=== PATIENT | male | born 1975 | race Caucasian/White ===

== ENCOUNTER 2017-04-26 20:55 | Emergency (ER) | payer SELFPAY ==
[2017-04-26 21:03] VITALS: BP 113/79; PULSE 98; TEMP 97.9; O2SAT 98
--- NOTE | 2017-04-26 21:51 | C.PDOC ---
History Of Present Illness 41 year old male presents to the ED for evaluation of right hand pain which developed after he sustained a fall earlier today. Patient states he tried to break his fall with his right hand and now has pain over the right 5th MCP. Patient reports he sustained a fracture to the same area on his right hand 2 months ago, was seen in [place], "and has not followed up, still looking for a specialist. Otherwise, Patient denies weakness or sensorivascular deficits to his right hand, denies head injury, LOC, headache, denies any other active complaints. Ambulate to ED, (+) alcohol odor noted. Time Seen by Provider: 04/26/17 21:07 Chief Complaint (Nursing): Finger,Hand,&Wrist History Per: Patient History/Exam Limitations: no limitations Onset/Duration Of Symptoms: Hrs Current Symptoms Are (Timing): Still Present Quality: "Pain" Additional History Per: Patient Past Medical History Reviewed: Historical Data, Nursing Documentation, Vital Signs Vital Signs: Last Vital Signs Temp 97.9 F 04/26/17 21:01 Pulse 98 H 04/26/17 21:01 Resp 16 04/26/17 21:01 BP 113/79 04/26/17 21:01 Pulse Ox 98 04/26/17 22:02 - Medical History PMH: No Chronic Diseases Surgical History: No Surg Hx Family History: States: Unknown Family Hx - Social History Hx Alcohol Use: Yes Hx Substance Use: No - Immunization History Hx Tetanus Toxoid Vaccination: Yes Hx Influenza Vaccination: No Hx Pneumococcal Vaccination: No Review Of Systems Musculoskeletal: Positive for: Hand Pain (right) Neurological: Negative for: Weakness, Numbness Physical Exam - Physical Exam Appears: Well, Non-toxic, No Acute Distress Skin: Normal Color, Warm, Dry Head: Atraumatic, Normacephalic Oral Mucosa: Other ((+) strong alcohol odor) Neck: Trachea Midline, No Midline Cervical Tenderness, No Paracervical Tenderness, No Step Off Deformity, Supple Chest: Symmetrical, No Deformity, No Tenderness Back: No Vertebral Tenderness Extremity: Normal ROM (Right hand, no neurovascular deficits), Tenderness (over dorsal asepct Right hand over 5th MCB ), Capillary Refill (less than 2 seconds ) , Deformity (over dorsal aspect of right 5th MCP), No Swelling Neurological/Psych: Oriented x3, Normal Speech, Normal Cognition, Normal Motor, Normal Sensation, Normal Reflexes ED Course And Treatment O2 Sat by Pulse Oximetry: 98 (on RA) Pulse Ox Interpretation: Normal - Other Rad Right hand X-Ray: Interpreted by Me, Viewed By Me Interpretation: (+) 5th MCB fx Progress Note: Right hand XR ordered and reviewed. On re-eavl, pt si AAO#3, not in any apparent distress. Afebrile, hemodynamicaly stable. Ambulatory in ED with stable gait. Head: AT/NC. RUE: exam c/w 5th MCB deformity r/o fracture , no neurovascular deficits, no edema. Imaging review and c/w angulate fx of Right 5th MCB. Fiberglass splint applied, sling. Pt advised and ref. to F/u with hand specialist in 1-2 days for re-eval. return to ED if any worsneing or new changes. Orthopedic Time Performed: 21:44 Time Out: Side verified, Site verified, Patient ID confirmed Procedure: Splint Other:: ULNAR GUTTER Location: Right, Hand Consent obtained: Verbal Performed by: Mid-level Provider Diagnosis: Fracture Type: Displaced, Angulated Location: Right Bone: Metacarpal, 5th Disposition Counseled Patient/Family Regarding: Studies Performed, Diagnosis, Need For Followup, Rx Given - Disposition Referrals: Juanis Dahl MD [Staff Provider] - [facility] [Outside] Disposition: HOME/ ROUTINE Disposition Time: 21:45 Condition: STABLE Additional Instructions: SPLINT UNTIL RE-EVALUATED BY HAND SPECIALIST TAKE PAIN MEDICATION PRESCRIBED FOLLOW UP WITH HAND SPECIALIST IN 1-2 DAYS FOR RE-EVALUATION RETURN TO ED IF ANY WORSENING OR NEW CHANGES. Prescriptions: traMADol [Ultram] 50 mg PO TID #7 tab Instructions: Hand Fracture (ED) Forms: [employer] (Hungarian) - Clinical Impression Clinical Impression: Hand fracture, right - PA / HOSE HANDLER / Resident Statement MD/DO has reviewed & agrees with the documentation as recorded. - Scribe Statement The provider has reviewed the documentation as recorded by the Scribe (Chelsea Barragan) All medical record entries made by the Scribe were at my direction and personally dictated by me. I have reviewed the chart and agree that the record accurately reflects my personal performance of the history, physical exam, medical decision making, and the department course for this patient. I have also personally directed, reviewed, and agree with the discharge instructions and disposition.
[2017-04-26 22:21] VITALS: RESP 20
--- NOTE | 2017-04-27 08:59 | RAD ---
PROCEDURE: Right Hand Radiographs. HISTORY: INJURY COMPARISON: None. FINDINGS: BONES: Distal 5th metacarpal metaphyseal fracture with impaction and posterior angulation deformity. No intra-articular extension. 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 OTHER FINDINGS: None. IMPRESSION: Fifth metacarpal fracture with impaction posterior angulation deformity -acute/subacute appearing
== END 2017-04-26 22:20 | disposition home or self-care (01) ==
LOC: C.ER 20:55
DX: S62.396A Other fracture of fifth metacarpal bone, right hand, initial encounter for closed fracture (principal); W18.30XA Fall on same level, unspecified, initial encounter

== ENCOUNTER 2017-10-14 12:47 | Emergency (ER) | payer OTHER ==
[2017-10-14 13:53] LABS: BASO # 0.1 K/uL (0.0-0.2); EOS % 0.5 % (0.0-4.0); HEMOGLOBIN 15.9 g/dL (12.0-18.0); LYMPH # 2.4 K/uL (1.0-4.3); LYMPH % 44.9 % (20.0-40.0); MEAN CORPUSCULAR HEMOGLOBIN 32.7 pg (27.0-31.0); MEAN CORPUSCULAR HGB CONC 35.1 g/dL (33.0-37.0); MEAN PLATELET VOLUME 7.5 fL (7.2-11.7); MONO # 0.4 K/uL (0.0-0.8); MONO % 8.2 % (0.0-10.0); NEUT # 2.4 K/uL (1.8-7.0); NEUT % 45.4 % (50.0-75.0); NRBC % 0.1 % (0.0-2.0); RBC 4.87 Mil/uL (4.40-5.90); RED CELL DISTRIBUTION WIDTH 13.8 % (11.5-14.5); WHITE BLOOD COUNT 5.4 K/uL (4.8-10.8)
[2017-10-14 13:59] LABS: URINE BILIRUBIN NEGATIVE (NEGATIVE); URINE BLOOD 1+ (NEGATIVE); URINE CLARITY Hazy (Clear); URINE COLOR Amber (YELLOW); URINE GLUCOSE (UA) 3+ mg/dL (Normal); URINE LEUKOCYTE ESTERASE NEG Leu/uL (Negative); URINE PROTEIN 2+ mg/dL (NEGATIVE)
[2017-10-14 14:09] LABS: ALB/GLOB RATIO 1.1 (1.0-2.1); ALBUMIN 4.4 g/dL (3.5-5.0); ALT/SGPT 87 U/L (21-72); AST/SGOT 166 U/L (17-59); BLOOD UREA NITROGEN 8 mg/dL (9-20); CALCIUM 8.6 mg/dl (8.6-10.4); GFR AFRICAN-AMERICAN > 60; GFR NON-AFRICAN AMERICAN > 60
[2017-10-14 14:29] LABS: BARBITURATES, UR NEGATIVE (NEGATIVE); BENZODIAZEPINES, UR NEGATIVE (NEGATIVE); OPIATES, UR NEGATIVE (NEGATIVE); PHENCYCLIDINE, UR NEGATIVE (NEGATIVE)
--- NOTE | 2017-10-14 16:51 | C.PDOC ---
History Of Present Illness 42 y/o male brought to ER by ambulance for psychiatric evaluation after his family called the police secondary to strange behavior. Patient states that he wants to harm himself. Patient denies having homicidal ideation and active physical complaints. Time Seen by Provider: 10/14/17 13:00 Chief Complaint (Nursing): Psychiatric Evaluation History Per: Patient History/Exam Limitations: no limitations Onset/Duration Of Symptoms: Days Current Symptoms Are (Timing): Still Present Severity: Moderate Past Medical History Reviewed: Historical Data, Nursing Documentation, Vital Signs Vital Signs: Last Vital Signs Temp 97.9 F 10/14/17 13:22 Pulse 85 10/14/17 13:22 Resp 16 10/14/17 13:22 BP 119/84 10/14/17 13:22 Pulse Ox 97 10/14/17 17:02 - Medical History PMH: Anxiety, Depression Surgical History: No Surg Hx Family History: States: No Known Family Hx - Social History Hx Alcohol Use: Yes Hx Substance Use: No - Immunization History Hx Tetanus Toxoid Vaccination: Yes Hx Influenza Vaccination: No Hx Pneumococcal Vaccination: No Review Of Systems Except As Marked, All Systems Reviewed And Found Negative. Constitutional: Negative for: Fever, Chills Psych: Positive for: Suicidal ideation Physical Exam - Physical Exam Appears: Non-toxic, No Acute Distress Skin: Normal Color, Warm, Dry Head: Atraumatic, Normacephalic Eye(s): bilateral: Normal Inspection Nose: Normal Oral Mucosa: Moist Neck: Supple Chest: Symmetrical Cardiovascular: Rhythm Regular Respiratory: Normal Breath Sounds, No Rales, No Rhonchi, No Wheezing Gastrointestinal/Abdominal: Normal Exam, Soft, No Tenderness Neurological/Psych: Oriented x3, Normal Speech ED Course And Treatment - Laboratory Results Result Diagrams: 10/14/17 13:49 10/14/17 13:49 O2 Sat by Pulse Oximetry: 97 (RA) Pulse Ox Interpretation: Normal Medical Decision Making Medical Decision Making: Assessment: Suicidal Ideation, ETOH intoxication Plan: --Labs --UA --Crisis Evaluation case s/o to Dr. Hidalgo pending crisis evaluation Patient medically cleared for crisis. Disposition Counseled Patient/Family Regarding: Studies Performed, Diagnosis - Disposition Disposition Time: 18:39 Condition: STABLE Forms: [employer] (Polish) - Clinical Impression Clinical Impression: Alcohol intoxication - Scribe Statement The provider has reviewed the documentation as recorded by the Scribe Summen Vito Provider Attestation: All medical record entries made by the Branden were at my direction and personally dictated by me. I have reviewed the chart and agree that the record accurately reflects my personal performance of the history, physical exam, medical decision making, and the department course for this patient. I have also personally directed, reviewed, and agree with the discharge instructions and disposition. Physician Patient Turnover Patient Signed Over To: Basil Hidalgo Handoff Comments: pending crisis evaluation.
[2017-10-14 23:33] VITALS: BP 110/70; PULSE 87; RESP 14; TEMP 98; O2SAT 97
== END 2017-10-14 23:33 | disposition home or self-care (01) ==
LOC: C.ER 12:47
DX: F10.129 Alcohol abuse with intoxication, unspecified (principal); Y90.8 Blood alcohol level of 240 mg/100 ml or more; F41.9 Anxiety disorder, unspecified; F32.9 Major depressive disorder, single episode, unspecified

== ENCOUNTER 2017-11-07 08:09 | Emergency (ER) | payer SELFPAY ==
--- NOTE | 2017-11-07 10:15 | C.PDOC ---
History Of Present Illness 42-year-old male, presents to the emergency department with complaints of high blood sugar. Patient states his friend thought his sugar was high. States he has been non compliant with DM medication for "months" He has a Hx of EtOH abuse. Denies nausea/vomiting, fever, chills, chest pain or any other associated symptoms. No other complaints at this time. Time Seen by Provider: 11/07/17 08:23 Chief Complaint (Nursing): High Blood Sugar History Per: Patient History/Exam Limitations: no limitations Past Medical History Reviewed: Historical Data, Nursing Documentation, Vital Signs Vital Signs: Last Vital Signs Temp 98.4 F 11/07/17 10:15 Pulse 69 11/07/17 10:15 Resp 15 11/07/17 10:15 BP 101/67 11/07/17 10:15 Pulse Ox 99 11/07/17 10:15 - Medical History PMH: Anxiety, Depression Family History: States: No Known Family Hx - Social History Hx Alcohol Use: Yes Hx Substance Use: No - Immunization History Hx Tetanus Toxoid Vaccination: Yes Hx Influenza Vaccination: No Hx Pneumococcal Vaccination: No Review Of Systems Constitutional: Negative for: Fever, Chills Cardiovascular: Negative for: Chest Pain, Palpitations Respiratory: Negative for: Shortness of Breath Gastrointestinal: Negative for: Nausea, Vomiting, Abdominal Pain Musculoskeletal: Negative for: Back Pain Neurological: Negative for: Weakness, Numbness, Headache Physical Exam - Physical Exam Appears: Non-toxic, No Acute Distress, Other (No acute intoxication. Clear speech. No withdrawal symptoms.) Skin: Normal Color, Warm, Dry, No Rash Head: Atraumatic, Normacephalic Eye(s): bilateral: Normal Inspection, PERRL, EOMI Nose: Normal Oral Mucosa: Moist Lips: Normal Appearing Neck: Normal ROM Chest: Symmetrical Cardiovascular: Rhythm Regular, No Murmur Respiratory: Normal Breath Sounds, No Accessory Muscle Use Gastrointestinal/Abdominal: Soft, No Tenderness Extremity: Normal ROM, No Deformity, No Swelling Neurological/Psych: Oriented x3, Normal Speech Gait: Steady ED Course And Treatment O2 Sat by Pulse Oximetry: 96 (RA) Pulse Ox Interpretation: Normal Disposition Counseled Patient/Family Regarding: Studies Performed, Diagnosis, Need For Followup, Rx Given - Disposition Referrals: [facility] [Outside] [facility] [Outside] Disposition: HOME/ ROUTINE Disposition Time: 10:13 Condition: GOOD Prescriptions: MetFORMIN [glucOPHAGE] 1,000 mg PO BID #30 tab Instructions: Diabetes Type 2 (DC) Forms: [employer] (Romansh) - Clinical Impression Clinical Impression: Uncontrolled diabetes mellitus - Scribe Statement The provider has reviewed the documentation as recorded by the Scribe (Devyn Kramer) All medical record entries made by the Scribe were at my direction and personally dictated by me. I have reviewed the chart and agree that the record accurately reflects my personal performance of the history, physical exam, medical decision making, and the department course for this patient. I have also personally directed, reviewed, and agree with the discharge instructions and disposition.
[2017-11-07 10:16] VITALS: BP 101/67; PULSE 69; RESP 15; TEMP 98.4
[2017-11-07 10:26] VITALS: O2SAT 96
== END 2017-11-07 10:20 | disposition home or self-care (01) ==
LOC: C.ER 08:09
DX: E11.65 Type 2 diabetes mellitus with hyperglycemia (principal)

== ENCOUNTER 2017-11-20 04:46 | Emergency (ER) | payer SELFPAY ==
--- NOTE | 2017-11-20 05:47 | C.PDOC ---
History Of Present Illness 42 year old male presents to the ED c/o posterior neck pain for the past 2 weeks. Patient states his pain is now radiating towards his bilateral upper back and shoulder area. Patient reports pain worsens with heavy lifting, which is what he does during work. Patient has past h/o of chronic neck pain, but denies injury, fall, trauma, headache, dizziness, numbness, weakness. Time Seen by Provider: 11/20/17 05:15 Chief Complaint (Nursing): Back Pain History Per: Patient History/Exam Limitations: no limitations Onset/Duration Of Symptoms: Days Current Symptoms Are (Timing): Still Present Quality Of Discomfort: "Pain" Previous Symptoms: Neck Pain Exacerbating Factor(s): Other (lifting) Recent travel outside of the [place]: No Additional History Per: Patient Past Medical History Reviewed: Historical Data, Nursing Documentation, Vital Signs Vital Signs: Last Vital Signs Temp 97.8 F 11/20/17 04:54 Pulse 84 11/20/17 04:54 Resp 16 11/20/17 04:54 BP 119/79 11/20/17 04:54 Pulse Ox 97 11/20/17 05:51 - Medical History PMH: Anxiety, Depression Surgical History: No Surg Hx Family History: States: Unknown Family Hx - Social History Hx Alcohol Use: Yes Hx Substance Use: No - Immunization History Hx Tetanus Toxoid Vaccination: Yes Hx Influenza Vaccination: No Hx Pneumococcal Vaccination: No Review Of Systems Constitutional: Negative for: Fever, Chills Eyes: Negative for: Vision Change Cardiovascular: Negative for: Chest Pain Respiratory: Negative for: Shortness of Breath Gastrointestinal: Negative for: Nausea, Vomiting Musculoskeletal: Positive for: Neck Pain, Shoulder Pain, Back Pain Skin: Negative for: Rash Neurological: Negative for: Weakness, Numbness Physical Exam - Physical Exam Appears: Non-toxic, No Acute Distress Skin: Normal Color, Warm, Dry Head: Atraumatic, Normacephalic Eye(s): bilateral: Normal Inspection Oral Mucosa: Moist Neck: Normal ROM, No Midline Cervical Tenderness, Paracervical Tenderness, Supple Chest: Symmetrical Cardiovascular: Rhythm Regular Respiratory: Normal Breath Sounds, No Rales, No Rhonchi, No Wheezing Gastrointestinal/Abdominal: Soft, No Tenderness, No Guarding, No Rebound Back: No Vertebral Tenderness Extremity: Normal ROM, No Tenderness, Capillary Refill (< 2 seconds), No Swelling Neurological/Psych: Oriented x3, Normal Speech, Normal Motor, Normal Sensation Gait: Steady ED Course And Treatment O2 Sat by Pulse Oximetry: 97 (ON RA) Pulse Ox Interpretation: Normal Progress Note: Plan: - Flexeril 10 mg PO. - Motrin 600 mg PO. On reassessment , patient is resting comfortably, with improvement of back pain. Patient remains afebrile, with no bony tenderness, extremity numbness or weakness, or abdominal pain. Patient is ambulatory in the emergency department with no signs of discomfort. Patient was advised to follow up with physician/clinic in 1-2 days. Disposition - Disposition Referrals: James Bello MD [Staff Provider] - Disposition: HOME/ ROUTINE Disposition Time: 06:06 Condition: STABLE Additional Instructions: Take meds prescribed Follow up with PMD RETURN TO ER IF WORSE Prescriptions: Cyclobenzaprine [Cyclobenzaprine HCl] 10 mg PO HS #10 tab Ibuprofen [Motrin] 600 mg PO Q6H #20 tab Instructions: Cervical Muscle Strain (DC) Forms: [employer] (Mongolian) - Clinical Impression Clinical Impression: Cervical radiculitis - PA / CAMPAIGN MANAGER / Resident Statement MD/DO has reviewed & agrees with the documentation as recorded. - Scribe Statement The provider has reviewed the documentation as recorded by the Scribe Daniel Carrillo All medical record entries made by the Florecniaibchristel were at my direction and personally dictated by me. I have reviewed the chart and agree that the record accurately reflects my personal performance of the history, physical exam, medical decision making, and the department course for this patient. I have also personally directed, reviewed, and agree with the discharge instructions and disposition.
[2017-11-20 06:24] VITALS: BP 111/70; PULSE 73; RESP 19; TEMP 97.9; O2SAT 98
== END 2017-11-20 06:24 | disposition home or self-care (01) ==
LOC: C.ER 04:46
DX: M54.12 Radiculopathy, cervical region (principal)

== ENCOUNTER 2017-11-26 04:36 | Emergency (ER) | payer SELFPAY ==
[2017-11-26 04:53] VITALS: O2SAT 100
[2017-11-26 05:31] LABS: EOS # 0.2 K/uL (0.0-0.7); EOS % 3.8 % (0.0-4.0); HEMOGLOBIN 14.1 g/dL (12.0-18.0); LYMPH # 2.2 K/uL (1.0-4.3); LYMPH % 53.8 % (20.0-40.0); MEAN CELL VOLUME 97.5 fL (80.0-94.0); MEAN CORPUSCULAR HEMOGLOBIN 32.6 pg (27.0-31.0); MEAN CORPUSCULAR HGB CONC 33.4 g/dL (33.0-37.0); MEAN PLATELET VOLUME 7.8 fL (7.2-11.7); MONO # 0.4 K/uL (0.0-0.8); MONO % 8.6 % (0.0-10.0); NEUT # 1.3 K/uL (1.8-7.0); NEUT % 32.8 % (50.0-75.0); NRBC % 0.2 % (0.0-2.0); RBC 4.32 Mil/uL (4.40-5.90); RED CELL DISTRIBUTION WIDTH 17.5 % (11.5-14.5); WHITE BLOOD COUNT 4.1 K/uL (4.8-10.8)
[2017-11-26 05:47] LABS: ALB/GLOB RATIO 1.2 (1.0-2.1); ALBUMIN 4.2 g/dL (3.5-5.0); ALT/SGPT 74 U/L (21-72); AST/SGOT 137 U/L (17-59); BLOOD UREA NITROGEN 6 mg/dL (9-20); CALCIUM 8.8 mg/dl (8.6-10.4); GFR AFRICAN-AMERICAN > 60; GFR NON-AFRICAN AMERICAN > 60
[2017-11-26 05:54] LABS: URINE BILIRUBIN NEGATIVE (NEGATIVE); URINE BLOOD NEGATIVE (NEGATIVE); URINE CLARITY Clear (Clear); URINE COLOR Straw (YELLOW); URINE GLUCOSE (UA) 3+ mg/dL (Normal); URINE LEUKOCYTE ESTERASE NEG Leu/uL (Negative); URINE PROTEIN NEGATIVE (NEGATIVE); URINE UROBILINOGEN NORMAL mg/dL (0.2-1.0)
[2017-11-26 06:08] LABS: BARBITURATES, UR NEGATIVE (NEGATIVE); BENZODIAZEPINES, UR NEGATIVE (NEGATIVE); OPIATES, UR NEGATIVE (NEGATIVE); PHENCYCLIDINE, UR NEGATIVE (NEGATIVE)
--- NOTE | 2017-11-26 06:33 | C.PDOC ---
History Of Present Illness 42 year old male is brought to the ED by EMS intoxicated for evaluation of suicidal ideation. As per EMS patient called 911 stating that he wanted to harm himself. Patient admits to drinking alcohol today. Patient voices no complaints while in the ED. Patient denies HI, hallucinations. Time Seen by Provider: 11/26/17 05:18 Chief Complaint (Nursing): Psychiatric Evaluation History Per: Patient, EMS History/Exam Limitations: intoxication Onset/Duration Of Symptoms: Days Current Symptoms Are (Timing): Still Present Suicide/Self Injury Attempted (Context): None Modifying Factor(s): Alcohol Associated Symptoms: Depression, Suicidal Thoughts. denies: Suicidal Plan Recent travel outside of the [place]: No Additional History Per: Patient, EMS Past Medical History Reviewed: Historical Data, Nursing Documentation, Vital Signs Vital Signs: Last Vital Signs Temp 99.4 F 11/26/17 06:37 Pulse 65 11/26/17 06:37 Resp 18 11/26/17 06:37 BP 108/73 11/26/17 06:37 Pulse Ox 100 11/26/17 07:02 - Medical History PMH: Anxiety, Depression Surgical History: No Surg Hx Family History: States: Unknown Family Hx - Social History Hx Alcohol Use: Yes Hx Substance Use: No - Immunization History Hx Tetanus Toxoid Vaccination: Yes Hx Influenza Vaccination: No Hx Pneumococcal Vaccination: No Review Of Systems Constitutional: Negative for: Fever, Chills Cardiovascular: Negative for: Chest Pain, Palpitations Respiratory: Negative for: Cough, Shortness of Breath Gastrointestinal: Negative for: Nausea, Vomiting Psych: Positive for: Depression, Suicidal ideation Physical Exam - Physical Exam Appears: Non-toxic, No Acute Distress, Other (AOB) Skin: Normal Color, Warm, Dry Head: Atraumatic, Normacephalic Eye(s): bilateral: Normal Inspection Oral Mucosa: Moist Neck: Normal ROM, Supple Chest: Symmetrical Cardiovascular: Rhythm Regular Respiratory: Normal Breath Sounds, No Rales, No Rhonchi, No Wheezing Gastrointestinal/Abdominal: Soft, No Tenderness, No Guarding, No Rebound Extremity: Normal ROM, No Tenderness, No Swelling Neurological/Psych: Oriented x3, Normal Speech Gait: Steady ED Course And Treatment - Laboratory Results Result Diagrams: 11/26/17 05:27 11/26/17 05:27 O2 Sat by Pulse Oximetry: 100 (ON RA) Pulse Ox Interpretation: Normal Progress Note: Plan: - Labs. - UA. - 1:1 Obs. - crisis evaluation Disposition - Disposition Disposition Time: 07:10 Condition: STABLE Forms: [employer] (Syriac) - Clinical Impression Clinical Impression: Alcohol abuse, Suicidal ideation - PA / HR BUSINESS PARTNER / Resident Statement MD/DO has reviewed & agrees with the documentation as recorded. - Scribe Statement The provider has reviewed the documentation as recorded by the Scribe Daniel Carrillo All medical record entries made by the Scribe were at my direction and personally dictated by me. I have reviewed the chart and agree that the record accurately reflects my personal performance of the history, physical exam, medical decision making, and the department course for this patient. I have also personally directed, reviewed, and agree with the discharge instructions and disposition. Physician Patient Turnover Patient Signed Over To: Jane Bazzi Handoff Comments: pending psych eval
[2017-11-26] MEDS: Sodium Chloride 0.9% 1,000 ML IV STA ×2 (07:10→08:14)
[2017-11-26 13:04] VITALS: BP 136/92; PULSE 60; RESP 18; TEMP 98.1
== END 2017-11-26 14:00 | disposition home or self-care (01) ==
LOC: C.ER 04:36
DX: F10.10 Alcohol abuse, uncomplicated (principal); Y90.8 Blood alcohol level of 240 mg/100 ml or more; R45.851 Suicidal ideations
CPT/HCPCS: 80053; 81001; 82948; 85025; 96360; 99285; G0480; J7040

== ENCOUNTER 2017-12-03 17:20 | Emergency (ER) | payer OTHER ==
[2017-12-03 17:26] VITALS: BMI 29.0
[2017-12-03 17:33] VITALS: BP 115/79; PULSE 99; RESP 18; TEMP 98.5; O2SAT 98
--- NOTE | 2017-12-03 18:17 | C.PDOC ---
History Of Present Illness 42 year old male patient alcoholic presents to the ER with c/o bilateral rib pain for 2 weeks. Pt notes that two weeks ago he fell forward hitting his chin and chest. At the time he was evaluated at medical center, diagnosed with jaw fracture and negative results for his chest. Patient notes he still have pain with certain movements to his chest. Denies fever, sob, difficulty breathing, difficulty swallowing, change in appetite, or n/v. Denies any new injuries. - HPI Time Seen by Provider: 12/03/17 17:36 Chief Complaint (Nursing): Rib Injury History Per: Patient History/Exam Limitations: no limitations Onset/Duration Of Symptoms: Days Location Of Injury: Posterior: Chest (bilateral rib pain) Past Medical History Reviewed: Historical Data, Nursing Documentation, Vital Signs Vital Signs: Last Vital Signs Temp 98.5 F 12/03/17 17:27 Pulse 99 H 12/03/17 17:27 Resp 18 12/03/17 18:25 BP 115/79 12/03/17 17:27 Pulse Ox 98 12/03/17 18:58 - Medical History PMH: Anxiety, Depression, Diabetes (Patient denied) Family History: States: Unknown Family Hx - Social History Hx Alcohol Use: Yes Hx Substance Use: No - Immunization History Hx Tetanus Toxoid Vaccination: Yes Hx Influenza Vaccination: No Hx Pneumococcal Vaccination: No Review Of Systems Except As Marked, All Systems Reviewed And Found Negative. Musculoskeletal: Positive for: Other (bilateral rib pain) Physical Exam - Physical Exam Appears: Well, Non-toxic, No Acute Distress, Unkempt Skin: Normal Color, Warm, Dry Head: Atraumatic, Normacephalic Eye(s): bilateral: Normal Inspection, EOMI Nose: Normal Oral Mucosa: Moist, No Trismus, Other (Able to fully open his mouth , no evidence of pain. ) Teeth: No Tender To Palpation Throat: Normal, No Erythema, No Exudate Neck: Normal ROM, Supple Chest: Symmetrical, Tenderness ((+) digitally reproducible chest wall tenderness ) Cardiovascular: Rhythm Regular Respiratory: Normal Breath Sounds, No Decreased Breath Sounds, No Accessory Muscle Use, Other (speaking in full sentences) Gastrointestinal/Abdominal: Normal Exam, Soft, No Tenderness Extremity: Normal ROM Neurological/Psych: Oriented x3, Normal Speech, No Other (focal deficits) Gait: Steady ED Course And Treatment O2 Sat by Pulse Oximetry: 98 (RA) Pulse Ox Interpretation: Normal - Other Rad CXR X-Ray: Interpreted by Me, Viewed By Me Interpretation: no fx , no pnuemothorax Progress Note: Impression: 42 year old male patient with bilateral rib pain. Plan: -- CXR. Reassess: Patient offered pain medication, he declined. Discussed CXR results with patient. Instructed patient to f/u with PMD or to come back if condition worsen. Case discuss with Dr. Chaves, who evaluated workup and agreed upon plan and treatment. Disposition - Disposition Disposition: HOME/ ROUTINE Disposition Time: 18:16 Condition: STABLE Additional Instructions: Follow up with your doctor in 1-2 days. Return to ER if symptoms persist or worsen. Instructions: Costochondritis (DC) Forms: [employer] (Faroese) - Clinical Impression Clinical Impression: Contusion of chest wall - PA / DEPARTMENT ADMINISTRATOR / Resident Statement MD/DO has reviewed & agrees with the documentation as recorded. - Scribe Statement The provider has reviewed the documentation as recorded by the Branden Guo Do All medical record entries made by the Florenciaibchristel were at my direction and personally dictated by me. I have reviewed the chart and agree that the record accurately reflects my personal performance of the history, physical exam, medical decision making, and the department course for this patient. I have also personally directed, reviewed, and agree with the discharge instructions and disposition.
--- NOTE | 2017-12-04 12:04 | RAD ---
Date of service: 12/03/2017 PROCEDURE: Radiographs of the chest and bilateral ribs HISTORY: trauma COMPARISON: None available. TECHNIQUE: Frontal radiograph of the chest and multiple oblique radiographs of the bilateral ribs were obtained. FINDINGS: RIGHT RIBS: No fracture or focal lesion visualized. LEFT RIBS: No fracture or focal lesion visualized. LUNGS: Clear. PLEURA: No pneumothorax or pleural fluid. CARDIOVASCULAR: Normal sized heart. No pulmonary vascular congestion. OTHER FINDINGS: None. IMPRESSION: Unremarkable radiographs of the chest and bilateral ribs. No rib fracture.
== END 2017-12-03 18:25 | disposition home or self-care (01) ==
LOC: C.ER 17:20
DX: S20.219A Contusion of unspecified front wall of thorax, initial encounter (principal); W19.XXXA Unspecified fall, initial encounter

== ENCOUNTER 2017-12-05 09:09 | Inpatient (IN) | payer OTHER ==
[2017-12-05 09:09] VITALS: BMI 29.0
--- NOTE | 2017-12-05 09:35 | C.PDOC ---
History Of Present Illness 42 y/o male with history of DM and Alcoholism presents to ED requesting ETOH detox, stating "i need to quit". 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 Time Seen by Provider: 12/05/17 09:17 Chief Complaint (Nursing): Substance Abuse History Per: Patient History/Exam Limitations: no limitations Onset/Duration Of Symptoms: Days Current Symptoms Are (Timing): Still Present Suicide/Self Injury Attempted (Context): None Modifying Factor(s): Alcohol Past Medical History Reviewed: Historical Data, Nursing Documentation, Vital Signs Vital Signs: Last Vital Signs Temp 97.7 F 12/05/17 09:13 Pulse 91 H 12/05/17 12:05 Resp 20 12/05/17 12:05 BP 136/97 H 12/05/17 12:05 Pulse Ox 99 12/05/17 14:36 - Medical History PMH: Anxiety, Depression, Diabetes (Patient denied) Surgical History: No Surg Hx Family History: States: No Known Family Hx - Social History Hx Alcohol Use: Yes Hx Substance Use: No - Immunization History Hx Tetanus Toxoid Vaccination: No Hx Influenza Vaccination: No Hx Pneumococcal Vaccination: No Review Of Systems Constitutional: Negative for: Fever, Chills Cardiovascular: Negative for: Chest Pain Respiratory: Negative for: Shortness of Breath Gastrointestinal: Negative for: Nausea, Vomiting Skin: Negative for: Rash Psych: Positive for: Other (ETOH abuse). Negative for: Suicidal ideation, Withdrawal Physical Exam - Physical Exam Appears: Non-toxic, Other (tearful, cooperative, calm) Skin: Warm, Dry, No Rash Head: Atraumatic, Normacephalic Eye(s): bilateral: Normal Inspection Oral Mucosa: Moist Neck: Supple Cardiovascular: Rhythm Regular Respiratory: Normal Breath Sounds, No Rales, No Rhonchi, No Wheezing Gastrointestinal/Abdominal: Soft, No Tenderness, No Guarding, No Rebound Extremity: Normal ROM, No Pedal Edema, Capillary Refill (<2 seconds) Neurological/Psych: Oriented x3, Normal Speech ED Course And Treatment - Laboratory Results Result Diagrams: 12/05/17 09:47 12/05/17 09:47 O2 Sat by Pulse Oximetry: 99 (RA) Pulse Ox Interpretation: Normal Medical Decision Making Medical Decision Making: Patient awake, alert, no tremors, walking without difficulty. Breathelizer 295. Clinically sober, cleared for admission to detox, Breathalizer 251 Disposition Counseled Patient/Family Regarding: Studies Performed, Diagnosis - Disposition Disposition: HOSPITALIZED Disposition Time: 14:34 Condition: STABLE Forms: [facility] (Yoruba) - Clinical Impression Clinical Impression: Alcohol abuse - Scribe Statement The provider has reviewed the documentation as recorded by the Florenciaibchristel Fried All medical record entries made by the Florenciaibe were at my direction and personally dictated by me. I have reviewed the chart and agree that the record accurately reflects my personal performance of the history, physical exam, medical decision making, and the department course for this patient. I have also personally directed, reviewed, and agree with the discharge instructions and disposition. Decision To Admit - Pt Status Changed To: Hospital Disposition Of: Inpatient - Admit Certification Admit to Inpatient:: After my assessment, the patient will require hospitalization for at least two midnights. This is because of the severity of symptoms shown, intensity of services needed, and/or the medical risk in this patient being treated as an outpatient. - InPatient: Physician Admission Certification: I certify that this patient requires 2 or more midnights of care for the following reason:: needs inpatient medical detox - . Bed Request Type: Detox Patient Diagnosis: Alcohol abuse
[2017-12-05 09:51] LABS: BASO # 0.1 K/uL (0.0-0.2); BASO % 1.2 % (0.0-2.0); EOS # 0.2 K/uL (0.0-0.7); EOS % 4.1 % (0.0-4.0); HEMOGLOBIN 15.7 g/dL (12.0-18.0); LYMPH # 2.2 K/uL (1.0-4.3); LYMPH % 40.2 % (20.0-40.0); MEAN CELL VOLUME 97.6 fL (80.0-94.0); MEAN CORPUSCULAR HEMOGLOBIN 32.9 pg (27.0-31.0); MEAN CORPUSCULAR HGB CONC 33.7 g/dL (33.0-37.0); MEAN PLATELET VOLUME 6.6 fL (7.2-11.7); MONO # 0.5 K/uL (0.0-0.8); MONO % 9.8 % (0.0-10.0); NEUT # 2.4 K/uL (1.8-7.0); NEUT % 44.7 % (50.0-75.0); NRBC % 0.1 % (0.0-2.0); RBC 4.77 Mil/uL (4.40-5.90); RED CELL DISTRIBUTION WIDTH 17.1 % (11.5-14.5); WHITE BLOOD COUNT 5.4 K/uL (4.8-10.8)
[2017-12-05 10:02] LABS: URINE BILIRUBIN NEGATIVE (NEGATIVE); URINE BLOOD NEGATIVE (NEGATIVE); URINE CLARITY Clear (Clear); URINE COLOR Straw (YELLOW); URINE GLUCOSE (UA) 3+ mg/dL (Normal); URINE LEUKOCYTE ESTERASE NEG Leu/uL (Negative); URINE PROTEIN NEGATIVE (NEGATIVE); URINE UROBILINOGEN NORMAL mg/dL (0.2-1.0)
[2017-12-05 10:03] LABS: ALB/GLOB RATIO 1.2 (1.0-2.1); ALBUMIN 4.2 g/dL (3.5-5.0); ALT/SGPT 67 U/L (21-72); AST/SGOT 129 U/L (17-59); BLOOD UREA NITROGEN 7 mg/dL (9-20); CALCIUM 8.9 mg/dl (8.6-10.4); GFR AFRICAN-AMERICAN > 60; GFR NON-AFRICAN AMERICAN > 60
[2017-12-05 10:18] LABS: BARBITURATES, UR NEGATIVE (NEGATIVE); BENZODIAZEPINES, UR NEGATIVE (NEGATIVE); OPIATES, UR NEGATIVE (NEGATIVE); PHENCYCLIDINE, UR NEGATIVE (NEGATIVE)
--- NOTE | 2017-12-05 15:01 | PCM.BM ---
Treatment Plan Problems - Problems identified on initial assessmt potential for alcohol withdrawal Date Initiated: 12/05/17 Time Initiated: 15:00 Status: Active Treatment assets and liabiliti Patient Assests: adapts well, ADL independent, cognitively intact Patient Liabilities: substance abuse, medical problems - Milieu Protocol Maintain good personal hygiene: daily Encourage regular showers, daily Remind patient to perform daily oral care, daily Assist patient to perform ADL's Conduct patient checks and document Observation sheet: Q15 minutes Maintain personal safety: every shift Educate patient to report safety concerns to staff, every shift Monitor environment for contraband/sharps Medication safety: Monitor for expected outcome, potential side effects: every shift, Assess barriers to learning: every shift, Assess readiness for medication education: every shift
[2017-12-05 15:17] VITALS: RESP 18
[2017-12-06] MEDS ORDERED: Multiple Vitamins Tab PO SCH (10:00)
[2017-12-06 13:53] VITALS: BP 137/96; PULSE 65; TEMP 97.8; O2SAT 99
--- NOTE | 2017-12-06 15:14 | PCM.PSYCH ---
Initial Psychiatric Evaluation - Initial Psychiatric Evaluation Chief Complaint (in patient's own words): "I want to stop" History of Present Illness and Precipitating Events: Patient is a 42 year old Ukrainian [place] Islander male that lives in [place] with his mother. The patient brought himself to [facility] ED requesting detox from alcohol. The patient states that his drinking became a problem two years ago when he started drinking excessively. He states that he started drinking at the age of 11. The patient reports that he drinks 5 shots a day but can drink an entire liter of alcohol in one day at the most. He states that he brought himself in because he just wants to stop now. The patient has never been to any detox program in the past or rehab. He states that he wants to move to [place] to be with his and three kids after being discharged from here. 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, denies smoking, denies illicit drug use Past Psychiatric History - Past Psychiatric History Previous Treatment History: None Pertinent Medical Hx (Current Medical&Sleep Prob, Allergies): Allergies Allergy/AdvReac Type Severity Reaction Status Date / Time No Known Allergies Allergy Verified 12/05/17 09:34 MetFORMIN [glucOPHAGE] 1,000 mg PO BID #30 tab 11/07/17 Review of Systems - Gastrointestinal Gastrointestinal: UNREMARKABLE - Neurological Neurological: UNREMARKABLE - Psychiatric Psychiatric: Abnormal Sleep Pattern, Depression, Difficulty Concentrating Mental Status Examination - Affect Affect: Broad - Motor Activity Motor Activity: Calm - Reliability in Providing Information Reliability in Providing Information: Fair - Speech Speech: Organized - Mood Mood: Depressed - Formal Thought Process Formal Thought Process: No Impairment - Cognitive Functions Orientation: Person, Place, Situation, Time Sensorium: Alert Judgement: Imparied, as evidence by: Lack of insight into illness - Risk Risk: Seizure, Withdrawal, Diminished functioning DSM 5 DX - DSM 5 DSM 5 Diagnosis: Alcohol use disoder, severe - Recommended/Plan of Treatment Treatment Recommendations and Plan of Treatment: Alcohol use disorder, severe Taper with Librium Gabapentin for augmentation if needed As needed medications All risks, benefits and alternatives of the meds discussed, and the pt agreed and understood. Attend groups and activities Supportive therapy and psychoeducation [place] for abstinence CBT for relapse prevention Refer to outpatient rehab 34 min Projected ELOS: 4 days - Smoking Cessation Smoking Cessation Initiated: No
--- NOTE | 2017-12-06 20:16 | PCM.PYCHDC ---
Mental Status Examination - Mental Status Examination Orientation: Person Discharge Summary - Discharge Note Consultations:: List each consultation separately and include: 1. Reason for request. 2. Findings. 3. Follow-up Summary of Hospital Course include:: 1. Description of specific treatment plan utilized for patients during their course of treatmen. 2. Summarize the time- course for resolution of acute symptoms and/or regressed behaviors. 3. Describe issues identified and worked on during hospitalization. 4. Describe medication utilized. 5. Describe medical problems identified and treated. 6. Reassessment of suicide risk Summary of Hospital Course: Patient is a 42 year old Moroccan Mauritian male that lives in [place] with his mother. The patient brought himself to [facility] ED requesting detox from alcohol. The patient states that his drinking became a problem two years ago when he started drinking excessively. He states that he started drinking at the age of 11. The patient reports that he drinks 5 shots a day but can drink an entire liter of alcohol in one day at the most. He states that he brought himself in because he just wants to stop now. The patient has never been to any detox program in the past or rehab. He states that he wants to move to [place] to be with his and three kids after being discharged from here. 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 Attend groups and activities Supportive therapy and psychoeducation [place] for abstinence CBT for relapse prevention Refer to outpatient rehab 34 min
== END 2017-12-06 13:59 | disposition left against medical advice (07) | DRG 749 ==
LOC: C.ER 09:09 → C.7D 14:35
PROVIDERS: ADMIT Psychiatry & Neurology Psychiatry; ATTEND Psychiatry & Neurology Psychiatry
PROC: HZ2ZZZZ Detoxification Services for Substance Abuse Treatment (ICD-10-PCS; principal; 2017-12-05)
PROC: HZ59ZZZ Individual Psychotherapy for Substance Abuse Treatment, Supportive (ICD-10-PCS; 2017-12-05)
PROC: HZ46ZZZ Group Counseling for Substance Abuse Treatment, Psychoeducation (ICD-10-PCS; 2017-12-05)
DX: F10.20 Alcohol dependence, uncomplicated (principal); Y90.8 Blood alcohol level of 240 mg/100 ml or more; E11.9 Type 2 diabetes mellitus without complications

== ENCOUNTER 2017-12-06 20:30 | Emergency (ER) | payer SELFPAY ==
[2017-12-06 20:31] VITALS: BMI 29.0
[2017-12-06 21:00] VITALS: BP 113/77; PULSE 84; RESP 18; TEMP 98; O2SAT 97
== END 2017-12-06 20:55 | disposition left against medical advice (07) ==
LOC: C.ER 20:30
DX: Z02.89 Encounter for other administrative examinations (principal); F19.10 Other psychoactive substance abuse, uncomplicated

== ENCOUNTER 2017-12-09 21:00 | Emergency (ER) | payer SELFPAY ==
[2017-12-09 21:00] VITALS: BMI 29.0
[2017-12-09 21:09] VITALS: RESP 16; O2SAT 99
--- NOTE | 2017-12-09 21:12 | C.PDOC ---
History Of Present Illness The patient is brought to the ED by police for evaluation after he was found intoxicated prior to arrival. Patient denies suicidal/homicidal ideation and has no physical complaints at this time. Time Seen by Provider: 12/09/17 21:12 Chief Complaint (Nursing): Substance Abuse History Per: Patient History/Exam Limitations: intoxication Onset/Duration Of Symptoms: Hrs Current Symptoms Are (Timing): Still Present Suicide/Self Injury Attempted (Context): None Modifying Factor(s): Alcohol Severity: None Pain Scale Rating Of: 0 Associated Symptoms: denies: Suicidal Thoughts, Suicidal Plan Involuntary Hold By: None Recent travel outside of the [place]: No Additional History Per: Patient Past Medical History Reviewed: Historical Data, Nursing Documentation, Vital Signs Vital Signs: Last Vital Signs Temp 98.2 F 12/09/17 21:05 Pulse 83 12/09/17 21:05 Resp 16 12/09/17 21:05 BP 138/99 H 12/09/17 21:05 Pulse Ox 99 12/09/17 21:53 - Medical History PMH: Anxiety, Depression, Diabetes (Patient denied) Denies: Hepatitis, HIV, HTN, Chronic Kidney Disease, Seizures, Sexually Transmitted Disease Surgical History: No Surg Hx - [facility] Procedures DETOXIFICATION SERVICES FOR SUBSTANCE ABUSE TREATMENT (12/05/17) GROUP TRANSMITTER SUPERVISOR FOR SUBSTANCE ABUSE TREATMENT, PSYCHOEDUCATION (12/05/17) INDIV PSYCHOTHERAPY FOR SUBSTANCE ABUSE TREATMENT, SUPPORT (12/05/17) Family History: States: Unknown Family Hx - Social History Hx Alcohol Use: Yes ("NO LIMIT") Hx Substance Use: No - Immunization History Hx Tetanus Toxoid Vaccination: No Hx Influenza Vaccination: No Hx Pneumococcal Vaccination: No Review Of Systems Constitutional: Negative for: Fever, Chills Cardiovascular: Negative for: Chest Pain Respiratory: Negative for: Cough, Shortness of Breath Gastrointestinal: Negative for: Nausea, Vomiting, Abdominal Pain Skin: Negative for: Rash, Lesions, Jaundice, Bruising Psych: Positive for: Other (EtOH intoxication ). Negative for: Suicidal ideation Physical Exam - Physical Exam Appears: Non-toxic, No Acute Distress Skin: Warm, Dry Head: Normacephalic Eye(s): bilateral: Normal Inspection Oral Mucosa: Moist, Other (alcohol on breath ) Neck: Supple Chest: Symmetrical, No Deformity Cardiovascular: Rhythm Regular Respiratory: No Accessory Muscle Use Extremity: Normal ROM Neurological/Psych: Oriented x3, Normal Speech, Normal Cognition Gait: Steady ED Course And Treatment O2 Sat by Pulse Oximetry: 99 (on RA ) Pulse Ox Interpretation: Normal Progress Note: pt is clinically sober. Was evaluated by the chemical tank worker, and cleared for discharge Reevaluation Time: 21:54 Reassessment Condition: Improved Disposition Counseled Patient/Family Regarding: Studies Performed, Diagnosis, Need For Followup - Disposition Referrals: James Bello MD [Staff Provider] - Disposition: HOME/ ROUTINE Disposition Time: 21:12 Condition: FAIR Instructions: Alcohol Abuse and Alcoholism (DC) Forms: [employer] (Khmer) - Clinical Impression Clinical Impression: Alcohol intoxication, Alcohol abuse - Scribe Statement The provider has reviewed the documentation as recorded by the Scribe (Chelsea Barragan) Provider Attestation: All medical record entries made by the Scribe were at my direction and personally dictated by me. I have reviewed the chart and agree that the record accurately reflects my personal performance of the history, physical exam, medical decision making, and the department course for this patient. I have also personally directed, reviewed, and agree with the discharge instructions and disposition.
[2017-12-09 21:54] VITALS: BP 139/95; PULSE 76; TEMP 98.1
== END 2017-12-09 21:54 | disposition home or self-care (01) ==
LOC: C.ER 21:00
DX: F10.129 Alcohol abuse with intoxication, unspecified (principal)

== ENCOUNTER 2017-12-10 21:22 | Emergency (ER) | payer SELFPAY ==
[2017-12-10 21:23] VITALS: BMI 29.0
[2017-12-10 21:29] VITALS: TEMP 98.4; O2SAT 98
[2017-12-10] MEDS ORDERED: Sodium Chloride 0.9% 1,000 ML IV ONE (21:40)
--- NOTE | 2017-12-10 21:40 | C.PDOC ---
History Of Present Illness 42-year-old male brought to the ER by friend due to alcohol intoxication. Patient has been drinking rum all day. Reports PMHx of diabetes but states he is not on any medications. Otherwise patient denies any fever, chills, nausea, or vomiting. Time Seen by Provider: 12/10/17 21:39 Chief Complaint (Nursing): Substance Abuse History Per: Patient History/Exam Limitations: no limitations Onset/Duration Of Symptoms: Hrs Current Symptoms Are (Timing): Still Present Suicide/Self Injury Attempted (Context): None Modifying Factor(s): Alcohol Associated Symptoms: denies: Suicidal Thoughts, Suicidal Plan Involuntary Hold By: None Additional History Per: Friend Past Medical History Reviewed: Historical Data, Nursing Documentation, Vital Signs Vital Signs: Last Vital Signs Temp 98.4 F 12/10/17 21:25 Pulse 80 12/10/17 21:25 Resp 18 12/10/17 21:25 BP 128/89 12/10/17 21:25 Pulse Ox 98 12/10/17 23:06 - Medical History PMH: Anxiety, Depression, Diabetes (Patient denied) Denies: Hepatitis, HIV, HTN, Chronic Kidney Disease, Seizures, Sexually Transmitted Disease Surgical History: No Surg Hx - [facility] Procedures DETOXIFICATION SERVICES FOR SUBSTANCE ABUSE TREATMENT (12/05/17) GROUP PAPER PLATE MACHINE TENDER FOR SUBSTANCE ABUSE TREATMENT, PSYCHOEDUCATION (12/05/17) INDIV PSYCHOTHERAPY FOR SUBSTANCE ABUSE TREATMENT, SUPPORT (12/05/17) Family History: States: Unknown Family Hx - Social History Hx Alcohol Use: Yes ("NO LIMIT") Hx Substance Use: No - Immunization History Hx Tetanus Toxoid Vaccination: No Hx Influenza Vaccination: No Hx Pneumococcal Vaccination: No Review Of Systems Constitutional: Negative for: Fever, Chills Gastrointestinal: Negative for: Nausea, Vomiting Psych: Positive for: Other (Alcohol Intoxication). Negative for: Suicidal ideation Physical Exam - Physical Exam Appears: Non-toxic, No Acute Distress Skin: Warm, Dry Head: Normacephalic Eye(s): bilateral: Normal Inspection Oral Mucosa: Moist Neck: Trachea Midline, Supple Chest: Symmetrical Cardiovascular: Rhythm Regular Respiratory: No Rales, No Rhonchi, No Wheezing Gastrointestinal/Abdominal: Soft, No Tenderness, No Distention Extremity: Bilateral: Atraumatic, Normal ROM Neurological/Psych: Oriented x3 Gait: Steady ED Course And Treatment - Laboratory Results Result Diagrams: 12/10/17 22:50 12/10/17 22:50 O2 Sat by Pulse Oximetry: 98 (RA) Pulse Ox Interpretation: Normal Progress Note: Blood work and urine sent. Patient given 1 L of IV fluids. Reevaluation Time: 00:32 Reassessment Condition: Improved Disposition Counseled Patient/Family Regarding: Studies Performed, Diagnosis - Disposition Referrals: James Bello MD [Primary Care Provider] - Disposition: HOME/ ROUTINE Disposition Time: 21:40 Condition: FAIR Instructions: Alcohol Abuse and Alcoholism (DC), Hyperglycemia, Adult (DC) Forms: [employer] (Amharic) - Clinical Impression Clinical Impression: Alcohol intoxication, Hyperglycemia - Scribe Statement The provider has reviewed the documentation as recorded by the Scribe (Lizzeth Leavitt) Provider Attestation: All medical record entries made by the Scribe were at my direction and personally dictated by me. I have reviewed the chart and agree that the record accurately reflects my personal performance of the history, physical exam, medical decision making, and the department course for this patient. I have also personally directed, reviewed, and agree with the discharge instructions and disposition.
[2017-12-10 22:53] LABS: BASO % 0.8 % (0.0-2.0); EOS # 0.1 K/uL (0.0-0.7); EOS % 2.4 % (0.0-4.0); LYMPH # 2.1 K/uL (1.0-4.3); LYMPH % 40.2 % (20.0-40.0); MEAN CELL VOLUME 96.7 fL (80.0-94.0); MEAN CORPUSCULAR HEMOGLOBIN 33.4 pg (27.0-31.0); MEAN CORPUSCULAR HGB CONC 34.5 g/dL (33.0-37.0); MEAN PLATELET VOLUME 7.3 fL (7.2-11.7); MONO # 0.4 K/uL (0.0-0.8); MONO % 6.8 % (0.0-10.0); NEUT # 2.7 K/uL (1.8-7.0); NEUT % 49.8 % (50.0-75.0); NRBC % 0.2 % (0.0-2.0); RBC 4.8 Mil/uL (4.40-5.90); WHITE BLOOD COUNT 5.3 K/uL (4.8-10.8)
[2017-12-10 22:55] LABS: URINE BILIRUBIN NEGATIVE (NEGATIVE); URINE BLOOD NEGATIVE (NEGATIVE); URINE CLARITY Clear (Clear); URINE COLOR Colorless (YELLOW); URINE GLUCOSE (UA) 3+ mg/dL (Normal); URINE LEUKOCYTE ESTERASE NEG Leu/uL (Negative); URINE PROTEIN NEGATIVE (NEGATIVE); URINE UROBILINOGEN NORMAL mg/dL (0.2-1.0)
[2017-12-10 23:09] LABS: ALB/GLOB RATIO 1.2 (1.0-2.1); ALBUMIN 4.5 g/dL (3.5-5.0); ALT/SGPT 60 U/L (21-72); AST/SGOT 93 U/L (17-59); BLOOD UREA NITROGEN 9 mg/dL (9-20); CALCIUM 9.1 mg/dl (8.6-10.4); GFR AFRICAN-AMERICAN > 60; GFR NON-AFRICAN AMERICAN > 60; LIPASE 311 U/L (23-300)
[2017-12-11 00:50] VITALS: BP 130/80; PULSE 84; RESP 16
== END 2017-12-11 00:49 | disposition home or self-care (01) ==
LOC: SUPCPDRO 21:22 → C.ER 21:22
DX: F10.129 Alcohol abuse with intoxication, unspecified (principal); Y90.8 Blood alcohol level of 240 mg/100 ml or more; E11.65 Type 2 diabetes mellitus with hyperglycemia
CPT/HCPCS: 80053; 81001; 82009; 82948; 83690; 85025; 96360; 99283; G0480; J7030

== ENCOUNTER 2017-12-16 01:07 | Emergency (ER) | payer SELFPAY ==
[2017-12-16 01:07] VITALS: BMI 29.0
--- NOTE | 2017-12-16 01:17 | C.PDOC ---
History Of Present Illness Patient brought in via EMS after being found intoxicated in public. Denies physical complaints at this time. Time Seen by Provider: 12/16/17 01:16 Chief Complaint (Nursing): Substance Abuse History Per: Patient History/Exam Limitations: no limitations Onset/Duration Of Symptoms: Hrs Current Symptoms Are (Timing): Still Present Suicide/Self Injury Attempted (Context): None Modifying Factor(s): Alcohol Severity: None Pain Scale Rating Of: 0 Associated Symptoms: denies: Depression, Suicidal Thoughts Involuntary Hold By: None Recent travel outside of the [place]: No Past Medical History Reviewed: Historical Data, Nursing Documentation, Vital Signs Vital Signs: Last Vital Signs Temp 98.1 F 12/16/17 01:17 Pulse 83 12/16/17 01:17 Resp 20 12/16/17 01:17 BP 131/90 12/16/17 01:17 Pulse Ox 100 12/16/17 01:17 - Medical History PMH: Anxiety, Depression, Diabetes (Patient denied) Denies: Hepatitis, HIV, HTN, Chronic Kidney Disease, Seizures, Sexually Transmitted Disease - [facility] Procedures DETOXIFICATION SERVICES FOR SUBSTANCE ABUSE TREATMENT (12/05/17) GROUP COCONUT BOILER FOR SUBSTANCE ABUSE TREATMENT, PSYCHOEDUCATION (12/05/17) INDIV PSYCHOTHERAPY FOR SUBSTANCE ABUSE TREATMENT, SUPPORT (12/05/17) Family History: States: Unknown Family Hx - Social History Hx Alcohol Use: Yes ("NO LIMIT") Hx Substance Use: No - Immunization History Hx Tetanus Toxoid Vaccination: No Hx Influenza Vaccination: No Hx Pneumococcal Vaccination: No Review Of Systems Constitutional: Negative for: Fever, Chills Cardiovascular: Negative for: Chest Pain, Palpitations Respiratory: Negative for: Cough, Shortness of Breath Gastrointestinal: Negative for: Nausea, Vomiting Neurological: Negative for: Weakness, Numbness Physical Exam - Physical Exam Appears: Non-toxic, Other (ETOH on breath, no sign of injury) Skin: Warm, Dry Head: Normacephalic Oral Mucosa: Moist Chest: Symmetrical, No Tenderness Cardiovascular: Rhythm Regular Respiratory: No Rales, No Rhonchi, No Wheezing Gastrointestinal/Abdominal: Soft, No Tenderness Neurological/Psych: Oriented x3 ED Course And Treatment O2 Sat by Pulse Oximetry: 100 Pulse Ox Interpretation: Normal Progress Note: went to re-examine the pt , but pt had eloped Disposition Counseled Patient/Family Regarding: Studies Performed, Diagnosis, Need For Followup - Disposition Referrals: [facility] [Outside] Disposition: ELOPEMENT - ER ONLY Disposition Time: 01:17 Condition: FAIR Instructions: Alcohol Abuse and Alcoholism (DC) Forms: [facility] (Lithuanian) - Clinical Impression Clinical Impression: Alcohol abuse, Alcohol intoxication - Scribe Statement The provider has reviewed the documentation as recorded by the Scribe Satish Montoya All medical record entries made by the Scribe were at my direction and personally dictated by me. I have reviewed the chart and agree that the record accurately reflects my personal performance of the history, physical exam, medical decision making, and the department course for this patient. I have also personally directed, reviewed, and agree with the discharge instructions and disposition.
[2017-12-16 01:23] VITALS: BP 131/90; PULSE 83; RESP 20; TEMP 98.1; O2SAT 100
== END 2017-12-16 02:07 | disposition left against medical advice (07) ==
LOC: C.ER 01:07
DX: F10.129 Alcohol abuse with intoxication, unspecified (principal); Y90.9 Presence of alcohol in blood, level not specified

== ENCOUNTER 2017-12-19 01:42 | Emergency (ER) | payer SELFPAY ==
[2017-12-19 01:42] VITALS: BMI 29.0
[2017-12-19 01:59] VITALS: RESP 20; O2SAT 98
--- NOTE | 2017-12-19 02:59 | C.PDOC ---
History Of Present Illness 42 y/o male brought in by EMS after being found intoxicated in public. Denies any other medical complaints. Time Seen by Provider: 12/19/17 02:08 Chief Complaint (Nursing): Substance Abuse History Per: Patient History/Exam Limitations: no limitations Onset/Duration Of Symptoms: Hrs Current Symptoms Are (Timing): Still Present Modifying Factor(s): Alcohol Involuntary Hold By: None Recent travel outside of the [place]: No Past Medical History Reviewed: Historical Data, Nursing Documentation, Vital Signs Vital Signs: Last Vital Signs Temp 98.1 F 12/19/17 01:55 Pulse 71 12/19/17 01:55 Resp 20 12/19/17 01:55 BP 116/79 12/19/17 01:55 Pulse Ox 98 12/19/17 03:07 - Medical History PMH: Anxiety, Depression, Diabetes (Patient denied) Denies: Hepatitis, HIV, HTN, Chronic Kidney Disease, Seizures, Sexually Transmitted Disease Surgical History: No Surg Hx - [facility] Procedures DETOXIFICATION SERVICES FOR SUBSTANCE ABUSE TREATMENT (12/05/17) GROUP BURNER HAND FOR SUBSTANCE ABUSE TREATMENT, PSYCHOEDUCATION (12/05/17) INDIV PSYCHOTHERAPY FOR SUBSTANCE ABUSE TREATMENT, SUPPORT (12/05/17) Family History: States: No Known Family Hx - Social History Hx Alcohol Use: Yes ("NO LIMIT") Hx Substance Use: No - Immunization History Hx Tetanus Toxoid Vaccination: No Hx Influenza Vaccination: No Hx Pneumococcal Vaccination: No Review Of Systems Constitutional: Negative for: Fever, Chills Cardiovascular: Negative for: Chest Pain, Palpitations Respiratory: Negative for: Shortness of Breath Gastrointestinal: Negative for: Nausea, Vomiting Physical Exam - Physical Exam Appears: Non-toxic, Other (ETOH on breath, no sign of injury) Skin: Normal Color, Warm, Dry Head: Atraumatic, Normacephalic Eye(s): bilateral: Normal Inspection Neck: Supple Chest: Symmetrical Cardiovascular: Rhythm Regular Respiratory: Normal Breath Sounds, No Rales, No Rhonchi, No Wheezing Neurological/Psych: Oriented x3, Normal Speech Gait: Unable To Assess ED Course And Treatment O2 Sat by Pulse Oximetry: 98 (RA) Pulse Ox Interpretation: Normal Progress Note: Patient presents intoxicated, will discharge when sober. On reevaluation, patient is ambulatory in the ER with a steady gait, vitals are stable, will discharge home. Disposition Counseled Patient/Family Regarding: Diagnosis, Need For Followup - Disposition Disposition: HOME/ ROUTINE Disposition Time: 05:57 Condition: STABLE Instructions: Alcohol Use - When Is Drinking a Problem? Forms: [facility] (Zambian) - Clinical Impression Clinical Impression: Alcohol intoxication - PA / SHOE FITTER / Resident Statement MD/DO has reviewed & agrees with the documentation as recorded. - Scribe Statement The provider has reviewed the documentation as recorded by the Scribe Orville Ulloa All medical record entries made by the Florenciaibchristel were at my direction and personally dictated by me. I have reviewed the chart and agree that the record accurately reflects my personal performance of the history, physical exam, medical decision making, and the department course for this patient. I have also personally directed, reviewed, and agree with the discharge instructions and disposition.
[2017-12-19 06:53] VITALS: BP 140/81; PULSE 88; TEMP 98
== END 2017-12-19 05:30 | disposition home or self-care (01) ==
LOC: C.ER 01:42
DX: F10.129 Alcohol abuse with intoxication, unspecified (principal); Y90.9 Presence of alcohol in blood, level not specified

== ENCOUNTER 2017-12-29 22:39 | Emergency (ER) | payer SELFPAY ==
[2017-12-29 22:40] VITALS: BMI 29.0
[2017-12-29 22:56] VITALS: RESP 20
--- NOTE | 2017-12-30 00:03 | C.PDOC ---
History Of Present Illness 42 year old male presents to the emergency department stating that he is drunk. He denies suicidal or homicidal ideation. Time Seen by Provider: 12/30/17 00:01 Chief Complaint (Nursing): Substance Abuse History Per: Patient History/Exam Limitations: no limitations Onset/Duration Of Symptoms: Hrs Current Symptoms Are (Timing): Still Present Suicide/Self Injury Attempted (Context): None Modifying Factor(s): Alcohol Associated Symptoms: denies: Suicidal Thoughts Past Medical History Reviewed: Historical Data, Nursing Documentation, Vital Signs Vital Signs: Last Vital Signs Temp 98.7 F 12/29/17 22:54 Pulse 94 H 12/29/17 22:54 Resp 20 12/29/17 22:54 BP 121/83 12/29/17 22:54 Pulse Ox 95 12/30/17 00:11 - Medical History PMH: Anxiety, Depression, Diabetes (Patient denied) Denies: Hepatitis, HIV, HTN, Chronic Kidney Disease, Seizures, Sexually Transmitted Disease Surgical History: No Surg Hx - [facility] DETOXIFICATION SERVICES FOR SUBSTANCE ABUSE TREATMENT (12/05/17) GROUP GREENSMAN FOR SUBSTANCE ABUSE TREATMENT, PSYCHOEDUCATION (12/05/17) INDIV PSYCHOTHERAPY FOR SUBSTANCE ABUSE TREATMENT, SUPPORT (12/05/17) Family History: States: No Known Family Hx - Social History Hx Alcohol Use: Yes ("NO LIMIT") Hx Substance Use: No - Immunization History Hx Tetanus Toxoid Vaccination: No Hx Influenza Vaccination: No Hx Pneumococcal Vaccination: No Review Of Systems Review Of Systems: ROS cannot be obtained secondary to pt's inabilty to answer questions. Psych: Negative for: Suicidal ideation Physical Exam - Physical Exam Appears: Non-toxic, No Acute Distress, Other (intoxicated) Skin: Warm, Dry Head: Normacephalic Eye(s): bilateral: Normal Inspection Oral Mucosa: Moist, Other (alcohol on breath) Neck: Trachea Midline, Supple Chest: Symmetrical, No Tenderness Cardiovascular: Rhythm Regular, No Murmur Respiratory: No Rales, No Rhonchi, No Wheezing Extremity: Bilateral: Normal Color And Temperature Pulses: Left Dorsalis Pedis: Normal, Right Dorsalis Pedis: Normal ED Course And Treatment O2 Sat by Pulse Oximetry: 95 (RA) Pulse Ox Interpretation: Normal Reevaluation Time: 02:46 Reassessment Condition: Improved Disposition Counseled Patient/Family Regarding: Studies Performed, Diagnosis, Need For Followup - Disposition Referrals: [facility] [Outside] Disposition: HOME/ ROUTINE Disposition Time: 00:01 Condition: FAIR Instructions: Alcohol Abuse and Alcoholism (DC) Forms: [facility] (Korean) - Clinical Impression Clinical Impression: Alcohol intoxication, Alcohol abuse - Scribe Statement The provider has reviewed the documentation as recorded by the Scribe (Reinier Odonnell) Provider Attestation: All medical record entries made by the Scribe were at my direction and personally dictated by me. I have reviewed the chart and agree that the record accurately reflects my personal performance of the history, physical exam, medical decision making, and the department course for this patient. I have also personally directed, reviewed, and agree with the discharge instructions and disposition.
[2017-12-30 05:51] VITALS: BP 132/72; PULSE 88; TEMP 98.1; O2SAT 97
== END 2017-12-30 03:15 | disposition home or self-care (01) ==
LOC: C.ER 22:39
DX: F10.129 Alcohol abuse with intoxication, unspecified (principal)

== ENCOUNTER 2018-01-16 20:07 | Inpatient (IN) | payer MEDICAID ==
[2018-01-16 20:10] VITALS: BMI 29.0
[2018-01-16] MEDS ORDERED: Sodium Chloride 0.9% 1,000 ML IV ONE (20:29)
[2018-01-16 20:45] LABS: BASO % 0.9 % (0.0-2.0); EOS # 0.1 K/uL (0.0-0.7); EOS % 3.4 % (0.0-4.0); LYMPH # 1.9 K/uL (1.0-4.3); LYMPH % 46.3 % (20.0-40.0); MEAN CELL VOLUME 98.4 fL (80.0-94.0); MEAN CORPUSCULAR HEMOGLOBIN 32.9 pg (27.0-31.0); MEAN CORPUSCULAR HGB CONC 33.5 g/dL (33.0-37.0); MEAN PLATELET VOLUME 6.7 fL (7.2-11.7); MONO # 0.6 K/uL (0.0-0.8); MONO % 14.4 % (0.0-10.0); NEUT # 1.5 K/uL (1.8-7.0); NRBC % 0.1 % (0.0-2.0); RBC 3.85 Mil/uL (4.40-5.90); RED CELL DISTRIBUTION WIDTH 14.9 % (11.5-14.5); WHITE BLOOD COUNT 4.2 K/uL (4.8-10.8)
[2018-01-16 20:48] LABS: HEMOGLOBIN 12.7 g/dL (12.0-18.0)
[2018-01-16 20:58] LABS: BLOOD UREA NITROGEN 6 mg/dL (9-20); GFR NON-AFRICAN AMERICAN > 60
[2018-01-16 20:59] LABS: ALB/GLOB RATIO 1.3 (1.0-2.1); ALBUMIN 3.9 g/dL (3.5-5.0); ALT/SGPT 107 U/L (21-72); AST/SGOT 264 U/L (17-59); CALCIUM 8.7 mg/dl (8.6-10.4)
[2018-01-16] MEDS ORDERED: Sodium Chloride 0.9% 1,000 ML ONE (21:04)
[2018-01-16] MEDS ORDERED: Sodium Chloride 0.9% 2,000 ML IV ONE (21:05)
--- NOTE | 2018-01-16 21:08 | C.PDOC ---
History Of Present Illness 42 y/o male with PMHx of alcohol abuse, brought in by family due to intoxication. Family reports concern that patient is trying to kill himself by drinking too much. History unobtainable from patient due to intoxication. Time Seen by Provider: 01/16/18 20:15 Chief Complaint (Nursing): Substance Abuse History Per: Patient History/Exam Limitations: intoxication Onset/Duration Of Symptoms: Hrs Current Symptoms Are (Timing): Still Present Modifying Factor(s): Alcohol Involuntary Hold By: None Additional History Per: Family Past Medical History Reviewed: Historical Data, Nursing Documentation, Vital Signs Vital Signs: Last Vital Signs Temp 98.3 F 01/16/18 20:29 Pulse 87 01/17/18 00:02 Resp 20 01/17/18 00:02 BP 141/85 01/17/18 00:02 Pulse Ox 97 01/17/18 00:02 - Medical History PMH: Anxiety, Depression, Diabetes (Patient denied), Seizures Denies: Hepatitis, HIV, HTN, Chronic Kidney Disease, Sexually Transmitted Disease Other PMH: Alcohol Abuse - [facility] Procedures DETOXIFICATION SERVICES FOR SUBSTANCE ABUSE TREATMENT (12/05/17) GROUP FLY FINISHER FOR SUBSTANCE ABUSE TREATMENT, PSYCHOEDUCATION (12/05/17) INDIV PSYCHOTHERAPY FOR SUBSTANCE ABUSE TREATMENT, SUPPORT (12/05/17) Family History: States: No Known Family Hx - Social History Hx Alcohol Use: Yes ("NO LIMIT") Hx Substance Use: No - Immunization History Hx Tetanus Toxoid Vaccination: No Hx Influenza Vaccination: No Hx Pneumococcal Vaccination: No Review Of Systems Review Of Systems: ROS cannot be obtained secondary to pt's inabilty to answer questions. Physical Exam - Physical Exam Appears: Non-toxic, No Acute Distress, Other (Smells of alcohol) Skin: Normal Color, Warm, Dry Head: Atraumatic, Normacephalic Eye(s): bilateral: Normal Inspection, EOMI Neck: Normal ROM, Supple Chest: Symmetrical Cardiovascular: Rhythm Regular, No Murmur Respiratory: Normal Breath Sounds, No Rales, No Rhonchi, No Wheezing Gastrointestinal/Abdominal: Soft, No Tenderness, No Distention Extremity: Bilateral: Atraumatic, Normal Color And Temperature, Normal ROM ( Moving extremities spontaneously x4) Pulses: Left Dorsalis Pedis: Normal, Right Dorsalis Pedis: Normal Neurological/Psych: Other (Slurred speech) ED Course And Treatment - Laboratory Results Result Diagrams: 01/16/18 20:41 01/16/18 20:41 O2 Sat by Pulse Oximetry: 94 (room air) Pulse Ox Interpretation: Abnormal Medical Decision Making Medical Decision Making: Initial Plan: --EKG --CMP --Alcohol serum --Acetaminophen --Dilantin --CPK --Urine drug screen --Magnesium --Phosphorous --Salicylate --Valproic acid --CBC --Levetiracetam --Urinalysis --Chest X-Ray --IV fluids --Placed on 1:1 as per suicide precautions --Patient will be evaluated by crisis 11:22PM EKG shows NSR at 72bpm with normal intervals and no st changes. Labs show elevated lfts consistent with known alcohol abuse. Elevated glucose consistent with known diabetes. CK elevated but normal creatinine. 2L IVF given. Alcohol level evaluated. No other co-ingestions. Cxray negative. CT head negative. Pending sobriety and reevaluation by psych. On 1:1 monitoring for safety 12:35PM On reevaluation patient admits to suicidal ideation. bunk house worker aware and will reevaluate. Resting comfortably. Signed out to to reevaluate. Disposition - Disposition Disposition Time: 01:00 Condition: FAIR Forms: [facility] (Greek) - Clinical Impression Clinical Impression: Alcohol abuse, Elevated CK, Hyperglycemia - Scribe Statement The provider has reviewed the documentation as recorded by the Scribe (Lizzeth Leavitt) Provider Attestation: All medical record entries made by the Scribe were at my direction and personally dictated by me. I have reviewed the chart and agree that the record accurately reflects my personal performance of the history, physical exam, medical decision making, and the department course for this patient. I have also personally directed, reviewed, and agree with the discharge instructions and disposition.
[2018-01-16 21:09] LABS: ACETAMINOPHEN < 10.0 ug/mL (10.0-30.0); DILANTIN (PHENYTOIN) < 3.0 ug/mL (10-20); SALICYLATE < 1.0 mg/dL 1
[2018-01-16 21:11] LABS: VALPROIC ACID < 10.0 ug/mL (50.0-100.0)
[2018-01-16 22:12] LABS: URINE BILIRUBIN NEGATIVE (NEGATIVE); URINE BLOOD NEGATIVE (NEGATIVE); URINE CLARITY Clear (Clear); URINE COLOR Straw (YELLOW); URINE GLUCOSE (UA) 3+ mg/dL (Normal); URINE LEUKOCYTE ESTERASE NEG Leu/uL (Negative); URINE PROTEIN NEGATIVE (NEGATIVE); URINE UROBILINOGEN NORMAL mg/dL (0.2-1.0)
[2018-01-16 22:28] LABS: BARBITURATES, UR NEGATIVE (NEGATIVE); BENZODIAZEPINES, UR NEGATIVE (NEGATIVE); OPIATES, UR NEGATIVE (NEGATIVE); PHENCYCLIDINE, UR NEGATIVE (NEGATIVE)
[2018-01-16] MEDS ORDERED: Potassium Chloride 20 mEq ER Tab PO STA (23:08)
--- NOTE | 2018-01-17 06:31 | PCM.BM ---
<Corwin Miles - Last Filed: 01/17/18 06:28> Treatment Plan Problems - Problems identified on initial assessmt DEPRESSION Date Initiated: 01/17/18 Time Initiated: 06:25 Assessment reference: NA Status: Active ALCOHOL ABUSE Date Initiated: 01/17/18 Time Initiated: 06:25 Assessment reference: NA Status: Active Treatment assets and liabiliti Patient Assests: adapts well, cooperative, self-reliant, ADL independent, good support system, negotiates basic needs, cognitively intact Patient Liabilities: financial problems, relationship conflicts, dietary restrictions, substance abuse, medical problems - Milieu Protocol Maintain good personal hygiene: daily Encourage regular showers, daily Remind patient to perform daily oral care, daily Assist patient to perform ADL's Maintain personal safety: every shift Educate patient to report safety concerns to staff, every shift Monitor environment for contraband/sharps Medication safety: Monitor for expected outcome, potential side effects: every shift, Assess barriers to learning: every shift, Assess readiness for medication education: every shift <Angelique Colon - Last Filed: 01/17/18 12:25> Family Contact Family involvement: Patient does not wish Family/SO involvement Family contact: Patient declines to allow family contact at present - Goals for Treatment Patient goals for treatment: "I want to go home." Discharge/Continuing Care - Education Needs Education Needs: Patient Medication, Patient Diagnosis/Disease Process, Patient Coping Skills, Patient Placement options, Patient Community resources - Discharge Discharge Criteria: Normal sleep pattern, Ability to care for self, No longer exhibiting s/s of withdrawal, Reduction of target symptoms Discharge to:: Home - Treatment Team Participation Discussed with Family/SO: No Was Patient/Family/SO present at Treatment Team Meeting: Yes
--- NOTE | 2018-01-17 07:02 | CT ---
Date of service: 01/16/2018 PROCEDURE: CT HEAD WITHOUT CONTRAST. HISTORY: head injury COMPARISON: None available. TECHNIQUE: Axial computed tomography images were obtained through the head/brain without intravenous contrast. Radiation dose: Total exam DLP = 1016 mGy-cm. This CT exam was performed using one or more of the following dose reduction techniques: Automated exposure control, adjustment of the mA and/or kV according to patient size, and/or use of iterative reconstruction technique. FINDINGS: HEMORRHAGE: No intracranial hemorrhage. BRAIN: No mass effect or edema. No atrophy or chronic microvascular ischemic changes. VENTRICLES: Unremarkable. No hydrocephalus. CALVARIUM: Unremarkable. PARANASAL SINUSES: Diffuse mucoperiosteal thickening in the maxillary, ethmoid, and frontal sinuses consistent with chronic sinusitis. MASTOID AIR CELLS: Unremarkable as visualized. No inflammatory changes. OTHER FINDINGS: None. IMPRESSION: No acute intracranial abnormality. Sinus mucosal disease as above. If symptoms persists, consider correlation with MRI. These findings were preliminarily reported at 11:07 p.m. on 01/16/[address] Rebecca Grace from [facility].
--- NOTE | 2018-01-17 08:34 | RAD ---
Date of service: 01/16/2018 PROCEDURE: CHEST RADIOGRAPH, 1 VIEW HISTORY: Detox/Psy COMPARISON: None available. FINDINGS: LUNGS: The lungs are well inflated and clear. PLEURA: No pneumothorax or pleural fluid seen. CARDIOVASCULAR: Normal. OSSEOUS STRUCTURES: No significant abnormalities. VISUALIZED UPPER ABDOMEN: Normal. OTHER FINDINGS: None. IMPRESSION: No active pulmonary disease.
--- NOTE | 2018-01-17 11:07 | PCM.PSYCH ---
Initial Psychiatric Evaluation - Initial Psychiatric Evaluation Type of Admission: Voluntary Legal Status: Capacity Chief Complaint (in patient's own words): I dont remember.' History of Present Illness and Precipitating Events: Patient is a 42 year old [place]ian male who is from his with three children. Pt is currently living at home with his mom and works at a grocery store Pt was brought into the ER by his mom on 01/16/2018 due to being intoxicated and wanting to kill himself. pt does not remember being brought into the hospital. pt has been having trouble with his and kids due to drinking. As a result, pt has symptoms of depression and states "I am not enjoying anything" and feels "totally lost" for the past 4-5 months. pt drinks "up to 10 shots of Bacardi per day" and has been drinking for the past 20 years. pt has a hx of being hospitalized for alcohol abuse 2 months ago but discharged himself in 48hrs. pt has a hx of suicidal ideation, states "3-4 months ago I had thoughts of wanting to jump off a bridge " but did not follow through. pt does not have any thoughts of wanting to hurt himself or others currently. Admits to depressed mood, anhedonia, sleeping too much (10-20 hours per day), feeling worthless. denies auditory or visual hallucinations, homicidal ideation, thoughts of grandiosity, flight of ideas, palpitations or shortness of breath. pt has a hx of alcohol related seizure on and was admitted to [facility] for 3-4 days (first and only episode) PMHx: DM2, seizure disorder Family hx: Father has hx of alcohol abuse disorder and DM. at 64 from kidney damage Social: pt drinks 10-20 shots of liquor per day. denies illicit drug use. lives at home with his mom and currently employed. Legal hx - DWI 9 years ago. Past Psychiatric History - Past Psychiatric History Previous Treatment History: Inpatient Pertinent Medical Hx (Current Medical&Sleep Prob, Allergies): Allergies Allergy/AdvReac Type Severity Reaction Status Date / Time No Known Allergies Allergy Verified 01/16/18 20:18 Levetiracetam [Keppra] 250 mg PO 01/16/18 metFORMIN [glucOPHAGE] 500 mg PO 01/16/18 Review of Systems - Review of Systems All systems: reviewed and no additional remarkable complaints except - Psychiatric Psychiatric: Abnormal Sleep Pattern, Anhedonia, Anxiety, Depression, Difficulty Concentrating, Hopelessness, Suicidal Ideation. absent: Auditory Hallucinations , Change in Libido, Confusion, Hallucinations, Homicidal Ideation, Panic Attacks , Paranoia, Visual Hallucinations Mental Status Examination - Personal Presentation Personal Presentation: Looks stated age - Affect Affect: Constricted, Depressed - Motor Activity Motor Activity: Psychomotor Retardation - Reliability in Providing Information Reliability in Providing Information: Poor, due to alteration in thoughts, Poor , due to altered mood - Speech Speech: Disorganized - Mood Mood: Depressed, Anxious - Formal Thought Process Formal Thought Process: No Impairment - Obsessions/Compulsions Obsessions: No Compulsions: No - Cognitive Functions Orientation: Person, Place, Situation, Time Sensorium: Alert Attention/Concentration: Attentive Abstract Thinking: [place] Estimate of Intelligence: Below average Judgement: Imparied, as evidence by: Poor judgement, Imparied, as evidence by: Lack of insight into illness - Risk Risk: Suicidal, Withdrawal, Diminished functioning - Strength & Assets Inventory Strength & Assets Inventory: Family support DSM 5 DX - DSM 5 DSM 5 Diagnosis: Major depressive disorder recurrent severe without psychotic features Alcohol use disorder severe Alcohol withdrawal - Recommended/Plan of Treatment Treatment Recommendations and Plan of Treatment: CBT Psychoeducation Supportive therapy, group therapy Remeron 15 mg by mouth daily Trazodone 50 mg by mouth daily at bedtime Neurontin 300 mg PO TID Hydroxyzine for anxiety Ativan taper MVI/Thiamine/Folic Acid DM2 Recommend home medication for Diabetes
[2018-01-17] MEDS: Multiple Vitamins Tab PO SCH (11:53)
--- NOTE | 2018-01-17 23:56 | CARD ---
APPROVED REPORT Date of service: 01/16/2018 EKG Measurement Heart [id number] <Conclusion> Normal sinus rhythm Normal ECG
[2018-01-18] MEDS: Multiple Vitamins Tab PO SCH (09:45)
--- NOTE | 2018-01-18 15:16 | PCM.PYCHPN ---
Psychiatric Progress Note - Psychiatric Progress Note Patient seen today, length of contact: 16mins Patient Chief Complaint: "I was drinking" Problems Identified/Issues Discussed: Pt is seen, chart reviewed, case discussed with staff Pt reports depressed mood, and reports feelings of hopelessness and helplessness. He still reports irritability and agitation. He remained isolated and withdrawn, and confined to his room. Patient reports of withdrawal symptoms including anxiety, headaches and sweating. Symptoms are improving but needs more time to stabilize. pt slept well night before. denies tremors, sweating, seizures, anxiety or other withdrawal symptoms. pt attendeds groups and activities support given, psycho-education provided aftercare discussed. Medication Change: Yes Medical Record Reviewed: Yes Mental Status Examination - Cognitive Function Orientation: Person, Place, Situation, Time Memory: Impaired Attention: WNL Concentration: Poor Association: WNL Fund of Knowledge: Poor - Mood Mood: Neutral - Affect Affect: Flat - Speech Speech: Appropriate - Formal Thought Process Formal Thought Process: No Impairment - Suicidal Ideation Suicidal Ideation: No - Homicidal Ideation Homicidal Ideation: No Goal/Treatment Plan - Goal/Treatment Plan Need for Continued Stay: Discharge may exacerbated symptoms, Severe functional impairment Progress Toward Problem(s) and Goals/Treatment Plan: Major depressive disorder recurrent severe without psychotic features Alcohol use disorder severe Alcohol withdrawal CBT Psychoeducation Supportive therapy, group therapy Remeron 15 mg by mouth daily Trazodone 50 mg by mouth daily at bedtime Neurontin 300 mg PO TID Hydroxyzine for anxiety Ativan taper MVI/Thiamine/Folic Acid
[2018-01-19] MEDS: Multiple Vitamins Tab PO SCH (09:41)
--- NOTE | 2018-01-20 02:19 | PCM.PYCHPN ---
Psychiatric Progress Note - Psychiatric Progress Note Patient seen today, length of contact: 16mins Patient Chief Complaint: I dont remember.' Problems Identified/Issues Discussed: Pt is seen, chart reviewed, case discussed with staff Pt reports some improvement in his depressed mood, and reports some improvement in feelings of hopelessness and helplessness. He remained isolated and withdrawn, and confined to his room. Patient reports of withdrawal symptoms including anxiety, headaches and sweating. Symptoms are improving but needs more time to stabilize. pt attends groups and activities support given, psycho-education provided aftercare discussed. Medication Change: Yes Medical Record Reviewed: Yes Mental Status Examination - Cognitive Function Orientation: Person, Place, Situation, Time Memory: Intact Attention: WNL Concentration: Poor Association: WNL Fund of Knowledge: Poor - Mood Mood: Depressed, Anxious - Affect Affect: Constricted, Depressed - Speech Speech: Appropriate - Formal Thought Process Formal Thought Process: No Impairment - Suicidal Ideation Suicidal Ideation: No - Homicidal Ideation Homicidal Ideation: No Goal/Treatment Plan - Goal/Treatment Plan Need for Continued Stay: Discharge may exacerbated symptoms Progress Toward Problem(s) and Goals/Treatment Plan: Major depressive disorder recurrent severe without psychotic features Alcohol use disorder severe Alcohol withdrawal CBT Psychoeducation Supportive therapy, group therapy Remeron 30 mg by mouth daily Trazodone 50 mg by mouth daily at bedtime Neurontin 300 mg PO TID Hydroxyzine for anxiety Ativan taper MVI/Thiamine/Folic Acid
[2018-01-20] MEDS: Multiple Vitamins Tab PO SCH (09:48)
--- NOTE | 2018-01-20 16:24 | PCM.PYCHPN ---
Psychiatric Progress Note - Psychiatric Progress Note Patient seen today, length of contact: 15 minutes Patient Chief Complaint: I'm feeling much better. Problems Identified/Issues Discussed: Patient seen, chart reviewed, case discussed with the staff. Issues related to illness and treatment were discussed with the patient and staff. Reported compliant with treatment with no adverse affects. Tolerating treatment very well. Patient reported feeling better. Needs more time for stabilization. Patient was calm and cooperative. Patient was awake alert oriented 3 with good eye contact. Mood reported as good, affect appropriate. Aftercare discussed with the patient. At the time of evaluation, patient was awake alert oriented 3, had no delusions , no auditory or visual hallucinations. Medical Problems: Diabetes mellitus Seizure disorder Diagnostic Results: Reviewed DSM 5 Symptoms Update: Some improvement with treatment Medication Change: No Medical Record Reviewed: Yes Mental Status Examination - Cognitive Function Orientation: Person, Place, Situation, Time Memory: Intact Attention: WNL Concentration: WNL Association: WN Fund of Knowledge: [facility] Decription of patient's judgement and insights: Fair - Mood Mood: Anxious - Affect Affect: Other (Appropriate) - Speech Speech: Appropriate - Formal Thought Process Formal Thought Process: No Impairment Psychotic Thoughts and Behaviors: None - Suicidal Ideation Suicidal Ideation: No - Homicidal Ideation Homicidal Ideation: No Goal/Treatment Plan - Goal/Treatment Plan Need for Continued Stay: Remain at risks for inpatient hospitalization, Discharge may exacerbated symptoms, Severe functional impairment Progress Toward Problem(s) and Goals/Treatment Plan: Patient education. Supportive therapy. CBT for relapse prevention. GA for abstinence. Continue treatment as before. Estimated Date of D/C: 01/23/18 - Smoking Cessation Smoking Cessation Initiated: No
[2018-01-21] MEDS: Multiple Vitamins Tab PO SCH (09:16)
[2018-01-21 09:31] VITALS: O2SAT 100
--- NOTE | 2018-01-22 00:08 | PCM.PYCHPN ---
Psychiatric Progress Note - Psychiatric Progress Note Patient seen today, length of contact: 15 minutes Patient Chief Complaint: "Tired" Problems Identified/Issues Discussed: The pt is seen, chart reviewed, case discussed with staff. The pt is compliant with medications and reports no side-effects. Symptoms are improving but needs more time to stabilize. After care discussed, support and psychoeducation given. Medication Change: No Medical Record Reviewed: Yes Mental Status Examination - Cognitive Function Orientation: Person, Place, Situation, Time Memory: Intact Attention: WNL Concentration: WNL Association: WNL Fund of Knowledge: WNL - Mood Mood: Anxious - Affect Affect: Other (Appropriate) - Speech Speech: Appropriate - Formal Thought Process Formal Thought Process: No Impairment - Suicidal Ideation Suicidal Ideation: No - Homicidal Ideation Homicidal Ideation: No Goal/Treatment Plan - Goal/Treatment Plan Need for Continued Stay: Discharge may exacerbated symptoms, Severe functional impairment Progress Toward Problem(s) and Goals/Treatment Plan: Continue medications Support and psychoeducation daily Attend groups and activities daily After care planning by LUIZ Estimated Date of D/C: 01/23/18
[2018-01-22 06:36] VITALS: TEMP 97.7
[2018-01-22] MEDS: Multiple Vitamins Tab PO SCH (09:20)
[2018-01-23 06:54] VITALS: BP 104/67; PULSE 70; RESP 19
[2018-01-23] MEDS: Multiple Vitamins Tab PO SCH (09:43)
--- NOTE | 2018-01-23 10:08 | PCM.PYCHDC ---
Mental Status Examination - Mental Status Examination Orientation: Person Discharge Summary - Discharge Note Laboratory Data: Abnormal Lab Results 01/23/18 07:25 POC Glucose (mg/dL) 272 H Consultations:: List each consultation separately and include: 1. Reason for request. 2. Findings. 3. Follow-up Summary of Hospital Course include:: 1. Description of specific treatment plan utilized for patients during their course of treatmen. 2. Summarize the time- course for resolution of acute symptoms and/or regressed behaviors. 3. Describe issues identified and worked on during hospitalization. 4. Describe medication utilized. 5. Describe medical problems identified and treated. 6. Reassessment of suicide risk Summary of Hospital Course: IOP - Final Diagnosis (DSM 5) Condition upon Discharge: FAIR Disposition: HOME/ ROUTINE Follow-up Treatment Plan: Continue medications Support and psychoeducation daily Attend groups and activities daily After care planning by LUIZ Prescriptions/Medication Reconciliation: Gabapentin [Neurontin] 300 mg PO TID #90 cap Mirtazapine [Remeron] 30 mg PO HS #30 tab
== END 2018-01-23 10:30 | disposition home or self-care (01) | DRG 430 ==
LOC: C.ER 20:07 → C.5E 01-17 05:15
PROVIDERS: ADMIT Psychiatry & Neurology Psychiatry; ATTEND Psychiatry & Neurology Psychiatry
PROC: GZHZZZZ Group Psychotherapy (ICD-10-PCS; principal; 2018-01-17)
PROC: GZ56ZZZ Individual Psychotherapy, Supportive (ICD-10-PCS; 2018-01-17)
DX: F33.2 Major depressive disorder, recurrent severe without psychotic features (principal); F10.230 Alcohol dependence with withdrawal, uncomplicated; E11.65 Type 2 diabetes mellitus with hyperglycemia; F10.220 Alcohol dependence with intoxication, uncomplicated; Y90.8 Blood alcohol level of 240 mg/100 ml or more; F41.9 Anxiety disorder, unspecified; G40.909 Epilepsy, unspecified, not intractable, without status epilepticus

== ENCOUNTER 2018-01-23 14:26 | Emergency (ER) | payer MEDICAID ==
[2018-01-23 14:26] VITALS: BMI 29.0
[2018-01-23 15:01] VITALS: BP 97/66; PULSE 90; RESP 20; TEMP 98; O2SAT 99
== END 2018-01-23 15:25 | disposition left against medical advice (07) ==
LOC: C.ER 14:26
DX: Z02.89 Encounter for other administrative examinations (principal); Z00.00 Encounter for general adult medical examination without abnormal findings

== ENCOUNTER 2018-01-24 00:26 | Emergency (ER) | payer MEDICAID ==
[2018-01-24 00:26] VITALS: BMI 29.0
[2018-01-24 00:37] VITALS: TEMP 98
--- NOTE | 2018-01-24 00:44 | C.PDOC ---
History Of Present Illness 42 y/o male brought to the ED via EMS for alcohol intoxication. Patient was discharged from detox yesterday. States he resumed drinking alcohol today. Denies any suicidal or homicidal ideation. Patient reports his only physical complaint is mild mid epigastric pain. Time Seen by Provider: 01/24/18 00:44 Chief Complaint (Nursing): Substance Abuse History Per: Patient History/Exam Limitations: no limitations Onset/Duration Of Symptoms: Hrs Current Symptoms Are (Timing): Still Present Suicide/Self Injury Attempted (Context): None Modifying Factor(s): Alcohol Severity: Mild Pain Scale Rating Of: 4 Associated Symptoms: denies: Suicidal Thoughts, Suicidal Plan Involuntary Hold By: None Additional History Per: EMS, Prior Records Past Medical History Reviewed: Historical Data, Nursing Documentation, Vital Signs Vital Signs: Last Vital Signs Temp 98 F 01/24/18 00:32 Pulse 77 01/24/18 03:38 Resp 12 01/24/18 03:38 BP 132/70 01/24/18 03:38 Pulse Ox 98 01/24/18 03:38 - Medical History PMH: Anxiety, Depression, Diabetes (Patient denied), Seizures (ETOH related) Denies: Hepatitis, HIV, HTN, Chronic Kidney Disease, Sexually Transmitted Disease - [facility] Procedures DETOXIFICATION SERVICES FOR SUBSTANCE ABUSE TREATMENT (12/05/17) GROUP TITLE INSURANCE SALES REPRESENTATIVE FOR SUBSTANCE ABUSE TREATMENT, PSYCHOEDUCATION (12/05/17) INDIV PSYCHOTHERAPY FOR SUBSTANCE ABUSE TREATMENT, SUPPORT (12/05/17) Family History: States: No Known Family Hx - Social History Hx Alcohol Use: Yes (6 SHOTS/DAY) Hx Substance Use: Yes - Immunization History Hx Tetanus Toxoid Vaccination: Yes Hx Influenza Vaccination: Yes Hx Pneumococcal Vaccination: Yes Review Of Systems Constitutional: Negative for: Fever, Chills Gastrointestinal: Positive for: Abdominal Pain. Negative for: Nausea, Vomiting Psych: Positive for: Other (alcohol intoxication). Negative for: Suicidal ideation, Withdrawal Physical Exam - Physical Exam Appears: Non-toxic, No Acute Distress Skin: Warm, Dry Head: Normacephalic Eye(s): bilateral: Normal Inspection Oral Mucosa: Moist Neck: Normal ROM Chest: Symmetrical Cardiovascular: Rhythm Regular Respiratory: No Rales, No Rhonchi, No Wheezing Gastrointestinal/Abdominal: Bowel Sounds (normal), Soft, No Tenderness, No Distention, No Guarding Extremity: Bilateral: Atraumatic, Normal Color And Temperature Pulses: Left Dorsalis Pedis: Normal, Right Dorsalis Pedis: Normal Neurological/Psych: Other (Slurred speech) Gait: Unable To Assess ED Course And Treatment O2 Sat by Pulse Oximetry: 100 (RA) Pulse Ox Interpretation: Normal Progress Note: Patient resting comfortably in stretcher. Will discharge home pending clinical sobriety. Reevaluation Time: 04:41 Reassessment Condition: Improved Disposition Counseled Patient/Family Regarding: Studies Performed, Diagnosis, Need For Followup - Disposition Disposition: HOME/ ROUTINE Disposition Time: 00:44 Condition: FAIR Instructions: Alcohol Abuse and Alcoholism (DC) Forms: [employer] (Mauritian) - Clinical Impression Clinical Impression: Alcohol intoxication, Alcohol abuse - Scribe Statement The provider has reviewed the documentation as recorded by the Scribe (Lizzeth Leavitt) Provider Attestation: All medical record entries made by the Scribe were at my direction and personally dictated by me. I have reviewed the chart and agree that the record accurately reflects my personal performance of the history, physical exam, medical decision making, and the department course for this patient. I have also personally directed, reviewed, and agree with the discharge instructions and disposition.
[2018-01-24 03:38] VITALS: BP 132/70; PULSE 77; RESP 12
[2018-01-24 04:44] VITALS: O2SAT 100
== END 2018-01-24 05:05 | disposition home or self-care (01) ==
LOC: C.ER 00:26
DX: F10.129 Alcohol abuse with intoxication, unspecified (principal); Y90.9 Presence of alcohol in blood, level not specified

== ENCOUNTER 2018-01-29 15:09 | Emergency (ER) | payer MEDICAID ==
[2018-01-29 15:10] VITALS: BMI 29.0
[2018-01-29 15:24] VITALS: RESP 18; O2SAT 100
[2018-01-29] MEDS ORDERED: Naproxen 550 mg Tab PO STA (15:30)
--- NOTE | 2018-01-29 15:32 | C.PDOC ---
History Of Present Illness 42 year old male presents to the ER with a complaint of left hand pain after he fell yesterday. Patient was seen in the ER yesterday and had x-rays done which were negative. Denies new trauma. Time Seen by Provider: 01/29/18 15:20 Chief Complaint (Nursing): Substance Abuse History Per: Patient History/Exam Limitations: no limitations Onset/Duration Of Symptoms: Days Current Symptoms Are (Timing): Still Present Recent travel outside of the [place]: No Past Medical History Reviewed: Historical Data, Nursing Documentation, Vital Signs Vital Signs: Last Vital Signs Temp 98.5 F 01/29/18 17:08 Pulse 62 01/29/18 17:08 Resp 18 01/29/18 17:08 BP 127/73 01/29/18 17:08 Pulse Ox 100 01/29/18 17:08 - Medical History PMH: Anxiety, Depression, Diabetes (Patient denied), Seizures (ETOH related) Denies: Hepatitis, HIV, HTN, Chronic Kidney Disease, Sexually Transmitted Disease - [facility] Procedures DETOXIFICATION SERVICES FOR SUBSTANCE ABUSE TREATMENT (12/05/17) GROUP INSERTER FOR SUBSTANCE ABUSE TREATMENT, PSYCHOEDUCATION (12/05/17) GROUP PSYCHOTHERAPY (01/17/18) INDIV PSYCHOTHERAPY FOR SUBSTANCE ABUSE TREATMENT, SUPPORT (12/05/17) INDIVIDUAL PSYCHOTHERAPY, SUPPORTIVE (01/17/18) Family History: States: Unknown Family Hx - Social History Hx Alcohol Use: Yes (6 SHOTS/DAY) Hx Substance Use: Yes (DENIES) - Immunization History Hx Tetanus Toxoid Vaccination: Yes Hx Influenza Vaccination: Yes Hx Pneumococcal Vaccination: Yes Review Of Systems Musculoskeletal: Positive for: Hand Pain Neurological: Negative for: Weakness, Numbness Physical Exam - Physical Exam Appears: Non-toxic Skin: Normal Color, Warm, Dry Head: Atraumatic, Normacephalic Eye(s): bilateral: Normal Inspection Extremity: Normal ROM (x4), Capillary Refill (<2 seconds), Other (Swelling and tenderness to proximal left hand) Pulses: Left Radial: Normal, Right Radial: Normal Neurological/Psych: Oriented x3, Normal Speech, Normal Motor, Normal Sensation ED Course And Treatment O2 Sat by Pulse Oximetry: 100 (Room air) Pulse Ox Interpretation: Normal Medical Decision Making Medical Decision Making: Left hand x-ray ordered. Naproxen administered. xr neg. hand splinted w/ thumb spica for concern of occult scaphoidfx. pt instructed importance to f/u with hand and return precauitons advised. pt verbalzies understanding. advised of risk of avascular necrosis if occult fx exists. pt understands. Disposition - Disposition Referrals: [facility] [Outside] [facility] [Outside] Moshe Kern MD [Medical Doctor] - Disposition: HOME/ ROUTINE Disposition Time: 05:00 Condition: STABLE Additional Instructions: follow up with specialist. return to er with worsening symptoms orconcerns. Instructions: Sprain (DC), Finger Sprain (DC) Forms: [employer] (Malay) - Clinical Impression Clinical Impression: Hand injury - Scribe Statement The provider has reviewed the documentation as recorded by the Scribe Satish Montoya All medical record entries made by the Scribe were at my direction and personally dictated by me. I have reviewed the chart and agree that the record accurately reflects my personal performance of the history, physical exam, medical decision making, and the department course for this patient. I have also personally directed, reviewed, and agree with the discharge instructions and disposition.
[2018-01-29] MEDS ORDERED: Naproxen 550 mg Tab PO ONE (15:38)
--- NOTE | 2018-01-29 16:06 | RAD ---
PROCEDURE: Left Hand Radiographs. HISTORY: trauma COMPARISON: None. FINDINGS: BONES: Bone alignment and mineralization are normal. There is no acute displaced fracture or bone destruction. JOINTS: Normal. No osteoarthritic changes. SOFT TISSUES: Normal. OTHER FINDINGS: None. IMPRESSION: No acute fracture or dislocation.
[2018-01-29 17:09] VITALS: BP 127/73; PULSE 62; TEMP 98.5
== END 2018-01-29 17:20 | disposition home or self-care (01) ==
LOC: C.ER 15:09
DX: S69.92XA Unspecified injury of left wrist, hand and finger(s), initial encounter (principal); W19.XXXA Unspecified fall, initial encounter

== ENCOUNTER 2018-02-03 00:25 | Emergency (ER) | payer MEDICAID ==
[2018-02-03 00:26] VITALS: BMI 28.1
[2018-02-03 00:34] VITALS: BP 122/85; PULSE 87; RESP 16; TEMP 98; O2SAT 99
--- NOTE | 2018-02-03 00:59 | C.PDOC ---
History Of Present Illness 42 year old male with a Hx of chronic ETOH abuse presents to the ER via EMS for left hand pain after patient fell last week. Patient was seen in the ER last week for the same complaint, he anglin an x-ray done that was negative for fractures or dislocations. Denies weakness, numbness, or new injury. Time Seen by Provider: 02/03/18 00:46 Chief Complaint (Nursing): Upper Extremity Problem/Injury History Per: Patient History/Exam Limitations: no limitations Onset/Duration Of Symptoms: Days Current Symptoms Are (Timing): Still Present Recent travel outside of the [place]: No Past Medical History Reviewed: Historical Data, Nursing Documentation, Vital Signs Vital Signs: Last Vital Signs Temp 98 F 02/03/18 00:30 Pulse 87 02/03/18 00:30 Resp 16 02/03/18 00:30 BP 122/85 02/03/18 00:30 Pulse Ox 99 02/03/18 00:59 - Medical History PMH: Anxiety, Depression, Diabetes (Patient denied), Seizures (ETOH related) Denies: Hepatitis, HIV, HTN, Chronic Kidney Disease, Sexually Transmitted Disease - [facility] Procedures DETOXIFICATION SERVICES FOR SUBSTANCE ABUSE TREATMENT (12/05/17) GROUP WICKER WORKER FOR SUBSTANCE ABUSE TREATMENT, PSYCHOEDUCATION (12/05/17) GROUP PSYCHOTHERAPY (01/17/18) INDIV PSYCHOTHERAPY FOR SUBSTANCE ABUSE TREATMENT, SUPPORT (12/05/17) INDIVIDUAL PSYCHOTHERAPY, SUPPORTIVE (01/17/18) Family History: States: Unknown Family Hx - Social History Hx Alcohol Use: Yes (6 SHOTS/DAY) Hx Substance Use: Yes (DENIES) - Immunization History Hx Tetanus Toxoid Vaccination: Yes Hx Influenza Vaccination: Yes Hx Pneumococcal Vaccination: Yes Review Of Systems Musculoskeletal: Positive for: Hand Pain Neurological: Negative for: Weakness, Numbness Physical Exam - Physical Exam Appears: Non-toxic Skin: Warm, Dry Head: Atraumatic, Normacephalic Eye(s): bilateral: Normal Inspection Extremity: Normal ROM (x4), Capillary Refill (<2 seconds), Other (Minimal swelling an ecchymosis to thenar aspect of left hand) Pulses: Left Radial: Normal, Right Radial: Normal Neurological/Psych: Oriented x3, Normal Speech, Normal Motor, Normal Sensation ED Course And Treatment O2 Sat by Pulse Oximetry: 99 (Room air) Pulse Ox Interpretation: Normal Progress Note: Patient is resting comfortably in the ER in no acute distress, vitals are stable, will discharge home with instructions to follow up with PMD for further evaluation. Disposition Counseled Patient/Family Regarding: Diagnosis, Need For Followup - Disposition Referrals: [facility] [Outside] Disposition: HOME/ ROUTINE Disposition Time: 00:57 Condition: STABLE Additional Instructions: Please follow up in clinic tylenol or advil for pain Return to ER if worse Instructions: Hand Pain (DC) Forms: [employer] (Latvian) - Clinical Impression Clinical Impression: Hand pain, left - PA / IDENTIFICATION CLERK / Resident Statement MD/DO has reviewed & agrees with the documentation as recorded. - Scribe Statement The provider has reviewed the documentation as recorded by the Scribchristel Montoya All medical record entries made by the Florenciaibchristel were at my direction and personally dictated by me. I have reviewed the chart and agree that the record accurately reflects my personal performance of the history, physical exam, medical decision making, and the department course for this patient. I have also personally directed, reviewed, and agree with the discharge instructions and disposition.
== END 2018-02-03 01:37 | disposition home or self-care (01) ==
LOC: C.ER 00:25
DX: M79.642 Pain in left hand (principal)

== ENCOUNTER → 2018-02-05 22:10 | Emergency (ER) | payer MEDICAID ==
[2018-02-05 22:10] VITALS: BMI 28.1
== END | disposition left against medical advice (07) ==
LOC: C.ER 22:10
DX: Z02.89 Encounter for other administrative examinations (principal); F19.10 Other psychoactive substance abuse, uncomplicated

== ENCOUNTER 2018-02-11 14:28 | Emergency (ER) | payer MEDICAID ==
[2018-02-11 14:29] VITALS: BMI 28.1
[2018-02-11 14:35] VITALS: BP 112/77; PULSE 103; RESP 18; TEMP 98.6; O2SAT 97
--- NOTE | 2018-02-11 14:54 | C.PDOC ---
History Of Present Illness 42 yr old male p/w charted complaint of substance abuse. Orders were placed pending detox. Pt was informed by [facility] that there were no beds available, at which point per detox and RNs pt eloped. Pt did not wait to see provider given no detox beds. Time Seen by Provider: 02/11/18 14:35 Chief Complaint (Nursing): Substance Abuse Past Medical History Vital Signs: Last Vital Signs Temp 98.6 F 02/11/18 14:32 Pulse 103 H 02/11/18 14:32 Resp 18 02/11/18 14:32 BP 112/77 02/11/18 14:32 Pulse Ox 97 02/11/18 14:32 - Medical History PMH: Anxiety, Depression, Diabetes (Patient denied), HTN, Seizures (ETOH related ) Denies: Hepatitis, HIV, Chronic Kidney Disease, Sexually Transmitted Disease - [facility] Procedures DETOXIFICATION SERVICES FOR SUBSTANCE ABUSE TREATMENT (12/05/17) GROUP SALVAGE DIVER FOR SUBSTANCE ABUSE TREATMENT, PSYCHOEDUCATION (12/05/17) GROUP PSYCHOTHERAPY (01/17/18) INDIV PSYCHOTHERAPY FOR SUBSTANCE ABUSE TREATMENT, SUPPORT (12/05/17) INDIVIDUAL PSYCHOTHERAPY, SUPPORTIVE (01/17/18) Family History: States: Unknown Family Hx - Social History Hx Alcohol Use: Yes Hx Substance Use: No (DENIES) - Immunization History Hx Tetanus Toxoid Vaccination: Yes Hx Influenza Vaccination: Yes Hx Pneumococcal Vaccination: Yes ED Course And Treatment O2 Sat by Pulse Oximetry: 97 Disposition - Disposition Disposition: ELOPEMENT - ER ONLY Disposition Time: 14:56 Condition: UNKNOWN Forms: [facility] (Turkmen) - Clinical Impression Clinical Impression: Desire for detoxification
== END 2018-02-11 15:06 | disposition left against medical advice (07) ==
LOC: C.ER 14:28
DX: F19.10 Other psychoactive substance abuse, uncomplicated (principal)

== ENCOUNTER 2018-03-20 22:54 | Emergency (ER) | payer SELFPAY ==
[2018-03-20 22:54] VITALS: BMI 28.1
--- NOTE | 2018-03-21 01:30 | C.PDOC ---
History Of Present Illness 42 y/o male presents to the ED for evaluation s/p trauma. Patient admits he was drinking tonight and fell, but is unsure of how. States he did hit his head, but is unsure of LOC. Patient also reports he hurt his left thumb. Now mainly complaining of left thumb pain. Patient is a poor historian secondary to alcohol intoxication. Denies any chest pain, SOB, or other injuries. Time Seen by Provider: 03/21/18 00:05 Chief Complaint (Nursing): Substance Abuse History Per: Patient History/Exam Limitations: intoxication Onset/Duration Of Symptoms: Mins Current Symptoms Are (Timing): Still Present Modifying Factor(s): Alcohol Past Medical History Reviewed: Historical Data, Nursing Documentation, Vital Signs Vital Signs: Last Vital Signs Temp 97.4 F L 03/20/18 23:03 Pulse 92 H 03/20/18 23:03 Resp 20 03/20/18 23:03 BP 118/82 03/20/18 23:03 Pulse Ox 99 03/20/18 23:03 - Medical History PMH: Anxiety, Depression, Diabetes (Patient denied), HTN, Seizures (ETOH related) Denies: Hepatitis, HIV, Chronic Kidney Disease, Sexually Transmitted Disease - [facility] Procedures DETOXIFICATION SERVICES FOR SUBSTANCE ABUSE TREATMENT (12/05/17) GROUP TSO FOR SUBSTANCE ABUSE TREATMENT, PSYCHOEDUCATION (12/05/17) GROUP PSYCHOTHERAPY (01/17/18) INDIV PSYCHOTHERAPY FOR SUBSTANCE ABUSE TREATMENT, SUPPORT (12/05/17) INDIVIDUAL PSYCHOTHERAPY, SUPPORTIVE (01/17/18) Family History: States: Unknown Family Hx - Social History Hx Alcohol Use: Yes Hx Substance Use: No (DENIES) - Immunization History Hx Tetanus Toxoid Vaccination: Yes Hx Influenza Vaccination: Yes Hx Pneumococcal Vaccination: Yes Review Of Systems Cardiovascular: Negative for: Chest Pain Respiratory: Negative for: Shortness of Breath Gastrointestinal: Negative for: Nausea, Vomiting Musculoskeletal: Positive for: Hand Pain (left thumb pain) Neurological: Negative for: Weakness, Numbness Physical Exam - Physical Exam Appears: Non-toxic, No Acute Distress, Other (Appears intoxicated) Skin: Normal Color, Warm, Dry Head: Atraumatic, Normacephalic, No Swelling, No Laceration Eye(s): bilateral: Normal Inspection Oral Mucosa: Moist Neck: No Midline Cervical Tenderness, Paracervical Tenderness (Right-sided), Supple Chest: Symmetrical Cardiovascular: Rhythm Regular, No Murmur Respiratory: Normal Breath Sounds, No Accessory Muscle Use Gastrointestinal/Abdominal: Soft, No Tenderness, No Distention Extremity: Normal ROM (of other digits and wrist), Tenderness (to the MCP joint of left thumb), Capillary Refill (less than 2 sec), No Deformity, No Swelling, Other (decreased ROM secondary to pain) Pulses: Left Radial: Normal, Right Radial: Normal Neurological/Psych: Oriented x3, Other (Slurred speech) ED Course And Treatment O2 Sat by Pulse Oximetry: 99 (RA) Pulse Ox Interpretation: Normal - Other Rad X-ray left thumb X-Ray: Interpreted by Me, Viewed By Me Interpretation: No acute fracture, no dislocation - CT Scan/US CT C-spine Other Rad Studies (CT/US): Read By Radiologist, Radiology Report Reviewed CT/US Interpretation: Name:GABY MCKENZIE Exam Date:Mar 21, 2018 1:15:44 AM EDT. Modality Type:CT\SR. Description:CT - CERVICAL SPINE. Gender:M Laterality:Not applicable. :76 Referring Physician:Sagrario Hoang. CT scan of the cervical spine without contrast. Indication: Trauma. Pain. Technique: Axial CT scan images without contrast. Reformatted coronal and sagittal images. Findings: There are diffuse spondylotic changes. Findings are demonstrated by disc space narrowing, osteophyte formation and degenerative endplate changes. Facet joint arthropathy is noted. No fracture or dislocation is seen. No aggressive bone lesion is noted. Impression: Spondylosis. Multilevel facet joint arthropathy. No acute bone pathology. CT Head Other Rad Studies (CT/US): Read By Radiologist, Radiology Report Reviewed CT/US Interpretation: Name:GABY MCKENZIE Exam Date:Mar 21, 2018 1:12:59 AM EDT. Modality Type:CT\SR. Description:CT - BRAIN. Gender:M Laterality:Not applicable. :76 Referring Physician:Sagrario Hoang. CT SCAN OF THE BRAIN WITHOUT IV CONTRAST. CLINICAL INDICATION: Pain and injury. TECHNIQUE: Axial and reformatted sagittal and coronal images of the brain obtained without IV contrast administration. Normal size of the ventricles and extra-axial spaces for the patient's age. Normal white matter tracts of the supratentorial brain. Normal basal ganglia and thalami. Normal brainstem. Normal cerebellum. There is no demonstrated extra-axial, intraparenchymal, or intraventricular hemorrhage. There are no findings of an acute ischemic infarction. Normal calvarium. There is no demonstrated fracture. Normal soft tissue structures. Moderate mucosal inflammatory disease of the visualized paranasal sinuses. IMPRESSION: Normal unenhanced CT scan of the brain. Moderate mucosal inflammatory disease of the visualized paranasal sinuses. Medical Decision Making Medical Decision Making: Impression: Fall, ETOH intoxication Plan: --Left thumb x-ray --CT Head --CT C-spine --Reassess and dispo CT scans negative. X-ray negative for fracture. Patient pending clinical sobriety. 5:35am As per RN, patient got up and is ambulatory with steady gait. On re-evaluation patient is not found at bed. Patient eloped prior to receiving discharge paperwork. Disposition - Disposition Disposition: ELOPEMENT - ER ONLY Disposition Time: 05:36 Condition: IMPROVED Forms: [facility] (Swedish) - Clinical Impression Clinical Impression: Alcohol intoxication, Left thumb sprain, Closed head injury - Scribe Statement The provider has reviewed the documentation as recorded by the Branden Leavitt Provider Attestation: All medical record entries made by the Florenciaibchristel were at my direction and personally dictated by me. I have reviewed the chart and agree that the record accurately reflects my personal performance of the history, physical exam, medical decision making, and the department course for this patient. I have also personally directed, reviewed, and agree with the discharge instructions and disposition.
[2018-03-21 05:26] VITALS: BP 112/75; PULSE 75; RESP 18; TEMP 97.5
[2018-03-21 05:36] VITALS: O2SAT 99
--- NOTE | 2018-03-21 08:06 | CT ---
Date of service: 03/21/2018 PROCEDURE: CT HEAD WITHOUT CONTRAST. HISTORY: pain w injury COMPARISON: 01/16/2018 TECHNIQUE: Axial computed tomography images were obtained through the head/brain without intravenous contrast. Radiation dose: Total exam DLP = 858.21 mGy-cm. This CT exam was performed using one or more of the following dose reduction techniques: Automated exposure control, adjustment of the mA and/or kV according to patient size, and/or use of iterative reconstruction technique. FINDINGS: HEMORRHAGE: No intracranial hemorrhage. BRAIN: No mass effect or edema. No atrophy or chronic microvascular ischemic changes. Relative low attenuation seen within the posterior limb of the right internal capsule is nonspecific. Correlation with MRI may helpful if clinically indicated. VENTRICLES: Unremarkable. No hydrocephalus. CALVARIUM: Unremarkable. PARANASAL SINUSES: Mucosal thickening and opacification of the bilateral maxillary sinuses, ethmoid air cells, and frontal sinus. MASTOID AIR CELLS: Unremarkable as visualized. No inflammatory changes. OTHER FINDINGS: Soft tissue swelling overlying the right frontal cranium. IMPRESSION: 1. No acute intracranial abnormality. 2. Sinus mucosal disease. 3. Relative low attenuation seen within the posterior limb of the right internal capsule is nonspecific. Correlation with MRI may be helpful if clinically indicated. 4. If symptoms persists, consider correlation with MRI. A preliminary report was generated at 1:35 a.m. on 03/21/[address] Albert Philip from [facility].
--- NOTE | 2018-03-21 08:57 | RAD ---
Date of service: 03/21/2018 PROCEDURE: Left Thumb radiographs. HISTORY: Pain w injury COMPARISON: Comparison made with prior radiographs left hand 01/29/2018.. TECHNIQUE: AP radiograph of the left hand, as well as spot oblique and lateral images of thumb were obtained. FINDINGS: LEFT THUMB: No definitive radiographic evidence of acute displaced fracture nor dislocation. The osseous structures appear intact. There may be injury to the nail of the left left thumb which appears elevated along its distal and mid margin. Clinical correlation with physical exam and history. JOINTS: Spaces preserved.. SOFT TISSUES: As above.. OTHER FINDINGS: None. IMPRESSION: Suspect nailbed injury left thumb as described. No evidence displaced fracture nor dislocation.
--- NOTE | 2018-03-21 09:34 | CT ---
CT cervical spine HISTORY: Pain. Injury. COMPARISON: None. TECHNIQUE: Multiple contiguous axial images were performed through the cervical spine without the use of intravenous contrast. Subsequently, sagittal and coronal reformatted images were obtained. This CT exam was performed using one or more of the following dose reduction techniques: Automated exposure control, adjustment of the mA and/or kV according to patient size, and/or use of iterative reconstruction technique. Findings: Straightening of the normal cervical lordosis. Multilevel posterior disc osteophyte complexes most prominent at the C2-3, C4-5, and C7-T1 levels. Multilevel anterior osteophytosis at the C5-6, C6-7, and C7-T1 levels. Prominent paravertebral osteophyte formation at the T2-3 level. Multilevel uncovertebral joint and facet hypertrophy. No evidence of acute displaced fracture. Degenerative changes with bony hypertrophy at the atlantodental interval. Rounded ossific density posterior to the posterior spinous process of the C6 vertebral body. No gross prevertebral soft tissue swelling. Incidentally noted is a 3 millimeter pulmonary nodule at the right lung apex posteriorly on series 2, image 75. Heterogeneity of the thyroid. Correlation with thyroid ultrasound may be helpful if clinically indicated. Mild mucosal thickening of the sphenoid sinus. Impression: 1. Degenerative changes as described above. If pain persists, consider correlation with MRI. 2. Incidentally noted is a 3 millimeter pulmonary nodule at the right lung apex posteriorly on series 2, image 75. 6-12 month interval follow-up may be helpful if indicated. 3. Additional findings as above. A preliminary report was generated at 1:36 a.m. on 03/21/[address] Albert Philip from [facility].
== END 2018-03-21 05:37 | disposition left against medical advice (07) ==
LOC: C.ER 22:54
DX: F10.129 Alcohol abuse with intoxication, unspecified (principal); S09.90XA Unspecified injury of head, initial encounter; S63.602A Unspecified sprain of left thumb, initial encounter; W19.XXXA Unspecified fall, initial encounter

== ENCOUNTER 2018-03-30 01:32 | Emergency (ER) | payer MEDICAID ==
[2018-03-30 01:32] VITALS: BMI 28.1
[2018-03-30 01:39] VITALS: O2SAT 97
--- NOTE | 2018-03-30 01:46 | C.PDOC ---
History Of Present Illness 42 year old male brought in by police for ETOH intoxication. Patient lives alone and called police three times for intoxication for unclear reasons. In the ER patient is argumentative and noncompliant. Denies any injury. Time Seen by Provider: 03/30/18 01:45 Chief Complaint (Nursing): Substance Abuse History Per: Patient, Other (Police) History/Exam Limitations: no limitations Onset/Duration Of Symptoms: Hrs Current Symptoms Are (Timing): Still Present Suicide/Self Injury Attempted (Context): None Modifying Factor(s): Alcohol Associated Symptoms: denies: Depression, Suicidal Thoughts Involuntary Hold By: None Recent travel outside of the [place]: No Past Medical History Reviewed: Historical Data, Nursing Documentation, Vital Signs Vital Signs: Last Vital Signs Temp 97.6 F 03/30/18 01:36 Pulse 93 H 03/30/18 01:36 Resp 20 03/30/18 01:36 BP 105/71 03/30/18 01:36 Pulse Ox 97 03/30/18 01:36 - Medical History PMH: Anxiety, Depression, Diabetes (Patient denied), HTN, Seizures (ETOH related) Denies: Hepatitis, HIV, Chronic Kidney Disease, Sexually Transmitted Disease - [facility] Procedures DETOXIFICATION SERVICES FOR SUBSTANCE ABUSE TREATMENT (12/05/17) GROUP RECORDER HELPER SEISMOGRAPH FOR SUBSTANCE ABUSE TREATMENT, PSYCHOEDUCATION (12/05/17) GROUP PSYCHOTHERAPY (01/17/18) INDIV PSYCHOTHERAPY FOR SUBSTANCE ABUSE TREATMENT, SUPPORT (12/05/17) INDIVIDUAL PSYCHOTHERAPY, SUPPORTIVE (01/17/18) Family History: States: Unknown Family Hx - Social History Hx Alcohol Use: Yes Hx Substance Use: No (DENIES) - Immunization History Hx Tetanus Toxoid Vaccination: Yes Hx Influenza Vaccination: No Hx Pneumococcal Vaccination: Yes Review Of Systems Constitutional: Negative for: Fever, Chills Cardiovascular: Negative for: Chest Pain, Palpitations Respiratory: Negative for: Cough, Shortness of Breath Gastrointestinal: Negative for: Nausea, Vomiting Physical Exam - Physical Exam Appears: Non-toxic, Other (No sign of injury, ETOH on breath) Skin: Normal Color, Warm, Dry Head: Atraumatic, Normacephalic Eye(s): bilateral: Normal Inspection Oral Mucosa: Moist Neck: Normal, No Midline Cervical Tenderness, No Paracervical Tenderness, Supple Chest: Symmetrical, No Tenderness Cardiovascular: Rhythm Regular Respiratory: Normal Breath Sounds, No Rales, No Rhonchi, No Wheezing Gastrointestinal/Abdominal: Soft, No Tenderness Back: No CVA Tenderness Extremity: Normal ROM (x4) Neurological/Psych: Oriented x3, Normal Speech Gait: Steady ED Course And Treatment O2 Sat by Pulse Oximetry: 97 (Room air) Pulse Ox Interpretation: Normal Medical Decision Making Medical Decision Making: alcohol abuse no injuries. stable gait wants d/c to street Disposition Doctor Will See Patient In The: Office Counseled Patient/Family Regarding: Studies Performed, Diagnosis - Disposition Referrals: [facility] [Outside] [facility] [Outside] [facility] [Outside] [facility] [Outside] [facility] [Outside] Disposition: HOME/ ROUTINE Disposition Time: 01:46 Condition: GOOD Additional Instructions: seek AA avoid alcohol abuse Instructions: Alcohol Abuse and Alcoholism (DC) Forms: [facility] (Setswana) - Clinical Impression Clinical Impression: Alcohol abuse - Scribe Statement The provider has reviewed the documentation as recorded by the Scribe Satish Montoya All medical record entries made by the Scribe were at my direction and personally dictated by me. I have reviewed the chart and agree that the record accurately reflects my personal performance of the history, physical exam, medical decision making, and the department course for this patient. I have also personally directed, reviewed, and agree with the discharge instructions and disposition.
[2018-03-30 02:03] VITALS: BP 138/63; PULSE 82; RESP 16; TEMP 98.3
== END 2018-03-30 02:02 | disposition home or self-care (01) ==
LOC: C.ER 01:32
DX: F10.10 Alcohol abuse, uncomplicated (principal); Y90.9 Presence of alcohol in blood, level not specified

== ENCOUNTER 2018-03-30 03:11 | Emergency (ER) | payer MEDICAID ==
[2018-03-30 03:11] VITALS: BMI 28.1
[2018-03-30 03:21] VITALS: O2SAT 100
--- NOTE | 2018-03-30 05:45 | C.PDOC ---
History Of Present Illness 42 year old male presents to the ER via EMS for the second time today at 0400. Patient was initially discharged at 0145, however, he went back home and texted the police that he was in distress for the fourth time tonight. Denies any complaints at this time. Time Seen by Provider: 03/30/18 04:04 Chief Complaint (Nursing): Substance Abuse History Per: Patient, EMS History/Exam Limitations: no limitations Onset/Duration Of Symptoms: Hrs Current Symptoms Are (Timing): Still Present Modifying Factor(s): Alcohol Associated Symptoms: denies: Depression, Suicidal Thoughts Recent travel outside of the [place]: No Past Medical History Reviewed: Historical Data, Nursing Documentation, Vital Signs Vital Signs: Last Vital Signs Temp 97.4 F L 03/30/18 03:16 Pulse 85 03/30/18 03:16 Resp 14 03/30/18 03:16 BP 125/84 03/30/18 03:16 Pulse Ox 100 03/30/18 03:16 - Medical History PMH: Anxiety, Depression, Diabetes (Patient denied), HTN, Seizures (ETOH related) Denies: Hepatitis, HIV, Chronic Kidney Disease, Sexually Transmitted Disease - [facility] Procedures DETOXIFICATION SERVICES FOR SUBSTANCE ABUSE TREATMENT (12/05/17) GROUP SENIOR CARE ASSISTANT FOR SUBSTANCE ABUSE TREATMENT, PSYCHOEDUCATION (12/05/17) GROUP PSYCHOTHERAPY (01/17/18) INDIV PSYCHOTHERAPY FOR SUBSTANCE ABUSE TREATMENT, SUPPORT (12/05/17) INDIVIDUAL PSYCHOTHERAPY, SUPPORTIVE (01/17/18) Family History: States: Unknown Family Hx - Social History Hx Alcohol Use: Yes Hx Substance Use: No (DENIES) - Immunization History Hx Tetanus Toxoid Vaccination: Yes Hx Influenza Vaccination: No Hx Pneumococcal Vaccination: Yes Review Of Systems Constitutional: Negative for: Fever, Chills Cardiovascular: Negative for: Chest Pain, Palpitations Respiratory: Negative for: Cough, Shortness of Breath Gastrointestinal: Negative for: Nausea, Vomiting Neurological: Negative for: Weakness, Numbness Physical Exam - Physical Exam Appears: Non-toxic, Other (ETOH on breath) Skin: Normal Color, Warm, Dry Head: Atraumatic, Normacephalic Eye(s): bilateral: Normal Inspection Oral Mucosa: Moist Neck: Normal, Supple Chest: Symmetrical, No Tenderness Cardiovascular: Rhythm Regular Respiratory: Normal Breath Sounds, No Rales, No Rhonchi, No Wheezing Gastrointestinal/Abdominal: Soft, No Tenderness Neurological/Psych: Oriented x3, Normal Speech Gait: Steady ED Course And Treatment O2 Sat by Pulse Oximetry: 100 Disposition Doctor Will See Patient In The: Office Counseled Patient/Family Regarding: Studies Performed, Diagnosis - Disposition Disposition: HOME/ ROUTINE Disposition Time: 05:00 Condition: GOOD Forms: [facility] (Georgian) - Clinical Impression Clinical Impression: Alcohol abuse - Scribe Statement The provider has reviewed the documentation as recorded by the Scribchristel Montoya All medical record entries made by the Florenciaibchristel were at my direction and personally dictated by me. I have reviewed the chart and agree that the record accurately reflects my personal performance of the history, physical exam, medical decision making, and the department course for this patient. I have also personally directed, reviewed, and agree with the discharge instructions and disposition.
[2018-03-30 05:46] VITALS: BP 121/70; PULSE 81; RESP 20; TEMP 98
== END 2018-03-30 05:46 | disposition home or self-care (01) ==
LOC: C.ER 03:11
DX: F10.10 Alcohol abuse, uncomplicated (principal); Y90.9 Presence of alcohol in blood, level not specified

== ENCOUNTER 2018-04-23 01:30 | Emergency (ER) | payer MEDICAID ==
[2018-04-23 01:30] VITALS: BMI 28.1
[2018-04-23 02:05] VITALS: BP 119/78; PULSE 73; RESP 22; TEMP 97.8; O2SAT 99
--- NOTE | 2018-04-23 04:08 | C.PDOC ---
History Of Present Illness 42 year old is brought to the ED by EMS for alcohol intoxication. Patient reports he fell injuring his right knee and left thumb. Upon questioning patient only c/o right knee pain, does not mention left thumb. Patient admits to drinking alcohol today. Patient denies SI/HI, hallucinations, CP, SOB, LOC, headache, other injury, fall, trauma. Time Seen by Provider: 04/23/18 02:04 Chief Complaint (Nursing): Lower Extremity Problem/Injury History Per: Patient, EMS History/Exam Limitations: intoxication Onset/Duration Of Symptoms: Hrs Current Symptoms Are (Timing): Still Present Recent travel outside of the [place]: No Additional History Per: Patient - Knee Description Of Injury: Fell Past Medical History Reviewed: Historical Data, Nursing Documentation, Vital Signs Vital Signs: Last Vital Signs Temp 97.8 F 04/23/18 02:03 Pulse 73 04/23/18 02:03 Resp 22 04/23/18 02:03 BP 119/78 04/23/18 02:03 Pulse Ox 99 04/23/18 02:03 - Medical History PMH: Anxiety, Depression, Diabetes (Patient denied), HTN, Seizures (ETOH related) Denies: Hepatitis, HIV, Chronic Kidney Disease, Sexually Transmitted Disease Surgical History: No Surg Hx - [facility] Procedures DETOXIFICATION SERVICES FOR SUBSTANCE ABUSE TREATMENT (12/05/17) GROUP HAIR SPRING CUTTER FOR SUBSTANCE ABUSE TREATMENT, PSYCHOEDUCATION (12/05/17) GROUP PSYCHOTHERAPY (01/17/18) INDIV PSYCHOTHERAPY FOR SUBSTANCE ABUSE TREATMENT, SUPPORT (12/05/17) INDIVIDUAL PSYCHOTHERAPY, SUPPORTIVE (01/17/18) Family History: States: Unknown Family Hx - Social History Hx Alcohol Use: Yes Hx Substance Use: No (DENIES) - Immunization History Hx Tetanus Toxoid Vaccination: Yes Hx Influenza Vaccination: No Hx Pneumococcal Vaccination: Yes Review Of Systems Constitutional: Negative for: Fever, Chills Eyes: Negative for: Vision Change Cardiovascular: Negative for: Chest Pain Respiratory: Negative for: Shortness of Breath Gastrointestinal: Negative for: Nausea, Vomiting, Abdominal Pain Musculoskeletal: Positive for: Hand Pain, Leg Pain Skin: Negative for: Rash Neurological: Negative for: Weakness, Numbness, Headache, Dizziness Physical Exam - Physical Exam Appears: Non-toxic, No Acute Distress, Other (sleeping, arousable, intoxicated) Skin: Normal Color, Warm, Dry Head: Atraumatic, Normacephalic, No Laceration Eye(s): bilateral: Normal Inspection Neck: Normal ROM, Supple Chest: Symmetrical Cardiovascular: Rhythm Regular Respiratory: Normal Breath Sounds, No Rales, No Rhonchi, No Wheezing Gastrointestinal/Abdominal: Soft, No Tenderness Extremity: Normal ROM, Tenderness (right knee and left thumb), Capillary Refill (< 2 seconds), No Swelling, No Other (ecchymosis) Neurological/Psych: Oriented x3, Normal Speech, Normal Cognition Gait: Steady ED Course And Treatment O2 Sat by Pulse Oximetry: 99 (ON RA) Pulse Ox Interpretation: Normal Progress Note: Plan: - Right knee X-Ray. 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 - Scribe Statement The provider has reviewed the documentation as recorded by the Scribe Daniel Carrillo All medical record entries made by the Scribchristel were at my direction and personally dictated by me. I have reviewed the chart and agree that the record accurately reflects my personal performance of the history, physical exam, medical decision making, and the department course for this patient. I have also personally directed, reviewed, and agree with the discharge instructions and disposition.
== END 2018-04-23 02:55 | disposition left against medical advice (07) ==
LOC: C.ER 01:30
DX: F10.129 Alcohol abuse with intoxication, unspecified (principal); Y90.9 Presence of alcohol in blood, level not specified; M25.561 Pain in right knee

== ENCOUNTER 2018-05-09 21:40 | Emergency (ER) | payer MEDICAID ==
[2018-05-09 21:40] VITALS: BMI 28.1
[2018-05-09 21:47] VITALS: BP 113/80; PULSE 85; RESP 16; TEMP 97.7; O2SAT 98
--- NOTE | 2018-05-09 22:08 | C.PDOC ---
History Of Present Illness 42 year old male presents to the ER with ETOH intoxication. Patient is complaining about the hair on the floor and cursing while complaining about the hair on the floor. Has no physical complaints at this time. Time Seen by Provider: 05/09/18 21:48 Chief Complaint (Nursing): Substance Abuse History Per: Patient History/Exam Limitations: no limitations Onset/Duration Of Symptoms: Hrs Suicide/Self Injury Attempted (Context): None Modifying Factor(s): Alcohol Involuntary Hold By: None Recent travel outside of the [place]: No Past Medical History Reviewed: Historical Data, Nursing Documentation, Vital Signs Vital Signs: Last Vital Signs Temp 97.7 F 05/09/18 21:44 Pulse 85 05/09/18 21:44 Resp 16 05/09/18 21:44 BP 113/80 05/09/18 21:44 Pulse Ox 98 05/09/18 21:44 - Medical History PMH: Anxiety, Depression, Diabetes (Patient denied), HTN, Seizures (ETOH related) Denies: Hepatitis, HIV, Chronic Kidney Disease, Sexually Transmitted Disease - [facility] Procedures DETOXIFICATION SERVICES FOR SUBSTANCE ABUSE TREATMENT (12/05/17) GROUP SANITATION MANAGER FOR SUBSTANCE ABUSE TREATMENT, PSYCHOEDUCATION (12/05/17) GROUP PSYCHOTHERAPY (01/17/18) INDIV PSYCHOTHERAPY FOR SUBSTANCE ABUSE TREATMENT, SUPPORT (12/05/17) INDIVIDUAL PSYCHOTHERAPY, SUPPORTIVE (01/17/18) Family History: States: Unknown Family Hx - Social History Hx Alcohol Use: Yes Hx Substance Use: No (DENIES) - Immunization History Hx Tetanus Toxoid Vaccination: Yes Hx Influenza Vaccination: No Hx Pneumococcal Vaccination: Yes Review Of Systems Except As Marked, All Systems Reviewed And Found Negative. Constitutional: Positive for: Other (ETOH intoxication) Physical Exam - Physical Exam Additional Physical Exam Comments: Gen: VS reviewed, alert, well developed, well nourished, nontoxic, mild distress Eye: EOMI, PERRL Neck: no JVD, supple, no adenopathy CV: regular rate, regular rhythm, no rubs,no murmur, S1, S2 Pulm: no distress, clear to auscultation, no wheeze, no rhonchi, breath sounds equal, no rales Abd: soft, nontender, no guarding, no rebound, no rigidity Ext: no edema Skin: good color, no rash, no cyanosis Psych: responds appropriately to questions, normal affect Neuro: oriented x3, CN2-12 intact grossly, motor intact, sensation intact, slurred speech, steady gait ED Course And Treatment O2 Sat by Pulse Oximetry: 98 Medical Decision Making Medical Decision Making: Patient eloped prior to discharge, he was witnessed ambulating out of the ER with a steady gait. Disposition - Disposition Disposition: HOME/ ROUTINE Disposition Time: 22:07 Condition: STABLE Instructions: Alcohol Abuse and Alcoholism (DC) Forms: [employer] (Egyptian) - Clinical Impression Clinical Impression: Alcohol intoxication - Scribe Statement The provider has reviewed the documentation as recorded by the Scribe Satish Montoya All medical record entries made by the Scribe were at my direction and personally dictated by me. I have reviewed the chart and agree that the record accurately reflects my personal performance of the history, physical exam, medical decision making, and the department course for this patient. I have also personally directed, reviewed, and agree with the discharge instructions and disposition.
== END 2018-05-09 22:30 | disposition home or self-care (01) ==
LOC: C.ER 21:40
DX: F10.129 Alcohol abuse with intoxication, unspecified (principal)

== ENCOUNTER 2018-05-12 23:52 | Emergency (ER) | payer MEDICAID ==
[2018-05-12 23:52] VITALS: BMI 28.1
[2018-05-13 00:26] VITALS: BP 124/82; PULSE 84; RESP 20; TEMP 98.2; O2SAT 98
--- NOTE | 2018-05-13 01:00 | C.PDOC ---
History Of Present Illness 42 year old male brought in by EMS after being found intoxicated in public. He admits to drinking alcohol today, and denies any physical complaints. Time Seen by Provider: 05/13/18 00:00 Chief Complaint (Nursing): Substance Abuse History Per: Patient History/Exam Limitations: intoxication Current Symptoms Are (Timing): Still Present Suicide/Self Injury Attempted (Context): None Modifying Factor(s): Alcohol Severity: Mild Associated Symptoms: denies: Depression, Suicidal Thoughts Involuntary Hold By: Emergency Physician Past Medical History Reviewed: Historical Data, Nursing Documentation, Vital Signs Vital Signs: Last Vital Signs Temp 98.2 F 05/13/18 00:00 Pulse 84 05/13/18 00:00 Resp 20 05/13/18 00:00 BP 124/82 05/13/18 00:00 Pulse Ox 98 05/13/18 00:00 - Medical History PMH: Anxiety, Depression, Diabetes (Patient denied), HTN, Seizures (ETOH related) - [facility] Procedures DETOXIFICATION SERVICES FOR SUBSTANCE ABUSE TREATMENT (12/05/17) GROUP BURNER HAND FOR SUBSTANCE ABUSE TREATMENT, PSYCHOEDUCATION (12/05/17) GROUP PSYCHOTHERAPY (01/17/18) INDIV PSYCHOTHERAPY FOR SUBSTANCE ABUSE TREATMENT, SUPPORT (12/05/17) INDIVIDUAL PSYCHOTHERAPY, SUPPORTIVE (01/17/18) Family History: States: No Known Family Hx - Social History Hx Alcohol Use: Yes Hx Substance Use: No (DENIES) - Immunization History Hx Tetanus Toxoid Vaccination: Yes Hx Influenza Vaccination: No Hx Pneumococcal Vaccination: Yes Review Of Systems Constitutional: Positive for: Other (ETOH intoxication) Cardiovascular: Negative for: Chest Pain Respiratory: Negative for: Shortness of Breath Gastrointestinal: Negative for: Nausea, Vomiting, Abdominal Pain Neurological: Negative for: Headache, Dizziness Psych: Positive for: Other (alcohol intoxication) Physical Exam - Physical Exam Appears: Well, Non-toxic, Other (ETOH on breath) Skin: Normal Color, Warm, Dry Head: Atraumatic, Normacephalic Eye(s): bilateral: Normal Inspection Oral Mucosa: Moist Neck: Normal, No Midline Cervical Tenderness, No Paracervical Tenderness, No Step Off Deformity, Supple Cardiovascular: Rhythm Regular Respiratory: Normal Breath Sounds, No Rales, No Rhonchi, No Wheezing Gastrointestinal/Abdominal: Normal Exam, Bowel Sounds, Soft, No Tenderness Extremity: Normal ROM, No Deformity Extremity: Bilateral: Atraumatic Neurological/Psych: Other (mildly intoxicated, moving all 4 extremities spontaneously, awake & alert) ED Course And Treatment O2 Sat by Pulse Oximetry: 98 (RA) Pulse Ox Interpretation: Normal Progress Note: Accucheck 135 - WNL. Reevaluation Time: 01:30 Reassessment Condition: Improved (Patient apparently eloped from ED.) Disposition - Disposition Disposition: ELOPEMENT - ER ONLY Disposition Time: 01:30 Condition: STABLE Forms: [facility] (Libyan) - Clinical Impression Clinical Impression: Alcohol intoxication - Scribe Statement The provider has reviewed the documentation as recorded by the Scribe Satish Montoya All medical record entries made by the Scribe were at my direction and personally dictated by me. I have reviewed the chart and agree that the record accurately reflects my personal performance of the history, physical exam, medical decision making, and the department course for this patient. I have also personally directed, reviewed, and agree with the discharge instructions and disposition.
== END 2018-05-13 01:31 | disposition left against medical advice (07) ==
LOC: C.ER 23:52
DX: F10.129 Alcohol abuse with intoxication, unspecified (principal); I10 Essential (primary) hypertension

== ENCOUNTER 2018-05-13 20:16 | Emergency (ER) | payer MEDICAID ==
[2018-05-13 20:17] VITALS: BMI 28.1
--- NOTE | 2018-05-13 20:52 | C.PDOC ---
History Of Present Illness 42 year old male brought in by EMS for public intoxication, has had many prior visits for the same. Patient is awake, alert, argumentative, and confrontational with staff. Offers no complaints at this time. Time Seen by Provider: 05/13/18 20:51 Chief Complaint (Nursing): Substance Abuse History Per: Patient, EMS History/Exam Limitations: no limitations Onset/Duration Of Symptoms: Hrs Current Symptoms Are (Timing): Still Present Suicide/Self Injury Attempted (Context): None Modifying Factor(s): Alcohol Involuntary Hold By: None Recent travel outside of the [place]: No Past Medical History Reviewed: Historical Data, Nursing Documentation, Vital Signs - Medical History PMH: Anxiety, Depression, Diabetes (Patient denied), HTN, Seizures (ETOH related) Denies: Hepatitis, HIV, Chronic Kidney Disease, Sexually Transmitted Disease - [facility] Procedures DETOXIFICATION SERVICES FOR SUBSTANCE ABUSE TREATMENT (12/05/17) GROUP SENIOR PRODUCTION PLANNER FOR SUBSTANCE ABUSE TREATMENT, PSYCHOEDUCATION (12/05/17) GROUP PSYCHOTHERAPY (01/17/18) INDIV PSYCHOTHERAPY FOR SUBSTANCE ABUSE TREATMENT, SUPPORT (12/05/17) INDIVIDUAL PSYCHOTHERAPY, SUPPORTIVE (01/17/18) Family History: States: Unknown Family Hx - Social History Hx Alcohol Use: Yes Hx Substance Use: No (DENIES) - Immunization History Hx Tetanus Toxoid Vaccination: Yes Hx Influenza Vaccination: No Hx Pneumococcal Vaccination: Yes Review Of Systems Constitutional: Positive for: Other (ETOH intoxication). Negative for: Fever, Chills Cardiovascular: Negative for: Chest Pain, Palpitations Respiratory: Negative for: Cough, Shortness of Breath Gastrointestinal: Negative for: Nausea, Vomiting Physical Exam - Physical Exam Appears: Non-toxic, Other (Awake, alert, argumentative, confrontational with staff, walking and talking on cell phone, ETOH on breath, no sign of injury) Skin: Normal Color, Warm, Dry Head: Atraumatic, Normacephalic Eye(s): bilateral: Normal Inspection Oral Mucosa: Moist Chest: Symmetrical, No Tenderness Cardiovascular: Rhythm Regular Respiratory: Normal Breath Sounds, No Rales, No Rhonchi, No Wheezing Gastrointestinal/Abdominal: Soft, No Tenderness Extremity: Normal ROM (x4) Neurological/Psych: Oriented x3, Normal Speech Gait: Steady Medical Decision Making Medical Decision Making: biba public intox stable gait in ED using cell phone argumentative with staff many prior evals for same clinically stable for d/c. Disposition Doctor Will See Patient In The: Office Counseled Patient/Family Regarding: Studies Performed, Diagnosis - Disposition Referrals: [facility]ics Anonymous [Outside] [facility] [Outside] [facility] [Outside] [facility] [Outside] [facility] [employer] [Outside] Disposition: HOME/ ROUTINE Disposition Time: 20:52 Condition: GOOD Additional Instructions: seek outpatient counseling for alcohol abuse issues Instructions: Alcohol Use - When Is Drinking a Problem?, Alcohol Abuse and Alcoholism (DC) Forms: [facility] (Persian) - Clinical Impression Clinical Impression: Alcohol abuse - Scribe Statement The provider has reviewed the documentation as recorded by the Scribe Satish Montoya All medical record entries made by the Scribe were at my direction and personally dictated by me. I have reviewed the chart and agree that the record accurately reflects my personal performance of the history, physical exam, medical decision making, and the department course for this patient. I have also personally directed, reviewed, and agree with the discharge instructions and disposition.
[2018-05-13 20:55] VITALS: BP 134/92; PULSE 87; RESP 17; TEMP 98.3; O2SAT 98
== END 2018-05-13 22:18 | disposition home or self-care (01) ==
LOC: C.ER 20:16
DX: F10.10 Alcohol abuse, uncomplicated (principal); I10 Essential (primary) hypertension

== ENCOUNTER 2018-05-18 22:14 | Inpatient (IN) | payer MEDICAID ==
[2018-05-18 22:14] VITALS: BMI 28.1
[2018-05-18] MEDS ORDERED: Tdap Vaccine 0.5 ml Vial (10-64 yrs) IM ONE ×2 (22:33→22:40)
[2018-05-18] MEDS ORDERED: Thiamine 100 mg/ml Inj IV ONE (23:00)
[2018-05-18 23:09] LABS: HEMOGLOBIN 14.4 g/dL (12.0-18.0); MEAN CELL VOLUME 95.4 fL (80.0-94.0); MEAN CORPUSCULAR HEMOGLOBIN 31.9 pg (27.0-31.0); MEAN CORPUSCULAR HGB CONC 33.4 g/dL (33.0-37.0); MEAN PLATELET VOLUME 8.2 fL (7.2-11.7); RBC 4.51 Mil/uL (4.40-5.90); RED CELL DISTRIBUTION WIDTH 13.8 % (11.5-14.5); WHITE BLOOD COUNT 6.9 K/uL (4.8-10.8)
[2018-05-18] MEDS ORDERED: Thiamine 100 mg/ml Inj ONE (23:09)
--- NOTE | 2018-05-18 23:09 | C.PDOC ---
History Of Present Illness 42 year old male known to ER with chronic ETOH use presents today for suspected fall with abrasions, facial injury, and obvious shoulder injury. Patient does not recall the injury but is awake and alert now. Patient has no other comp laints. Time Seen by Provider: 05/18/18 22:29 Chief Complaint (Nursing): Upper Extremity Problem/Injury History Per: Patient, EMS History/Exam Limitations: no limitations Onset/Duration Of Symptoms: Hrs Current Symptoms Are (Timing): Still Present Recent travel outside of the [place]: No Past Medical History Reviewed: Historical Data, Nursing Documentation, Vital Signs Vital Signs: Last Vital Signs Temp 98.6 F 05/18/18 22:19 Pulse 106 H 05/18/18 22:19 Resp 22 05/18/18 22:19 BP 143/99 H 05/18/18 22:19 Pulse Ox 100 05/18/18 22:19 - Medical History PMH: Anxiety, Depression, Diabetes (Patient denied), HTN, Seizures (ETOH related) Denies: Hepatitis, HIV, Chronic Kidney Disease, Sexually Transmitted Disease - [facility] Procedures DETOXIFICATION SERVICES FOR SUBSTANCE ABUSE TREATMENT (12/05/17) GROUP FEED HANDLER FOR SUBSTANCE ABUSE TREATMENT, PSYCHOEDUCATION (12/05/17) GROUP PSYCHOTHERAPY (01/17/18) INDIV PSYCHOTHERAPY FOR SUBSTANCE ABUSE TREATMENT, SUPPORT (12/05/17) INDIVIDUAL PSYCHOTHERAPY, SUPPORTIVE (01/17/18) Family History: States: Unknown Family Hx - Social History Hx Alcohol Use: Yes Hx Substance Use: No (DENIES) - Immunization History Hx Tetanus Toxoid Vaccination: Yes Hx Influenza Vaccination: No Hx Pneumococcal Vaccination: Yes Review Of Systems Except As Marked, All Systems Reviewed And Found Negative. Musculoskeletal: Positive for: Shoulder Pain (Right) Skin: Positive for: Other (Facial abrasions) Physical Exam - Physical Exam Appears: Non-toxic Skin: Warm, Dry Head: Normacephalic, Abrasion (Right facial area) Eye(s): bilateral: Normal Inspection, PERRL, EOMI Oral Mucosa: Moist Neck: Normal, No Midline Cervical Tenderness, No Paracervical Tenderness, Supple Chest: Symmetrical, No Tenderness Cardiovascular: Rhythm Regular Respiratory: Normal Breath Sounds, No Rales, No Rhonchi, No Wheezing Gastrointestinal/Abdominal: Soft, No Tenderness Back: No Vertebral Tenderness, No Paraspinal Tenderness Extremity: Tenderness (Right shoulder), Capillary Refill (<2 seconds), Deformity (Right shoulder anterior dislocation), Other (Neurovascularly intact x4) Extremity: Bilateral: Normal Color And Temperature Pulses: Left Radial: Normal, Right Radial: Normal Neurological/Psych: Oriented x3, Normal Speech, Normal Motor, Normal Sensation ED Course And Treatment - Laboratory Results Result Diagrams: 05/18/18 23:03 05/18/18 23:03 O2 Sat by Pulse Oximetry: 100 (Room air) Pulse Ox Interpretation: Normal - Other Rad Right Shoulder x-ray X-Ray: Interpreted by Me, Viewed By Me Interpretation: Right shoulder fracture with anterior dislocation - CT Scan/US CT Head Other Rad Studies (CT/US): Read By Radiologist, Radiology Report Reviewed CT/US Interpretation: EXAM: CT Head without Intravenous Contrast. CLINICAL HISTORY: Head injury. TECHNIQUE: Axial computed tomography images of the head/brain without intravenous contrast. 922 mGy-cm. COMPARISON: None provided. FINDINGS: BRAIN. No acute intraparenchymal hemorrhage. No mass lesion. No CT evidence for acute territorial infarct. No midline shift or extra- axial collections. VENTRICLES: No hydrocephalus. ORBITS: The orbits are unremarkable. SINUSES AND MASTOIDS: Diffuse right periorbital/facial swelling. Bilateral ethmoid and maxillary sinusitis. The mastoid air cells are clear. BONES: No skull fracture. Comminuted mildly displaced fractures involving anterior and lateral martin of right maxillary sinus. SOFT TISSUES: Unremarkable. IMPRESSION: No acute intracranial abnormality. Comminuted mildly displaced fractures involving anterior and lateral martin of right maxil amrit sinus. Diffuse right periorbital/facial swelling. Bilateral ethmoid and maxillary sinusitis. CT Orbits/Facials Other Rad Studies (CT/US): Read By Radiologist, Radiology Report Reviewed CT/US Interpretation: EXAM: CT Maxillofacial without Intravenous Contrast. CLINICAL HISTORY: Rt facial and orbit injury. s/p dfall. TECHNIQUE: Axial computed tomography images of the face without intravenous contrast. Sagittal and coronal reformatted images were generated. 712 mGy-cm. CONTRAST: Without. COMPARISON: None provided. FINDINGS: BONES: Comminuted mildly displaced fractures involving anterior and lateral martin of right maxillary sinus. SOFT TISSUES: Diffuse right periorbital/facial swelling. SINUSES: Bilateral ethmoid and maxillary sinusitis. ORBITS: The orbits are normal. No retrobulbar hematoma or mass. IMPRESSION: 1. Comminuted mildly displaced fractures involving anterior and lateral martin of right maxillary sinus. 2. Diffuse right periorbital/facial swelling. 3. Bilateral ethmoid and maxillary sinusitis. Medical Decision Making Medical Decision Making: X-ray results showed fracture with anterior dislocation. Patient is intoxicated, cannot consciously sedate, attempted to reduce with no success Will admit to med/surg under Dr. Duane Barragan's service with Dr Kern for ortho consult. Facial CT was positive for maxillary sinus fracture, Dr. Michaels for ENT consult. Assessment: Head injury, Maxillary sinus fracture, Right shoulder fracture and dislocation, ETOH abuse. Disposition Discussed With DrCristi: Marko Barragan Counseled Patient/Family Regarding: Studies Performed, Diagnosis - Disposition Disposition: HOSPITALIZED Disposition Time: 23:09 Condition: FAIR - Clinical Impression Clinical Impression: Alcohol abuse, Fracture dislocation of shoulder joint, Maxillary sinus fracture, Head injury - Scribe Statement The provider has reviewed the documentation as recorded by the Scribchristel Montoya All medical record entries made by the Florenciaibchristel were at my direction and personally dictated by me. I have reviewed the chart and agree that the record accurately reflects my personal performance of the history, physical exam, medical decision making, and the department course for this patient. I have also personally directed, reviewed, and agree with the discharge instructions and disposition.
[2018-05-18 23:20] LABS: ALB/GLOB RATIO 1.7 (1.0-2.1); ALBUMIN 4.9 g/dL (3.5-5.0); ALT/SGPT 47 U/L (21-72); AST/SGOT 106 U/L (17-59); BLOOD UREA NITROGEN 9 mg/dL (9-20); CALCIUM 8.9 mg/dl (8.6-10.4); GFR NON-AFRICAN AMERICAN > 60
[2018-05-18] MEDS ORDERED: Morphine 4 MG/ML VIAL IV STA (23:20)
[2018-05-18 23:27] LABS: INR 1.1; PROTHROMBIN TIME 11.7 SECONDS (9.7-12.2)
--- NOTE | 2018-05-19 08:23 | CT ---
Date of service: 05/18/2018 PROCEDURE: CT HEAD WITHOUT CONTRAST. HISTORY: Fall COMPARISON: 03/21/2018. TECHNIQUE: Axial computed tomography images were obtained through the head/brain without intravenous contrast. Radiation dose: Total exam DLP = 922.41 mGy-cm. This CT exam was performed using one or more of the following dose reduction techniques: Automated exposure control, adjustment of the mA and/or kV according to patient size, and/or use of iterative reconstruction technique. FINDINGS: HEMORRHAGE: No intracranial hemorrhage. BRAIN: Mir-white matter differentiation is preserved. There is no mass, mass effect or abnormal extra-axial fluid collection. There is no territorial infarction. The midline sagittal structures are normal. VENTRICLES: The ventricles are normal in size, shape and configuration. CALVARIUM: There is no calvarial fracture or extracranial soft tissue swelling. PARANASAL SINUSES: There is severe polypoid mucosal thickening in the right frontal sinus, moderate mucosal thickening in the ethmoid air cells and maxillary sinuses and mild mucosal thickening in the sphenoid sinus. MASTOID AIR CELLS: Predominantly clear. OTHER FINDINGS: There is a comminuted mildly displaced fractures in the right anterior and lateral maxillary martin. Moderate right periorbital soft tissue swelling. There is high attenuation fluid in the right maxillary sinus. IMPRESSION: No acute intracranial abnormality. Acute comminuted mildly displaced fractures involving the anterior and lateral martin of the right maxillary sinus and hemorrhagic fluid in the right maxillary sinus. Moderate right periorbital soft tissue swelling. A preliminary report was provided by [email or web address].
--- NOTE | 2018-05-19 10:29 | RAD ---
Date of service: 05/18/2018 HISTORY: fall COMPARISON: 01/16/2018. FINDINGS: LUNGS: There are low lung volumes. The lungs are clear. PLEURA: No pleural effusions or pneumothorax. CARDIOVASCULAR: The heart is normal in size. No aortic atherosclerotic calcification present. OSSEOUS STRUCTURES: Within normal limits for the patient's age. VISUALIZED UPPER ABDOMEN: Normal. OTHER FINDINGS: None. IMPRESSION: No acute findings. Low lung volumes may be related to poor inspiratory effort.
--- NOTE | 2018-05-19 11:31 | RAD ---
Date of service: 05/18/2018 PROCEDURE: Radiographs of the Right Shoulder HISTORY: FALL + DISLOCATION COMPARISON: No prior. FINDINGS: BONES: There is a comminuted fracture in the greater tuberosity of the humerus. Bone mineralization is normal. JOINTS: There is anterior inferior glenohumeral dislocation. The acromioclavicular joint is normal. SOFT TISSUES: Normal. OTHER FINDINGS: None. IMPRESSION: Acute comminuted fracture in the greater tuberosity of the humerus and anterior inferior glenohumeral dislocation.
[2018-05-19] MEDS ORDERED: Midazolam 2 MG/2 ML VIAL ONE (11:48)
[2018-05-19] MEDS ORDERED: Propofol 10 mg/ml Inj (20 ML) ONE (11:51)
[2018-05-19] MEDS ORDERED: Neostigmine Methylsulfate 3mg/3ml Syringe IV ONE (12:17)
--- NOTE | 2018-05-19 12:24 | PCM.SURG1 ---
Surgeon's Initial Post Op Note - Surgeon's Notes Surgeon: milton Heel Burnisher: none Type of Anesthesia: General Endo Pre-Operative Diagnosis: R shoulder anterior dislocation and greater tuberosity fx Operative Findings: see dictation Post-Operative Diagnosis: same Operation Performed: shoulder closed reduction Specimen/Specimens Removed: none Estimated Blood Loss: EBL {In ML}: 0 Date of Surgery/Procedure: 05/19/18 Time of Surgery/Procedure: 12:00
[2018-05-19] MEDS ORDERED: HYDROmorphone 0.5 mg/0.5 ml ISec IVP PRN (12:35)
--- NOTE | 2018-05-19 12:54 | RAD ---
Date of service: 05/19/2018 PROCEDURE: Radiographs of the Right Shoulder HISTORY: post op COMPARISON: Plain radiographs performed earlier the same day. FINDINGS: BONES: Redemonstration of acute comminuted nondisplaced fracture in the greater tuberosity of the humerus. JOINTS: Status post reduction, near normal bone alignment. Glenohumeral and acromioclavicular joints preserved. No osteoarthritis. SOFT TISSUES: Normal. OTHER FINDINGS: None. IMPRESSION: Status post reduction, near normal bone alignment at the glenohumeral joint. Acute comminuted nondisplaced fracture in the greater tuberosity of the humerus.
--- NOTE | 2018-05-19 13:18 | CT ---
Date of service: 05/18/2018 PROCEDURE: CT MAXILLOFACIAL BONES WITHOUT CONTRAST HISTORY: fall COMPARISON: None available. TECHNIQUE: Contiguous axial CT images of the maxillofacial bones were obtained. Coronal and sagittal reformats were generated. Radiation dose: Total exam DLP = 711.91 mGy-cm. This CT exam was performed using one or more of the following dose reduction techniques: Automated exposure control, adjustment of the mA and/or kV according to patient size, and/or use of iterative reconstruction technique. FINDINGS: NASAL BONES: No acute fracture. ORBITS: There is an acute mildly displaced fracture in the inferior aspect of the lateral wall of the orbit. There is also an acute nondisplaced fracture in the medial orbital floor.. PARANASAL SINUSES/ MASTOIDS: There is high attenuation fluid in the right maxillary sinus. There is chronic right frontal, ethmoid, left maxillary and sphenoid sinusitis with retention cysts/polyps. MAXILLA: There are acute comminuted mildly displaced fractures in the anterior and lateral wall of the right maxilla. There is an acute nondisplaced fracture in the right zygomatic arch. There is an acute comminuted nondisplaced fracture in the superior zygoma. MANDIBLE/ TEMPOROMANDIBULAR JOINTS: No acute fracture or dislocation. SKULL BASE: Unremarkable. TEMPORAL BONES: Middle ears and mastoid grossly unremarkable. OTHER FINDINGS: There is moderate right facial and periorbital soft tissue swelling. IMPRESSION: 1. Acute mildly displaced fractures in the anterior and lateral wall of the right maxilla and hemorrhagic fluid in the maxillary sinus. 2. Acute nondisplaced fracture in the medial aspect of the right orbital floor, acute nondisplaced fracture in the inferior aspect of the lateral wall of the right orbit, acute nondisplaced fracture in the zygomatic arch and acute comminuted nondisplaced fractures in the superior zygoma. 3. Moderate right facial and periorbital soft tissue swelling. A preliminary report was provided by [employer]. There are additional fractures as described above. The final report is tagged to the PA review folder.
--- NOTE | 2018-05-19 13:23 | CP.PCM.CON ---
History of Present Illness - History of Present Illness History of Present Illness: Consultation for preop evaluation HPI: Review of Systems - Review of Systems Systems not reviewed;Unavailable: Acuity of Condition - Constitutional Constitutional: As Per HPI - EENT Eyes: As Per HPI Ears: As Per HPI Nose/Mouth/Throat: As Per HPI - Cardiovascular Cardiovascular: As Per HPI - Respiratory Respiratory: As Per HPI - Gastrointestinal Gastrointestinal: As Per HPI - Genitourinary Genitourinary: As Per HPI - Reproductive: Male Reproductive:Male: As Per HPI - Musculoskeletal Musculoskeletal: As Per HPI - Integumentary Integumentary: As Per HPI - Neurological Neurological: As Per HPI - Psychiatric Psychiatric: As Per HPI - Endocrine Endocrine: As Per HPI - Hematologic/Lymphatic Hematologic: As Per HPI Past Patient History - Infectious Disease Hx of Infectious Diseases: None - Past Medical History & Family History Past Medical History?: Yes - Past Social History Smoking Status: Never Smoked - CARDIAC Hx Hypertension: Yes - PULMONARY Hx Tuberculosis: No - NEUROLOGICAL Hx Seizures: Yes (ETOH related) - HEENT Hx HEENT Problems: No - RENAL Hx Chronic Kidney Disease: No - ENDOCRINE/METABOLIC Hx Endocrine Disorders: Yes Hx Diabetes Mellitus Type 2: Yes Other/Comment: non compliant with meds - HEMATOLOGICAL/ONCOLOGICAL Hx Human Immunodeficiency Virus (HIV): No - INTEGUMENTARY Hx Dermatological Problems: No - MUSCULOSKELETAL/RHEUMATOLOGICAL Hx Falls: Yes - GASTROINTESTINAL Hx Gastrointestinal Disorders: No - GENITOURINARY/GYNECOLOGICAL Hx Sexually Transmitted Disorders: No - PSYCHIATRIC Hx Substance Use: No - SURGICAL HISTORY Hx Surgeries: No - ANESTHESIA Hx Anesthesia: Yes Hx Anesthesia Reactions: No Hx Malignant Hyperthermia: No Has any member of the family had a problem w/ anesthesia?: No Meds Allergies/Adverse Reactions: Allergies Allergy/AdvReac Type Severity Reaction Status Date / Time No Known Allergies Allergy Verified 05/18/18 22:25 - Medications Medications: Current Medications Hydromorphone HCl (Dilaudid) 0.5 mg IVP Q15M PRN PRN Reason: Pain, severe (8-10) Stop: 05/19/18 14:36 Last Admin: 05/19/18 12:41 Dose: 0.5 mg Folic Acid 1 mg/ Thiamine HCl 100 mg/ Multivitamins/Vitamin C 10 ml/ Dextrose 1,011.2 mls @ 75 mls/hr IV .[id number] [facility] Potassium Chloride (Potassium Chloride 20 Meq/100 Ml) 20 meq in 100 mls @ 50 mls/hr IVPB ONCE ONE Stop: 05/19/18 15:29 Influenza Virus Vaccine (Fluzone Quad [id number]) 60 mcg IM .ONCE ONE Stop: 05/21/18 10:01 Levetiracetam (Keppra) 500 mg PO BID [facility] Lorazepam (Ativan) 0.5 mg IVP Q6H PRN PRN Reason: Anxiety Metformin HCl (Glucophage) 1,000 mg PO BIDCC [facility] Pantoprazole Sodium (Protonix Ec Tab) 40 mg PO DAILY [facility] Pneumococcal Polyvalent Vaccine (Pneumovax 23 Vaccine) 0.5 ml IM .ONCE ONE Stop: 05/21/18 10:01 Physical Exam - Constitutional Appears: Well - Head Exam Head Exam: ATRAUMATIC, NORMAL INSPECTION, NORMOCEPHALIC - Eye Exam Eye Exam: EOMI, Normal appearance, PERRL Pupil Exam: NORMAL ACCOMODATION, PERRL - ENT Exam ENT Exam: Mucous Membranes Moist, Normal Exam - Neck Exam Neck exam: Positive for: Normal Inspection - Respiratory Exam Respiratory Exam: Clear to Auscultation Bilateral, NORMAL BREATHING PATTERN - Cardiovascular Exam Cardiovascular Exam: REGULAR RHYTHM - GI/Abdominal Exam GI & Abdominal Exam: Normal Bowel Sounds, Soft. absent: Tenderness - Extremities Exam Extremities exam: Positive for: normal inspection - Back Exam Back exam: NORMAL INSPECTION - Neurological Exam Neurological exam: Alert, CN II-XII Intact, Normal Gait, Oriented x3, Reflexes Normal - Psychiatric Exam Psychiatric exam: Normal Affect, Normal Mood - Skin Skin Exam: Dry, Intact, Normal Color, Warm Results - Vital Signs Recent Vital Signs: Last Vital Signs Temp 97.2 F L 05/19/18 12:27 Pulse 99 H 05/19/18 12:57 Resp 18 05/19/18 12:57 BP 143/101 H 05/19/18 12:57 Pulse Ox 100 05/19/18 12:57 - Labs Result Diagrams: 05/18/18 23:03 05/18/18 23:03 Labs: Laboratory Results - last 24 hr 05/18/18 05/18/18 05/18/18 22:32 23:03 23:03 WBC 6.9 D RBC 4.51 Hgb 14.4 Hct 43.0 MCV 95.4 H MCH 31.9 H MCHC 33.4 RDW 13.8 Plt Count 135 MPV 8.2 PT INR APTT Sodium 140 Potassium 3.4 L Chloride 101 Carbon Dioxide 20 L Anion Gap 22 H BUN 9 Creatinine 0.6 L Est GFR ( Amer) > 60 Est GFR (Non-Af Amer) > 60 POC Glucose (mg/dL) 265 H Random Glucose 295 H D Calcium 8.9 Phosphorus 4.2 Magnesium 1.7 Total Bilirubin 0.9 AST 106 H D ALT 47 Alkaline Phosphatase 173 H D Total Protein 7.8 Albumin 4.9 Globulin 2.9 Albumin/Globulin Ratio 1.7 Alcohol, Quantitative 318 H 05/18/18 23:16 WBC RBC Hgb Hct MCV MCH MCHC RDW Plt Count MPV PT 11.7 INR 1.1 APTT 45 H Sodium Potassium Chloride Carbon Dioxide Anion Gap BUN Creatinine Est GFR ( Amer) Est GFR (Non-Af Amer) POC Glucose (mg/dL) Random Glucose Calcium Phosphorus Magnesium Total Bilirubin AST ALT Alkaline Phosphatase Total Protein Albumin Globulin Albumin/Globulin Ratio Alcohol, Quantitative Assessment & Plan (1) Preop cardiovascular exam Assessment and Plan: ok to proceed with surgery with low risk for perioperative cardiac event Status: Acute (2) Alcohol dependence Status: Acute (3) Uncontrolled diabetes mellitus Status: Acute
[2018-05-19] MEDS: Folic Acid 1 MG, Thiamine 100 MG, Multivitamin (MVI) 10 ML in Dextrose 5% In Water 1,00... IV SCH (14:02)
--- NOTE | 2018-05-19 22:23 | CP.PCM.HP ---
Past Patient History - Infectious Disease Hx of Infectious Diseases: None - Past Medical History & Family History Past Medical History?: Yes - Past Social History Smoking Status: Never Smoked - CARDIAC Hx Hypertension: Yes - PULMONARY Hx Tuberculosis: No - NEUROLOGICAL Hx Seizures: Yes (ETOH related) - HEENT Hx HEENT Problems: No - RENAL Hx Chronic Kidney Disease: No - ENDOCRINE/METABOLIC Hx Endocrine Disorders: Yes Hx Diabetes Mellitus Type 2: Yes Other/Comment: non compliant with meds - HEMATOLOGICAL/ONCOLOGICAL Hx Human Immunodeficiency Virus (HIV): No - INTEGUMENTARY Hx Dermatological Problems: No - MUSCULOSKELETAL/RHEUMATOLOGICAL Hx Falls: Yes - GASTROINTESTINAL Hx Gastrointestinal Disorders: No - GENITOURINARY/GYNECOLOGICAL Hx Sexually Transmitted Disorders: No - PSYCHIATRIC Hx Anxiety: Yes Hx Depression: Yes Hx Substance Use: No (DENIES) - SURGICAL HISTORY Hx Surgeries: No - ANESTHESIA Hx Anesthesia: Yes Hx Anesthesia Reactions: No Hx Malignant Hyperthermia: No Has any member of the family had a problem w/ anesthesia?: No Meds Allergies/Adverse Reactions: Allergies Allergy/AdvReac Type Severity Reaction Status Date / Time No Known Allergies Allergy Verified 05/18/18 22:25 Physical Exam - Constitutional Appears: Well - Head Exam Head Exam: ATRAUMATIC, NORMAL INSPECTION, NORMOCEPHALIC - Eye Exam Eye Exam: EOMI, Normal appearance, PERRL Pupil Exam: NORMAL ACCOMODATION, PERRL - ENT Exam ENT Exam: Mucous Membranes Moist, Normal Exam - Neck Exam Neck exam: Positive for: Normal Inspection - Respiratory Exam Respiratory Exam: Decreased Breath Sounds - Cardiovascular Exam Cardiovascular Exam: REGULAR RHYTHM, +S1, +S2 - GI/Abdominal Exam GI & Abdominal Exam: Diminished Bowel Sounds, Soft - Rectal Exam Rectal Exam: Deferred Results - Vital Signs Recent Vital Signs: Last Vital Signs Temp 97.9 F 05/19/18 15:45 Pulse 99 H 05/19/18 15:45 Resp 20 05/19/18 15:45 BP 118/72 05/19/18 15:45 Pulse Ox 100 05/19/18 21:02 - Labs Result Diagrams: 05/18/18 23:03 05/18/18 23:03 Labs: Laboratory Results - last 24 hr 05/18/18 05/18/18 05/18/18 22:32 23:03 23:03 WBC 6.9 D RBC 4.51 Hgb 14.4 Hct 43.0 MCV 95.4 H MCH 31.9 H MCHC 33.4 RDW 13.8 Plt Count 135 MPV 8.2 PT INR APTT Sodium 140 Potassium 3.4 L Chloride 101 Carbon Dioxide 20 L Anion Gap 22 H BUN 9 Creatinine 0.6 L Est GFR ( Amer) > 60 Est GFR (Non-Af Amer) > 60 POC Glucose (mg/dL) 265 H Random Glucose 295 H D Calcium 8.9 Phosphorus 4.2 Magnesium 1.7 Total Bilirubin 0.9 AST 106 H D ALT 47 Alkaline Phosphatase 173 H D Total Protein 7.8 Albumin 4.9 Globulin 2.9 Albumin/Globulin Ratio 1.7 Alcohol, Quantitative 318 H 05/18/18 05/19/18 05/19/18 23:16 16:13 21:19 WBC RBC Hgb Hct MCV MCH MCHC RDW Plt Count MPV PT 11.7 INR 1.1 APTT 45 H Sodium Potassium Chloride Carbon Dioxide Anion Gap BUN Creatinine Est GFR ( Amer) Est GFR (Non-Af Amer) POC Glucose (mg/dL) 261 H 246 H Random Glucose Calcium Phosphorus Magnesium Total Bilirubin AST ALT Alkaline Phosphatase Total Protein Albumin Globulin Albumin/Globulin Ratio Alcohol, Quantitative Assessment & Plan - Assessment and Plan (Free Text) Plan: Status post ORIF by surgeons To be seen by ENT for maxillary fracture Continue banana bag Metformin Morphine for pain Pantoprazole We will hold the Lovenox as patient is just underwent surgery As ordered
[2018-05-20] MEDS: Pantoprazole 40 mg EC Tab PO SCH (09:49)
[2018-05-20] MEDS: Folic Acid 1 MG, Thiamine 100 MG, Multivitamin (MVI) 10 ML in Dextrose 5% In Water 1,00... IV SCH (09:49)
--- NOTE | 2018-05-20 19:34 | CP.PCM.PN ---
Subjective - Date & Time of Evaluation Date of Evaluation: 05/20/18 Time of Evaluation: 11:00 - Subjective Subjective: clinically same Objective - Vital Signs/Intake and Output Vital Signs (last 24 hours): Temp Pulse Resp BP Pulse Ox 97.9 F 96 H 20 127/83 98 05/20/18 15:25 05/20/18 15:25 05/20/18 15:25 05/20/18 15:25 05/20/18 15:25 - Medications Medications: Current Medications Folic Acid 1 mg/ Thiamine HCl 100 mg/ Multivitamins/Vitamin C 10 ml/ Dextrose 1,011.2 mls @ 75 mls/hr IV DAILY [facility] Last Admin: 05/20/18 09:49 Dose: 75 mls/hr Influenza Virus Vaccine (Fluzone Quad [id number]) 60 mcg IM .ONCE ONE Stop: 05/21/18 10:01 Levetiracetam (Keppra) 500 mg PO BID [facility] Last Admin: 05/20/18 17:51 Dose: 500 mg Lorazepam (Ativan) 0.5 mg IVP Q6H PRN PRN Reason: Anxiety [facility] Last Admin: 05/20/18 17:51 Dose: 1,000 mg Morphine Sulfate (Morphine) 2 mg IVP Q6 PRN PRN Reason: Pain, moderate (4-7) Last Admin: 05/19/18 23:27 Dose: 2 mg Pantoprazole Sodium (Protonix Ec Tab) 40 mg PO DAILY [facility] Last Admin: 05/20/18 09:49 Dose: 40 mg Pneumococcal Polyvalent Vaccine (Pneumovax 23 Vaccine) 0.5 ml IM .ONCE ONE Stop: 05/21/18 10:01 - Labs Labs: 05/18/18 23:03 05/18/18 23:03 PT 11.7 SECONDS (9.7-12.2) 05/18/18 23:16 INR 1.1 05/18/18 23:16 APTT 45 SECONDS (21-34) H 05/18/18 23:16
[2018-05-21] MEDS: Pantoprazole 40 mg EC Tab PO SCH (09:47)
[2018-05-21] MEDS ORDERED: Pneumococcal 23-Valent Vaccine IM ONE (10:00)
[2018-05-21] MEDS ORDERED: Influenza Vaccine 60 MCG/0.5 ML SYR (3 yr & up) IM ONE (10:00)
[2018-05-21] MEDS: Folic Acid 1 MG, Thiamine 100 MG, Multivitamin (MVI) 10 ML in Dextrose 5% In Water 1,00... IV SCH (10:09)
--- NOTE | 2018-05-21 10:53 | CP.PCM.PN ---
Subjective - Date & Time of Evaluation Date of Evaluation: 05/21/18 Time of Evaluation: 10:00 - Subjective Subjective: Patient seen and examined at bedside comfortable. Pain well controlled. No acute events overnight. No other complaints. Denies CP/SOB/fever/CHAO. Objective - Vital Signs/Intake and Output Vital Signs (last 24 hours): Temp Pulse Resp BP Pulse Ox 99.1 F 80 20 114/80 99 05/21/18 07:00 05/21/18 07:00 05/21/18 07:00 05/21/18 07:00 05/21/18 07:00 Intake and Output: 05/21/18 05/21/18 06:59 18:59 Output Total 1300 Balance -1300 - Medications Medications: Current Medications Folic Acid 1 mg/ Thiamine HCl 100 mg/ Multivitamins/Vitamin C 10 ml/ Dextrose 1,011.2 mls @ 75 mls/hr IV DAILY [facility] Last Admin: 05/21/18 10:09 Dose: 75 mls/hr Levetiracetam (Keppra) 500 mg PO BID [facility] Last Admin: 05/21/18 09:47 Dose: 500 mg Lorazepam (Ativan) 0.5 mg IVP Q6H PRN PRN Reason: Anxiety [facility] Admin: 05/21/18 07:46 Dose: 1,000 mg Morphine Sulfate (Morphine) 2 mg IVP Q6 PRN PRN Reason: Pain, moderate (4-7) Last Admin: 05/21/18 10:09 Dose: 2 mg Pantoprazole Sodium (Protonix Ec Tab) 40 mg PO DAILY [facility] Last Admin: 05/21/18 09:47 Dose: 40 mg - Labs Labs: 05/18/18 23:03 05/18/18 23:03 PT 11.7 SECONDS (9.7-12.2) 05/18/18 23:16 INR 1.1 05/18/18 23:16 APTT 45 SECONDS (21-34) H 05/18/18 23:16 - Extremities Exam Additional comments: R shoulder: Shoulder immobilizer intact no swelling, no tenderness sensation and motor intact AXN/MN/UN/RN radial pulse intact Assessment and Plan (1) Dislocation of right shoulder joint Assessment & Plan: POD# 2 s/p R shoulder dislocation closed reduction in OR -maintain shoulder immobilizer x 2-4 weeks, strict immobilization of RUE -NWB RUE -pain control -orthopedically stable for discharge home -f/u in office within 7-10 days -Above d/w Dr. Kern in agreement Status: Acute
--- NOTE | 2018-05-21 12:26 | CP.PCM.PN ---
Subjective - Date & Time of Evaluation Date of Evaluation: 05/21/18 Time of Evaluation: 11:30 - Subjective Subjective: clinically same Objective - Vital Signs/Intake and Output Vital Signs (last 24 hours): Temp Pulse Resp BP Pulse Ox 99.1 F 80 20 114/80 99 05/21/18 07:00 05/21/18 07:00 05/21/18 07:00 05/21/18 07:00 05/21/18 07:00 Intake and Output: 05/21/18 05/21/18 06:59 18:59 Output Total 1300 Balance -1300 - Medications Medications: Current Medications Folic Acid 1 mg/ Thiamine HCl 100 mg/ Multivitamins/Vitamin C 10 ml/ Dextrose 1,011.2 mls @ 75 mls/hr IV DAILY [facility] Last Admin: 05/21/18 10:09 Dose: 75 mls/hr Levetiracetam (Keppra) 500 mg PO BID [facility] Last Admin: 05/21/18 09:47 Dose: 500 mg Lorazepam (Ativan) 0.5 mg IVP Q6H PRN PRN Reason: Anxiety [facility] Last Admin: 05/21/18 07:46 Dose: 1,000 mg Morphine Sulfate (Morphine) 2 mg IVP Q6 PRN PRN Reason: Pain, moderate (4-7) Last Admin: 05/21/18 10:09 Dose: 2 mg Pantoprazole Sodium (Protonix Ec Tab) 40 mg PO DAILY [facility] Last Admin: 05/21/18 09:47 Dose: 40 mg - Labs Labs: 05/18/18 23:03 05/18/18 23:03 PT 11.7 SECONDS (9.7-12.2) 05/18/18 23:16 INR 1.1 05/18/18 23:16 APTT 45 SECONDS (21-34) H 05/18/18 23:16
--- NOTE | 2018-05-21 16:00 | RAD ---
Date of service: 05/19/2018 PROCEDURE: Intraoperative Fluoroscopy. HISTORY: DISLOCATED RT SHOULDER FINDINGS: Fluoroscopic assistance was provided for close reduction right shoulder. Please refer to the operative report from BETINA Castellon. Total fluoroscopic time (continuous mode) utilized during the procedure 15.5 seconds. Total exam DLP: 1.35 (mGy).
[2018-05-21 18:57] VITALS: BP 125/82; PULSE 90; RESP 18; TEMP 98.5; O2SAT 98
--- NOTE | 2018-05-22 04:02 | OP ---
PROCEDURE DATE: 05/19/2018 PREOPERATIVE DIAGNOSIS: Right shoulder anterior dislocation, greater tuberosity fracture. POSTOPERATIVE DIAGNOSIS: Right shoulder anterior dislocation, greater tuberosity fracture. PROCEDURE: Right shoulder closed reduction. BLOOD LOSS: None. ANESTHESIA: General. COMPLICATIONS: None. INDICATIONS: A 42-year-old male who presents to the emergency room at [facility], who is status post fall and intoxication. The patient presents with anterior shoulder dislocation. Closed reduction was attempted in the emergency room and failed. The patient was admitted and taken to the operating room for the above procedure. Informed consent was obtained. DESCRIPTION OF PROCEDURE: The patient was brought to the operating room and placed on the operating room table after general anesthesia was given. A fluoroscopic image was taken to confirm right anterior shoulder dislocation. Closed reduction was then performed with traction and countertraction of the shoulder and on the humeral head. A palpable click was felt. The patient's range of motion was 170 degrees forward flexion, external rotation 75 degrees, internal rotation 75 degrees with no instability. Fluoroscopic images again confirmed anatomic reduction of the glenohumeral joint on both AP, lateral, Y and axillary views. Shoulder sling and immobilizer was then placed on the right upper extremity. The patient tolerated the procedure well and was returned to the recovery room in extubated and in excellent condition. He will continue on immobilization and follow up with me in my office in 2 weeks for reevaluation. Moshe Kern MD
== END 2018-05-21 20:25 | disposition home or self-care (01) | DRG 253 ==
LOC: C.ER 22:14 → C.3T 23:08 → C.9E 05-19 00:30 → C.6T 05-19 00:35
PROVIDERS: ADMIT Internal Medicine Nephrology; ATTEND Internal Medicine Nephrology
PROC: 0PSCXZZ Reposition Right Humeral Head, External Approach (ICD-10-PCS; principal; 2018-05-19 12:00)
DX: S42.251A Displaced fracture of greater tuberosity of right humerus, initial encounter for closed fracture (principal); E11.65 Type 2 diabetes mellitus with hyperglycemia; S02.401A Maxillary fracture, unspecified side, initial encounter for closed fracture; W01.0XXA Fall on same level from slipping, tripping and stumbling without subsequent striking against object, initial encounter; S43.014A Anterior dislocation of right humerus, initial encounter; Z91.14 Patient's other noncompliance with medication regimen; F32.9 Major depressive disorder, single episode, unspecified; F41.9 Anxiety disorder, unspecified; F10.20 Alcohol dependence, uncomplicated; I10 Essential (primary) hypertension

== ENCOUNTER 2018-06-03 22:37 | Emergency (ER) | payer MEDICAID ==
[2018-06-03 22:39] VITALS: BMI 28.1
[2018-06-03 22:54] VITALS: BP 132/81; PULSE 99; RESP 18; TEMP 98.5; O2SAT 96
--- NOTE | 2018-06-03 23:11 | C.PDOC ---
History Of Present Illness 42 year old male presents to the ED c/o right shoulder pain. Patient is s/p shoulder dislocation and reduction 3 weeks [address] Kern. Patient states he has not followed up since. Patient denies fever, chills, nausea, vomit, weakness, numbness, new injury, fall, trauma. Time Seen by Provider: 06/03/18 23:05 Chief Complaint (Nursing): Upper Extremity Problem/Injury History Per: Patient History/Exam Limitations: no limitations Onset/Duration Of Symptoms: Days Current Symptoms Are (Timing): Still Present Quality: "Pain" Exacerbating Factor(s): Movement Recent travel outside of the [place]: No Additional History Per: Patient Past Medical History Reviewed: Historical Data, Nursing Documentation, Vital Signs Vital Signs: Last Vital Signs Temp 98.5 F 06/03/18 22:44 Pulse 99 H 06/03/18 22:44 Resp 18 06/03/18 22:44 BP 132/81 06/03/18 22:44 Pulse Ox 96 06/03/18 22:44 - Medical History PMH: Anxiety, Depression, Diabetes (Patient denied), HTN, Seizures (ETOH related) Denies: Hepatitis, HIV, Chronic Kidney Disease, Sexually Transmitted Disease Surgical History: No Surg Hx - [facility] Procedures DETOXIFICATION SERVICES FOR SUBSTANCE ABUSE TREATMENT (12/05/17) GROUP PROOF PLATE MAKER FOR SUBSTANCE ABUSE TREATMENT, PSYCHOEDUCATION (12/05/17) GROUP PSYCHOTHERAPY (01/17/18) INDIV PSYCHOTHERAPY FOR SUBSTANCE ABUSE TREATMENT, SUPPORT (12/05/17) INDIVIDUAL PSYCHOTHERAPY, SUPPORTIVE (01/17/18) REPOSITION RIGHT HUMERAL HEAD, EXTERNAL APPROACH (05/18/18) Family History: States: Unknown Family Hx - Social History Hx Alcohol Use: Yes Hx Substance Use: No (DENIES) - Immunization History Hx Tetanus Toxoid Vaccination: Yes Hx Influenza Vaccination: No Hx Pneumococcal Vaccination: Yes Review Of Systems Constitutional: Negative for: Fever, Chills Eyes: Negative for: Vision Change Cardiovascular: Negative for: Chest Pain Respiratory: Negative for: Shortness of Breath Gastrointestinal: Negative for: Nausea, Vomiting, Abdominal Pain Musculoskeletal: Positive for: Shoulder Pain Skin: Negative for: Rash Neurological: Negative for: Weakness, Numbness, Headache, Dizziness Physical Exam - Physical Exam Appears: Non-toxic, No Acute Distress Skin: Normal Color, Warm, Dry Head: Atraumatic, Normacephalic Eye(s): bilateral: Normal Inspection Neck: Normal ROM, Supple Extremity: No Normal ROM (right shoulder limited due to pain, but remainder of RUE with normal ROM), Tenderness (on palpation and motion of right shoulder), Capillary Refill (< 2 seconds), No Deformity, No Swelling, Other (Right shoulder immobilized. ) Extremity: Bilateral: Normal Color And Temperature Pulses: Left Radial: Normal, Right Radial: Normal Neurological/Psych: Oriented x3, Normal Speech, Normal Cognition, Normal Motor, Normal Sensation Gait: Steady ED Course And Treatment O2 Sat by Pulse Oximetry: 96 (ON RA) Pulse Ox Interpretation: Normal - Other Rad Right shoulder X-Ray X-Ray: Interpreted by Me, Viewed By Me Interpretation: No dislocation, healing fracture of right greater tuberosity Progress Note: Plan: - Right shoulder X-Ray. Patient refused pain meds while in the ED, advised to remain in shoulder immobilizer and strongly advised to follow up with Dr. Kern- orthopedist and to continue motrin PO Disposition Counseled Patient/Family Regarding: Diagnosis, Need For Followup, Rx Given - Disposition Referrals: Moshe Kern MD [Staff Provider] - [facility] [Outside] Disposition: HOME/ ROUTINE Disposition Time: 23:50 Condition: STABLE Additional Instructions: Take motrin for pain Keep immobilzer on And follow up with Dr Kern or orthopedist Return to ER if worse Instructions: Shoulder Pain (DC) Forms: [facility] [employer] [facility] (Lao) - Clinical Impression Clinical Impression: Shoulder pain - PA / [employer] / Resident Statement MD/DO has reviewed & agrees with the documentation as recorded. - Scribe Statement The provider has reviewed the documentation as recorded by the Scribe Daniel Carrillo All medical record entries made by the Scribchristel were at my direction and personally dictated by me. I have reviewed the chart and agree that the record accurately reflects my personal performance of the history, physical exam, medical decision making, and the department course for this patient. I have also personally directed, reviewed, and agree with the discharge instructions and disposition.
--- NOTE | 2018-06-04 08:41 | RAD ---
Date of service: 06/03/2018 PROCEDURE: Radiographs of the Right Shoulder HISTORY: pain, s/p dislocation 3 weeks ago COMPARISON: No prior. FINDINGS: BONES: No fracture. Several small ossific densities adjacent to the greater tuberosity consistent with calcific tendinitis. JOINTS: Normal. Glenohumeral and acromioclavicular joints preserved. No osteoarthritis. SOFT TISSUES: Normal. OTHER FINDINGS: None. IMPRESSION: Calcific tendinitis. No fracture/arthritis.
== END 2018-06-04 00:06 | disposition home or self-care (01) ==
LOC: C.ER 22:37
DX: M25.511 Pain in right shoulder (principal); I10 Essential (primary) hypertension

== ENCOUNTER 2018-06-06 23:55 | Emergency (ER) | payer MEDICAID | END 2018-06-07 03:32 | disposition home or self-care (01) | LOC: C.ER 23:55 ==

== ENCOUNTER 2018-06-24 16:40 | Emergency (ER) | payer MEDICAID ==
[2018-06-24 17:03] VITALS: O2SAT 100; BMI 25.8
[2018-06-24] MEDS ORDERED: Lidocaine 5% Patch TD STA (17:45)
[2018-06-24] MEDS ORDERED: Lidocaine 5% Patch TD ONE (17:51)
--- NOTE | 2018-06-24 18:10 | C.PDOC ---
History Of Present Illness 42 y/o male was seen here on 06/07/18 after a fall and complained of right shoulder pain, chest pain, and back pain. Patient had CT scan that was negative and had an x-ray done that showed convoluted fracture of humeral head but it wasnt picked up and patient was discharged home. We made multiple attempts to call him back but failed to answer. Reached out to patient today and was able to come back to ER. Patient had repeat x-ray that showed the fracture and is being referred to orthopedics. Time Seen by Provider: 06/24/18 17:21 Chief Complaint (Nursing): Upper Extremity Problem/Injury History Per: Patient History/Exam Limitations: no limitations Onset/Duration Of Symptoms: Days Current Symptoms Are (Timing): Still Present Past Medical History Reviewed: Historical Data, Nursing Documentation, Vital Signs Vital Signs: Last Vital Signs Temp 97 F L 06/24/18 16:56 Pulse 71 06/24/18 16:56 Resp 18 06/24/18 16:56 BP 126/82 06/24/18 16:56 Pulse Ox 100 06/24/18 16:56 - Medical History PMH: Anxiety, Depression, Diabetes (Patient denied), HTN, Seizures (ETOH related) Denies: Hepatitis, HIV, Chronic Kidney Disease, Sexually Transmitted Disease - [facility] Procedures DETOXIFICATION SERVICES FOR SUBSTANCE ABUSE TREATMENT (12/05/17) GROUP CUTTING AND BONING SUPERVISOR FOR SUBSTANCE ABUSE TREATMENT, PSYCHOEDUCATION (12/05/17) GROUP PSYCHOTHERAPY (01/17/18) INDIV PSYCHOTHERAPY FOR SUBSTANCE ABUSE TREATMENT, SUPPORT (12/05/17) INDIVIDUAL PSYCHOTHERAPY, SUPPORTIVE (01/17/18) REPOSITION RIGHT HUMERAL HEAD, EXTERNAL APPROACH (05/18/18) Family History: States: No Known Family Hx - Social History Hx Alcohol Use: Yes Hx Substance Use: No (DENIES) - Immunization History Hx Tetanus Toxoid Vaccination: Yes Hx Influenza Vaccination: No Hx Pneumococcal Vaccination: Yes Review Of Systems Except As Marked, All Systems Reviewed And Found Negative. Constitutional: Negative for: Fever, Chills Cardiovascular: Negative for: Chest Pain Respiratory: Negative for: Shortness of Breath Gastrointestinal: Negative for: Nausea, Vomiting, Abdominal Pain Musculoskeletal: Positive for: Shoulder Pain (Right). Negative for: Neck Pain Skin: Negative for: Rash Physical Exam - Physical Exam Appears: Non-toxic, No Acute Distress Skin: Warm, Dry Head: Atraumatic, Normacephalic Eye(s): bilateral: Normal Inspection Oral Mucosa: Moist Neck: Supple Cardiovascular: Rhythm Regular, No Murmur Respiratory: Normal Breath Sounds, No Rales, No Rhonchi, No Wheezing Gastrointestinal/Abdominal: Soft, No Tenderness Extremity: Tenderness (to the superior humeral portion), Other (Decreased mobility of right shoulder due to pain) Extremity: Bilateral: Normal Color And Temperature Neurological/Psych: Oriented x3, Normal Speech ED Course And Treatment O2 Sat by Pulse Oximetry: 100 (RA) Pulse Ox Interpretation: Normal - Other Rad Shoulder XR X-Ray: Read By Radiologist Interpretation: FINDINGS: BONES: Comminuted fracture of the right humeral head is reiterated at the greater tuberosity region. These fractures appear nondisplaced. JOINTS: No dislocation identified. However, increased subacromial space may indicate developing hemarthrosis or other joint effusion causing mild inferior subluxation of the humeral head at the glenohumeral joint. Acromioclavicular joint is unchanged. SOFT TISSUES: Normal. OTHER FINDINGS: None. IMPRESSION: Comminuted nondisplaced rib fracture greater tuberosity right humeral head, comminuted without significant interval change. Developing joint effusion not excluded the subacromial subdeltoid bursa. CT or MRI can be utilized for added characterization as clinically warranted. Medical Decision Making Medical Decision Making: Plan: --Shoulder XR --Ibuprofen PO --Tylenol PO Patient put into a shoulder immobilizer. Instructed patient to follow up with orthopedics degreasing solution reclaimer. Patient will be discharged home. Disposition Counseled Patient/Family Regarding: Studies Performed, Diagnosis, Need For Followup - Disposition Referrals: Rakan Fuentes III, MD [Staff Provider] - [facility] [Outside] Disposition: HOME/ ROUTINE Disposition Time: 18:07 Additional Instructions: Use the shoulder immobilize. Follow up with Orthopedics. Call the [facility] if you need help with an Orthopedic appointment. Instructions: Shoulder Fracture (DC) Forms: General Discharge Instructions, [facility] (Cymro), Work Excuse - POA Present On Arrival: None - Clinical Impression Clinical Impression: Right humeral fracture - Scribe Statement The provider has reviewed the documentation as recorded by the Florenciaibchristel Hansen Provider Attestation: All medical record entries made by the Florenciaibchristel were at my direction and personally dictated by me. I have reviewed the chart and agree that the record accurately reflects my personal performance of the history, physical exam, medical decision making, and the department course for this patient. I have also personally directed, reviewed, and agree with the discharge instructions and disposition.
--- NOTE | 2018-06-24 18:18 | RAD ---
Date of service: 06/24/2018 PROCEDURE: Radiographs of the Right Shoulder HISTORY: fracture COMPARISON: Right shoulder radiographs 06/07/2018. FINDINGS: BONES: Comminuted fracture of the right humeral head is reiterated at the greater tuberosity region. These fractures appear nondisplaced. JOINTS: No dislocation identified. However, increased subacromial space may indicate developing hemarthrosis or other joint effusion causing mild inferior subluxation of the humeral head at the glenohumeral joint. Acromioclavicular joint is unchanged. SOFT TISSUES: Normal. OTHER FINDINGS: None. IMPRESSION: Comminuted nondisplaced rib fracture greater tuberosity right humeral head, comminuted without significant interval change. Developing joint effusion not excluded the subacromial subdeltoid bursa. CT or MRI can be utilized for added characterization as clinically warranted.
[2018-06-24 18:29] VITALS: BP 117/80; PULSE 68; RESP 20; TEMP 98
== END 2018-06-24 18:35 | disposition home or self-care (01) ==
LOC: C.ER 16:40
DX: S42.254A Nondisplaced fracture of greater tuberosity of right humerus, initial encounter for closed fracture (principal); W19.XXXA Unspecified fall, initial encounter

== ENCOUNTER 2018-07-02 22:07 | Emergency (ER) | payer MEDICAID ==
[2018-07-02 22:07] VITALS: BMI 28.1
[2018-07-02 22:16] VITALS: BP 145/97; PULSE 95; RESP 16; TEMP 97.9; O2SAT 100
--- NOTE | 2018-07-02 22:44 | C.PDOC ---
History Of Present Illness 42 year old male presents to the ED c/o right shoulder pain and alcohol intoxication. Patient with right shoulder discomfort s/p fall and fracture on 05/18/18. Patient since then with multiple evaluations for alcohol abuse, right shoulder pain. Patient refuses to wear a sling, or ortho follow up. Patient is argumentative, fouls mouth and aggressive. Time Seen by Provider: 07/02/18 22:33 Chief Complaint (Nursing): Upper Extremity Problem/Injury History Per: Patient History/Exam Limitations: intoxication Onset/Duration Of Symptoms: Days Current Symptoms Are (Timing): Still Present Suicide/Self Injury Attempted (Context): None Modifying Factor(s): Alcohol Associated Symptoms: denies: Depression, Suicidal Thoughts, Suicidal Plan Recent travel outside of the [place]: No Additional History Per: Patient Past Medical History Reviewed: Historical Data, Nursing Documentation, Vital Signs Vital Signs: Last Vital Signs Temp 97.9 F 07/02/18 22:10 Pulse 95 H 07/02/18 22:10 Resp 16 07/02/18 22:10 BP 145/97 H 07/02/18 22:10 Pulse Ox 100 07/02/18 22:10 - Medical History PMH: Anxiety, Depression, Diabetes (Patient denied), HTN, Seizures (ETOH related) Denies: Hepatitis, HIV, Chronic Kidney Disease, Sexually Transmitted Disease Surgical History: No Surg Hx - [facility] Procedures DETOXIFICATION SERVICES FOR SUBSTANCE ABUSE TREATMENT (12/05/17) GROUP TURN LASTER FOR SUBSTANCE ABUSE TREATMENT, PSYCHOEDUCATION (12/05/17) GROUP PSYCHOTHERAPY (01/17/18) INDIV PSYCHOTHERAPY FOR SUBSTANCE ABUSE TREATMENT, SUPPORT (12/05/17) INDIVIDUAL PSYCHOTHERAPY, SUPPORTIVE (01/17/18) REPOSITION RIGHT HUMERAL HEAD, EXTERNAL APPROACH (05/18/18) Family History: States: Unknown Family Hx - Social History Hx Alcohol Use: Yes Hx Substance Use: No (DENIES) - Immunization History Hx Tetanus Toxoid Vaccination: Yes Hx Influenza Vaccination: No Hx Pneumococcal Vaccination: Yes Review Of Systems Constitutional: Negative for: Fever, Chills Eyes: Negative for: Vision Change Cardiovascular: Negative for: Chest Pain Respiratory: Negative for: Shortness of Breath Gastrointestinal: Negative for: Nausea, Vomiting, Abdominal Pain Musculoskeletal: Positive for: Shoulder Pain Skin: Negative for: Rash Psych: Negative for: Depression, Suicidal ideation Physical Exam - Physical Exam Appears: Non-toxic, No Acute Distress Skin: Normal Color, Warm, Dry Head: Atraumatic, Normacephalic Eye(s): bilateral: Normal Inspection, PERRL, EOMI Neck: Normal ROM, No Midline Cervical Tenderness, Supple Chest: Symmetrical Cardiovascular: Rhythm Regular Respiratory: Normal Breath Sounds, No Rales, No Rhonchi, No Wheezing Gastrointestinal/Abdominal: Soft, No Tenderness Extremity: Normal ROM, Tenderness (right shoulder), Capillary Refill (< 2 seconds), No Swelling, Other (ecchymosis right elbow with no tenderness) Pulses: Left Radial: Normal, Right Radial: Normal Neurological/Psych: Oriented x3, Normal Speech, Normal Cognition Gait: Steady ED Course And Treatment O2 Sat by Pulse Oximetry: 100 (ON RA) Pulse Ox Interpretation: Normal Medical Decision Making Medical Decision Making: typical alcohol abuse painful R shoulder due to fall/disloc/humoral head fx 05/18/18 pt has not followed up w Dr. Fuentes- Ortho declines shoulder sling Stable for d/c. Disposition Doctor Will See Patient In The: Office Counseled Patient/Family Regarding: Studies Performed, Diagnosis - Disposition Referrals: [facility]ics Anonymous [Outside] [facility] [Outside] [employer] [address] [Outside] [facility] [Outside] [employer] [Outside] Rakan Fuentes III, MD [Staff Provider] - Disposition: HOME/ ROUTINE Disposition Time: 22:43 Condition: GOOD Additional Instructions: follow-up with Dr. Fuentes-Orthopedics- as previously directed Motrin/Advil/Tylenol as needed for R shoulder pain ice packs 1/2 hour per hour, nothing hot Shoulder sling as tolerated. Seek AA Instructions: Alcohol Use - When Is Drinking a Problem?, Shoulder Pain (DC) Forms: [employer] (Tristanian) - Clinical Impression Clinical Impression: Alcohol abuse, Chronic pain in right shoulder - Scribe Statement The provider has reviewed the documentation as recorded by the Scribe Daniel Carrillo All medical record entries made by the Scribe were at my direction and personally dictated by me. I have reviewed the chart and agree that the record accurately reflects my personal performance of the history, physical exam, medical decision making, and the department course for this patient. I have also personally directed, reviewed, and agree with the discharge instructions and disposition.
== END 2018-07-02 23:20 | disposition home or self-care (01) ==
LOC: C.ER 22:07
DX: G89.29 Other chronic pain (principal); M25.511 Pain in right shoulder; F10.129 Alcohol abuse with intoxication, unspecified; Y90.9 Presence of alcohol in blood, level not specified

== ENCOUNTER 2018-07-09 01:01 | Inpatient (IN) | payer MEDICAID ==
[2018-07-09 01:01] VITALS: BMI 28.1
[~2018-07-09 01:01] MED LIST: Etomidate 20 mg/10ml Inj IV STA; Sodium Chloride 0.9% 1,000 ML IV ONE
[2018-07-09] MEDS ORDERED: Succinylcholine Chloride 20 mg/ml Syr (5 ml) IV STA (01:15)
--- NOTE | 2018-07-09 01:24 | C.PDOC ---
History Of Present Illness Hx limited due to clinical condition. Patient brought in by EMS for vomiting, onset unknown. Patient well known to ER staff, multiple recent ER visits for ETOH intoxication/abuse. As per EMS, patient AO4 and stable enroute, became un responsive upon ER arrival. LIMITED DUE TO CLIN COND BIBA FOR VOMITING UNK ONSET. PT WELL KNOWN TO ER STAFF, MULT RECENT ER VISITS FOR ETOH INTOX/ABUSE. PER EMS, PT AO4 AND STABLE EN ROUTE. BECAME UNRESPONSIVE UPON ER ARRIVAL. ROS UTO EXAM SEVERE DIST HEENT PUPILS EQUAL, SLUGGISH; ANICTERIC; NO GAG REFLEX; +PROFUSE BLACK EMESIS IN MOUTH LUNGS APNEIC BREATHING CV RRR ABD SOFT NONDISTENDED NEURO NO RESPONSE TO FOCAL PAIN STIM PSYCH NONVERBAL SKIN COOL, DRY REMAINDER NEG Time Seen by Provider: 07/09/18 01:22 Chief Complaint (Nursing): Substance Abuse History Per: EMS History/Exam Limitations: clinical condition Onset/Duration Of Symptoms: Hrs, Unknown Current Symptoms Are (Timing): Worse Past Medical History Reviewed: Historical Data, Nursing Documentation, Vital Signs - Medical History PMH: Anxiety, Depression, Diabetes (Patient denied), HTN, Seizures (ETOH related) Denies: Hepatitis, HIV, Chronic Kidney Disease, Sexually Transmitted Disease - [facility] Procedures DETOXIFICATION SERVICES FOR SUBSTANCE ABUSE TREATMENT (12/05/17) GROUP SEMICOND[employer]CTOR PACKAGES TESTER FOR SUBSTANCE ABUSE TREATMENT, PSYCHOEDUCATION (12/05/17) GROUP PSYCHOTHERAPY (01/17/18) INDIV PSYCHOTHERAPY FOR SUBSTANCE ABUSE TREATMENT, SUPPORT (12/05/17) INDIVIDUAL PSYCHOTHERAPY, SUPPORTIVE (01/17/18) REPOSITION RIGHT HUMERAL HEAD, EXTERNAL APPROACH (05/18/18) Family History: States: Unknown Family Hx - Social History Hx Alcohol Use: Yes Hx Substance Use: No (DENIES) - Immunization History Hx Tetanus Toxoid Vaccination: Yes Hx Influenza Vaccination: No Hx Pneumococcal Vaccination: Yes Review Of Systems Review Of Systems: ROS cannot be obtained secondary to pt's inabilty to answer questions. Physical Exam - Physical Exam Appears: Other (Severe distress) Skin: Normal Color, Dry, Other (Cool) Head: Atraumatic, Normacephalic Eye(s): bilateral: Other (Pupils equal, sluggish, anicteric) Ear(s): Bilateral: Normal Nose: Normal Oral Mucosa: Other (+profuse black emesis in mouth) Throat: Other (No gag reflex) Neck: Normal, Supple Chest: Symmetrical, No Tenderness Cardiovascular: Rhythm Regular Respiratory: Other (Apneic breathing) Gastrointestinal/Abdominal: Soft, No Distention Neurological/Psych: Other (No response to focal painful stimuli, nonverbal) ED Course And Treatment - Laboratory Results Result Diagrams: 07/09/18 01:48 07/09/18 01:48 ECG: Interpreted By Me, Viewed By Me ECG Rhythm: Sinus Rhythm ECG Interpretation: Normal Rate From EC - Radiology CXR: Interpreted by Me CXR Interpretation: Yes: Other (ETT ABOVE GAUTAM; +NGT). No: Infiltrates, Pnemothorax Endotracheal Intubation - Endotracheal Intubation Intubated With ETT Size: 8 Blade Type Used: Curved Indication: Respiratory Failure, Airway Protection Intubated: Orally Pre-Intubation Airway Assessment: Ventilated And Oxygenated, Need For Airway management Did Not Allow Time, Does Not Appear To Have A Difficult Airway Medications Used During Pre-Intubation: Etomidate Paralyzed With: Succinylcholine Post-Intubation Assessment: ETT Secured AT (cm): (24), Placement Confirmed Via CXR, Color Change W/End Tidal CO2 Detector, Oxygen Saturation: (99) Progress - Re-Evaluation Re-evaluation Note: 07/09/18 01:24 DR MONTANO ICU @ BEDSIDE. IMMEDIATE TRANSFUSION DUE TO GI BLEED, HYPOTENSION SP NGT PLACE, >1L BLACK COFFEE GROUND GASTRIC CONTENT OUTPUT. NO BRB 07/09/18 01:48 D/W DR VILLAGOMEZ [employer]CH[employer]ER WILL ADMITT 07/09/18 02:50 REPEAT CXR SHOW ET TUBE IMPROVED POSITION ABOVE GAUTAM - Data Reviewed Data Reviewed: Lab, Diagnostic imaging, EKG, Old records - Critical Care Citical Care: Excluding Proc Time Critical Care Time: 120 minutes Disposition - Disposition Disposition: HOSPITALIZED Disposition Time: 01:50 Condition: CRITICAL - POA Present On Arrival: None - Clinical Impression Clinical Impression: GI bleed, Respiratory failure, Hypotension, Alcohol abuse - Scribe Statement The provider has reviewed the documentation as recorded by the Scribchristel Montoya All medical record entries made by the Scribe were at my direction and personally dictated by me. I have reviewed the chart and agree that the record accurately reflects my personal performance of the history, physical exam, me dical decision making, and the department course for this patient. I have also personally directed, reviewed, and agree with the discharge instructions and disposition. PROCEDURES - IO Right Time Out Performed: Yes Anesthetic Used: none IO Instrument Used to Penetrate the Cortex: battery powered IO drill Patient Tolerated Procedure: well Complications: none
[2018-07-09] MEDS ORDERED: Pantoprazole 80 MG in Sodium Chloride 0.9% 100 ML IV STA (01:25)
[2018-07-09] MEDS ORDERED: Sodium Chloride 0.9% 1,000 ML IV ONE ×3 (01:26→10:00)
[2018-07-09] MEDS ORDERED: Pantoprazole 80 MG in Sodium Chloride 0.9% 100 ML IVP SCH (01:30)
[2018-07-09] MEDS ORDERED: Midazolam 2 MG/2 ML VIAL ONE ×3 (01:34→02:23)
[2018-07-09] MEDS: Dexmedetomidine Hydrochloride 200 MCG in Sodium Chloride 0.9% 48 ML IV PRN ×6 (01:35→21:54)
[2018-07-09] MEDS ORDERED: Midazolam 2 MG/2 ML VIAL IV STA ×3 (01:35→02:22)
[2018-07-09] MEDS ORDERED: Thiamine 100 mg/ml Inj IV ONE (01:37)
[2018-07-09 01:57] LABS: BASO % 0.2 % (0.0-2.0); EOS # 0.1 K/uL (0.0-0.7); EOS % 0.8 % (0.0-4.0); HEMOGLOBIN 13.6 g/dL (12.0-18.0); LYMPH # 1.9 K/uL (1.0-4.3); LYMPH % 25.9 % (20.0-40.0); MEAN CELL VOLUME 83.7 fL (80.0-94.0); MEAN CORPUSCULAR HEMOGLOBIN 27.5 pg (27.0-31.0); MEAN CORPUSCULAR HGB CONC 32.8 g/dL (33.0-37.0); MEAN PLATELET VOLUME 8.6 fL (7.2-11.7); MONO # 0.5 K/uL (0.0-0.8); NEUT # 4.9 K/uL (1.8-7.0); NEUT % 66.1 % (50.0-75.0); RBC 4.93 Mil/uL (4.40-5.90); RED CELL DISTRIBUTION WIDTH 13.2 % (11.5-14.5); WHITE BLOOD COUNT 7.4 K/uL (4.8-10.8)
[2018-07-09 02:10] LABS: INR 1.3; PROTHROMBIN TIME 14.4 SECONDS (9.7-12.2)
[2018-07-09 02:22] LABS: ALB/GLOB RATIO 1.5 (1.0-2.1); ALBUMIN 4.6 g/dL (3.5-5.0); ALT/SGPT 18 U/L (21-72); AST/SGOT 24 U/L (17-59); BLOOD UREA NITROGEN 18 mg/dL (9-20); CALCIUM 9.3 mg/dl (8.6-10.4); GFR NON-AFRICAN AMERICAN > 60; LIPASE 73 U/L (23-300)
[2018-07-09] MEDS ORDERED: Midazolam 50 mg/10 ml 100 MG in Dextrose 5% In Water 80 ML IV ONE (02:22)
[2018-07-09 03:13] LABS: ABG ALLEN TEST POS; ARTERIAL BLOOD GAS HCO3 5.3 mmol/L (21-28); ARTERIAL BLOOD GAS O2 SAT 100.5 % (95-98); ARTERIAL BLOOD GAS PCO2 20 mm/Hg (35-45); ARTERIAL BLOOD GAS PH 6.99 (7.35-7.45); ARTERIAL BLOOD GAS PO2 534 mm/Hg (80-100); ARTERIAL BLOOD GAS TCO2 5.4 mmol/L (22-28)
[2018-07-09 03:23] LABS: SQUAMOUS EPITHIAL < 1 /hpf (0-5); URINE AMORPHOUS SEDIMENT MODERATE /ul (<OCC); URINE BILIRUBIN NEGATIVE (NEGATIVE); URINE BLOOD 2+ (NEGATIVE); URINE CLARITY Hazy (Clear); URINE COLOR Yellow (YELLOW); URINE GLUCOSE (UA) NORMAL (Normal); URINE LEUKOCYTE ESTERASE NEG Leu/uL (Negative); URINE PROTEIN 2+ mg/dL (NEGATIVE); URINE UROBILINOGEN NORMAL mg/dL (0.2-1.0)
[2018-07-09] MEDS: Propofol 10 mg/ml 1,000 MG/100 ML VIAL IV PRN ×2 (05:24→18:01)
[2018-07-09 05:40] LABS: ARTERIAL BLOOD GAS HCO3 10.3 mmol/L (21-28); ARTERIAL BLOOD GAS O2 SAT 100.4 % (95-98); ARTERIAL BLOOD GAS PCO2 24 mm/Hg (35-45); ARTERIAL BLOOD GAS PH 7.15 (7.35-7.45); ARTERIAL BLOOD GAS PO2 625 mm/Hg (80-100); ARTERIAL BLOOD GAS TCO2 9.1 mmol/L (22-28)
[2018-07-09 06:39] LABS: BASO % 0.4 % (0.0-2.0); EOS % 0.1 % (0.0-4.0); LYMPH % 27.9 % (20.0-40.0); MEAN CELL VOLUME 94.1 fL (80.0-94.0); MEAN CORPUSCULAR HEMOGLOBIN 30.4 pg (27.0-31.0); MEAN CORPUSCULAR HGB CONC 32.3 g/dL (33.0-37.0); MEAN PLATELET VOLUME 8.1 fL (7.2-11.7); MONO # 0.2 K/uL (0.0-0.8); MONO % 1.5 % (0.0-10.0); NEUT # 7.6 K/uL (1.8-7.0); NEUT % 70.1 % (50.0-75.0); NRBC % 0.1 % (0.0-2.0); RBC 4.92 Mil/uL (4.40-5.90); RED CELL DISTRIBUTION WIDTH 15.1 % (11.5-14.5); WHITE BLOOD COUNT 10.8 K/uL (4.8-10.8)
[2018-07-09 06:46] LABS: INR 1.5; PROTHROMBIN TIME 16.1 SECONDS (9.7-12.2)
[2018-07-09 07:15] LABS: ALB/GLOB RATIO 1.7 (1.0-2.1); ALBUMIN 3.9 g/dL (3.5-5.0); CALCIUM 6.6 mg/dl (8.6-10.4)
--- NOTE | 2018-07-09 07:27 | CP.PCM.CON ---
History of Present Illness - History of Present Illness History of Present Illness: 42 M with H/o chronic alcoholism, h/o seizure, ? dm, htn, visits to detox and leaving AMA, called EMS as was going through acute withdrawal, as soon as ems arrieved, he passed out also had black vomiting, he was still breathing, as soon as he arrived ER he went in to resp distress and needed to be intubated. NG tube passed showed > 1000ml of black liquid, no fresh blood. He was given IVF, 2 units prbc in ER, IO line inserted in ER in right shoulder. Initial ABG showed severe lactic acidosis of 19 ph of 6.9, hypothermic. PMH as above PSH not available Allergies NKDA Meds from old record, keppra, metformin Family history not available Social history not available Review of Systems - Review of Systems All systems: reviewed and no additional remarkable complaints except (HPI) Past Patient History - Infectious Disease Hx of Infectious Diseases: None - Past Medical History & Family History Past Medical History?: Yes - Past Social History Smoking Status: Never Smoked Alcohol: > 2 Drinks/Day Home Situation {Lives}: With Family - CARDIAC Hx Cardiac Disorders: Yes Hx Hypertension: Yes - PULMONARY Hx Respiratory Disorders: No Hx Tuberculosis: No - NEUROLOGICAL Hx Neurological Disorder: Yes Hx Seizures: Yes (ETOH related) - HEENT Hx HEENT Problems: No - RENAL Hx Chronic Kidney Disease: No - ENDOCRINE/METABOLIC Hx Endocrine Disorders: Yes Hx Diabetes Mellitus Type 2: Yes - HEMATOLOGICAL/ONCOLOGICAL Hx Blood Disorders: Yes Hx Anemia: Yes Hx Blood Transfusions: Yes Hx Human Immunodeficiency Virus (HIV): No - INTEGUMENTARY Hx Dermatological Problems: No - MUSCULOSKELETAL/RHEUMATOLOGICAL Hx Musculoskeletal Disorders: Yes Hx Falls: Yes - GASTROINTESTINAL Hx Gastrointestinal Disorders: Yes Hx Vomiting: Yes - GENITOURINARY/GYNECOLOGICAL Hx Genitourinary Disorders: No Hx Sexually Transmitted Disorders: No - PSYCHIATRIC Hx Psychophysiologic Disorder: Yes Hx Anxiety: Yes Hx Depression: Yes Hx Substance Use: No (DENIES) - SURGICAL HISTORY Hx Surgeries: No - ANESTHESIA Hx Anesthesia: No Meds Allergies/Adverse Reactions: Allergies Allergy/AdvReac Type Severity Reaction Status Date / Time No Known Allergies Allergy Verified 07/09/18 01:34 - Medications Medications: Current Medications Octreotide Acetate 1,250 mcg/ (Sodium Chloride) 252.5 mls @ 5.05 mls/hr SC .Q24H [facility] Last Admin: 02/18/19 01:30 Dose: 5.05 mls/hr Pantoprazole Sodium 80 mg/ (Sodium Chloride) 100 mls @ 10 mls/hr IVP .Q10H [facility] Last Admin: 07/09/18 02:00 Dose: 10 mls/hr Ceftriaxone Sodium 1 gm/ (Sodium Chloride) 100 mls @ 100 mls/hr IVPB DAILY [facility]; Protocol Levetiracetam 500 mg/ Dextrose 105 mls @ 420 mls/hr IVPB Q12H [facility] Last Admin: 07/09/18 05:21 Dose: 420 mls/hr Dexmedetomidine HCl 200 mcg/ (Sodium Chloride) 50 mls @ 2.83 mls/hr IV TITR PRN; Protocol PRN Reason: sedation Last Admin: 07/09/18 05:16 Dose: 1.5 mcg/kg/hr, 21.26 mls/hr Midazolam HCl 100 mg/ Dextrose 100 mls @ 1.13 mls/hr IV .Q24H [facility]; Protocol Stop: 07/10/18 02:21 Last Titration: 07/09/18 05:30 Dose: 0.12 mg/kg/hr, 6.8 mls/hr Propofol (Diprivan) 1,000 mg in 100 mls @ 1.701 mls/hr IV .Q24H PRN; Protocol PRN Reason: TITRATE PER MD ORDER Last Titration: 07/09/18 07:03 Dose: 10 mcg/kg/min, 3.402 mls/hr Sodium Bicarbonate 75 meq/ (Sodium Chloride) 1,075 mls @ 150 mls/hr IV .Q7H10M [facility] Thiamine HCl (Vitamin B1 Inj) 100 mg IV DAILY [facility] Physical Exam - Additional Findings Additional findings: * At time of eval was paralyzed, hypothermic * HEENT emma * Neck supple * Chest A/E Bl clear * CVS regular, no tachycardia * PA soft, nt, bs slightly increased * Ext no edema * CROCHETER HAND paralyzed * Skin turgor lower side Results - Vital Signs Recent Vital Signs: Last Vital Signs Temp 94.1 F L 07/09/18 04:29 Pulse 100 H 07/09/18 03:45 Resp 14 07/09/18 03:45 BP 108/64 07/09/18 03:45 Pulse Ox 100 07/09/18 03:45 - Labs Result Diagrams: 07/09/18 06:28 07/09/18 01:48 Labs: Laboratory Results - last 24 hr 07/09/18 07/09/18 07/09/18 01:25 01:48 01:48 WBC 7.4 D RBC 4.93 Hgb 13.6 Hct 41.3 MCV 83.7 D MCH 27.5 MCHC 32.8 L RDW 13.2 Plt Count 243 MPV 8.6 Neut % (Auto) 66.1 Lymph % (Auto) 25.9 Alexander % (Auto) 7.0 Eos % (Auto) 0.8 Baso % (Auto) 0.2 Neut # (Auto) 4.9 Lymph # (Auto) 1.9 Alexander # (Auto) 0.5 Eos # (Auto) 0.1 Baso # (Auto) 0.0 PT 14.4 H INR 1.3 APTT 36 H Puncture Site pCO2 pO2 HCO3 ABG pH ABG Total CO2 ABG O2 Saturation ABG Base Excess Constantine Test ABG Potassium A-a O2 Difference Respiratory Index Glucose Lactate Vent Mode Mechanical Rate FiO2 Tidal Volume PEEP Crit Value Called To Crit Value Called By Crit Value Read Back Blood Gas Notified Time Sodium Potassium Chloride Carbon Dioxide Anion Gap BUN Creatinine Est GFR ( Amer) Est GFR (Non-Af Amer) Random Glucose Calcium Total Bilirubin AST ALT Alkaline Phosphatase Ammonia Total Protein Albumin Globulin Albumin/Globulin Ratio Lipase Arterial Blood Potassium Urine Color Yellow Urine Clarity Hazy Urine pH 5.0 Ur Specific Pelsor 1.013 Urine Protein 2+ H Urine Glucose (UA) Normal Urine Ketones 1+ H Urine Blood 2+ H Urine Nitrate Negative Urine Bilirubin Negative Urine Urobilinogen Normal Ur Leukocyte Esterase Neg Urine RBC (Auto) 2 Ur Squamous Epith Cells < 1 Amorphous Sediment Moderate H Alcohol, Quantitative Blood Type Antibody Screen 07/09/18 07/09/18 07/09/18 01:48 01:48 03:05 WBC RBC Hgb Hct MCV MCH MCHC RDW Plt Count MPV Neut % (Auto) Lymph % (Auto) Alexander % (Auto) Eos % (Auto) Baso % (Auto) Neut # (Auto) Lymph # (Auto) Alexander # (Auto) Eos # (Auto) Baso # (Auto) PT INR APTT Puncture Site Rr pCO2 20 L pO2 534 H HCO3 5.3 L* ABG pH 6.99 L* ABG Total CO2 5.4 L ABG O2 Saturation 100.5 H ABG Base Excess -25.2 L Constantine Test Pos ABG Potassium 4.7 A-a O2 Difference 154.0 Respiratory Index 0.3 Glucose 82 Lactate 17.9 H* Vent Mode Prvc Mechanical Rate 14 FiO2 100.0 Tidal Volume 500 PEEP 5 Crit Value Called To Dr edmond Crit Value Called By Sagrario fournier rt Crit Value Read Back Y Blood Gas Notified Time 310 Sodium 138 126.0 L Potassium 3.6 Chloride 101 90.0 L Carbon Dioxide 27 Anion Gap 14 BUN 18 Creatinine 0.7 L Est GFR ( Amer) > 60 Est GFR (Non-Af Amer) > 60 Random Glucose 158 H D Calcium 9.3 Total Bilirubin 0.4 AST 24 ALT 18 L D Alkaline Phosphatase 104 Ammonia 98 H Total Protein 7.6 Albumin 4.6 Globulin 3.1 Albumin/Globulin Ratio 1.5 Lipase 73 Arterial Blood Potassium 4.7 Urine Color Urine Clarity Urine pH Ur Specific Pelsor Urine Protein Urine Glucose (UA) Urine Ketones Urine Blood Urine Nitrate Urine Bilirubin Urine Urobilinogen Ur Leukocyte Esterase Urine RBC (Auto) Ur Squamous Epith Cells Amorphous Sediment Alcohol, Quantitative < 10 Blood Type Antibody Screen 07/09/18 07/09/18 07/09/18 03:55 05:37 06:28 WBC 10.8 RBC 4.92 Hgb 15.0 Hct 46.3 MCV 94.1 H D MCH 30.4 MCHC 32.3 L RDW 15.1 H Plt Count 100 L D MPV 8.1 Neut % (Auto) 70.1 Lymph % (Auto) 27.9 Alexander % (Auto) 1.5 Eos % (Auto) 0.1 Baso % (Auto) 0.4 Neut # (Auto) 7.6 H Lymph # (Auto) 3.0 Alexander # (Auto) 0.2 Eos # (Auto) 0.0 Baso # (Auto) 0.0 PT INR APTT Puncture Site Rb pCO2 24 L pO2 625 H HCO3 10.3 L ABG pH 7.15 L* ABG Total CO2 9.1 L ABG O2 Saturation 100.4 H ABG Base Excess -18.8 L Constantine Test Na ABG Potassium 4.6 A-a O2 Difference 58.0 Respiratory Index 0.1 Glucose 171 H Lactate 9.1 H* Vent Mode Prvc Mechanical Rate 14 FiO2 100.0 Tidal Volume 500 PEEP 5 Crit Value Called To Samson rn Crit Value Called By Lili mold carpenter Crit Value Read Back Y Blood Gas Notified Time 540 Sodium 124.0 L Potassium Chloride 92.0 L Carbon Dioxide Anion Gap BUN Creatinine Est GFR ( Amer) Est GFR (Non-Af Amer) Random Glucose Calcium Total Bilirubin AST ALT Alkaline Phosphatase Ammonia Total Protein Albumin Globulin Albumin/Globulin Ratio Lipase Arterial Blood Potassium 4.6 Urine Color Urine Clarity Urine pH Ur Specific Pelsor Urine Protein Urine Glucose (UA) Urine Ketones Urine Blood Urine Nitrate Urine Bilirubin Urine Urobilinogen Ur Leukocyte Esterase Urine RBC (Auto) Ur Squamous Epith Cells Amorphous Sediment Alcohol, Quantitative Blood Type O POSITIVE Antibody Screen Negative 07/09/18 06:28 WBC RBC Hgb Hct MCV MCH MCHC RDW Plt Count MPV Neut % (Auto) Lymph % (Auto) Alexander % (Auto) Eos % (Auto) Baso % (Auto) Neut # (Auto) Lymph # (Auto) Alexander # (Auto) Eos # (Auto) Baso # (Auto) PT 16.1 H INR 1.5 APTT 32 Puncture Site pCO2 pO2 HCO3 ABG pH ABG Total CO2 ABG O2 Saturation ABG Base Excess Constantine Test ABG Potassium A-a O2 Difference Respiratory Index Glucose Lactate Vent Mode Mechanical Rate FiO2 Tidal Volume PEEP Crit Value Called To Crit Value Called By Crit Value Read Back Blood Gas Notified Time Sodium Potassium Chloride Carbon Dioxide Anion Gap BUN Creatinine Est GFR ( Amer) Est GFR (Non-Af Amer) Random Glucose Calcium Total Bilirubin AST ALT Alkaline Phosphatase Ammonia Total Protein Albumin Globulin Albumin/Globulin Ratio Lipase Arterial Blood Potassium Urine Color Urine Clarity Urine pH Ur Specific Pelsor Urine Protein Urine Glucose (UA) Urine Ketones Urine Blood Urine Nitrate Urine Bilirubin Urine Urobilinogen Ur Leukocyte Esterase Urine RBC (Auto) Ur Squamous Epith Cells Amorphous Sediment Alcohol, Quantitative Blood Type Antibody Screen Assessment & Plan - Assessment and Plan (Free Text) Assessment: * Hemoptysis * Syncope * Metabolic acidosis DD of hypotension, blood loss, alcholic hepatitis, being on metformin, succinyl choline, tremors * Hypothermia * hyperammonia due to 1 * Alcohol withdrawal * Now intubated sedated with propofol, precedex, versed * H/o seizure * H/o htn/dm Plan: * Supportive care * Vent * PPI drip, octretide drip * Empiric rocephin considering varices * IVF with temp add bicarb * GI consult * Thiamine iv * Monitor lactate and ph * SCDs for dvt prophylaixs * Warm blanket * see orders for detail.
[2018-07-09] MEDS: Magnesium Sulfate 1 gm in D5W 1 GM/100 ML BAG IVPB SCH ×2 (08:37→09:00)
[2018-07-09] MEDS: DOPamine 400mg/250ml D5W 400 MG/250 ML BAG IV PRN ×2 (10:00→19:02)
[2018-07-09] MEDS: Pantoprazole 80 MG in Sodium Chloride 0.9% 100 ML IVPB SCH ×2 (10:39→21:11)
[2018-07-09] MEDS: Sodium Bicarbonate 8.4% 150 MEQ in Dextrose 5% In Water 1,000 ML IV SCH ×2 (10:40→18:06)
[2018-07-09] MEDS: Thiamine 100 mg/ml Inj IV SCH (10:41)
[2018-07-09] MEDS: Sodium Chloride 0.9% 1,000 ML IV SCH ×3 (10:43→23:33)
--- NOTE | 2018-07-09 11:14 | RAD ---
HISTORY: intubated COMPARISON: Chest x-ray performed 06/07/18 TECHNIQUE: Chest, one view. FINDINGS: Endotracheal tube terminates approximately 4.7 cm above the sadie. Nasogastric tube extends expected location of the stomach. LUNGS: No focal consolidation. Please note that chest x-ray has limited sensitivity for the detection of pulmonary masses. PLEURA: No significant pleural effusion identified. No definite pneumothorax . CARDIOVASCULAR: Heart size appears within normal limits. No significant atherosclerotic calcification present. OSSEOUS STRUCTURES: No acute osseous abnormality identified. VISUALIZED UPPER ABDOMEN: Unremarkable. OTHER FINDINGS: None. IMPRESSION: Endotracheal tube terminates approximately 4.7 cm above the sadie. Nasogastric tube extends expected location of the stomach.
--- NOTE | 2018-07-09 11:46 | RAD ---
Chest x-ray single frontal view HISTORY: Endotracheal tube adjustment. Comparison: 07/09/2018 Findings: Endotracheal tube approximately 2 centimeters above the sadie. Multiple external densities project over the left lung apex, limiting evaluation at that level. NG tube coiled in the stomach. Mild venous congestion. Right hilar prominence. Heart size within normal limits. Radiopaque density projects over the right proximal humerus. Impression: Endotracheal tube approximately 2 centimeters above the sadie. Multiple external densities project over the left lung apex, limiting evaluation at that level. NG tube coiled in the stomach. Mild venous congestion. Right hilar prominence. Heart size within normal limits. Radiopaque density projects over the right proximal humerus.
[2018-07-09 12:00] LABS: ARTERIAL BLOOD GAS HCO3 14.6 mmol/L (21-28); ARTERIAL BLOOD GAS O2 SAT 85.9 % (95-98); ARTERIAL BLOOD GAS PCO2 24 mm/Hg (35-45); ARTERIAL BLOOD GAS PO2 50 mm/Hg (80-100); ARTERIAL BLOOD GAS TCO2 12.5 mmol/L (22-28)
--- NOTE | 2018-07-09 12:18 | CP.PCM.HP ---
Past Patient History - Infectious Disease Hx of Infectious Diseases: None - Past Medical History & Family History Past Medical History?: Yes - Past Social History Smoking Status: Never Smoked Alcohol: > 2 Drinks/Day Home Situation {Lives}: With Family - CARDIAC Hx Cardiac Disorders: Yes Hx Hypertension: Yes - PULMONARY Hx Respiratory Disorders: No Hx Tuberculosis: No - NEUROLOGICAL Hx Neurological Disorder: Yes Hx Seizures: Yes (ETOH related) - HEENT Hx HEENT Problems: No - RENAL Hx Chronic Kidney Disease: No - ENDOCRINE/METABOLIC Hx Endocrine Disorders: Yes Hx Diabetes Mellitus Type 2: Yes - HEMATOLOGICAL/ONCOLOGICAL Hx Blood Disorders: Yes Hx Anemia: Yes Hx Blood Transfusions: Yes Hx Human Immunodeficiency Virus (HIV): No - INTEGUMENTARY Hx Dermatological Problems: No - MUSCULOSKELETAL/RHEUMATOLOGICAL Hx Musculoskeletal Disorders: Yes Hx Falls: Yes - GASTROINTESTINAL Hx Gastrointestinal Disorders: Yes Hx Vomiting: Yes - GENITOURINARY/GYNECOLOGICAL Hx Genitourinary Disorders: No Hx Sexually Transmitted Disorders: No - PSYCHIATRIC Hx Psychophysiologic Disorder: Yes Hx Anxiety: Yes Hx Depression: Yes Hx Substance Use: No (DENIES) - SURGICAL HISTORY Hx Surgeries: No - ANESTHESIA Hx Anesthesia: No Meds Allergies/Adverse Reactions: Allergies Allergy/AdvReac Type Severity Reaction Status Date / Time No Known Allergies Allergy Verified 07/09/18 01:34 Physical Exam - Constitutional Appears: Well - Head Exam Head Exam: ATRAUMATIC, NORMAL INSPECTION, NORMOCEPHALIC - Eye Exam Eye Exam: EOMI, Normal appearance, PERRL Pupil Exam: NORMAL ACCOMODATION, PERRL - ENT Exam ENT Exam: Mucous Membranes Moist, Normal Exam - Neck Exam Neck exam: Positive for: Normal Inspection - Respiratory Exam Respiratory Exam: Decreased Breath Sounds - Cardiovascular Exam Cardiovascular Exam: REGULAR RHYTHM, +S1, +S2 - GI/Abdominal Exam GI & Abdominal Exam: Diminished Bowel Sounds, Soft - Rectal Exam Rectal Exam: Deferred Results - Vital Signs Recent Vital Signs: Last Vital Signs Temp 94.1 F L 07/09/18 04:29 Pulse 73 07/09/18 07:39 Resp 26 H 07/09/18 07:39 BP 76/34 L 07/09/18 10:00 Pulse Ox 100 07/09/18 07:39 - Labs Result Diagrams: 07/09/18 06:28 07/09/18 12:34 Labs: Laboratory Results - last 24 hr 07/09/18 07/09/18 07/09/18 01:03 01:25 01:48 WBC 7.4 D RBC 4.93 Hgb 13.6 Hct 41.3 MCV 83.7 D MCH 27.5 MCHC 32.8 L RDW 13.2 Plt Count 243 MPV 8.6 Neut % (Auto) 66.1 Lymph % (Auto) 25.9 [place] % (Auto) 7.0 Eos % (Auto) 0.8 Baso % (Auto) 0.2 Neut # (Auto) 4.9 Lymph # (Auto) 1.9 [place] # (Auto) 0.5 Eos # (Auto) 0.1 Baso # (Auto) 0.0 Differential Comment PT INR APTT Puncture Site pCO2 pO2 HCO3 ABG pH ABG Total CO2 ABG O2 Saturation ABG Base Excess Constant[place] Test ABG Potassium A-a O2 Difference Respiratory Index Glucose Lactate Vent Mode Mechanical Rate FiO2 Tidal Volume PEEP Crit Value Called To Crit Value Called By Crit Value Read Back Blood Gas Notified Time Sodium Potassium Chloride Carbon Dioxide Anion Gap BUN Creatinine Est GFR ( Amer) Est GFR (Non-Af Amer) POC Glucose (mg/dL) 99 Random Glucose Calcium Phosphorus Magnesium Total Bilirubin AST ALT Alkaline Phosphatase Ammonia Total Protein Albumin Globulin Albumin/Globulin Ratio Lipase Arterial Blood Potassium Urine Color Yellow Urine Clarity Hazy Urine pH 5.0 Ur Specific [place] 1.013 Urine Protein 2+ H Urine Glucose (UA) Normal Urine Ketones 1+ H Urine Blood 2+ H Urine Nitrate Negative Urine Bilirubin Negative Urine Urobilinogen Normal Ur Leukocyte Esterase Neg Urine RBC (Auto) 2 Ur Squamous Epith Cells < 1 Amorphous Sediment Moderate H Alcohol, Quantitative Blood Type Antibody Screen 07/09/18 07/09/18 07/09/18 01:48 01:48 01:48 WBC RBC Hgb Hct MCV MCH MCHC RDW Plt Count MPV Neut % (Auto) Lymph % (Auto) [place] % (Auto) Eos % (Auto) Baso % (Auto) Neut # (Auto) Lymph # (Auto) [place] # (Auto) Eos # (Auto) Baso # (Auto) Differential Comment PT 14.4 H INR 1.3 APTT 36 H Puncture Site pCO2 pO2 HCO3 ABG pH ABG Total CO2 ABG O2 Saturation ABG Base Excess [place] Test ABG Potassium A-a O2 Difference Respiratory Index Glucose Lactate Vent Mode Mechanical Rate FiO2 Tidal Volume PEEP Crit Value Called To Crit Value Called By Crit Value Read Back Blood Gas Notified Time Sodium 138 Potassium 3.6 Chloride 101 Carbon Dioxide 27 Anion Gap 14 BUN 18 Creatinine 0.7 L Est GFR ( Amer) > 60 Est GFR (Non-Af Amer) > 60 POC Glucose (mg/dL) Random Glucose 158 H D Calcium 9.3 Phosphorus Magnesium Total Bilirubin 0.4 AST 24 ALT 18 L D Alkaline Phosphatase 104 Ammonia 98 H Total Protein 7.6 Albumin 4.6 Globulin 3.1 Albumin/Globulin Ratio 1.5 Lipase 73 Arterial Blood Potassium Urine Color Urine Clarity Urine pH Ur Specific [place] Urine Protein Urine Glucose (UA) Urine Ketones Urine Blood Urine Nitrate Urine Bilirubin Urine Urobilinogen Ur Leukocyte Esterase Urine RBC (Auto) Ur Squamous Epith Cells Amorphous Sediment Alcohol, Quantitative < 10 Blood Type Antibody Screen 07/09/18 07/09/18 07/09/18 03:05 03:55 05:37 WBC RBC Hgb Hct MCV MCH MCHC RDW Plt Count MPV Neut % (Auto) Lymph % (Auto) [place] % (Auto) Eos % (Auto) Baso % (Auto) Neut # (Auto) Lymph # (Auto) [place] # (Auto) Eos # (Auto) Baso # (Auto) Differential Comment PT INR APTT Puncture Site Rr Rb pCO2 20 L 24 L pO2 534 H 625 H HCO3 5.3 L* 10.3 L ABG pH 6.99 L* 7.15 L* ABG Total CO2 5.4 L 9.1 L ABG O2 Saturation 100.5 H 100.4 H ABG Base Excess -25.2 L -18.8 L [place] Test Pos Na ABG Potassium 4.7 4.6 A-a O2 Difference 154.0 58.0 Respiratory Index 0.3 0.1 Glucose 82 171 H Lactate 17.9 H* 9.1 H* Vent Mode Prvc Prvc Mechanical Rate 14 14 FiO2 100.0 100.0 Tidal Volume 500 500 PEEP 5 5 Crit Value Called To Dr mayito Davies rn Crit Value Called By Sagrario fournier rt Lili net mvc developer Crit Value Read Back Y Y Blood Gas Notified Time 310 540 Sodium 126.0 L 124.0 L Potassium Chloride 90.0 L 92.0 L Carbon Dioxide Anion Gap BUN Creatinine Est GFR ( Amer) Est GFR (Non-Af Amer) POC Glucose (mg/dL) Random Glucose Calcium Phosphorus Magnesium Total Bilirubin AST ALT Alkaline Phosphatase Ammonia Total Protein Albumin Globulin Albumin/Globulin Ratio Lipase Arterial Blood Potassium 4.7 4.6 Urine Color Urine Clarity Urine pH Ur Specific [place] Urine Protein Urine Glucose (UA) Urine Ketones Urine Blood Urine Nitrate Urine Bilirubin Urine Urobilinogen Ur Leukocyte Esterase Urine RBC (Auto) Ur Squamous Epith Cells Amorphous Sediment Alcohol, Quantitative Blood Type O POSITIVE Antibody Screen Negative 07/09/18 07/09/18 07/09/18 06:28 06:28 06:28 WBC 10.8 RBC 4.92 Hgb 15.0 Hct 46.3 MCV 94.1 H D MCH 30.4 MCHC 32.3 L RDW 15.1 H Plt Count 100 L D MPV 8.1 Neut % (Auto) 70.1 Lymph % (Auto) 27.9 [place] % (Auto) 1.5 Eos % (Auto) 0.1 Baso % (Auto) 0.4 Neut # (Auto) 7.6 H Lymph # (Auto) 3.0 [place] # (Auto) 0.2 Eos # (Auto) 0.0 Baso # (Auto) 0.0 Differential Comment PT 16.1 H INR 1.5 APTT 32 Puncture Site pCO2 pO2 HCO3 ABG pH ABG Total CO2 ABG O2 Saturation ABG Base Excess [place] Test ABG Potassium A-a O2 Difference Respiratory Index Glucose Lactate Vent Mode Mechanical Rate FiO2 Tidal Volume PEEP Crit Value Called To Crit Value Called By Crit Value Read Back Blood Gas Notified Time Sodium 127 L Potassium 4.8 Chloride 89 L Carbon Dioxide 6 L* D Anion Gap 37 H BUN 30 H Creatinine 2.3 H Est GFR ( Amer) 38 Est GFR (Non-Af Amer) 31 POC Glucose (mg/dL) Random Glucose 166 H Calcium 6.6 L Phosphorus 11.2 H Magnesium 1.3 L Total Bilirubin 2.8 H AST 174 H D ALT 56 Alkaline Phosphatase 83 Ammonia Total Protein 6.1 L Albumin 3.9 Globulin 2.3 Albumin/Globulin Ratio 1.7 Lipase Arterial Blood Potassium Urine Color Urine Clarity Urine pH Ur Specific [place] Urine Protein Urine Glucose (UA) Urine Ketones Urine Blood Urine Nitrate Urine Bilirubin Urine Urobilinogen Ur Leukocyte Esterase Urine RBC (Auto) Ur Squamous Epith Cells Amorphous Sediment Alcohol, Quantitative Blood Type Antibody Screen 07/09/18 11:52 WBC RBC Hgb Hct MCV MCH MCHC RDW Plt Count MPV Neut % (Auto) Lymph % (Auto) [place] % (Auto) Eos % (Auto) Baso % (Auto) Neut # (Auto) Lymph # (Auto) [place] # (Auto) Eos # (Auto) Baso # (Auto) Differential Comment PT INR APTT Puncture Site Lf pCO2 24 L pO2 50 L HCO3 14.6 L ABG pH 7.30 L ABG Total CO2 12.5 L ABG O2 Saturation 85.9 L ABG Base Excess -12.7 L [place] Test Na ABG Potassium 5.1 A-a O2 Difference 205.0 Respiratory Index 4.1 Glucose 234 H Lactate 3.8 H Vent Mode Mechanical Rate 14 FiO2 40.0 Tidal Volume 70 PEEP 5 Crit Value Called To Crit Value Called By Crit Value Read Back Blood Gas Notified Time Sodium 126.0 L Potassium Chloride 93.0 L Carbon Dioxide Anion Gap BUN Creatinine Est GFR ( Amer) Est GFR (Non-Af Amer) POC Glucose (mg/dL) Random Glucose Calcium Phosphorus Magnesium Total Bilirubin AST ALT Alkaline Phosphatase Ammonia Total Protein Albumin Globulin Albumin/Globulin Ratio Lipase Arterial Blood Potassium 5.1 Urine Color Urine Clarity Urine pH Ur Specific [place] Urine Protein Urine Glucose (UA) Urine Ketones Urine Blood Urine Nitrate Urine Bilirubin Urine Urobilinogen Ur Leukocyte Esterase Urine RBC (Auto) Ur Squamous Epith Cells Amorphous Sediment Alcohol, Quantitative Blood Type Antibody Screen
--- NOTE | 2018-07-09 12:41 | PCM.PROC ---
Procedures Attestation:: I certify that I have explained the specified Operation(s) or Procedure(s), risks, benefits and reasonable alternatives to the Patient and/or other person responsible. The opportunity was given to ask questions and all questions answered - Central Line Placement Right Femoral Triple Lumen Catheter Aseptic technique was employed throughout the procedure: Hand Hygiene done prior to procedure, Full sterile barriers (mask, hair cover, sterile gown, sterile gloves), Chloraprep Antiseptic: 2 minute prep for Femoral Pt. Placed on Pulse Ox Monitor: Yes Central Line Prep: Chlorhexidine-Alcohol Combination Local Anesthesia Used: Lidocaine 1% Amount of Anesthesia Used (mls): 3 Ultrasound Used for Placement: Yes Central Line Lumen Inserted: single Central Line Length: 20 cm Post Procedure: Sutured in Place, Good Blood Return, All Ports Aspirated, Flushed, Capped, Sterile Dressing Applied Secured by: Suture Post procedure dressing: Gauze, Clear vapor permeable Post Procedure X-Ray: Yes Patient Tolerated Procedure: Well Immediate Complications: None
[2018-07-09 12:52] LABS: INR 1.7; PROTHROMBIN TIME 18.7 SECONDS (9.7-12.2)
[2018-07-09 12:55] LABS: ARTERIAL BLOOD GAS HCO3 11.9 mmol/L (21-28); ARTERIAL BLOOD GAS HEMOGLOBIN 8.3 g/dL (11.7-17.4); ARTERIAL BLOOD GAS O2 SAT 99.2 % (95-98); ARTERIAL BLOOD GAS PCO2 13 mm/Hg (35-45); ARTERIAL BLOOD GAS PH 7.34 (7.35-7.45); ARTERIAL BLOOD GAS PO2 144 mm/Hg (80-100); ARTERIAL BLOOD GAS TCO2 7.4 mmol/L (22-28)
[2018-07-09 13:00] LABS: ALB/GLOB RATIO 1.4 (1.0-2.1); ALBUMIN 2.9 g/dL (3.5-5.0); CALCIUM 6.1 mg/dl (8.6-10.4)
--- NOTE | 2018-07-09 13:44 | CP.PCM.CON ---
History of Present Illness - History of Present Illness History of Present Illness: GI Service Consult 42 yo male with long history of substance and alcohol abuse admitted with alcohol intoxication, became hypotensive and required mecahnical ventilation, then found to have vomited large amount of dark coffee colored liquid. History unobtainable on ventilator. Pt on pressors and ventilator. PPI begun. Hgb 15. Review of Systems - Review of Systems Systems not reviewed;Unavailable: Altered Mental Status, Intubated Past Patient History - Infectious Disease Hx of Infectious Diseases: None - Past Medical History & Family History Past Medical History?: Yes - Past Social History Smoking Status: Never Smoked Alcohol: > 2 Drinks/Day Home Situation {Lives}: With Family - CARDIAC Hx Cardiac Disorders: Yes Hx Hypertension: Yes - PULMONARY Hx Respiratory Disorders: No Hx Tuberculosis: No - NEUROLOGICAL Hx Neurological Disorder: Yes Hx Seizures: Yes (ETOH related) - HEENT Hx HEENT Problems: No - RENAL Hx Chronic Kidney Disease: No - ENDOCRINE/METABOLIC Hx Endocrine Disorders: Yes Hx Diabetes Mellitus Type 2: Yes - HEMATOLOGICAL/ONCOLOGICAL Hx Blood Disorders: Yes Hx Anemia: Yes Hx Blood Transfusions: Yes Hx Human Immunodeficiency Virus (HIV): No - INTEGUMENTARY Hx Dermatological Problems: No - MUSCULOSKELETAL/RHEUMATOLOGICAL Hx Musculoskeletal Disorders: Yes Hx Falls: Yes - GASTROINTESTINAL Hx Gastrointestinal Disorders: Yes Hx Vomiting: Yes - GENITOURINARY/GYNECOLOGICAL Hx Genitourinary Disorders: No Hx Sexually Transmitted Disorders: No - PSYCHIATRIC Hx Psychophysiologic Disorder: Yes Hx Anxiety: Yes Hx Depression: Yes Hx Substance Use: No (DENIES) - SURGICAL HISTORY Hx Surgeries: No - ANESTHESIA Hx Anesthesia: No Meds Allergies/Adverse Reactions: Allergies Allergy/AdvReac Type Severity Reaction Status Date / Time No Known Allergies Allergy Verified 07/09/18 01:34 - Medications Medications: Current Medications Octreotide Acetate 1,250 mcg/ (Sodium Chloride) 252.5 mls @ 5.05 mls/hr SC .Q24H [facility] Last Admin: 07/09/18 01:30 Dose: 5.05 mls/hr Ceftriaxone Sodium 1 gm/ (Sodium Chloride) 100 mls @ 100 mls/hr IVPB DAILY [facility]; Protocol Last Admin: 07/09/18 10:40 Dose: 100 mls/hr Levetiracetam 500 mg/ Dextrose 105 mls @ 420 mls/hr IVPB Q12H [facility] Last Admin: 07/09/18 05:21 Dose: 420 mls/hr Dexmedetomidine HCl 200 mcg/ (Sodium Chloride) 50 mls @ 2.83 mls/hr IV TITR PRN ; Protocol PRN Reason: sedation Last Admin: 07/09/18 10:35 Dose: 1.5 mcg/kg/hr, 21.26 mls/hr Midazolam HCl 100 mg/ Dextrose 100 mls @ 1.13 mls/hr IV .Q24H ONE; Protocol Stop: 07/10/18 02:21 Last Titration: 07/09/18 05:30 Dose: 0.12 mg/kg/hr, 6.8 mls/hr Propofol (Diprivan) 1,000 mg in 100 mls @ 1.701 mls/hr IV .Q24H PRN; Protocol PRN Reason: TITRATE PER MD ORDER Last Titration: 07/09/18 07:03 Dose: 10 mcg/kg/min, 3.402 mls/hr Sodium Bicarbonate 150 meq/ (Dextrose) 1,150 mls @ 150 mls/hr IV .Q7H40M [facility] Last Admin: 07/09/18 10:40 Dose: 150 mls/hr Sodium Chloride (Sodium Chloride 0.9%) 1,000 mls @ 150 mls/hr IV .Q6H40M [facility] Last Admin: 07/09/18 10:43 Dose: 150 mls/hr Dopamine HCl/Dextrose (Dopamine 400mg/250ml D5w) 400 mg in 250 mls @ 5.406 mls/hr IV .Q24H PRN; Protocol PRN Reason: TITRATE PER MD ORDER Last Admin: 07/09/18 10:00 Dose: 2 mcg/kg/min, 5.406 mls/hr Pantoprazole Sodium 80 mg/ (Sodium Chloride) 100 mls @ 10 mls/hr IVPB Q10H [facility] Last Admin: 07/09/18 10:39 Dose: 10 mls/hr Vasopressin 40 units/ Dextrose 40 mls @ 0.6 mls/hr IV .Q24H [facility]; Protocol Lactulose (Enulose) 20 gm PO BID [facility] Last Admin: 07/09/18 10:42 Dose: 20 gm Thiamine HCl (Vitamin B1 Inj) 100 mg IV DAILY [facility] Last Admin: 07/09/18 10:41 Dose: 100 mg Physical Exam - Constitutional Appears: In Acute Distress - Eye Exam Eye Exam: absent: Scleral icterus - ENT Exam Additional comments: ETT - Neck Exam Neck exam: Positive for: Normal Inspection - Respiratory Exam Respiratory Exam: Clear to Auscultation Bilateral - Cardiovascular Exam Cardiovascular Exam: REGULAR RHYTHM - GI/Abdominal Exam GI & Abdominal Exam: Soft. absent: Mass, Organomegaly, Tenderness Results - Vital Signs Recent Vital Signs: Last Vital Signs Temp 94.1 F L 07/09/18 04:29 Pulse 73 07/09/18 07:39 Resp 26 H 07/09/18 07:39 BP 76/34 L 07/09/18 10:00 Pulse Ox 100 07/09/18 07:39 - Labs Result Diagrams: 07/09/18 06:28 07/09/18 12:34 Labs: Laboratory Results - last 24 hr 07/09/18 07/09/18 07/09/18 01:03 01:25 01:48 WBC 7.4 D RBC 4.93 Hgb 13.6 Hct 41.3 MCV 83.7 D MCH 27.5 MCHC 32.8 L RDW 13.2 Plt Count 243 MPV 8.6 Neut % (Auto) 66.1 Lymph % (Auto) 25.9 [place] % (Auto) 7.0 Eos % (Auto) 0.8 Baso % (Auto) 0.2 Neut # (Auto) 4.9 Lymph # (Auto) 1.9 [place] # (Auto) 0.5 Eos # (Auto) 0.1 Baso # (Auto) 0.0 Differential Comment PT INR APTT Puncture Site pCO2 pO2 HCO3 ABG pH ABG Total CO2 ABG O2 Saturation ABG Base Excess ABG Hemoglobin ABG Carboxyhemoglobin POC ABG HHb (Measured) ABG Methemoglobin Constantine Test ABG Potassium A-a O2 Difference Respiratory Index Hgb O2 Saturation Glucose Lactate Vent Mode Mechanical Rate FiO2 Tidal Volume PEEP Crit Value Called To Crit Value Called By Crit Value Read Back Blood Gas Notified Time Sodium Potassium Chloride Carbon Dioxide Anion Gap BUN Creatinine Est GFR ( Amer) Est GFR (Non-Af Amer) POC Glucose (mg/dL) 99 Random Glucose Calcium Phosphorus Magnesium Total Bilirubin AST ALT Alkaline Phosphatase Ammonia Total Protein Albumin Globulin Albumin/Globulin Ratio Lipase Arterial Blood Potassium Urine Color Yellow Urine Clarity Hazy Urine pH 5.0 Ur Specific [place] 1.013 Urine Protein 2+ H Urine Glucose (UA) Normal Urine Ketones 1+ H Urine Blood 2+ H Urine Nitrate Negative Urine Bilirubin Negative Urine Urobilinogen Normal Ur Leukocyte Esterase Neg Urine RBC (Auto) 2 Ur Squamous Epith Cells < 1 Amorphous Sediment Moderate H Alcohol, Quantitative Blood Type Antibody Screen 07/09/18 07/09/18 07/09/18 01:48 01:48 01:48 WBC RBC Hgb Hct MCV MCH MCHC RDW Plt Count MPV Neut % (Auto) Lymph % (Auto) [place] % (Auto) Eos % (Auto) Baso % (Auto) Neut # (Auto) Lymph # (Auto) [place] # (Auto) Eos # (Auto) Baso # (Auto) Differential Comment PT 14.4 H INR 1.3 APTT 36 H Puncture Site pCO2 pO2 HCO3 ABG pH ABG Total CO2 ABG O2 Saturation ABG Base Excess ABG Hemoglobin ABG Carboxyhemoglobin POC ABG HHb (Measured) ABG Methemoglobin Constantine Test ABG Potassium A-a O2 Difference Respiratory Index Hgb O2 Saturation Glucose Lactate Vent Mode Mechanical Rate FiO2 Tidal Volume PEEP Crit Value Called To Crit Value Called By Crit Value Read Back Blood Gas Notified Time Sodium 138 Potassium 3.6 Chloride 101 Carbon Dioxide 27 Anion Gap 14 BUN 18 Creatinine 0.7 L Est GFR ( Amer) > 60 Est GFR (Non-Af Amer) > 60 POC Glucose (mg/dL) Random Glucose 158 H D Calcium 9.3 Phosphorus Magnesium Total Bilirubin 0.4 AST 24 ALT 18 L D Alkaline Phosphatase 104 Ammonia 98 H Total Protein 7.6 Albumin 4.6 Globulin 3.1 Albumin/Globulin Ratio 1.5 Lipase 73 Arterial Blood Potassium Urine Color Urine Clarity Urine pH Ur Specific [place] Urine Protein Urine Glucose (UA) Urine Ketones Urine Blood Urine Nitrate Urine Bilirubin Urine Urobilinogen Ur Leukocyte Esterase Urine RBC (Auto) Ur Squamous Epith Cells Amorphous Sediment Alcohol, Quantitative < 10 Blood Type Antibody Screen 07/09/18 07/09/18 07/09/18 03:05 03:55 05:37 WBC RBC Hgb Hct MCV MCH MCHC RDW Plt Count MPV Neut % (Auto) Lymph % (Auto) [place] % (Auto) Eos % (Auto) Baso % (Auto) Neut # (Auto) Lymph # (Auto) [place] # (Auto) Eos # (Auto) Baso # (Auto) Differential Comment PT INR APTT Puncture Site Rr Rb pCO2 20 L 24 L pO2 534 H 625 H HCO3 5.3 L* 10.3 L ABG pH 6.99 L* 7.15 L* ABG Total CO2 5.4 L 9.1 L ABG O2 Saturation 100.5 H 100.4 H ABG Base Excess -25.2 L -18.8 L ABG Hemoglobin ABG Carboxyhemoglobin POC ABG HHb (Measured) ABG Methemoglobin Constantine Test Pos Na ABG Potassium 4.7 4.6 A-a O2 Difference 154.0 58.0 Respiratory Index 0.3 0.1 Hgb O2 Saturation Glucose 82 171 H Lactate 17.9 H* 9.1 H* Vent Mode Prvc Prvc Mechanical Rate 14 14 FiO2 100.0 100.0 Tidal Volume 500 500 PEEP 5 5 Crit Value Called To Dr mayito Davies rn Crit Value Called By Sagrario fournier rt Lili tour bus driver Crit Value Read Back Y Y Blood Gas Notified Time 310 540 Sodium 126.0 L 124.0 L Potassium Chloride 90.0 L 92.0 L Carbon Dioxide Anion Gap BUN Creatinine Est GFR ( Amer) Est GFR (Non-Af Amer) POC Glucose (mg/dL) Random Glucose Calcium Phosphorus Magnesium Total Bilirubin AST ALT Alkaline Phosphatase Ammonia Total Protein Albumin Globulin Albumin/Globulin Ratio Lipase Arterial Blood Potassium 4.7 4.6 Urine Color Urine Clarity Urine pH Ur Specific [place] Urine Protein Urine Glucose (UA) Urine Ketones Urine Blood Urine Nitrate Urine Bilirubin Urine Urobilinogen Ur Leukocyte Esterase Urine RBC (Auto) Ur Squamous Epith Cells Amorphous Sediment Alcohol, Quantitative Blood Type O POSITIVE Antibody Screen Negative 07/09/18 07/09/18 07/09/18 06:28 06:28 06:28 WBC 10.8 RBC 4.92 Hgb 15.0 Hct 46.3 MCV 94.1 H D MCH 30.4 MCHC 32.3 L RDW 15.1 H Plt Count 100 L D MPV 8.1 Neut % (Auto) 70.1 Lymph % (Auto) 27.9 [place] % (Auto) 1.5 Eos % (Auto) 0.1 Baso % (Auto) 0.4 Neut # (Auto) 7.6 H Lymph # (Auto) 3.0 [place] # (Auto) 0.2 Eos # (Auto) 0.0 Baso # (Auto) 0.0 Differential Comment PT 16.1 H INR 1.5 APTT 32 Puncture Site pCO2 pO2 HCO3 ABG pH ABG Total CO2 ABG O2 Saturation ABG Base Excess ABG Hemoglobin ABG Carboxyhemoglobin POC ABG HHb (Measured) ABG Methemoglobin Constantine Test ABG Potassium A-a O2 Difference Respiratory Index Hgb O2 Saturation Glucose Lactate Vent Mode Mechanical Rate FiO2 Tidal Volume PEEP Crit Value Called To Crit Value Called By Crit Value Read Back Blood Gas Notified Time Sodium 127 L Potassium 4.8 Chloride 89 L Carbon Dioxide 6 L* D Anion Gap 37 H BUN 30 H Creatinine 2.3 H Est GFR ( Amer) 38 Est GFR (Non-Af Amer) 31 POC Glucose (mg/dL) Random Glucose 166 H Calcium 6.6 L Phosphorus 11.2 H Magnesium 1.3 L Total Bilirubin 2.8 H AST 174 H D ALT 56 Alkaline Phosphatase 83 Ammonia Total Protein 6.1 L Albumin 3.9 Globulin 2.3 Albumin/Globulin Ratio 1.7 Lipase Arterial Blood Potassium Urine Color Urine Clarity Urine pH Ur Specific [place] Urine Protein Urine Glucose (UA) Urine Ketones Urine Blood Urine Nitrate Urine Bilirubin Urine Urobilinogen Ur Leukocyte Esterase Urine RBC (Auto) Ur Squamous Epith Cells Amorphous Sediment Alcohol, Quantitative Blood Type Antibody Screen 07/09/18 07/09/18 07/09/18 11:52 12:34 12:34 WBC RBC Hgb Hct MCV MCH MCHC RDW Plt Count MPV Neut % (Auto) Lymph % (Auto) [place] % (Auto) Eos % (Auto) Baso % (Auto) Neut # (Auto) Lymph # (Auto) [place] # (Auto) Eos # (Auto) Baso # (Auto) Differential Comment PT 18.7 H INR 1.7 APTT Puncture Site Lf pCO2 24 L pO2 50 L HCO3 14.6 L ABG pH 7.30 L ABG Total CO2 12.5 L ABG O2 Saturation 85.9 L ABG Base Excess -12.7 L ABG Hemoglobin ABG Carboxyhemoglobin POC ABG HHb (Measured) ABG Methemoglobin Constantine Test Na ABG Potassium 5.1 A-a O2 Difference 205.0 Respiratory Index 4.1 Hgb O2 Saturation Glucose 234 H Lactate 3.8 H Vent Mode Mechanical Rate 14 FiO2 40.0 Tidal Volume 70 PEEP 5 Crit Value Called To Crit Value Called By Crit Value Read Back Blood Gas Notified Time Sodium 126.0 L Potassium Chloride 93.0 L Carbon Dioxide Anion Gap BUN Creatinine Est GFR ( Amer) Est GFR (Non-Af Amer) POC Glucose (mg/dL) Random Glucose Calcium Phosphorus 5.5 H Magnesium 1.8 Total Bilirubin AST ALT Alkaline Phosphatase Ammonia Total Protein Albumin Globulin Albumin/Globulin Ratio Lipase Arterial Blood Potassium 5.1 Urine Color Urine Clarity Urine pH Ur Specific [place] Urine Protein Urine Glucose (UA) Urine Ketones Urine Blood Urine Nitrate Urine Bilirubin Urine Urobilinogen Ur Leukocyte Esterase Urine RBC (Auto) Ur Squamous Epith Cells Amorphous Sediment Alcohol, Quantitative Blood Type Antibody Screen 07/09/18 07/09/18 12:34 12:51 WBC RBC Hgb Hct MCV MCH MCHC RDW Plt Count MPV Neut % (Auto) Lymph % (Auto) [place] % (Auto) Eos % (Auto) Baso % (Auto) Neut # (Auto) Lymph # (Auto) [place] # (Auto) Eos # (Auto) Baso # (Auto) Differential Comment PT INR APTT Puncture Site Lf pCO2 13 L* pO2 144 H HCO3 11.9 L ABG pH 7.34 L ABG Total CO2 7.4 L ABG O2 Saturation 99.2 H ABG Base Excess -16.8 L ABG Hemoglobin 8.3 L ABG Carboxyhemoglobin 0.9 POC ABG HHb (Measured) 0.8 ABG Methemoglobin 0.8 Constantine Test Na ABG Potassium A-a O2 Difference 125.0 Respiratory Index 0.9 Hgb O2 Saturation 97.5 Glucose Lactate Vent Mode Mechanical Rate 14 FiO2 40.0 Tidal Volume 470 PEEP 5 Crit Value Called To Dr galindo Crit Value Called By Flo moscoso swing manager Crit Value Read Back Y Blood Gas Notified Time 1255 Sodium 125 L Potassium 4.4 Chloride 89 L Carbon Dioxide 14 L Anion Gap 26 H BUN 40 H Creatinine 2.3 H Est GFR ( Amer) 38 Est GFR (Non-Af Amer) 31 POC Glucose (mg/dL) Random Glucose 243 H D Calcium 6.1 L Phosphorus Magnesium Total Bilirubin 3.5 H AST 202 H ALT 75 H D Alkaline Phosphatase 87 Ammonia Total Protein 5.0 L Albumin 2.9 L D Globulin 2.1 L Albumin/Globulin Ratio 1.4 Lipase Arterial Blood Potassium Urine Color Urine Clarity Urine pH Ur Specific [place] Urine Protein Urine Glucose (UA) Urine Ketones Urine Blood Urine Nitrate Urine Bilirubin Urine Urobilinogen Ur Leukocyte Esterase Urine RBC (Auto) Ur Squamous Epith Cells Amorphous Sediment Alcohol, Quantitative Blood Type Antibody Screen Assessment & Plan (1) GI bleed Assessment and Plan: Hematemesis in setting of alcoholism, possible cirrhosis. hemodynamically unstable at present rec: PPI/Octreotide. Monitor Hgb. Defer EGD until medically stable Status: Acute (2) Alcohol abuse with intoxication Status: Acute
[2018-07-09] MEDS ORDERED: Calcium Gluconate 4.65 mEq/10 ml Inj IVP ONE (15:39)
--- NOTE | 2018-07-09 16:14 | CARD ---
APPROVED REPORT Date of service: 07/09/2018 EKG Measurement Heart [id number] <Conclusion> Normal sinus rhythm Nonspecific intraventricular conduction delay Borderline ECG
[2018-07-09] MEDS ORDERED: CALCIUM GLUCONATE IVPB ONE (18:00)
[2018-07-09] MEDS: Albumin Human 25% (12.5 gm/50 ml) IV SCH (18:00)
[2018-07-09] MEDS ORDERED: SODIUM CHLORIDE 0.9% IVPB ONE (18:00)
[2018-07-09] MEDS: Vasopressin 40 UNITS in Dextrose 5% In Water 38 ML IV SCH (18:02)
--- NOTE | 2018-07-09 19:38 | CP.PCM.CON ---
<DerrekKris - Last Filed: 07/09/18 19:31> History of Present Illness - History of Present Illness History of Present Illness: Nephrology consult note: Derrek PGY 2 Reason for consult: SEBASTIÁN 42 M with H/o chronic alcoholism presented to ED for EtOH withdrawal. Hx obtained per chart review, as patient is intubated and sedated. Patient apparently realized he was in alcohol withdrawal at home and called EMS; once in the ED, patient was found to be in respiratory distress and subsequently intubated with NGT. NG tube removed black fluid but no obvious blood. Nephrology was consulted for SEBASTIÁN, but patient also found to have Mild AGMA. Information below from past chart review: Review of Systems: Unobtainable 2/2 Sedation PMH Chronic alcoholism, h/o seizure, ? dm, htn, visits to detox and leaving AMA PSH Unobtainable 2/2 Sedation Allergies NKDA Meds Per chart review, keppra, metformin Family history Unobtainable 2/2 Sedation Social history Unobtainable 2/2 Sedation Past Patient History - Infectious Disease Hx of Infectious Diseases: None - Past Medical History & Family History Past Medical History?: Yes - Past Social History Smoking Status: Never Smoked Alcohol: > 2 Drinks/Day Home Situation {Lives}: With Family - CARDIAC Hx Cardiac Disorders: Yes Hx Hypertension: Yes - PULMONARY Hx Respiratory Disorders: No Hx Tuberculosis: No - NEUROLOGICAL Hx Neurological Disorder: Yes Hx Seizures: Yes (ETOH related) - HEENT Hx HEENT Problems: No - RENAL Hx Chronic Kidney Disease: No - ENDOCRINE/METABOLIC Hx Endocrine Disorders: Yes Hx Diabetes Mellitus Type 2: Yes - HEMATOLOGICAL/ONCOLOGICAL Hx Blood Disorders: Yes Hx Anemia: Yes Hx Blood Transfusions: Yes Hx Human Immunodeficiency Virus (HIV): No - INTEGUMENTARY Hx Dermatological Problems: No - MUSCULOSKELETAL/RHEUMATOLOGICAL Hx Musculoskeletal Disorders: Yes Hx Falls: Yes - GASTROINTESTINAL Hx Gastrointestinal Disorders: Yes Hx Vomiting: Yes - GENITOURINARY/GYNECOLOGICAL Hx Genitourinary Disorders: No Hx Sexually Transmitted Disorders: No - PSYCHIATRIC Hx Psychophysiologic Disorder: Yes Hx Anxiety: Yes Hx Depression: Yes Hx Substance Use: No (DENIES) - SURGICAL HISTORY Hx Surgeries: No - ANESTHESIA Hx Anesthesia: No Meds Allergies/Adverse Reactions: Allergies Allergy/AdvReac Type Severity Reaction Status Date / Time No Known Allergies Allergy Verified 07/09/18 01:34 - Medications Medications: Current Medications Albumin Human (Albumin Human 25% (12.5 Gm/50 Ml)) 12.5 gm IV TID [facility] Stop: 07/11/18 14:01 Last Admin: 07/09/18 18:00 Dose: 12.5 gm Levetiracetam 500 mg/ Dextrose 105 mls @ 420 mls/hr IVPB Q12H [facility] Last Admin: 07/09/18 14:04 Dose: 420 mls/hr Dexmedetomidine HCl 200 mcg/ (Sodium Chloride) 50 mls @ 2.83 mls/hr IV TITR PRN; Protocol PRN Reason: sedation Last Admin: 07/09/18 19:03 Dose: 1 mcg/kg/hr, 14.17 mls/hr Midazolam HCl 100 mg/ Dextrose 100 mls @ 1.13 mls/hr IV .Q24H ONE; Protocol Stop: 07/10/18 02:21 Last Titration: 07/09/18 05:30 Dose: 0.12 mg/kg/hr, 6.8 mls/hr Propofol (Diprivan) 1,000 mg in 100 mls @ 1.701 mls/hr IV .Q24H PRN; Protocol PRN Reason: TITRATE PER MD ORDER Last Admin: 07/09/18 18:01 Dose: 15 mcg/kg/min, 5.103 mls/hr Sodium Bicarbonate 150 meq/ (Dextrose) 1,150 mls @ 150 mls/hr IV .Q7H40M [facility] Last Admin: 07/09/18 18:06 Dose: 150 mls/hr Sodium Chloride (Sodium Chloride 0.9%) 1,000 mls @ 150 mls/hr IV .Q6H40M [facility] Last Admin: 07/09/18 16:00 Dose: 150 mls/hr Dopamine HCl/Dextrose (Dopamine 400mg/250ml D5w) 400 mg in 250 mls @ 5.406 mls/hr IV .Q24H PRN; Protocol PRN Reason: TITRATE PER MD ORDER Last Admin: 07/09/18 19:02 Dose: 7 mcg/kg/min, 18.92 mls/hr Pantoprazole Sodium 80 mg/ (Sodium Chloride) 100 mls @ 10 mls/hr IVPB Q10H [facility] Last Admin: 07/09/18 10:39 Dose: 10 mls/hr Vasopressin 40 units/ Dextrose 40 mls @ 0.6 mls/hr IV .Q24H [facility]; Protocol Last Admin: 07/09/18 18:02 Dose: 0.01 units/min, 0.6 mls/hr Octreotide Acetate 1,250 mcg/ (Sodium Chloride) 252.5 mls @ 5.05 mls/hr IV .Q24H [facility] Last Admin: 07/09/18 18:05 Dose: Not Given Calcium Gluconate 1,000 mg/ (Sodium Chloride) 260 mls @ 65 mls/hr IVPB ONCE ONE Stop: 07/09/18 22:59 Last Admin: 07/09/18 19:02 Dose: 65 mls/hr Lactulose (Enulose) 20 gm PO BID [facility] Last Admin: 07/09/18 18:00 Dose: 20 gm Thiamine HCl (Vitamin B1 Inj) 100 mg IV DAILY [facility] Last Admin: 07/09/18 10:41 Dose: 100 mg Physical Exam - Constitutional Appears: Non-toxic Additional comments: Sedated and intubated - Head Exam Head Exam: ATRAUMATIC, NORMAL INSPECTION, NORMOCEPHALIC - Eye Exam Eye Exam: EOMI, Normal appearance, PERRL Pupil Exam: NORMAL ACCOMODATION, PERRL - ENT Exam ENT Exam: Mucous Membranes Moist, Normal Exam - Neck Exam Neck exam: Positive for: Normal Inspection - Respiratory Exam Respiratory Exam: Clear to Auscultation Bilateral, NORMAL BREATHING PATTERN - Cardiovascular Exam Cardiovascular Exam: REGULAR RHYTHM - GI/Abdominal Exam GI & Abdominal Exam: Normal Bowel Sounds, Soft. absent: Tenderness - Extremities Exam Extremities exam: Positive for: normal inspection - Back Exam Back exam: NORMAL INSPECTION - Neurological Exam Neurological exam: Alert, CN II-XII Intact, Normal Gait, Oriented x3, Reflexes Normal - Psychiatric Exam Psychiatric exam: Normal Affect, Normal Mood - Skin Skin Exam: Dry, Intact, Normal Color, Warm Results - Vital Signs Recent Vital Signs: Last Vital Signs Temp 100.2 F H 07/09/18 17:13 Pulse 90 07/09/18 18:39 Resp 32 H 07/09/18 10:18 BP 107/53 L 07/09/18 19:02 Pulse Ox 99 07/09/18 18:39 - Labs Result Diagrams: 07/09/18 06:28 07/09/18 12:34 Labs: Laboratory Results - last 24 hr 07/09/18 07/09/18 07/09/18 01:03 01:25 01:48 WBC 7.4 D RBC 4.93 Hgb 13.6 Hct 41.3 MCV 83.7 D MCH 27.5 MCHC 32.8 L RDW 13.2 Plt Count 243 MPV 8.6 Neut % (Auto) 66.1 Lymph % (Auto) 25.9 [place] % (Auto) 7.0 Eos % (Auto) 0.8 Baso % (Auto) 0.2 Neut # (Auto) 4.9 Lymph # (Auto) 1.9 [place] # (Auto) 0.5 Eos # (Auto) 0.1 Baso # (Auto) 0.0 Differential Comment PT INR APTT Puncture Site pCO2 pO2 HCO3 ABG pH ABG Total CO2 ABG O2 Saturation ABG Base Excess ABG Hemoglobin ABG Carboxyhemoglobin POC ABG HHb (Measured) ABG Methemoglobin Constantine Test ABG Potassium A-a O2 Difference Respiratory Index Hgb O2 Saturation Glucose Lactate Vent Mode Mechanical Rate FiO2 Tidal Volume PEEP Crit Value Called To Crit Value Called By Crit Value Read Back Blood Gas Notified Time Sodium Potassium Chloride Carbon Dioxide Anion Gap BUN Creatinine Est GFR ( Amer) Est GFR (Non-Af Amer) POC Glucose (mg/dL) 99 Random Glucose Calcium Phosphorus Magnesium Total Bilirubin AST ALT Alkaline Phosphatase Ammonia Total Protein Albumin Globulin Albumin/Globulin Ratio Lipase Arterial Blood Potassium Urine Color Yellow Urine Clarity Hazy Urine pH 5.0 Ur Specific [place] 1.013 Urine Protein 2+ H Urine Glucose (UA) Normal Urine Ketones 1+ H Urine Blood 2+ H Urine Nitrate Negative Urine Bilirubin Negative Urine Urobilinogen Normal Ur Leukocyte Esterase Neg Urine RBC (Auto) 2 Ur Squamous Epith Cells < 1 Amorphous Sediment Moderate H Alcohol, Quantitative Blood Type Antibody Screen 07/09/18 07/09/18 07/09/18 01:48 01:48 01:48 WBC RBC Hgb Hct MCV MCH MCHC RDW Plt Count MPV Neut % (Auto) Lymph % (Auto) [place] % (Auto) Eos % (Auto) Baso % (Auto) Neut # (Auto) Lymph # (Auto) [place] # (Auto) Eos # (Auto) Baso # (Auto) Differential Comment PT 14.4 H INR 1.3 APTT 36 H Puncture Site pCO2 pO2 HCO3 ABG pH ABG Total CO2 ABG O2 Saturation ABG Base Excess ABG Hemoglobin ABG Carboxyhemoglobin POC ABG HHb (Measured) ABG Methemoglobin Constantine Test ABG Potassium A-a O2 Difference Respiratory Index Hgb O2 Saturation Glucose Lactate Vent Mode Mechanical Rate FiO2 Tidal Volume PEEP Crit Value Called To Crit Value Called By Crit Value Read Back Blood Gas Notified Time Sodium 138 Potassium 3.6 Chloride 101 Carbon Dioxide 27 Anion Gap 14 BUN 18 Creatinine 0.7 L Est GFR ( Amer) > 60 Est GFR (Non-Af Amer) > 60 POC Glucose (mg/dL) Random Glucose 158 H D Calcium 9.3 Phosphorus Magnesium Total Bilirubin 0.4 AST 24 ALT 18 L D Alkaline Phosphatase 104 Ammonia 98 H Total Protein 7.6 Albumin 4.6 Globulin 3.1 Albumin/Globulin Ratio 1.5 Lipase 73 Arterial Blood Potassium Urine Color Urine Clarity Urine pH Ur Specific [place] Urine Protein Urine Glucose (UA) Urine Ketones Urine Blood Urine Nitrate Urine Bilirubin Urine Urobilinogen Ur Leukocyte Esterase Urine RBC (Auto) Ur Squamous Epith Cells Amorphous Sediment Alcohol, Quantitative < 10 Blood Type Antibody Screen 07/09/18 07/09/18 07/09/18 03:05 03:55 05:37 WBC RBC Hgb Hct MCV MCH MCHC RDW Plt Count MPV Neut % (Auto) Lymph % (Auto) [place] % (Auto) Eos % (Auto) Baso % (Auto) Neut # (Auto) Lymph # (Auto) [place] # (Auto) Eos # (Auto) Baso # (Auto) Differential Comment PT INR APTT Puncture Site Rr Rb pCO2 20 L 24 L pO2 534 H 625 H HCO3 5.3 L* 10.3 L ABG pH 6.99 L* 7.15 L* ABG Total CO2 5.4 L 9.1 L ABG O2 Saturation 100.5 H 100.4 H ABG Base Excess -25.2 L -18.8 L ABG Hemoglobin ABG Carboxyhemoglobin POC ABG HHb (Measured) ABG Methemoglobin Constantine Test Pos Na ABG Potassium 4.7 4.6 A-a O2 Difference 154.0 58.0 Respiratory Index 0.3 0.1 Hgb O2 Saturation Glucose 82 171 H Lactate 17.9 H* 9.1 H* Vent Mode Prvc Prvc Mechanical Rate 14 14 FiO2 100.0 100.0 Tidal Volume 500 500 PEEP 5 5 Crit Value Called To Dr mayito Davies rn Crit Value Called By Sagrario fournier rt Lili scallop dredger Crit Value Read Back Y Y Blood Gas Notified Time 310 540 Sodium 126.0 L 124.0 L Potassium Chloride 90.0 L 92.0 L Carbon Dioxide Anion Gap BUN Creatinine Est GFR ( Amer) Est GFR (Non-Af Amer) POC Glucose (mg/dL) Random Glucose Calcium Phosphorus Magnesium Total Bilirubin AST ALT Alkaline Phosphatase Ammonia Total Protein Albumin Globulin Albumin/Globulin Ratio Lipase Arterial Blood Potassium 4.7 4.6 Urine Color Urine Clarity Urine pH Ur Specific [place] Urine Protein Urine Glucose (UA) Urine Ketones Urine Blood Urine Nitrate Urine Bilirubin Urine Urobilinogen Ur Leukocyte Esterase Urine RBC (Auto) Ur Squamous Epith Cells Amorphous Sediment Alcohol, Quantitative Blood Type O POSITIVE Antibody Screen Negative 07/09/18 07/09/18 07/09/18 06:28 06:28 06:28 WBC 10.8 RBC 4.92 Hgb 15.0 Hct 46.3 MCV 94.1 H D MCH 30.4 MCHC 32.3 L RDW 15.1 H Plt Count 100 L D MPV 8.1 Neut % (Auto) 70.1 Lymph % (Auto) 27.9 [place] % (Auto) 1.5 Eos % (Auto) 0.1 Baso % (Auto) 0.4 Neut # (Auto) 7.6 H Lymph # (Auto) 3.0 [place] # (Auto) 0.2 Eos # (Auto) 0.0 Baso # (Auto) 0.0 Differential Comment PT 16.1 H INR 1.5 APTT 32 Puncture Site pCO2 pO2 HCO3 ABG pH ABG Total CO2 ABG O2 Saturation ABG Base Excess ABG Hemoglobin ABG Carboxyhemoglobin POC ABG HHb (Measured) ABG Methemoglobin Constantine Test ABG Potassium A-a O2 Difference Respiratory Index Hgb O2 Saturation Glucose Lactate Vent Mode Mechanical Rate FiO2 Tidal Volume PEEP Crit Value Called To Crit Value Called By Crit Value Read Back Blood Gas Notified Time Sodium 127 L Potassium 4.8 Chloride 89 L Carbon Dioxide 6 L* D Anion Gap 37 H BUN 30 H Creatinine 2.3 H Est GFR ( Amer) 38 Est GFR (Non-Af Amer) 31 POC Glucose (mg/dL) Random Glucose 166 H Calcium 6.6 L Phosphorus 11.2 H Magnesium 1.3 L Total Bilirubin 2.8 H AST 174 H D ALT 56 Alkaline Phosphatase 83 Ammonia Total Protein 6.1 L Albumin 3.9 Globulin 2.3 Albumin/Globulin Ratio 1.7 Lipase Arterial Blood Potassium Urine Color Urine Clarity Urine pH Ur Specific [place] Urine Protein Urine Glucose (UA) Urine Ketones Urine Blood Urine Nitrate Urine Bilirubin Urine Urobilinogen Ur Leukocyte Esterase Urine RBC (Auto) Ur Squamous Epith Cells Amorphous Sediment Alcohol, Quantitative Blood Type Antibody Screen 07/09/18 07/09/18 07/09/18 11:52 12:34 12:34 WBC RBC Hgb Hct MCV MCH MCHC RDW Plt Count MPV Neut % (Auto) Lymph % (Auto) [place] % (Auto) Eos % (Auto) Baso % (Auto) Neut # (Auto) Lymph # (Auto) [place] # (Auto) Eos # (Auto) Baso # (Auto) Differential Comment PT 18.7 H INR 1.7 APTT Puncture Site Lf pCO2 24 L pO2 50 L HCO3 14.6 L ABG pH 7.30 L ABG Total CO2 12.5 L ABG O2 Saturation 85.9 L ABG Base Excess -12.7 L ABG Hemoglobin ABG Carboxyhemoglobin POC ABG HHb (Measured) ABG Methemoglobin Constantine Test Na ABG Potassium 5.1 A-a O2 Difference 205.0 Respiratory Index 4.1 Hgb O2 Saturation Glucose 234 H Lactate 3.8 H Vent Mode Mechanical Rate 14 FiO2 40.0 Tidal Volume 70 PEEP 5 Crit Value Called To Crit Value Called By Crit Value Read Back Blood Gas Notified Time Sodium 126.0 L Potassium Chloride 93.0 L Carbon Dioxide Anion Gap BUN Creatinine Est GFR ( Amer) Est GFR (Non-Af Amer) POC Glucose (mg/dL) Random Glucose Calcium Phosphorus 5.5 H Magnesium 1.8 Total Bilirubin AST ALT Alkaline Phosphatase Ammonia Total Protein Albumin Globulin Albumin/Globulin Ratio Lipase Arterial Blood Potassium 5.1 Urine Color Urine Clarity Urine pH Ur Specific [place] Urine Protein Urine Glucose (UA) Urine Ketones Urine Blood Urine Nitrate Urine Bilirubin Urine Urobilinogen Ur Leukocyte Esterase Urine RBC (Auto) Ur Squamous Epith Cells Amorphous Sediment Alcohol, Quantitative Blood Type Antibody Screen 07/09/18 07/09/18 12:34 12:51 WBC RBC Hgb Hct MCV MCH MCHC RDW Plt Count MPV Neut % (Auto) Lymph % (Auto) [place] % (Auto) Eos % (Auto) Baso % (Auto) Neut # (Auto) Lymph # (Auto) [place] # (Auto) Eos # (Auto) Baso # (Auto) Differential Comment PT INR APTT Puncture Site Lf pCO2 13 L* pO2 144 H HCO3 11.9 L ABG pH 7.34 L ABG Total CO2 7.4 L ABG O2 Saturation 99.2 H ABG Base Excess -16.8 L ABG Hemoglobin 8.3 L ABG Carboxyhemoglobin 0.9 POC ABG HHb (Measured) 0.8 ABG Methemoglobin 0.8 [place] Test Na ABG Potassium A-a O2 Difference 125.0 Respiratory Index 0.9 Hgb O2 Saturation 97.5 Glucose Lactate Vent Mode Mechanical Rate 14 FiO2 40.0 Tidal Volume 470 PEEP 5 Crit Value Called To Dr galindo Crit Value Called By Flo moscoso corn cooker Crit Value Read Back Y Blood Gas Notified Time 1255 Sodium 125 L Potassium 4.4 Chloride 89 L Carbon Dioxide 14 L Anion Gap 26 H BUN 40 H Creatinine 2.3 H Est GFR ( Amer) 38 Est GFR (Non-Af Amer) 31 POC Glucose (mg/dL) Random Glucose 243 H D Calcium 6.1 L Phosphorus Magnesium Total Bilirubin 3.5 H AST 202 H ALT 75 H D Alkaline Phosphatase 87 Ammonia Total Protein 5.0 L Albumin 2.9 L D Globulin 2.1 L Albumin/Globulin Ratio 1.4 Lipase Arterial Blood Potassium Urine Color Urine Clarity Urine pH Ur Specific [place] Urine Protein Urine Glucose (UA) Urine Ketones Urine Blood Urine Nitrate Urine Bilirubin Urine Urobilinogen Ur Leukocyte Esterase Urine RBC (Auto) Ur Squamous Epith Cells Amorphous Sediment Alcohol, Quantitative Blood Type Antibody Screen Assessment & Plan (1) SEBASTIÁN (acute kidney injury) Assessment and Plan: Likely 2/2 Acute GIB vs Dehydration/Pre-renal - Aggressive fluid hydration with NS @ 150 mls/hr - Avoid nephrotoxic agents Status: Acute Priority: Medium (2) High anion gap metabolic acidosis Assessment and Plan: Likely 2/2 lactic acidosis - Hydrate as above Status: Acute Priority: High (3) Uncontrolled diabetes mellitus Status: Acute <Reinier Friedman - Last Filed: 07/10/18 07:55> Meds - Medications Medications: Current Medications Albumin Human (Albumin Human 25% (12.5 Gm/50 Ml)) 12.5 gm IV TID [facility] Stop: 07/11/18 14:01 Last Admin: 07/09/18 18:00 Dose: 12.5 gm Levetiracetam 500 mg/ Dextrose 105 mls @ 420 mls/hr IVPB Q12H [facility] Last Admin: 07/10/18 01:39 Dose: 420 mls/hr Dexmedetomidine HCl 200 mcg/ (Sodium Chloride) 50 mls @ 2.83 mls/hr IV TITR PRN; Protocol PRN Reason: sedation Last Admin: 07/10/18 06:49 Dose: 1.2 mcg/kg/hr, 17.01 mls/hr Propofol (Diprivan) 1,000 mg in 100 mls @ 1.701 mls/hr IV .Q24H PRN; Protocol PRN Reason: TITRATE PER MD ORDER Last Admin: 07/09/18 18:01 Dose: 15 mcg/kg/min, 5.103 mls/hr Sodium Chloride (Sodium Chloride 0.9%) 1,000 mls @ 150 mls/hr IV .Q6H40M [facility] Last Admin: 07/10/18 05:14 Dose: Not Given Dopamine HCl/Dextrose (Dopamine 400mg/250ml D5w) 400 mg in 250 mls @ 5.406 mls/hr IV .Q24H PRN; Protocol PRN Reason: TITRATE PER MD ORDER Last Titration: 07/10/18 05:00 Dose: 6 mcg/kg/min, 16.217 mls/hr Pantoprazole Sodium 80 mg/ (Sodium Chloride) 100 mls @ 10 mls/hr IVPB Q10H [facility] Last Admin: 07/10/18 06:52 Dose: 10 mls/hr Vasopressin 40 units/ Dextrose 40 mls @ 0.6 mls/hr IV .Q24H [facility]; Protocol Last Titration: 07/10/18 06:00 Dose: 0.02 units/min, 1.2 mls/hr Octreotide Acetate 1,250 mcg/ (Sodium Chloride) 252.5 mls @ 5.05 mls/hr IV .Q24H [facility] Last Admin: 07/09/18 18:05 Dose: Not Given Sodium Chloride (Sodium Chloride 0.9%) 1,000 mls @ 150 mls/hr IV .Q6H40M [facility] Lactulose (Enulose) 20 gm PO BID [facility] Last Admin: 07/09/18 18:00 Dose: 20 gm Thiamine HCl (Vitamin B1 Inj) 100 mg IV DAILY [facility] Last Admin: 07/09/18 10:41 Dose: 100 mg Results - Vital Signs Recent Vital Signs: Last Vital Signs Temp 99.2 F 07/10/18 05:00 Pulse 86 07/10/18 07:12 Resp 32 H 07/09/18 10:18 BP 108/62 07/10/18 07:12 Pulse Ox 100 07/10/18 07:12 - Labs Result Diagrams: 07/10/18 06:42 07/09/18 12:34 Labs: Laboratory Results - last 24 hr 07/09/18 07/09/18 07/09/18 01:03 06:28 11:52 WBC 10.8 RBC 4.92 Hgb 15.0 Hct 46.3 MCV 94.1 H D MCH 30.4 MCHC 32.3 L RDW 15.1 H Plt Count 100 L D MPV 8.1 Neut % (Auto) 70.1 Lymph % (Auto) 27.9 [place] % (Auto) 1.5 Eos % (Auto) 0.1 Baso % (Auto) 0.4 Neut # (Auto) 7.6 H Lymph # (Auto) 3.0 [place] # (Auto) 0.2 Eos # (Auto) 0.0 Baso # (Auto) 0.0 Differential Comment PT INR Puncture Site Lf pCO2 24 L pO2 50 L HCO3 14.6 L ABG pH 7.30 L ABG Total CO2 12.5 L ABG O2 Saturation 85.9 L ABG Base Excess -12.7 L ABG Hemoglobin ABG Carboxyhemoglobin POC ABG HHb (Measured) ABG Methemoglobin Constantine Test Na ABG Potassium 5.1 A-a O2 Difference 205.0 Respiratory Index 4.1 Hgb O2 Saturation Sodium 126.0 L Chloride 93.0 L Glucose 234 H Lactate 3.8 H Vent Mode Mechanical Rate 14 FiO2 40.0 Tidal Volume 70 PEEP 5 Crit Value Called To Crit Value Called By Crit Value Read Back Blood Gas Notified Time Potassium Carbon Dioxide Anion Gap BUN Creatinine Est GFR ( Amer) Est GFR (Non-Af Amer) POC Glucose (mg/dL) 99 Random Glucose Calcium Phosphorus Magnesium Total Bilirubin AST ALT Alkaline Phosphatase Total Protein Albumin Globulin Albumin/Globulin Ratio Arterial Blood Potassium 5.1 Urine Osmolality Ur Random Creatinine Ur Random Sodium 07/09/18 07/09/18 07/09/18 12:34 12:34 12:34 WBC RBC Hgb Hct MCV MCH MCHC RDW Plt Count MPV Neut % (Auto) Lymph % (Auto) [place] % (Auto) Eos % (Auto) Baso % (Auto) Neut # (Auto) Lymph # (Auto) [place] # (Auto) Eos # (Auto) Baso # (Auto) Differential Comment PT 18.7 H INR 1.7 Puncture Site pCO2 pO2 HCO3 ABG pH ABG Total CO2 ABG O2 Saturation ABG Base Excess ABG Hemoglobin ABG Carboxyhemoglobin POC ABG HHb (Measured) ABG Methemoglobin Constantine Test ABG Potassium A-a O2 Difference Respiratory Index Hgb O2 Saturation Sodium 125 L Chloride 89 L Glucose Lactate Vent Mode Mechanical Rate FiO2 Tidal Volume PEEP Crit Value Called To Crit Value Called By Crit Value Read Back Blood Gas Notified Time Potassium 4.4 Carbon Dioxide 14 L Anion Gap 26 H BUN 40 H Creatinine 2.3 H Est GFR ( Amer) 38 Est GFR (Non-Af Amer) 31 POC Glucose (mg/dL) Random Glucose 243 H D Calcium 6.1 L Phosphorus 5.5 H Magnesium 1.8 Total Bilirubin 3.5 H AST 202 H ALT 75 H D Alkaline Phosphatase 87 Total Protein 5.0 L Albumin 2.9 L D Globulin 2.1 L Albumin/Globulin Ratio 1.4 Arterial Blood Potassium Urine Osmolality Ur Random Creatinine Ur Random Sodium 07/09/18 07/09/18 07/09/18 12:51 23:47 23:50 WBC RBC Hgb Hct MCV MCH MCHC RDW Plt Count MPV Neut % (Auto) Lymph % (Auto) [place] % (Auto) Eos % (Auto) Baso % (Auto) Neut # (Auto) Lymph # (Auto) [place] # (Auto) Eos # (Auto) Baso # (Auto) Differential Comment PT INR Puncture Site Lf pCO2 13 L* pO2 144 H HCO3 11.9 L ABG pH 7.34 L ABG Total CO2 7.4 L ABG O2 Saturation 99.2 H ABG Base Excess -16.8 L ABG Hemoglobin 8.3 L ABG Carboxyhemoglobin 0.9 POC ABG HHb (Measured) 0.8 ABG Methemoglobin 0.8 [place] Test Na ABG Potassium A-a O2 Difference 125.0 Respiratory Index 0.9 Hgb O2 Saturation 97.5 Sodium Chloride Glucose Lactate Vent Mode Mechanical Rate 14 FiO2 40.0 Tidal Volume 470 PEEP 5 Crit Value Called To Dr galindo Crit Value Called By Flo moscoso corn cooker Crit Value Read Back Y Blood Gas Notified Time 1255 Potassium Carbon Dioxide Anion Gap BUN Creatinine Est GFR ( Amer) Est GFR (Non-Af Amer) POC Glucose (mg/dL) 444 H* 407 H* Random Glucose Calcium Phosphorus Magnesium Total Bilirubin AST ALT Alkaline Phosphatase Total Protein Albumin Globulin Albumin/Globulin Ratio Arterial Blood Potassium Urine Osmolality Ur Random Creatinine Ur Random Sodium 07/09/18 07/10/18 07/10/18 23:52 05:05 06:42 WBC 4.8 D RBC 4.09 L Hgb 12.5 D Hct 37.0 MCV 90.7 D MCH 30.7 MCHC 33.8 RDW 15.5 H Plt Count 41 L D MPV 8.5 Neut % (Auto) 88.2 H Lymph % (Auto) 10.0 L [place] % (Auto) 1.6 Eos % (Auto) 0.1 Baso % (Auto) 0.1 Neut # (Auto) 4.2 Lymph # (Auto) 0.5 L [place] # (Auto) 0.1 Eos # (Auto) 0.0 Baso # (Auto) 0.0 Differential Comment PT INR Puncture Site Lbrahial pCO2 19 L* pO2 195 H HCO3 27.8 ABG pH 7.67 H* ABG Total CO2 22.5 ABG O2 Saturation 99.5 H ABG Base Excess 3.6 H ABG Hemoglobin ABG Carboxyhemoglobin POC ABG HHb (Measured) ABG Methemoglobin Constantine Test Ne ABG Potassium 4.8 A-a O2 Difference 66.0 Respiratory Index 0.3 Hgb O2 Saturation Sodium 121.0 L Chloride 90.0 L Glucose 395 H Lactate 4.9 H* Vent Mode Prvc Mechanical Rate 14 FiO2 40.0 Tidal Volume 470 PEEP 5 Crit Value Called To Dr. mann Crit Value Called By Julieta herrera rcp Crit Value Read Back Y Blood Gas Notified Time 556 Potassium Carbon Dioxide Anion Gap BUN Creatinine Est GFR ( Amer) Est GFR (Non-Af Amer) POC Glucose (mg/dL) Random Glucose Calcium Phosphorus Magnesium Total Bilirubin AST ALT Alkaline Phosphatase Total Protein Albumin Globulin Albumin/Globulin Ratio Arterial Blood Potassium 4.8 Urine Osmolality 391 Ur Random Creatinine 68.6 Ur Random Sodium 24 07/10/18 06:42 WBC RBC Hgb Hct MCV MCH MCHC RDW Plt Count MPV Neut % (Auto) Lymph % (Auto) [place] % (Auto) Eos % (Auto) Baso % (Auto) Neut # (Auto) Lymph # (Auto) [place] # (Auto) Eos # (Auto) Baso # (Auto) Differential Comment PT 34.2 H D INR 3.1 H* D Puncture Site pCO2 pO2 HCO3 ABG pH ABG Total CO2 ABG O2 Saturation ABG Base Excess ABG Hemoglobin ABG Carboxyhemoglobin POC ABG HHb (Measured) ABG Methemoglobin Constantine Test ABG Potassium A-a O2 Difference Respiratory Index Hgb O2 Saturation Sodium Chloride Glucose Lactate Vent Mode Mechanical Rate FiO2 Tidal Volume PEEP Crit Value Called To Crit Value Called By Crit Value Read Back Blood Gas Notified Time Potassium Carbon Dioxide Anion Gap BUN Creatinine Est GFR ( Amer) Est GFR (Non-Af Amer) POC Glucose (mg/dL) Random Glucose Calcium Phosphorus Magnesium Total Bilirubin AST ALT Alkaline Phosphatase Total Protein Albumin Globulin Albumin/Globulin Ratio Arterial Blood Potassium Urine Osmolality Ur Random Creatinine Ur Random Sodium Attending/Attestation - Attestation I have personally seen and examined this patient.: Yes I have fully participated in the care of the patient.: Yes I have reviewed all pertinent clinical information: Yes Notes (Text): Patient seen and examined; I agree with the resident's note as above with the james lord additions/edits: 42 yo M w/ pmh of ETOH abuse, h/o seizure, ? dm, htn, admitted with hemorrhagic shock, nephrology being consulted for acute renal failure; Patient with coffee ground emesis on presentation; found to be hypotensive with severe lactic acidosis accounting for high anion gap metabolic acidosis; treated with aggressive intravascular volume repletion and 2u prbc transfusion; Currently with non-oliguric renal failure, making about 40 cc/hr UO; lactic acidosis has improved signficantly but still present; some degree of ATN likely at this point; Mild hyponatremia noted but in the setting of severe hyperglycemia and volume depletion; should improve with volume repletion and glycemic control; On ceftriaxone prophylactically in the setting of upper GI bleed and possible esophageal varices, no renal dose adjustment needed; -Agree with continuing aggressive volume repletion (NS at 150 cc/hr); -Agree with continuing bicarb drip to maintain pH > 7.20 (d5W w/ 150 meq sodium bicarb at 150 cc/hr); -Continue vasopressor support to maintain MAP > 65; -Avoid nephrotoxic agents; Thank you for this referral, we will continue to follow closely.
--- NOTE | 2018-07-09 21:22 | CP.PCM.CON ---
Past Patient History - Infectious Disease Hx of Infectious Diseases: None - Past Medical History & Family History Past Medical History?: Yes - Past Social History Smoking Status: Never Smoked Alcohol: > 2 Drinks/Day Home Situation {Lives}: With Family - CARDIAC Hx Cardiac Disorders: Yes Hx Hypertension: Yes - PULMONARY Hx Respiratory Disorders: No Hx Tuberculosis: No - NEUROLOGICAL Hx Neurological Disorder: Yes Hx Seizures: Yes (ETOH related) - HEENT Hx HEENT Problems: No - RENAL Hx Chronic Kidney Disease: No - ENDOCRINE/METABOLIC Hx Endocrine Disorders: Yes Hx Diabetes Mellitus Type 2: Yes - HEMATOLOGICAL/ONCOLOGICAL Hx Blood Disorders: Yes Hx Anemia: Yes Hx Blood Transfusions: Yes Hx Human Immunodeficiency Virus (HIV): No - INTEGUMENTARY Hx Dermatological Problems: No - MUSCULOSKELETAL/RHEUMATOLOGICAL Hx Musculoskeletal Disorders: Yes Hx Falls: Yes - GASTROINTESTINAL Hx Gastrointestinal Disorders: Yes Hx Vomiting: Yes - GENITOURINARY/GYNECOLOGICAL Hx Genitourinary Disorders: No Hx Sexually Transmitted Disorders: No - PSYCHIATRIC Hx Psychophysiologic Disorder: Yes Hx Anxiety: Yes Hx Depression: Yes Hx Substance Use: No (DENIES) - SURGICAL HISTORY Hx Surgeries: No - ANESTHESIA Hx Anesthesia: No Meds Allergies/Adverse Reactions: Allergies Allergy/AdvReac Type Severity Reaction Status Date / Time No Known Allergies Allergy Verified 07/09/18 01:34 - Medications Medications: Current Medications Albumin Human (Albumin Human 25% (12.5 Gm/50 Ml)) 12.5 gm IV TID [facility] Stop: 07/11/18 14:01 Last Admin: 07/09/18 18:00 Dose: 12.5 gm Levetiracetam 500 mg/ Dextrose 105 mls @ 420 mls/hr IVPB Q12H [facility] Last Admin: 07/09/18 14:04 Dose: 420 mls/hr Dexmedetomidine HCl 200 mcg/ (Sodium Chloride) 50 mls @ 2.83 mls/hr IV TITR PRN; Protocol PRN Reason: sedation Last Admin: 07/09/18 19:03 Dose: 1 mcg/kg/hr, 14.17 mls/hr Midazolam HCl 100 mg/ Dextrose 100 mls @ 1.13 mls/hr IV .Q24H ONE; Protocol Stop: 07/10/18 02:21 Last Titration: 07/09/18 19:40 Dose: 0 mg/kg/hr, 0 mls/hr Propofol (Diprivan) 1,000 mg in 100 mls @ 1.701 mls/hr IV .Q24H PRN; Protocol PRN Reason: TITRATE PER MD ORDER Last Admin: 07/09/18 18:01 Dose: 15 mcg/kg/min, 5.103 mls/hr Sodium Bicarbonate 150 meq/ (Dextrose) 1,150 mls @ 150 mls/hr IV .Q7H40M [facility] Last Admin: 07/09/18 18:06 Dose: 150 mls/hr Sodium Chloride (Sodium Chloride 0.9%) 1,000 mls @ 150 mls/hr IV .Q6H40M [facility] Last Admin: 07/09/18 16:00 Dose: 150 mls/hr Dopamine HCl/Dextrose (Dopamine 400mg/250ml D5w) 400 mg in 250 mls @ 5.406 mls/hr IV .Q24H PRN; Protocol PRN Reason: TITRATE PER MD ORDER Last Titration: 07/09/18 21:01 Dose: 8 mcg/kg/min, 21.623 mls/hr Pantoprazole Sodium 80 mg/ (Sodium Chloride) 100 mls @ 10 mls/hr IVPB Q10H [facility] Last Admin: 07/09/18 21:11 Dose: 10 mls/hr Vasopressin 40 units/ Dextrose 40 mls @ 0.6 mls/hr IV .Q24H [facility]; Protocol Last Titration: 07/09/18 21:07 Dose: 0.04 units/min, 2.4 mls/hr Octreotide Acetate 1,250 mcg/ (Sodium Chloride) 252.5 mls @ 5.05 mls/hr IV .Q24H [facility] Last Admin: 07/09/18 18:05 Dose: Not Given Calcium Gluconate 1,000 mg/ (Sodium Chloride) 260 mls @ 65 mls/hr IVPB ONCE ONE Stop: 07/09/18 22:59 Last Admin: 07/09/18 19:02 Dose: 65 mls/hr Lactulose (Enulose) 20 gm PO BID [facility] Last Admin: 07/09/18 18:00 Dose: 20 gm Thiamine HCl (Vitamin B1 Inj) 100 mg IV DAILY [facility] Last Admin: 07/09/18 10:41 Dose: 100 mg Results - Vital Signs Recent Vital Signs: Last Vital Signs Temp 100.2 F H 07/09/18 17:13 Pulse 83 07/09/18 21:00 Resp 32 H 07/09/18 10:18 BP 106/57 L 07/09/18 20:55 Pulse Ox 100 07/09/18 21:00 - Labs Result Diagrams: 07/09/18 06:28 07/09/18 12:34 Labs: Laboratory Results - last 24 hr 07/09/18 07/09/18 07/09/18 01:03 01:25 01:48 WBC 7.4 D RBC 4.93 Hgb 13.6 Hct 41.3 MCV 83.7 D MCH 27.5 MCHC 32.8 L RDW 13.2 Plt Count 243 MPV 8.6 Neut % (Auto) 66.1 Lymph % (Auto) 25.9 [place] % (Auto) 7.0 Eos % (Auto) 0.8 Baso % (Auto) 0.2 Neut # (Auto) 4.9 Lymph # (Auto) 1.9 [place] # (Auto) 0.5 Eos # (Auto) 0.1 Baso # (Auto) 0.0 Differential Comment PT INR APTT Puncture Site pCO2 pO2 HCO3 ABG pH ABG Total CO2 ABG O2 Saturation ABG Base Excess ABG Hemoglobin ABG Carboxyhemoglobin POC ABG HHb (Measured) ABG Methemoglobin Constantine Test ABG Potassium A-a O2 Difference Respiratory Index Hgb O2 Saturation Glucose Lactate Vent Mode Mechanical Rate FiO2 Tidal Volume PEEP Crit Value Called To Crit Value Called By Crit Value Read Back Blood Gas Notified Time Sodium Potassium Chloride Carbon Dioxide Anion Gap BUN Creatinine Est GFR ( Amer) Est GFR (Non-Af Amer) POC Glucose (mg/dL) 99 Random Glucose Calcium Phosphorus Magnesium Total Bilirubin AST ALT Alkaline Phosphatase Ammonia Total Protein Albumin Globulin Albumin/Globulin Ratio Lipase Arterial Blood Potassium Urine Color Yellow Urine Clarity Hazy Urine pH 5.0 Ur Specific [place] 1.013 Urine Protein 2+ H Urine Glucose (UA) Normal Urine Ketones 1+ H Urine Blood 2+ H Urine Nitrate Negative Urine Bilirubin Negative Urine Urobilinogen Normal Ur Leukocyte Esterase Neg Urine RBC (Auto) 2 Ur Squamous Epith Cells < 1 Amorphous Sediment Moderate H Alcohol, Quantitative Blood Type Antibody Screen 07/09/18 07/09/18 07/09/18 01:48 01:48 01:48 WBC RBC Hgb Hct MCV MCH MCHC RDW Plt Count MPV Neut % (Auto) Lymph % (Auto) [place] % (Auto) Eos % (Auto) Baso % (Auto) Neut # (Auto) Lymph # (Auto) [place] # (Auto) Eos # (Auto) Baso # (Auto) Differential Comment PT 14.4 H INR 1.3 APTT 36 H Puncture Site pCO2 pO2 HCO3 ABG pH ABG Total CO2 ABG O2 Saturation ABG Base Excess ABG Hemoglobin ABG Carboxyhemoglobin POC ABG HHb (Measured) ABG Methemoglobin Constantine Test ABG Potassium A-a O2 Difference Respiratory Index Hgb O2 Saturation Glucose Lactate Vent Mode Mechanical Rate FiO2 Tidal Volume PEEP Crit Value Called To Crit Value Called By Crit Value Read Back Blood Gas Notified Time Sodium 138 Potassium 3.6 Chloride 101 Carbon Dioxide 27 Anion Gap 14 BUN 18 Creatinine 0.7 L Est GFR ( Amer) > 60 Est GFR (Non-Af Amer) > 60 POC Glucose (mg/dL) Random Glucose 158 H D Calcium 9.3 Phosphorus Magnesium Total Bilirubin 0.4 AST 24 ALT 18 L D Alkaline Phosphatase 104 Ammonia 98 H Total Protein 7.6 Albumin 4.6 Globulin 3.1 Albumin/Globulin Ratio 1.5 Lipase 73 Arterial Blood Potassium Urine Color Urine Clarity Urine pH Ur Specific [place] Urine Protein Urine Glucose (UA) Urine Ketones Urine Blood Urine Nitrate Urine Bilirubin Urine Urobilinogen Ur Leukocyte Esterase Urine RBC (Auto) Ur Squamous Epith Cells Amorphous Sediment Alcohol, Quantitative < 10 Blood Type Antibody Screen 07/09/18 07/09/18 07/09/18 03:05 03:55 05:37 WBC RBC Hgb Hct MCV MCH MCHC RDW Plt Count MPV Neut % (Auto) Lymph % (Auto) [place] % (Auto) Eos % (Auto) Baso % (Auto) Neut # (Auto) Lymph # (Auto) [place] # (Auto) Eos # (Auto) Baso # (Auto) Differential Comment PT INR APTT Puncture Site Rr Rb pCO2 20 L 24 L pO2 534 H 625 H HCO3 5.3 L* 10.3 L ABG pH 6.99 L* 7.15 L* ABG Total CO2 5.4 L 9.1 L ABG O2 Saturation 100.5 H 100.4 H ABG Base Excess -25.2 L -18.8 L ABG Hemoglobin ABG Carboxyhemoglobin POC ABG HHb (Measured) ABG Methemoglobin Constantine Test Pos Na ABG Potassium 4.7 4.6 A-a O2 Difference 154.0 58.0 Respiratory Index 0.3 0.1 Hgb O2 Saturation Glucose 82 171 H Lactate 17.9 H* 9.1 H* Vent Mode Prvc Prvc Mechanical Rate 14 14 FiO2 100.0 100.0 Tidal Volume 500 500 PEEP 5 5 Crit Value Called To Dr mayito Davies rn Crit Value Called By Sagrario fournier rt Lili endoscopy specialty technician Crit Value Read Back Y Y Blood Gas Notified Time 310 540 Sodium 126.0 L 124.0 L Potassium Chloride 90.0 L 92.0 L Carbon Dioxide Anion Gap BUN Creatinine Est GFR ( Amer) Est GFR (Non-Af Amer) POC Glucose (mg/dL) Random Glucose Calcium Phosphorus Magnesium Total Bilirubin AST ALT Alkaline Phosphatase Ammonia Total Protein Albumin Globulin Albumin/Globulin Ratio Lipase Arterial Blood Potassium 4.7 4.6 Urine Color Urine Clarity Urine pH Ur Specific [place] Urine Protein Urine Glucose (UA) Urine Ketones Urine Blood Urine Nitrate Urine Bilirubin Urine Urobilinogen Ur Leukocyte Esterase Urine RBC (Auto) Ur Squamous Epith Cells Amorphous Sediment Alcohol, Quantitative Blood Type O POSITIVE Antibody Screen Negative 07/09/18 07/09/18 07/09/18 06:28 06:28 06:28 WBC 10.8 RBC 4.92 Hgb 15.0 Hct 46.3 MCV 94.1 H D MCH 30.4 MCHC 32.3 L RDW 15.1 H Plt Count 100 L D MPV 8.1 Neut % (Auto) 70.1 Lymph % (Auto) 27.9 [place] % (Auto) 1.5 Eos % (Auto) 0.1 Baso % (Auto) 0.4 Neut # (Auto) 7.6 H Lymph # (Auto) 3.0 [place] # (Auto) 0.2 Eos # (Auto) 0.0 Baso # (Auto) 0.0 Differential Comment PT 16.1 H INR 1.5 APTT 32 Puncture Site pCO2 pO2 HCO3 ABG pH ABG Total CO2 ABG O2 Saturation ABG Base Excess ABG Hemoglobin ABG Carboxyhemoglobin POC ABG HHb (Measured) ABG Methemoglobin Constantine Test ABG Potassium A-a O2 Difference Respiratory Index Hgb O2 Saturation Glucose Lactate Vent Mode Mechanical Rate FiO2 Tidal Volume PEEP Crit Value Called To Crit Value Called By Crit Value Read Back Blood Gas Notified Time Sodium 127 L Potassium 4.8 Chloride 89 L Carbon Dioxide 6 L* D Anion Gap 37 H BUN 30 H Creatinine 2.3 H Est GFR ( Amer) 38 Est GFR (Non-Af Amer) 31 POC Glucose (mg/dL) Random Glucose 166 H Calcium 6.6 L Phosphorus 11.2 H Magnesium 1.3 L Total Bilirubin 2.8 H AST 174 H D ALT 56 Alkaline Phosphatase 83 Ammonia Total Protein 6.1 L Albumin 3.9 Globulin 2.3 Albumin/Globulin Ratio 1.7 Lipase Arterial Blood Potassium Urine Color Urine Clarity Urine pH Ur Specific [place] Urine Protein Urine Glucose (UA) Urine Ketones Urine Blood Urine Nitrate Urine Bilirubin Urine Urobilinogen Ur Leukocyte Esterase Urine RBC (Auto) Ur Squamous Epith Cells Amorphous Sediment Alcohol, Quantitative Blood Type Antibody Screen 07/09/18 07/09/18 07/09/18 11:52 12:34 12:34 WBC RBC Hgb Hct MCV MCH MCHC RDW Plt Count MPV Neut % (Auto) Lymph % (Auto) [place] % (Auto) Eos % (Auto) Baso % (Auto) Neut # (Auto) Lymph # (Auto) [place] # (Auto) Eos # (Auto) Baso # (Auto) Differential Comment PT 18.7 H INR 1.7 APTT Puncture Site Lf pCO2 24 L pO2 50 L HCO3 14.6 L ABG pH 7.30 L ABG Total CO2 12.5 L ABG O2 Saturation 85.9 L ABG Base Excess -12.7 L ABG Hemoglobin ABG Carboxyhemoglobin POC ABG HHb (Measured) ABG Methemoglobin Constantine Test Na ABG Potassium 5.1 A-a O2 Difference 205.0 Respiratory Index 4.1 Hgb O2 Saturation Glucose 234 H Lactate 3.8 H Vent Mode Mechanical Rate 14 FiO2 40.0 Tidal Volume 70 PEEP 5 Crit Value Called To Crit Value Called By Crit Value Read Back Blood Gas Notified Time Sodium 126.0 L Potassium Chloride 93.0 L Carbon Dioxide Anion Gap BUN Creatinine Est GFR ( Amer) Est GFR (Non-Af Amer) POC Glucose (mg/dL) Random Glucose Calcium Phosphorus 5.5 H Magnesium 1.8 Total Bilirubin AST ALT Alkaline Phosphatase Ammonia Total Protein Albumin Globulin Albumin/Globulin Ratio Lipase Arterial Blood Potassium 5.1 Urine Color Urine Clarity Urine pH Ur Specific [place] Urine Protein Urine Glucose (UA) Urine Ketones Urine Blood Urine Nitrate Urine Bilirubin Urine Urobilinogen Ur Leukocyte Esterase Urine RBC (Auto) Ur Squamous Epith Cells Amorphous Sediment Alcohol, Quantitative Blood Type Antibody Screen 07/09/18 07/09/18 12:34 12:51 WBC RBC Hgb Hct MCV MCH MCHC RDW Plt Count MPV Neut % (Auto) Lymph % (Auto) [place] % (Auto) Eos % (Auto) Baso % (Auto) Neut # (Auto) Lymph # (Auto) [place] # (Auto) Eos # (Auto) Baso # (Auto) Differential Comment PT INR APTT Puncture Site Lf pCO2 13 L* pO2 144 H HCO3 11.9 L ABG pH 7.34 L ABG Total CO2 7.4 L ABG O2 Saturation 99.2 H ABG Base Excess -16.8 L ABG Hemoglobin 8.3 L ABG Carboxyhemoglobin 0.9 POC ABG HHb (Measured) 0.8 ABG Methemoglobin 0.8 Constantine Test Na ABG Potassium A-a O2 Difference 125.0 Respiratory Index 0.9 Hgb O2 Saturation 97.5 Glucose Lactate Vent Mode Mechanical Rate 14 FiO2 40.0 Tidal Volume 470 PEEP 5 Crit Value Called To Dr galindo Crit Value Called By Flo moscoso wanigan clerk Crit Value Read Back Y Blood Gas Notified Time 1255 Sodium 125 L Potassium 4.4 Chloride 89 L Carbon Dioxide 14 L Anion Gap 26 H BUN 40 H Creatinine 2.3 H Est GFR ( Amer) 38 Est GFR (Non-Af Amer) 31 POC Glucose (mg/dL) Random Glucose 243 H D Calcium 6.1 L Phosphorus Magnesium Total Bilirubin 3.5 H AST 202 H ALT 75 H D Alkaline Phosphatase 87 Ammonia Total Protein 5.0 L Albumin 2.9 L D Globulin 2.1 L Albumin/Globulin Ratio 1.4 Lipase Arterial Blood Potassium Urine Color Urine Clarity Urine pH Ur Specific [place] Urine Protein Urine Glucose (UA) Urine Ketones Urine Blood Urine Nitrate Urine Bilirubin Urine Urobilinogen Ur Leukocyte Esterase Urine RBC (Auto) Ur Squamous Epith Cells Amorphous Sediment Alcohol, Quantitative Blood Type Antibody Screen
[2018-07-10] MEDS: Dexmedetomidine Hydrochloride 200 MCG in Sodium Chloride 0.9% 48 ML IV PRN ×4 (00:40→10:18)
[2018-07-10 00:43] LABS: CREATININE, RANDOM URINE 68.6 mg/dL
[2018-07-10] MEDS: Vasopressin 40 UNITS in Dextrose 5% In Water 38 ML IV SCH ×3 (01:43→21:05)
[2018-07-10] MEDS: Sodium Bicarbonate 8.4% 150 MEQ in Dextrose 5% In Water 1,000 ML IV SCH (01:45)
[2018-07-10] MEDS: Sodium Chloride 0.9% 1,000 ML IV SCH (05:14)
[2018-07-10 05:56] LABS: ABG ALLEN TEST NE; ARTERIAL BLOOD GAS HCO3 27.8 mmol/L (21-28); ARTERIAL BLOOD GAS O2 SAT 99.5 % (95-98); ARTERIAL BLOOD GAS PCO2 19 mm/Hg (35-45); ARTERIAL BLOOD GAS PH 7.67 (7.35-7.45); ARTERIAL BLOOD GAS PO2 195 mm/Hg (80-100); ARTERIAL BLOOD GAS TCO2 22.5 mmol/L (22-28)
--- NOTE | 2018-07-10 06:10 | CP.PCM.PCO ---
Physician Communication Note - Physician Communication Note Physician Communication Note: D/c Sodium Bicarbonate Drip
[2018-07-10] MEDS ORDERED: Sodium Chloride 0.9% 1,000 ML IV SCH ×2 (06:15→17:45)
[2018-07-10 06:48] LABS: BASO % 0.1 % (0.0-2.0); EOS % 0.1 % (0.0-4.0); LYMPH # 0.5 K/uL (1.0-4.3); MEAN CELL VOLUME 90.7 fL (80.0-94.0); MEAN CORPUSCULAR HEMOGLOBIN 30.7 pg (27.0-31.0); MEAN CORPUSCULAR HGB CONC 33.8 g/dL (33.0-37.0); MEAN PLATELET VOLUME 8.5 fL (7.2-11.7); MONO # 0.1 K/uL (0.0-0.8); MONO % 1.6 % (0.0-10.0); NEUT # 4.2 K/uL (1.8-7.0); NEUT % 88.2 % (50.0-75.0); NRBC % 0.3 % (0.0-2.0); RBC 4.09 Mil/uL (4.40-5.90); RED CELL DISTRIBUTION WIDTH 15.5 % (11.5-14.5); WHITE BLOOD COUNT 4.8 K/uL (4.8-10.8)
[2018-07-10] MEDS: Pantoprazole 80 MG in Sodium Chloride 0.9% 100 ML IVPB SCH ×2 (06:52→18:22)
[2018-07-10 07:30] LABS: INR 3.1; PROTHROMBIN TIME 34.2 SECONDS (9.7-12.2)
[2018-07-10 07:46] LABS: HEMOGLOBIN 12.5 g/dL (12.0-18.0)
--- NOTE | 2018-07-10 07:58 | CP.PCM.PN ---
Subjective - Date & Time of Evaluation Date of Evaluation: 07/10/18 Time of Evaluation: 07:30 - Subjective Subjective: f/u GI bleed. NG tube- coffee grounds- less- according to RN. No melena, hematuria, hemoptysis, RB, cough, dysphagia Objective - Vital Signs/Intake and Output Vital Signs (last 24 hours): Temp Pulse Resp BP Pulse Ox 99.2 F 86 32 H 108/62 100 07/10/18 05:00 07/10/18 07:12 07/09/18 10:18 07/10/18 07:12 07/10/18 07:12 Intake and Output: 07/10/18 07/10/18 06:59 18:59 Intake Total 5163.7 363.6 Output Total 1815 500 Balance 3348.7 -136.4 - Medications Medications: Current Medications Albumin Human (Albumin Human 25% (12.5 Gm/50 Ml)) 12.5 gm IV TID [facility] Stop: 07/11/18 14:01 Last Admin: 07/09/18 18:00 Dose: 12.5 gm Levetiracetam 500 mg/ Dextrose 105 mls @ 420 mls/hr IVPB Q12H [facility] Last Admin: 07/10/18 01:39 Dose: 420 mls/hr Dexmedetomidine HCl 200 mcg/ (Sodium Chloride) 50 mls @ 2.83 mls/hr IV TITR PRN; Protocol PRN Reason: sedation Last Admin: 07/10/18 06:49 Dose: 1.2 mcg/kg/hr, 17.01 mls/hr Propofol (Diprivan) 1,000 mg in 100 mls @ 1.701 mls/hr IV .Q24H PRN; Protocol PRN Reason: TITRATE PER MD ORDER Last Admin: 07/09/18 18:01 Dose: 15 mcg/kg/min, 5.103 mls/hr Sodium Chloride (Sodium Chloride 0.9%) 1,000 mls @ 150 mls/hr IV .Q6H40M [facility] Last Admin: 07/10/18 05:14 Dose: Not Given Dopamine HCl/Dextrose (Dopamine 400mg/250ml D5w) 400 mg in 250 mls @ 5.406 mls/hr IV .Q24H PRN; Protocol PRN Reason: TITRATE PER MD ORDER Last Titration: 07/10/18 05:00 Dose: 6 mcg/kg/min, 16.217 mls/hr Pantoprazole Sodium 80 mg/ (Sodium Chloride) 100 mls @ 10 mls/hr IVPB Q10H [facility] Last Admin: 07/10/18 06:52 Dose: 10 mls/hr Vasopressin 40 units/ Dextrose 40 mls @ 0.6 mls/hr IV .Q24H [facility]; Protocol Last Titration: 07/10/18 06:00 Dose: 0.02 units/min, 1.2 mls/hr Octreotide Acetate 1,250 mcg/ (Sodium Chloride) 252.5 mls @ 5.05 mls/hr IV .Q2 4H [facility] Last Admin: 07/09/18 18:05 Dose: Not Given Sodium Chloride (Sodium Chloride 0.9%) 1,000 mls @ 150 mls/hr IV .Q6H40M [facility] Lactulose (Enulose) 20 gm PO BID [facility] Last Admin: 07/09/18 18:00 Dose: 20 gm Thiamine HCl (Vitamin B1 Inj) 100 mg IV DAILY [facility] Last Admin: 07/09/18 10:41 Dose: 100 mg - Labs Labs: 07/10/18 06:42 07/09/18 12:34 PT 34.2 SECONDS (9.7-12.2) H D 07/10/18 06:42 INR 3.1 H* D 07/10/18 06:42 APTT 32 SECONDS (21-34) 07/09/18 06:28 - Constitutional Appears: Confused - Respiratory Exam Respiratory Exam: Rhonchi - Cardiovascular Exam Cardiovascular Exam: Tachycardia - GI/Abdominal Exam GI & Abdominal Exam: Soft, Normal Bowel Sounds. absent: Tenderness, Mass, Rebound - Neurological Exam Neurological Exam: absent: Oriented x3 Assessment and Plan - Assessment and Plan (Free Text) Assessment: 1) ETOH Intox 2) Intubated- resp failure 3) UGI bleed- coffee grounds. Likely gastritis, esophagitis. Not acting like variceal bleed. 4) Drop PLTs- etoh. COnsider sepsis. Doubt from protonix 5) Elev NH3- lactulose 6) Rising INR- consider liver failure, sepsis. Rec: Cont lactulose. Continue PPI drip, check CBC, labs, LFTs, NH3. hOld EGD at this time. VITAMIN K for elev INR
--- NOTE | 2018-07-10 08:11 | HP ---
CHIEF COMPLAINT: Syncope. HISTORY OF PRESENT ILLNESS: This is a 42-year-old [place] male with history of chronic heavy alcoholism, history of seizure disorder, type 2 diabetes, hypertension, and he has history of visits to detox program at [facility], and EMS was called in for acute withdrawal, and when the EMS arrived, the patient passed out, and he had black vomiting. At that time, he was still breathing. When he came to the ER, he developed respiratory distress and he was intubated. The patient after that did not have any fresh blood, however, more than 1000 mL of black liquid was from the aspirate. The patient in the ICU has been on mechanical ventilator, started on IV fluids, massive blood transfusion, and he was maintained on mechanical ventilator. The patient's NG tube has been passing coffee ground emesis, and the patient is right now on mechanical ventilator, and he is not responsive. No further details obtainable. PAST MEDICAL HISTORY: Alcoholism with multiple hospitalizations. No further details obtainable. SURGICAL HISTORY: Not available. CURRENT MEDICATIONS: At home are Keppra 500 mg b.i.d., metformin 1000 mg b.i.d., and ibuprofen. PHYSICAL EXAMINATION: GENERAL: A middle-age male, he was on mechanical ventilator, in distress. He has no involuntary movements. VITAL SIGNS: Blood pressure 106/57, pulse 95, respiratory rate 20, temperature 97. SKIN: No bruises. No purpura. HEENT: Orally intubated with some bleeding from the mouth. NECK: Supple. No JVD. No lymph nodes. CHEST: Chest wall, bilateral symmetrical expansion. No deformity. No masses. LUNGS: Clear. No rales. No rhonchi. CARDIOVASCULAR SYSTEM: PMI in fifth intercostal space. S1 and S2 regular. No heave. No thrill. ABDOMEN: Soft, nontender. Bowel sounds are positive. RECTAL: Positive for CENTRAL NERVOUS SYSTEM: He is on ventilator and obtunded. ASSESSMENT: 1. Upper gastrointestinal bleed, most likely it is from alcoholic gastritis versus peptic ulcer disease. There has been evidence of people witnessed him having coffee ground vomiting. 2. Rule out aspiration pneumonitis, it could be that patient aspirated some of his vomitus. 3. Alcoholism. PLAN: Admit. Detailed orders are written. Seen and examined. James Bello MD
--- NOTE | 2018-07-10 08:48 | CP.PCM.PN ---
Subjective - Date & Time of Evaluation Date of Evaluation: 07/10/18 Time of Evaluation: 08:47 - Subjective Subjective: Nephrology progress note - Derrek PGY - 2 Patient seen and examined at bedside. Patient blood pressures have normalized Objective - Vital Signs/Intake and Output Vital Signs (last 24 hours): Temp Pulse Resp BP Pulse Ox 99.2 F 86 32 H 108/62 100 07/10/18 05:00 07/10/18 07:12 07/09/18 10:18 07/10/18 07:12 07/10/18 07:12 Intake and Output: 07/10/18 07/10/18 06:59 18:59 Intake Total 5163.7 363.6 Output Total 1815 500 Balance 3348.7 -136.4 - Medications Medications: Current Medications Albumin Human (Albumin Human 25% (12.5 Gm/50 Ml)) 12.5 gm IV TID [facility] Stop: 07/11/18 14:01 Last Admin: 07/09/18 18:00 Dose: 12.5 gm Levetiracetam 500 mg/ Dextrose 105 mls @ 420 mls/hr IVPB Q12H [facility] Last Admin: 07/10/18 01:39 Dose: 420 mls/hr Dexmedetomidine HCl 200 mcg/ (Sodium Chloride) 50 mls @ 2.83 mls/hr IV TITR PRN; Protocol PRN Reason: sedation Last Admin: 07/10/18 06:49 Dose: 1.2 mcg/kg/hr, 17.01 mls/hr Propofol (Diprivan) 1,000 mg in 100 mls @ 1.701 mls/hr IV .Q24H PRN; Protocol PRN Reason: TITRATE PER MD ORDER Last Admin: 07/09/18 18:01 Dose: 15 mcg/kg/min, 5.103 mls/hr Sodium Chloride (Sodium Chloride 0.9%) 1,000 mls @ 150 mls/hr IV .Q6H40M [facility] Last Admin: 07/10/18 05:14 Dose: Not Given Dopamine HCl/Dextrose (Dopamine 400mg/250ml D5w) 400 mg in 250 mls @ 5.406 mls/hr IV .Q24H PRN; Protocol PRN Reason: TITRATE PER MD ORDER Last Titration: 07/10/18 05:00 Dose: 6 mcg/kg/min, 16.217 mls/hr Pantoprazole Sodium 80 mg/ (Sodium Chloride) 100 mls @ 10 mls/hr IVPB Q10H [facility] Last Admin: 07/10/18 06:52 Dose: 10 mls/hr Vasopressin 40 units/ Dextrose 40 mls @ 0.6 mls/hr IV .Q24H [facility]; Protocol Last Titration: 07/10/18 06:00 Dose: 0.02 units/min, 1.2 mls/hr Octreotide Acetate 1,250 mcg/ (Sodium Chloride) 252.5 mls @ 5.05 mls/hr IV .Q24H [facility] Last Admin: 07/09/18 18:05 Dose: Not Given Sodium Chloride (Sodium Chloride 0.9%) 1,000 mls @ 150 mls/hr IV .Q6H40M [facility] Insulin Human Regular (Novolin R) 0 unit SC ACHS [facility]; Protocol Lactulose (Enulose) 20 gm PO BID [facility] Last Admin: 07/09/18 18:00 Dose: 20 gm Thiamine HCl (Vitamin B1 Inj) 100 mg IV DAILY [facility] Last Admin: 07/09/18 10:41 Dose: 100 mg - Labs Labs: 07/10/18 06:42 07/09/18 12:34 PT 34.2 SECONDS (9.7-12.2) H D 07/10/18 06:42 INR 3.1 H* D 07/10/18 06:42 APTT 32 SECONDS (21-34) 07/09/18 06:28 Assessment and Plan (1) SEBASITÁN (acute kidney injury) Status: Acute (2) High anion gap metabolic acidosis Status: Acute (3) Uncontrolled diabetes mellitus Status: Acute
[2018-07-10 08:59] LABS: BASO % 0.3 % (0.0-2.0); EOS % 0.1 % (0.0-4.0); HEMOGLOBIN 14.4 g/dL (12.0-18.0); LYMPH # 0.6 K/uL (1.0-4.3); LYMPH % 10.2 % (20.0-40.0); MEAN CELL VOLUME 90.3 fL (80.0-94.0); MEAN CORPUSCULAR HEMOGLOBIN 31.5 pg (27.0-31.0); MEAN CORPUSCULAR HGB CONC 34.9 g/dL (33.0-37.0); MONO # 0.1 K/uL (0.0-0.8); MONO % 1.6 % (0.0-10.0); NEUT # 5.3 K/uL (1.8-7.0); NEUT % 87.8 % (50.0-75.0); NRBC % 0.2 % (0.0-2.0); RBC 4.57 Mil/uL (4.40-5.90); RED CELL DISTRIBUTION WIDTH 15.4 % (11.5-14.5)
[2018-07-10 09:21] LABS: ALB/GLOB RATIO 1.3 (1.0-2.1); ALBUMIN 2.6 g/dL (3.5-5.0); CALCIUM 5.9 mg/dl (8.6-10.4)
[2018-07-10] MEDS ORDERED: Phytonadione 10 mg/ml Inj (Adult) IV ONE (09:28)
[2018-07-10] MEDS ORDERED: Potassium Chloride 20 mEq/15 ml LIQ UD PO ONE (10:15)
[2018-07-10] MEDS: DOPamine 400mg/250ml D5W 400 MG/250 ML BAG IV PRN (10:17)
[2018-07-10] MEDS: Folic Acid 1 MG, Thiamine 100 MG, Multivitamin (MVI) 10 ML in Dextrose 5% In Water 1,00... IV SCH (10:20)
[2018-07-10] MEDS: Thiamine 100 mg/ml Inj IV SCH (10:21)
[2018-07-10] MEDS: Magnesium Sulfate 1 gm in D5W 1 GM/100 ML BAG IVPB SCH ×2 (10:21→12:56)
[2018-07-10] MEDS: Albumin Human 25% (12.5 gm/50 ml) IV SCH ×4 (10:24→21:08)
[2018-07-10] MEDS ORDERED: Calcium Gluconate 4.65 mEq/10 ml Inj IVP ONE (10:30)
[2018-07-10 10:46] LABS: ARTERIAL BLOOD GAS HCO3 23.1 mmol/L (21-28); ARTERIAL BLOOD GAS HEMOGLOBIN 12.1 g/dL (11.7-17.4); ARTERIAL BLOOD GAS O2 SAT 99.1 % (95-98); ARTERIAL BLOOD GAS PCO2 25 mm/Hg (35-45); ARTERIAL BLOOD GAS PO2 141 mm/Hg (80-100); ARTERIAL BLOOD GAS TCO2 20.3 mmol/L (22-28)
[2018-07-10] MEDS: Piperacillin/Tazobact 2.25 GM in Sodium Chloride 100 ML IVPB SCH ×2 (10:54→18:23)
[2018-07-10 11:12] LABS: BILIRUBIN,DIRECT 3.7 mg/dL (0.0-0.4)
[2018-07-10] MEDS ORDERED: (Novolin R) Insulin Human Regular 100 units/ml vial SC SCH ×2 (11:30→15:30)
--- NOTE | 2018-07-10 11:39 | RAD ---
Date of service: 07/10/2018 HISTORY: intubated, giving large volume fluids, no urine COMPARISON: 07/09/2018. FINDINGS: Endotracheal tube terminates in the mid trachea. The nasogastric tube is coiled in the stomach. LUNGS: The lungs are well inflated and clear. PLEURA: No pleural effusions or pneumothorax. CARDIOVASCULAR: The heart is normal in size. No aortic atherosclerotic calcifications present. OSSEOUS STRUCTURES: Within normal limits for the patient's age. VISUALIZED UPPER ABDOMEN: Normal. OTHER FINDINGS: None. IMPRESSION: No active pulmonary disease. Satisfactory position of endotracheal tube. Nasogastric tube is coiled in the stomach.
--- NOTE | 2018-07-10 13:48 | CT ---
Date of service: 07/10/2018 PROCEDURE: CT HEAD WITHOUT CONTRAST. HISTORY: AMs COMPARISON: Unenhanced head CT 05/10/2018. TECHNIQUE: Axial computed tomography images were obtained through the head/brain without intravenous contrast. Radiation dose: Total exam DLP = 1318.01 mGy-cm. This CT exam was performed using one or more of the following dose reduction techniques: Automated exposure control, adjustment of the mA and/or kV according to patient size, and/or use of iterative reconstruction technique. FINDINGS: HEMORRHAGE: No intracranial hemorrhage. BRAIN: Normal martinez-white matter differentiation and density are appreciated throughout the cerebrum and cerebellum with the brainstem appearing unremarkable as well. There is no mass effect. There is no suspicious extra-axial fluid collection and the midline brain anatomy appears diffusely unremarkable. VENTRICLES: Unremarkable. No hydrocephalus. CALVARIUM: Unremarkable. PARANASAL SINUSES: Improve maxillary sinus disease, nearly completely resolved. Slight increase in left-sided maxillary sinus disease with limited residual bilateral ethmoid sinus disease remaining. MASTOID AIR CELLS: Unremarkable as visualized. No inflammatory changes. OTHER FINDINGS: None. IMPRESSION: Unremarkable unenhanced head CT with no significant interval change greater prior CT dated 05/18/2018. Variable sinus disease again evident as discussed above.
[2018-07-10] MEDS: Propofol 10 mg/ml 1,000 MG/100 ML VIAL IV PRN ×2 (13:56→18:23)
--- NOTE | 2018-07-10 13:59 | CP.CCUPN ---
<Nicko Fleming - Last Filed: 07/10/18 14:33> CCU Subjective - Physician Review Subjective (Free Text): Nicko Fleming DO, PGY-2: ICU Progress Note for Dr. Stewart Patient seen and examined at bedside. Patient is intubated and sedated. He made 1.6 L of urine overnight. Nurse also reports OG suction revealed 400 mL of coffee ground substance. 07/10/18 13:56 CCU Objective - Vital Signs / Intake & Output Vital Signs (Last 4 hours): Vital Signs Pulse Resp BP Pulse Ox 07/10/18 12:32 84 17 145/78 97 07/10/18 12:14 100 H 25 H 158/73 H 97 07/10/18 12:00 121 H 22 96 07/10/18 11:11 81 19 94/60 L 100 07/10/18 11:00 82 19 100 07/10/18 10:41 83 19 96/63 L 100 07/10/18 10:17 88/41 L 07/10/18 10:12 83 17 138/77 100 07/10/18 10:00 82 17 100 Intake and Output (Last 8hrs): Intake & Output 07/09/18 07/10/18 07/10/18 22:59 06:59 14:59 Intake Total 3520.3 3268.2 1890.0 Output Total 430 1445 1660 Balance 3090.3 1823.2 230.0 Weight 148 lb 14.4 oz 148 lb Intake: IV 505 357 50 Intake, IV Amount 3015.3 2911.2 1790.0 Add YLine to Medial 134.4 Femoral Port LEFT FA 1ST PORT 15 40 310 LEFT FA 2ND PORT 60.3 160.8 120.6 Right Antecubital 30 80 60 Right Distal Port Femoral 19.2 12.0 13.2 Right Forearm 1200 1200 600 Right Hand 25 Right Medial Port Femoral 196.2 163.2 122.4 Right Proximal Port 1200 1200 550 Femoral Right Wrist 50 Y Line to Medial Femoral 30 Port Y Line to Proximal 55.2 55.2 13.8 Femoral Port Oral 0 50 Output: Drainage 400 560 OGT 400 560 Urine 430 1045 1100 Urethral (Paulson) 430 1045 1100 - Physical Exam Head: Positive for: Atraumatic, Normocephalic Conjunctiva: Positive for: Normal Mouth: Positive for: Moist Mucous Membranes Respiratory/Chest: Positive for: Clear to Auscultation Cardiovascular: Positive for: Regular Rate and Rhythm, Normal S1, S2 Abdomen: Positive for: Normal Bowel Sounds. Negative for: Tenderness Upper Extremity: Positive for: Normal Inspection. Negative for: Edema Lower Extremity: Positive for: Normal Inspection. Negative for: Edema Neurological: Positive for: Other (patient is sedated) Skin: Positive for: Warm, Dry, Normal Color - Medications Active Medications: Active Medications Generic Name Dose Route Start Last Admin Trade Name Freq PRN Reason Stop Dose Admin Albumin Human 12.5 gm 07/10/18 13:00 Albumin Human 25% (12.5 Gm/50 Ml) IV 07/11/18 09:01 Q4H ALVARADO Levetiracetam 500 mg/ Dextrose 105 mls @ 420 mls/hr 07/09/18 01:45 07/10/18 01:39 IVPB 420 mls/hr Q12H ALVARADO Administration Dexmedetomidine HCl 200 mcg/ 50 mls @ 2.83 mls/hr 07/09/18 01:34 07/10/18 10:18 Sodium Chloride IV 1.2 mcg/kg/hr TITR PRN 17.01 mls/hr sedation Administration Protocol 0.2 MCG/KG/HR Propofol 1,000 mg in 100 mls @ 1.701 mls/hr 07/09/18 05:07 07/09/18 18:01 Diprivan IV 15 mcg/kg/min .Q24H PRN 5.103 mls/hr TITRATE PER MD ORDER Administration Protocol 5 MCG/KG/MIN Dopamine HCl/Dextrose 400 mg in 250 mls @ 5.406 mls/hr 07/09/18 10:00 07/10/18 10:17 Dopamine 400mg/250ml D5w IV 6 mcg/kg/min .Q24H PRN 16.217 mls/hr TITRATE PER MD ORDER Administration Protocol 2 MCG/KG/MIN Pantoprazole Sodium 80 mg/ 100 mls @ 10 mls/hr 07/09/18 10:00 07/10/18 06:52 Sodium Chloride IVPB 10 mls/hr Q10H ALVARADO Administration Vasopressin 40 units/ Dextrose 40 mls @ 0.6 mls/hr 07/09/18 11:00 07/10/18 06:00 IV 0.02 units/min .Q24H ALVARADO 1.2 mls/hr Titration Protocol 0.01 UNITS/MIN Folic Acid 1 mg/ Thiamine HCl 1,011.2 mls @ 100 mls/hr 07/10/18 11:00 07/10/18 10:20 100 mg/ Multivitamins/Vitamin IV 07/12/18 21:07 100 mls/hr C 10 ml/ Dextrose Q24H ALVARADO Administration Potassium Chloride 20 meq in 100 mls @ 50 mls/hr 07/10/18 10:00 07/10/18 10:23 Potassium Chloride 20 Meq/100 Ml IVPB 07/10/18 13:59 50 mls/hr Q2 ALVARADO Administration Piperacillin Sod/Tazobactam 100 mls @ 200 mls/hr 07/10/18 10:30 Sod 2.25 gm/ Sodium Chloride IVPB Q8H ALVARADO Protocol Vancomycin HCl 1 gm/ Sodium 250 mls @ 166.7 mls/hr 07/10/18 11:00 07/10/18 10:19 Chloride IVPB 166.7 mls/hr Q24H ALVARADO Administration Protocol Insulin Human Regular 0 unit 07/10/18 11:30 Novolin R SC ACHS ALVARADO Protocol Lactulose 20 gm 07/09/18 10:00 07/10/18 10:21 Enulose PO 20 gm BID ALVARADO Administration Thiamine HCl 100 mg 07/09/18 10:00 07/10/18 10:21 Vitamin B1 Inj IV 100 mg DAILY ALVARADO Administration - Patient Studies Lab Studies: Microbiology Studies 07/09/18 08:09 MRSA Culture (Admit) - Final Nose MRSA NOT DETECTED 07/09/18 09:04 S.aureus & Coag-Neg Staph PNA FISH - Preliminary Blood Blood Culture - Preliminary Gram Positive Cocci Gram Stain - Final 07/09/18 09:04 Blood Culture - Preliminary Blood NO GROWTH AFTER 24 HOURS 07/08/18 08:09 Urine Culture - Final Urine,Catheterized No Growth (<1,000 CFU/ML) Lab Studies 07/10/18 07/10/18 07/10/18 Range/Units 11:33 10:41 08:50 WBC (4.8-10.8) K/uL RBC (4.40-5.90) Mil/uL Hgb (12.0-18.0) g/dL Hct (35.0-51.0) % MCV (80.0-94.0) fL MCH (27.0-31.0) pg MCHC (33.0-37.0) g/dL RDW (11.5-14.5) % Plt Count (130-400) K/uL Manual Plt Count (130-400) K/uL MPV (7.2-11.7) fL Neut % (Auto) (50.0-75.0) % Lymph % (Auto) (20.0-40.0) % [place] % (Auto) (0.0-10.0) % Eos % (Auto) (0.0-4.0) % Baso % (Auto) (0.0-2.0) % Neut # (Auto) (1.8-7.0) K/uL Lymph # (Auto) (1.0-4.3) K/uL [place] # (Auto) (0.0-0.8) K/uL Eos # (Auto) (0.0-0.7) K/uL Baso # (Auto) (0.0-0.2) K/uL Differential Comment PT (9.7-12.2) SECONDS INR Puncture Site Lf pCO2 25 L (35-45) mm/Hg pO2 141 H (80-100) mm/Hg HCO3 23.1 (21-28) mmol/L ABG pH 7.50 H (7.35-7.45) ABG Total CO2 20.3 L (22-28) mmol/L ABG O2 Saturation 99.1 H (95-98) % ABG Base Excess -2.3 L (-2.0-3.0) mmol/L ABG Hemoglobin 12.1 (11.7-17.4) g/dL ABG Carboxyhemoglobin 1.2 (0.5-1.5) % POC ABG HHb (Measured) 0.9 (0.0-5.0) % ABG Methemoglobin 0.9 (0.0-3.0) % Constantine Test Na ABG Potassium (3.6-5.2) mmol/L A-a O2 Difference 113.0 mm/Hg Respiratory Index 0.8 Hgb O2 Saturation 97.0 (95.0-98.0) % Sodium 124 L (132-148) mmol/l Chloride 86 L (98-107) mmol/L Glucose (75-110) mg/dl Lactate (0.7-2.1) mmol/L Vent Mode Mechanical Rate 14 FiO2 40.0 % Tidal Volume 470 PEEP 5 Crit Value Called To Crit Value Called By Crit Value Read Back Blood Gas Notified Time Potassium 3.2 L (3.6-5.2) mmol/L Carbon Dioxide 28 (22-30) mmol/L Anion Gap 13 (10-20) BUN 40 H (9-20) mg/dL Creatinine 1.9 H (0.8-1.5) mg/dL Est GFR ( Amer) 48 Est GFR (Non-Af Amer) 39 POC Glucose (mg/dL) 315 H (65-110) mg/dL Random Glucose 353 H D (75-110) mg/dL Calcium 5.9 L* (8.6-10.4) mg/dl Phosphorus 3.5 (2.5-4.5) mg/dL Magnesium 1.6 (1.6-2.3) mg/dL Total Bilirubin 4.9 H (0.2-1.3) mg/dL Direct Bilirubin 3.7 H (0.0-0.4) mg/dL AST 2571 H (17-59) U/L ALT 624 H D (21-72) U/L Alkaline Phosphatase 84 (38-126) U/L Total Protein 4.6 L (6.3-8.3) g/dL Albumin 2.6 L (3.5-5.0) g/dL Globulin 2.0 L (2.2-3.9) gm/dL Albumin/Globulin Ratio 1.3 (1.0-2.1) Arterial Blood Potassium (3.6-5.2) mmol/L Urine Osmolality (300-1000) mosm/kg Ur Random Creatinine mg/dL Ur Random Sodium mmol/L 07/10/18 07/10/18 07/10/18 Range/Units 08:50 06:42 06:42 WBC 6.0 4.8 D (4.8-10.8) K/uL RBC 4.57 4.09 L (4.40-5.90) Mil/uL Hgb 14.4 12.5 D (12.0-18.0) g/dL Hct 41.3 37.0 (35.0-51.0) % MCV 90.3 90.7 D (80.0-94.0) fL MCH 31.5 H 30.7 (27.0-31.0) pg MCHC 34.9 33.8 (33.0-37.0) g/dL RDW 15.4 H 15.5 H (11.5-14.5) % Plt Count 44 L 41 L D (130-400) K/uL Manual Plt Count 42 L (130-400) K/uL MPV 9.0 8.5 (7.2-11.7) fL Neut % (Auto) 87.8 H 88.2 H (50.0-75.0) % Lymph % (Auto) 10.2 L 10.0 L (20.0-40.0) % [place] % (Auto) 1.6 1.6 (0.0-10.0) % Eos % (Auto) 0.1 0.1 (0.0-4.0) % Baso % (Auto) 0.3 0.1 (0.0-2.0) % Neut # (Auto) 5.3 4.2 (1.8-7.0) K/uL Lymph # (Auto) 0.6 L 0.5 L (1.0-4.3) K/uL [place] # (Auto) 0.1 0.1 (0.0-0.8) K/uL Eos # (Auto) 0.0 0.0 (0.0-0.7) K/uL Baso # (Auto) 0.0 0.0 (0.0-0.2) K/uL Differential Comment PT 34.2 H D (9.7-12.2) SECONDS INR 3.1 H* D Puncture Site pCO2 (35-45) mm/Hg pO2 (80-100) mm/Hg HCO3 (21-28) mmol/L ABG pH (7.35-7.45) ABG Total CO2 (22-28) mmol/L ABG O2 Saturation (95-98) % ABG Base Excess (-2.0-3.0) mmol/L ABG Hemoglobin (11.7-17.4) g/dL ABG Carboxyhemoglobin (0.5-1.5) % POC ABG HHb (Measured) (0.0-5.0) % ABG Methemoglobin (0.0-3.0) % Constantine Test ABG Potassium (3.6-5.2) mmol/L A-a O2 Difference mm/Hg Respiratory Index Hgb O2 Saturation (95.0-98.0) % Sodium (132-148) mmol/l Chloride (98-107) mmol/L Glucose (75-110) mg/dl Lactate (0.7-2.1) mmol/L Vent Mode Mechanical Rate FiO2 % Tidal Volume PEEP Crit Value Called To Crit Value Called By Crit Value Read Back Blood Gas Notified Time Potassium (3.6-5.2) mmol/L Carbon Dioxide (22-30) mmol/L Anion Gap (10-20) BUN (9-20) mg/dL Creatinine (0.8-1.5) mg/dL Est GFR ( Amer) Est GFR (Non-Af Amer) POC Glucose (mg/dL) (65-110) mg/dL Random Glucose (75-110) mg/dL Calcium (8.6-10.4) mg/dl Phosphorus (2.5-4.5) mg/dL Magnesium (1.6-2.3) mg/dL Total Bilirubin (0.2-1.3) mg/dL Direct Bilirubin (0.0-0.4) mg/dL AST (17-59) U/L ALT (21-72) U/L Alkaline Phosphatase (38-126) U/L Total Protein (6.3-8.3) g/dL Albumin (3.5-5.0) g/dL Globulin (2.2-3.9) gm/dL Albumin/Globulin Ratio (1.0-2.1) Arterial Blood Potassium (3.6-5.2) mmol/L Urine Osmolality (300-1000) mosm/kg Ur Random Creatinine mg/dL Ur Random Sodium mmol/L 07/10/18 07/09/18 07/09/18 Range/Units 05:05 23:52 23:50 WBC (4.8-10.8) K/uL RBC (4.40-5.90) Mil/uL Hgb (12.0-18.0) g/dL Hct (35.0-51.0) % MCV (80.0-94.0) fL MCH (27.0-31.0) pg MCHC (33.0-37.0) g/dL RDW (11.5-14.5) % Plt Count (130-400) K/uL Manual Plt Count (130-400) K/uL MPV (7.2-11.7) fL Neut % (Auto) (50.0-75.0) % Lymph % (Auto) (20.0-40.0) % [place] % (Auto) (0.0-10.0) % Eos % (Auto) (0.0-4.0) % Baso % (Auto) (0.0-2.0) % Neut # (Auto) (1.8-7.0) K/uL Lymph # (Auto) (1.0-4.3) K/uL [place] # (Auto) (0.0-0.8) K/uL Eos # (Auto) (0.0-0.7) K/uL Baso # (Auto) (0.0-0.2) K/uL Differential Comment PT (9.7-12.2) SECONDS INR Puncture Site Lbrahial pCO2 19 L* (35-45) mm/Hg pO2 195 H (80-100) mm/Hg HCO3 27.8 (21-28) mmol/L ABG pH 7.67 H* (7.35-7.45) ABG Total CO2 22.5 (22-28) mmol/L ABG O2 Saturation 99.5 H (95-98) % ABG Base Excess 3.6 H (-2.0-3.0) mmol/L ABG Hemoglobin (11.7-17.4) g/dL ABG Carboxyhemoglobin (0.5-1.5) % POC ABG HHb (Measured) (0.0-5.0) % ABG Methemoglobin (0.0-3.0) % Constantine Test Ne ABG Potassium 4.8 (3.6-5.2) mmol/L A-a O2 Difference 66.0 mm/Hg Respiratory Index 0.3 Hgb O2 Saturation (95.0-98.0) % Sodium 121.0 L (132-148) mmol/l Chloride 90.0 L (98-107) mmol/L Glucose 395 H (75-110) mg/dl Lactate 4.9 H* (0.7-2.1) mmol/L Vent Mode Prvc Mechanical Rate 14 FiO2 40.0 % Tidal Volume 470 PEEP 5 Crit Value Called To Dr. mann Crit Value Called By Julieta herrera rcp Crit Value Read Back Y Blood Gas Notified Time 556 Potassium (3.6-5.2) mmol/L Carbon Dioxide (22-30) mmol/L Anion Gap (10-20) BUN (9-20) mg/dL Creatinine (0.8-1.5) mg/dL Est GFR ( Amer) Est GFR (Non-Af Amer) POC Glucose (mg/dL) 407 H* (65-110) mg/dL Random Glucose (75-110) mg/dL Calcium (8.6-10.4) mg/dl Phosphorus (2.5-4.5) mg/dL Magnesium (1.6-2.3) mg/dL Total Bilirubin (0.2-1.3) mg/dL Direct Bilirubin (0.0-0.4) mg/dL AST (17-59) U/L ALT (21-72) U/L Alkaline Phosphatase (38-126) U/L Total Protein (6.3-8.3) g/dL Albumin (3.5-5.0) g/dL Globulin (2.2-3.9) gm/dL Albumin/Globulin Ratio (1.0-2.1) Arterial Blood Potassium 4.8 (3.6-5.2) mmol/L Urine Osmolality 391 (300-1000) mosm/kg Ur Random Creatinine 68.6 mg/dL Ur Random Sodium 24 mmol/L 07/09/18 Range/Units 23:47 WBC (4.8-10.8) K/uL RBC (4.40-5.90) Mil/uL Hgb (12.0-18.0) g/dL Hct (35.0-51.0) % MCV (80.0-94.0) fL MCH (27.0-31.0) pg MCHC (33.0-37.0) g/dL RDW (11.5-14.5) % Plt Count (130-400) K/uL Manual Plt Count (130-400) K/uL MPV (7.2-11.7) fL Neut % (Auto) (50.0-75.0) % Lymph % (Auto) (20.0-40.0) % [place] % (Auto) (0.0-10.0) % Eos % (Auto) (0.0-4.0) % Baso % (Auto) (0.0-2.0) % Neut # (Auto) (1.8-7.0) K/uL Lymph # (Auto) (1.0-4.3) K/uL [place] # (Auto) (0.0-0.8) K/uL Eos # (Auto) (0.0-0.7) K/uL Baso # (Auto) (0.0-0.2) K/uL Differential Comment PT (9.7-12.2) SECONDS INR Puncture Site pCO2 (35-45) mm/Hg pO2 (80-100) mm/Hg HCO3 (21-28) mmol/L ABG pH (7.35-7.45) ABG Total CO2 (22-28) mmol/L ABG O2 Saturation (95-98) % ABG Base Excess (-2.0-3.0) mmol/L ABG Hemoglobin (11.7-17.4) g/dL ABG Carboxyhemoglobin (0.5-1.5) % POC ABG HHb (Measured) (0.0-5.0) % ABG Methemoglobin (0.0-3.0) % Constantine Test ABG Potassium (3.6-5.2) mmol/L A-a O2 Difference mm/Hg Respiratory Index Hgb O2 Saturation (95.0-98.0) % Sodium (132-148) mmol/l Chloride (98-107) mmol/L Glucose (75-110) mg/dl Lactate (0.7-2.1) mmol/L Vent Mode Mechanical Rate FiO2 % Tidal Volume PEEP Crit Value Called To Crit Value Called By Crit Value Read Back Blood Gas Notified Time Potassium (3.6-5.2) mmol/L Carbon Dioxide (22-30) mmol/L Anion Gap (10-20) BUN (9-20) mg/dL Creatinine (0.8-1.5) mg/dL Est GFR ( Amer) Est GFR (Non-Af Amer) POC Glucose (mg/dL) 444 H* (65-110) mg/dL Random Glucose (75-110) mg/dL Calcium (8.6-10.4) mg/dl Phosphorus (2.5-4.5) mg/dL Magnesium (1.6-2.3) mg/dL Total Bilirubin (0.2-1.3) mg/dL Direct Bilirubin (0.0-0.4) mg/dL AST (17-59) U/L ALT (21-72) U/L Alkaline Phosphatase (38-126) U/L Total Protein (6.3-8.3) g/dL Albumin (3.5-5.0) g/dL Globulin (2.2-3.9) gm/dL Albumin/Globulin Ratio (1.0-2.1) Arterial Blood Potassium (3.6-5.2) mmol/L Urine Osmolality (300-1000) mosm/kg Ur Random Creatinine mg/dL Ur Random Sodium mmol/L Laboratory Results - last 24 hr 07/09/18 07/09/18 07/09/18 23:47 23:50 23:52 WBC RBC Hgb Hct MCV MCH MCHC RDW Plt Count Manual Plt Count MPV Neut % (Auto) Lymph % (Auto) [place] % (Auto) Eos % (Auto) Baso % (Auto) Neut # (Auto) Lymph # (Auto) [place] # (Auto) Eos # (Auto) Baso # (Auto) Differential Comment PT INR Puncture Site pCO2 pO2 HCO3 ABG pH ABG Total CO2 ABG O2 Saturation ABG Base Excess ABG Hemoglobin ABG Carboxyhemoglobin POC ABG HHb (Measured) ABG Methemoglobin Constantine Test ABG Potassium A-a O2 Difference Respiratory Index Hgb O2 Saturation Sodium Chloride Glucose Lactate Vent Mode Mechanical Rate FiO2 Tidal Volume PEEP Crit Value Called To Crit Value Called By Crit Value Read Back Blood Gas Notified Time Potassium Carbon Dioxide Anion Gap BUN Creatinine Est GFR ( Amer) Est GFR (Non-Af Amer) POC Glucose (mg/dL) 444 H* 407 H* Random Glucose Calcium Phosphorus Magnesium Total Bilirubin Direct Bilirubin AST ALT Alkaline Phosphatase Total Protein Albumin Globulin Albumin/Globulin Ratio Arterial Blood Potassium Urine Osmolality 391 Ur Random Creatinine 68.6 Ur Random Sodium 24 07/10/18 07/10/18 07/10/18 05:05 06:42 06:42 WBC 4.8 D RBC 4.09 L Hgb 12.5 D Hct 37.0 MCV 90.7 D MCH 30.7 MCHC 33.8 RDW 15.5 H Plt Count 41 L D Manual Plt Count MPV 8.5 Neut % (Auto) 88.2 H Lymph % (Auto) 10.0 L [place] % (Auto) 1.6 Eos % (Auto) 0.1 Baso % (Auto) 0.1 Neut # (Auto) 4.2 Lymph # (Auto) 0.5 L [place] # (Auto) 0.1 Eos # (Auto) 0.0 Baso # (Auto) 0.0 Differential Comment PT 34.2 H D INR 3.1 H* D Puncture Site Lbrahial pCO2 19 L* pO2 195 H HCO3 27.8 ABG pH 7.67 H* ABG Total CO2 22.5 ABG O2 Saturation 99.5 H ABG Base Excess 3.6 H ABG Hemoglobin ABG Carboxyhemoglobin POC ABG HHb (Measured) ABG Methemoglobin Constantine Test Ne ABG Potassium 4.8 A-a O2 Difference 66.0 Respiratory Index 0.3 Hgb O2 Saturation Sodium 121.0 L Chloride 90.0 L Glucose 395 H Lactate 4.9 H* Vent Mode Prvc Mechanical Rate 14 FiO2 40.0 Tidal Volume 470 PEEP 5 Crit Value Called To Dr. mann Crit Value Called By Julieta herrera rcp Crit Value Read Back Y Blood Gas Notified Time 556 Potassium Carbon Dioxide Anion Gap BUN Creatinine Est GFR ( Amer) Est GFR (Non-Af Amer) POC Glucose (mg/dL) Random Glucose Calcium Phosphorus Magnesium Total Bilirubin Direct Bilirubin AST ALT Alkaline Phosphatase Total Protein Albumin Globulin Albumin/Globulin Ratio Arterial Blood Potassium 4.8 Urine Osmolality Ur Random Creatinine Ur Random Sodium 07/10/18 07/10/18 07/10/18 08:50 08:50 10:41 WBC 6.0 RBC 4.57 Hgb 14.4 Hct 41.3 MCV 90.3 MCH 31.5 H MCHC 34.9 RDW 15.4 H Plt Count 44 L Manual Plt Count 42 L MPV 9.0 Neut % (Auto) 87.8 H Lymph % (Auto) 10.2 L [place] % (Auto) 1.6 Eos % (Auto) 0.1 Baso % (Auto) 0.3 Neut # (Auto) 5.3 Lymph # (Auto) 0.6 L [place] # (Auto) 0.1 Eos # (Auto) 0.0 Baso # (Auto) 0.0 Differential Comment PT INR Puncture Site Lf pCO2 25 L pO2 141 H HCO3 23.1 ABG pH 7.50 H ABG Total CO2 20.3 L ABG O2 Saturation 99.1 H ABG Base Excess -2.3 L ABG Hemoglobin 12.1 ABG Carboxyhemoglobin 1.2 POC ABG HHb (Measured) 0.9 ABG Methemoglobin 0.9 [place] Test Na ABG Potassium A-a O2 Difference 113.0 Respiratory Index 0.8 Hgb O2 Saturation 97.0 Sodium 124 L Chloride 86 L Glucose Lactate Vent Mode Mechanical Rate 14 FiO2 40.0 Tidal Volume 470 PEEP 5 Crit Value Called To Crit Value Called By Crit Value Read Back Blood Gas Notified Time Potassium 3.2 L Carbon Dioxide 28 Anion Gap 13 BUN 40 H Creatinine 1.9 H Est GFR ( Amer) 48 Est GFR (Non-Af Amer) 39 POC Glucose (mg/dL) Random Glucose 353 H D Calcium 5.9 L* Phosphorus 3.5 Magnesium 1.6 Total Bilirubin 4.9 H Direct Bilirubin 3.7 H AST 2571 H ALT 624 H D Alkaline Phosphatase 84 Total Protein 4.6 L Albumin 2.6 L Globulin 2.0 L Albumin/Globulin Ratio 1.3 Arterial Blood Potassium Urine Osmolality Ur Random Creatinine Ur Random Sodium 07/10/18 11:33 WBC RBC Hgb Hct MCV MCH MCHC RDW Plt Count Manual Plt Count MPV Neut % (Auto) Lymph % (Auto) [place] % (Auto) Eos % (Auto) Baso % (Auto) Neut # (Auto) Lymph # (Auto) [place] # (Auto) Eos # (Auto) Baso # (Auto) Differential Comment PT INR Puncture Site pCO2 pO2 HCO3 ABG pH ABG Total CO2 ABG O2 Saturation ABG Base Excess ABG Hemoglobin ABG Carboxyhemoglobin POC ABG HHb (Measured) ABG Methemoglobin Constantine Test ABG Potassium A-a O2 Difference Respiratory Index Hgb O2 Saturation Sodium Chloride Glucose Lactate Vent Mode Mechanical Rate FiO2 Tidal Volume PEEP Crit Value Called To Crit Value Called By Crit Value Read Back Blood Gas Notified Time Potassium Carbon Dioxide Anion Gap BUN Creatinine Est GFR ( Amer) Est GFR (Non-Af Amer) POC Glucose (mg/dL) 315 H Random Glucose Calcium Phosphorus Magnesium Total Bilirubin Direct Bilirubin AST ALT Alkaline Phosphatase Total Protein Albumin Globulin Albumin/Globulin Ratio Arterial Blood Potassium Urine Osmolality Ur Random Creatinine Ur Random Sodium Radiology Impressions: Radiology Impressions Chest X-Ray 07/10/18 06:00 IMPRESSION: No active pulmonary disease. Satisfactory position of endotracheal tube. Nasogastric tube is coiled in the stomach. Head CT 07/10/18 09:37 IMPRESSION: Unremarkable unenhanced head CT with no significant interval change greater prior CT dated 05/18/2018. Variable sinus disease again evident as discussed above. Fingerstick Blood Sugar Results: 99 Critical Care Progress Note - Ventilator Checklist Head of Bed 30 Degrees: Yes Daily Sedation Vacation: Yes PUD Prophalyxis: Yes DVT Prophylaxis: Yes Oral Care with Chlorhexidine Gluconate {CHG}: Yes - Vent Settings MODE:: PRVC TIDAL VOLUME:: 470 RESP RATE:: 12 FIO2:: 40 PEEP:: 5 - Extremities/Vascular Does the Patient have a Central Venous Catheter?: Yes Insertion Site: Femoral Vein Does the Patient have a Paulson Catheter?: Yes Catheter Insertion Criteria: Neurogenic bladder - Prophylaxis GI Prophylaxis GI: PPI (drip) - Prophylaxis DVT Prophylaxis DVT: SCDs Assessment/Plan - Assessment and Plan (Free Text) Assessment: 42 year old male with a past medical history of alcoholism, hypertension, DM II, alcohol withdrawal seizures who presented to [facility] for seizures in the setting of not drinking alcohol for a week or so. Mother states he stopped drinking for a week, but could not eat solid foods though he was able to drink a lot of water. She reports he was getting gradually weak and had a seizure at the time EMS arrived. In the ED at he had another seizure and had 1 liter of coffee ground emesis and was subsequently intubated for airway protection.. Also, for his suspected upper GI bleed, possibly variceal in nature, he was started on a Protonix and Octreotide drip. He was admitted to the ICU early yesterday and required Propofol, Precedex, and Midazolam for sedation. He had a severe lactic acidosis accounting for high anion gap metabolic acidosis that was treated with aggressive intravascular volume repletion, 2 units prbc, and was started on a bicarbonate drip. In the ICU his blood pressure was in the low 80/40 despite 30 ml/kg of fluid challenge and hence a central venous catheter was placed for pressor support in the right femoral vein. He was put on Dopamine and vasopressin titrated for a MAP above 65. 07/10/2018 Today, he was noted have an elevation in his INR as well as a dramatic fall in his platelets. Initially, his platelet count was in the 200s but dropped to the 40 today. There were no signs of active bleeding and hence was given 10 mg of IVP Vitamin K and 2 units of FFP. GI is consulted and recommend continuing the Protonix drip. Also, one of his blood cultures are growing gram positive cocci so he was started on broad spectrum antibiotics. For his [place] we are monitoring strict I/O with a Paulson and nephrology is consulted. GI is following for the UGI bleed and recommend continuing the Protonix drip (and opined patient less likely has a variceal bleed.) Neurology - CT of the head showed no acute hemmorhage; and residual sinus disease noted compred to prior CT - HOB elevated to 30 - Keppra 500 mg BID for seizure prophylaxis - Sedated with Propofol and Precedex; off of Versed - Banana bag for a total of three bags to be given Cardiovascular - Mantain MAP above 65 mmHg - Dopamine and vasopressin - EKG showed no ST-changes changes, but did show non-specific intraventricular conduction delay HEENT - CT of the head showed residual sinus disease noted compared to prior CT - Orogastric tube - Chlorohexidine mouth washes performed periodically - Suction and cleaning endotracheal tube per protocol Pulmonology: - PRVCs with TV of 470, FIO2 of 40, PEEP of 5, and rate of 12 - Chest X-ray shows no infiltrate - daily chest X-rays ID - One blood culture growing gram positive cocci so patient started on Vancomycin and renally dosed Zosyn. Nephrology - Monitor strict I/O - Paulson in place - Albumin 25% 12.5 mg q12h - will avoid nephrotoxins and dose antibiotics renally - Nephrology is following; will Heme - INR of 3.1; PT 38 seconds - 2 units of FFP to be given and 10 mg of Vitamin K IVP - Thrombocytopenia with platelets of 40,000; manual count showed and PBS show few platelets - PBS showed normocytic normochromic RBC. Rare schistocytes and markedly reduced platelet count GI - Transaminitis - UGI bleed and thus on Protonix drip and octreotide drip for 24-48 hours (Octreotide discontinued given GI thinks low likelihood of Variceal bleeding - Ammonia elevated at 98 yesterday; hence giving Lactulose 20 gram BID; need to ensure patient has bowel movement - Monitor Ammonia daily - GI is following, Dr. Peters DVT prophylaxis - SCD Case reviewed and discussed with attending physician, Dr. Stewart <Timothy Stewart - Last Filed: 07/10/18 17:34> CCU Subjective - Physician Review Critical Care Time Spent (in minutes): 60 CCU Objective - Vital Signs / Intake & Output Vital Signs (Last 4 hours): Vital Signs Pulse Resp BP Pulse Ox 07/10/18 17:18 81 15 91/54 L 99 07/10/18 17:03 82 15 90/53 L 99 07/10/18 17:00 81 17 99 07/10/18 16:48 82 17 101/58 L 99 07/10/18 16:33 87 20 134/80 99 07/10/18 16:18 83 18 115/73 99 07/10/18 16:03 81 16 79/48 L 100 07/10/18 16:00 81 18 100 07/10/18 15:46 83 19 89/53 L 100 07/10/18 15:11 89 19 112/66 100 07/10/18 15:00 82 19 99 07/10/18 14:12 83 15 111/63 99 07/10/18 14:00 83 16 98 07/10/18 13:48 85 19 122/66 98 07/10/18 13:39 84 20 162/87 H 98 Intake and Output (Last 8hrs): Intake & Output 07/10/18 07/10/18 07/10/18 06:59 14:59 22:59 Intake Total 3268.2 1990.0 Output Total 1445 1660 Balance 1823.2 330.0 Weight 148 lb Intake: IV 357 150 Intake, IV Amount 2911.2 1790.0 LEFT FA 1ST PORT 40 310 LEFT FA 2ND PORT 160.8 120.6 Right Antecubital 80 60 Right Distal Port Femoral 12.0 13.2 Right Forearm 1200 600 Right Medial Port Femoral 163.2 122.4 Right Proximal Port 1200 550 Femoral Y Line to Proximal 55.2 13.8 Femoral Port Oral 50 Output: Drainage 400 560 OGT 400 560 Urine 1045 1100 Urethral (Paulson) 1045 1100 - Medications Active Medications: Active Medications Generic Name Dose Route Start Last Admin Trade Name Freq PRN Reason Stop Dose Admin Albumin Human 12.5 gm 07/10/18 13:00 07/10/18 13:59 Albumin Human 25% (12.5 Gm/50 Ml) IV 07/11/18 09:01 12.5 gm Q4H ALVARADO Administration Levetiracetam 500 mg/ Dextrose 105 mls @ 420 mls/hr 07/09/18 01:45 07/10/18 13:59 IVPB 420 mls/hr Q12H ALVARADO Administration Dexmedetomidine HCl 200 mcg/ 50 mls @ 2.83 mls/hr 07/09/18 01:34 07/10/18 10:18 Sodium Chloride IV 1.2 mcg/kg/hr TITR PRN 17.01 mls/hr sedation Administration Protocol 0.2 MCG/KG/HR Propofol 1,000 mg in 100 mls @ 1.701 mls/hr 07/09/18 05:07 07/10/18 13:56 Diprivan IV 15 mcg/kg/min .Q24H PRN 5.103 mls/hr TITRATE PER MD ORDER Administration Protocol 5 MCG/KG/MIN Dopamine HCl/Dextrose 400 mg in 250 mls @ 5.406 mls/hr 07/09/18 10:00 07/10/18 10:17 Dopamine 400mg/250ml D5w IV 6 mcg/kg/min .Q24H PRN 16.217 mls/hr TITRATE PER MD ORDER Administration Protocol 2 MCG/KG/MIN Pantoprazole Sodium 80 mg/ 100 mls @ 10 mls/hr 07/09/18 10:00 07/10/18 06:52 Sodium Chloride IVPB 10 mls/hr Q10H ALVARADO Administration Vasopressin 40 units/ Dextrose 40 mls @ 0.6 mls/hr 07/09/18 11:00 07/10/18 13:55 IV Not Given .Q24H ALVARADO Protocol 0.01 UNITS/MIN Folic Acid 1 mg/ Thiamine HCl 1,011.2 mls @ 100 mls/hr 07/10/18 11:00 07/10/18 10:20 100 mg/ Multivitamins/Vitamin IV 07/12/18 21:07 100 mls/hr C 10 ml/ Dextrose Q24H ALVARADO Administration Piperacillin Sod/Tazobactam 100 mls @ 200 mls/hr 07/10/18 10:30 07/10/18 10:54 Sod 2.25 gm/ Sodium Chloride IVPB 200 mls/hr Q8H ALVARADO Administration Protocol Vancomycin HCl 1 gm/ Sodium 250 mls @ 166.7 mls/hr 07/10/18 11:00 07/10/18 10:19 Chloride IVPB 166.7 mls/hr Q24H ALVARADO Administration Protocol Insulin Human Regular 0 unit 07/10/18 15:30 Novolin R SC Q6H ALVARADO Protocol Lactulose 20 gm 07/09/18 10:00 07/10/18 10:21 Enulose PO 20 gm BID ALVARADO Administration Thiamine HCl 100 mg 07/09/18 10:00 07/10/18 10:21 Vitamin B1 Inj IV 100 mg DAILY ALVARADO Administration - Patient Studies Lab Studies: Microbiology Studies 07/09/18 08:09 MRSA Culture (Admit) - Final Nose MRSA NOT DETECTED 07/09/18 09:04 S.aureus & Coag-Neg Staph PNA FISH - Preliminary Blood Blood Culture - Preliminary Gram Positive Cocci Gram Stain - Final 07/09/18 09:04 Blood Culture - Preliminary Blood NO GROWTH AFTER 24 HOURS 07/08/18 08:09 Urine Culture - Final Urine,Catheterized No Growth (<1,000 CFU/ML) Lab Studies 07/10/18 07/10/18 07/10/18 Range/Units 11:33 10:41 08:50 WBC (4.8-10.8) K/uL RBC (4.40-5.90) Mil/uL Hgb (12.0-18.0) g/dL Hct (35.0-51.0) % MCV (80.0-94.0) fL MCH (27.0-31.0) pg MCHC (33.0-37.0) g/dL RDW (11.5-14.5) % Plt Count (130-400) K/uL Manual Plt Count (130-400) K/uL MPV (7.2-11.7) fL Neut % (Auto) (50.0-75.0) % Lymph % (Auto) (20.0-40.0) % [place] % (Auto) (0.0-10.0) % Eos % (Auto) (0.0-4.0) % Baso % (Auto) (0.0-2.0) % Neut # (Auto) (1.8-7.0) K/uL Lymph # (Auto) (1.0-4.3) K/uL [place] # (Auto) (0.0-0.8) K/uL Eos # (Auto) (0.0-0.7) K/uL Baso # (Auto) (0.0-0.2) K/uL Differential Comment PT (9.7-12.2) SECONDS INR Puncture Site Lf pCO2 25 L (35-45) mm/Hg pO2 141 H (80-100) mm/Hg HCO3 23.1 (21-28) mmol/L ABG pH 7.50 H (7.35-7.45) ABG Total CO2 20.3 L (22-28) mmol/L ABG O2 Saturation 99.1 H (95-98) % ABG Base Excess -2.3 L (-2.0-3.0) mmol/L ABG Hemoglobin 12.1 (11.7-17.4) g/dL ABG Carboxyhemoglobin 1.2 (0.5-1.5) % POC ABG HHb (Measured) 0.9 (0.0-5.0) % ABG Methemoglobin 0.9 (0.0-3.0) % [place] Test Na ABG Potassium (3.6-5.2) mmol/L A-a O2 Difference 113.0 mm/Hg Respiratory Index 0.8 Hgb O2 Saturation 97.0 (95.0-98.0) % Sodium 124 L (132-148) mmol/l Chloride 86 L (98-107) mmol/L Glucose (75-110) mg/dl Lactate (0.7-2.1) mmol/L Vent Mode Mechanical Rate 14 FiO2 40.0 % Tidal Volume 470 PEEP 5 Crit Value Called To Crit Value Called By Crit Value Read Back Blood Gas Notified Time Potassium 3.2 L (3.6-5.2) mmol/L Carbon Dioxide 28 (22-30) mmol/L Anion Gap 13 (10-20) BUN 40 H (9-20) mg/dL Creatinine 1.9 H (0.8-1.5) mg/dL Est GFR ( Amer) 48 Est GFR (Non-Af Amer) 39 POC Glucose (mg/dL) 315 H (65-110) mg/dL Random Glucose 353 H D (75-110) mg/dL Calcium 5.9 L* (8.6-10.4) mg/dl Phosphorus 3.5 (2.5-4.5) mg/dL Magnesium 1.6 (1.6-2.3) mg/dL Total Bilirubin 4.9 H (0.2-1.3) mg/dL Direct Bilirubin 3.7 H (0.0-0.4) mg/dL AST 2571 H (17-59) U/L ALT 624 H D (21-72) U/L Alkaline Phosphatase 84 (38-126) U/L Total Protein 4.6 L (6.3-8.3) g/dL Albumin 2.6 L (3.5-5.0) g/dL Globulin 2.0 L (2.2-3.9) gm/dL Albumin/Globulin Ratio 1.3 (1.0-2.1) Arterial Blood Potassium (3.6-5.2) mmol/L Urine Osmolality (300-1000) mosm/kg Ur Random Creatinine mg/dL Ur Random Sodium mmol/L 07/10/18 07/10/18 07/10/18 Range/Units 08:50 06:42 06:42 WBC 6.0 4.8 D (4.8-10.8) K/uL RBC 4.57 4.09 L (4.40-5.90) Mil/uL Hgb 14.4 12.5 D (12.0-18.0) g/dL Hct 41.3 37.0 (35.0-51.0) % MCV 90.3 90.7 D (80.0-94.0) fL MCH 31.5 H 30.7 (27.0-31.0) pg MCHC 34.9 33.8 (33.0-37.0) g/dL RDW 15.4 H 15.5 H (11.5-14.5) % Plt Count 44 L 41 L D (130-400) K/uL Manual Plt Count 42 L (130-400) K/uL MPV 9.0 8.5 (7.2-11.7) fL Neut % (Auto) 87.8 H 88.2 H (50.0-75.0) % Lymph % (Auto) 10.2 L 10.0 L (20.0-40.0) % [place] % (Auto) 1.6 1.6 (0.0-10.0) % Eos % (Auto) 0.1 0.1 (0.0-4.0) % Baso % (Auto) 0.3 0.1 (0.0-2.0) % Neut # (Auto) 5.3 4.2 (1.8-7.0) K/uL Lymph # (Auto) 0.6 L 0.5 L (1.0-4.3) K/uL [place] # (Auto) 0.1 0.1 (0.0-0.8) K/uL Eos # (Auto) 0.0 0.0 (0.0-0.7) K/uL Baso # (Auto) 0.0 0.0 (0.0-0.2) K/uL Differential Comment PT 34.2 H D (9.7-12.2) SECONDS INR 3.1 H* D Puncture Site pCO2 (35-45) mm/Hg pO2 (80-100) mm/Hg HCO3 (21-28) mmol/L ABG pH (7.35-7.45) ABG Total CO2 (22-28) mmol/L ABG O2 Saturation (95-98) % ABG Base Excess (-2.0-3.0) mmol/L ABG Hemoglobin (11.7-17.4) g/dL ABG Carboxyhemoglobin (0.5-1.5) % POC ABG HHb (Measured) (0.0-5.0) % ABG Methemoglobin (0.0-3.0) % [place] Test ABG Potassium (3.6-5.2) mmol/L A-a O2 Difference mm/Hg Respiratory Index Hgb O2 Saturation (95.0-98.0) % Sodium (132-148) mmol/l Chloride (98-107) mmol/L Glucose (75-110) mg/dl Lactate (0.7-2.1) mmol/L Vent Mode Mechanical Rate FiO2 % Tidal Volume PEEP Crit Value Called To Crit Value Called By Crit Value Read Back Blood Gas Notified Time Potassium (3.6-5.2) mmol/L Carbon Dioxide (22-30) mmol/L Anion Gap (10-20) BUN (9-20) mg/dL Creatinine (0.8-1.5) mg/dL Est GFR ( Amer) Est GFR (Non-Af Amer) POC Glucose (mg/dL) (65-110) mg/dL Random Glucose (75-110) mg/dL Calcium (8.6-10.4) mg/dl Phosphorus (2.5-4.5) mg/dL Magnesium (1.6-2.3) mg/dL Total Bilirubin (0.2-1.3) mg/dL Direct Bilirubin (0.0-0.4) mg/dL AST (17-59) U/L ALT (21-72) U/L Alkaline Phosphatase (38-126) U/L Total Protein (6.3-8.3) g/dL Albumin (3.5-5.0) g/dL Globulin (2.2-3.9) gm/dL Albumin/Globulin Ratio (1.0-2.1) Arterial Blood Potassium (3.6-5.2) mmol/L Urine Osmolality (300-1000) mosm/kg Ur Random Creatinine mg/dL Ur Random Sodium mmol/L 07/10/18 07/09/18 07/09/18 Range/Units 05:05 23:52 23:50 WBC (4.8-10.8) K/uL RBC (4.40-5.90) Mil/uL Hgb (12.0-18.0) g/dL Hct (35.0-51.0) % MCV (80.0-94.0) fL MCH (27.0-31.0) pg MCHC (33.0-37.0) g/dL RDW (11.5-14.5) % Plt Count (130-400) K/uL Manual Plt Count (130-400) K/uL MPV (7.2-11.7) fL Neut % (Auto) (50.0-75.0) % Lymph % (Auto) (20.0-40.0) % [place] % (Auto) (0.0-10.0) % Eos % (Auto) (0.0-4.0) % Baso % (Auto) (0.0-2.0) % Neut # (Auto) (1.8-7.0) K/uL Lymph # (Auto) (1.0-4.3) K/uL [place] # (Auto) (0.0-0.8) K/uL Eos # (Auto) (0.0-0.7) K/uL Baso # (Auto) (0.0-0.2) K/uL Differential Comment PT (9.7-12.2) SECONDS INR Puncture Site Lbrahial pCO2 19 L* (35-45) mm/Hg pO2 195 H (80-100) mm/Hg HCO3 27.8 (21-28) mmol/L ABG pH 7.67 H* (7.35-7.45) ABG Total CO2 22.5 (22-28) mmol/L ABG O2 Saturation 99.5 H (95-98) % ABG Base Excess 3.6 H (-2.0-3.0) mmol/L ABG Hemoglobin (11.7-17.4) g/dL ABG Carboxyhemoglobin (0.5-1.5) % POC ABG HHb (Measured) (0.0-5.0) % ABG Methemoglobin (0.0-3.0) % [place] Test Ne ABG Potassium 4.8 (3.6-5.2) mmol/L A-a O2 Difference 66.0 mm/Hg Respiratory Index 0.3 Hgb O2 Saturation (95.0-98.0) % Sodium 121.0 L (132-148) mmol/l Chloride 90.0 L (98-107) mmol/L Glucose 395 H (75-110) mg/dl Lactate 4.9 H* (0.7-2.1) mmol/L Vent Mode Prvc Mechanical Rate 14 FiO2 40.0 % Tidal Volume 470 PEEP 5 Crit Value Called To Dr. mann Crit Value Called By Julieta herrera rcp Crit Value Read Back Y Blood Gas Notified Time 556 Potassium (3.6-5.2) mmol/L Carbon Dioxide (22-30) mmol/L Anion Gap (10-20) BUN (9-20) mg/dL Creatinine (0.8-1.5) mg/dL Est GFR ( Amer) Est GFR (Non-Af Amer) POC Glucose (mg/dL) 407 H* (65-110) mg/dL Random Glucose (75-110) mg/dL Calcium (8.6-10.4) mg/dl Phosphorus (2.5-4.5) mg/dL Magnesium (1.6-2.3) mg/dL Total Bilirubin (0.2-1.3) mg/dL Direct Bilirubin (0.0-0.4) mg/dL AST (17-59) U/L ALT (21-72) U/L Alkaline Phosphatase (38-126) U/L Total Protein (6.3-8.3) g/dL Albumin (3.5-5.0) g/dL Globulin (2.2-3.9) gm/dL Albumin/Globulin Ratio (1.0-2.1) Arterial Blood Potassium 4.8 (3.6-5.2) mmol/L Urine Osmolality 391 (300-1000) mosm/kg Ur Random Creatinine 68.6 mg/dL Ur Random Sodium 24 mmol/L 07/09/18 Range/Units 23:47 WBC (4.8-10.8) K/uL RBC (4.40-5.90) Mil/uL Hgb (12.0-18.0) g/dL Hct (35.0-51.0) % MCV (80.0-94.0) fL MCH (27.0-31.0) pg MCHC (33.0-37.0) g/dL RDW (11.5-14.5) % Plt Count (130-400) K/uL Manual Plt Count (130-400) K/uL MPV (7.2-11.7) fL Neut % (Auto) (50.0-75.0) % Lymph % (Auto) (20.0-40.0) % [place] % (Auto) (0.0-10.0) % Eos % (Auto) (0.0-4.0) % Baso % (Auto) (0.0-2.0) % Neut # (Auto) (1.8-7.0) K/uL Lymph # (Auto) (1.0-4.3) K/uL [place] # (Auto) (0.0-0.8) K/uL Eos # (Auto) (0.0-0.7) K/uL Baso # (Auto) (0.0-0.2) K/uL Differential Comment PT (9.7-12.2) SECONDS INR Puncture Site pCO2 (35-45) mm/Hg pO2 (80-100) mm/Hg HCO3 (21-28) mmol/L ABG pH (7.35-7.45) ABG Total CO2 (22-28) mmol/L ABG O2 Saturation (95-98) % ABG Base Excess (-2.0-3.0) mmol/L ABG Hemoglobin (11.7-17.4) g/dL ABG Carboxyhemoglobin (0.5-1.5) % POC ABG HHb (Measured) (0.0-5.0) % ABG Methemoglobin (0.0-3.0) % [place] Test ABG Potassium (3.6-5.2) mmol/L A-a O2 Difference mm/Hg Respiratory Index Hgb O2 Saturation (95.0-98.0) % Sodium (132-148) mmol/l Chloride (98-107) mmol/L Glucose (75-110) mg/dl Lactate (0.7-2.1) mmol/L Vent Mode Mechanical Rate FiO2 % Tidal Volume PEEP Crit Value Called To Crit Value Called By Crit Value Read Back Blood Gas Notified Time Potassium (3.6-5.2) mmol/L Carbon Dioxide (22-30) mmol/L Anion Gap (10-20) BUN (9-20) mg/dL Creatinine (0.8-1.5) mg/dL Est GFR ( Amer) Est GFR (Non-Af Amer) POC Glucose (mg/dL) 444 H* (65-110) mg/dL Random Glucose (75-110) mg/dL Calcium (8.6-10.4) mg/dl Phosphorus (2.5-4.5) mg/dL Magnesium (1.6-2.3) mg/dL Total Bilirubin (0.2-1.3) mg/dL Direct Bilirubin (0.0-0.4) mg/dL AST (17-59) U/L ALT (21-72) U/L Alkaline Phosphatase (38-126) U/L Total Protein (6.3-8.3) g/dL Albumin (3.5-5.0) g/dL Globulin (2.2-3.9) gm/dL Albumin/Globulin Ratio (1.0-2.1) Arterial Blood Potassium (3.6-5.2) mmol/L Urine Osmolality (300-1000) mosm/kg Ur Random Creatinine mg/dL Ur Random Sodium mmol/L Laboratory Results - last 24 hr 07/09/18 07/09/18 07/09/18 23:47 23:50 23:52 WBC RBC Hgb Hct MCV MCH MCHC RDW Plt Count Manual Plt Count MPV Neut % (Auto) Lymph % (Auto) [place] % (Auto) Eos % (Auto) Baso % (Auto) Neut # (Auto) Lymph # (Auto) [place] # (Auto) Eos # (Auto) Baso # (Auto) Differential Comment PT INR Puncture Site pCO2 pO2 HCO3 ABG pH ABG Total CO2 ABG O2 Saturation ABG Base Excess ABG Hemoglobin ABG Carboxyhemoglobin POC ABG HHb (Measured) ABG Methemoglobin [place] Test ABG Potassium A-a O2 Difference Respiratory Index Hgb O2 Saturation Sodium Chloride Glucose Lactate Vent Mode Mechanical Rate FiO2 Tidal Volume PEEP Crit Value Called To Crit Value Called By Crit Value Read Back Blood Gas Notified Time Potassium Carbon Dioxide Anion Gap BUN Creatinine Est GFR ( Amer) Est GFR (Non-Af Amer) POC Glucose (mg/dL) 444 H* 407 H* Random Glucose Calcium Phosphorus Magnesium Total Bilirubin Direct Bilirubin AST ALT Alkaline Phosphatase Total Protein Albumin Globulin Albumin/Globulin Ratio Arterial Blood Potassium Urine Osmolality 391 Ur Random Creatinine 68.6 Ur Random Sodium 24 07/10/18 07/10/18 07/10/18 05:05 06:42 06:42 WBC 4.8 D RBC 4.09 L Hgb 12.5 D Hct 37.0 MCV 90.7 D MCH 30.7 MCHC 33.8 RDW 15.5 H Plt Count 41 L D Manual Plt Count MPV 8.5 Neut % (Auto) 88.2 H Lymph % (Auto) 10.0 L [place] % (Auto) 1.6 Eos % (Auto) 0.1 Baso % (Auto) 0.1 Neut # (Auto) 4.2 Lymph # (Auto) 0.5 L [place] # (Auto) 0.1 Eos # (Auto) 0.0 Baso # (Auto) 0.0 Differential Comment PT 34.2 H D INR 3.1 H* D Puncture Site Lbrahial pCO2 19 L* pO2 195 H HCO3 27.8 ABG pH 7.67 H* ABG Total CO2 22.5 ABG O2 Saturation 99.5 H ABG Base Excess 3.6 H ABG Hemoglobin ABG Carboxyhemoglobin POC ABG HHb (Measured) ABG Methemoglobin [place] Test Ne ABG Potassium 4.8 A-a O2 Difference 66.0 Respiratory Index 0.3 Hgb O2 Saturation Sodium 121.0 L Chloride 90.0 L Glucose 395 H Lactate 4.9 H* Vent Mode Prvc Mechanical Rate 14 FiO2 40.0 Tidal Volume 470 PEEP 5 Crit Value Called To Dr. mann Crit Value Called By Julieta herrera rcp Crit Value Read Back Y Blood Gas Notified Time 556 Potassium Carbon Dioxide Anion Gap BUN Creatinine Est GFR ( Amer) Est GFR (Non-Af Amer) POC Glucose (mg/dL) Random Glucose Calcium Phosphorus Magnesium Total Bilirubin Direct Bilirubin AST ALT Alkaline Phosphatase Total Protein Albumin Globulin Albumin/Globulin Ratio Arterial Blood Potassium 4.8 Urine Osmolality Ur Random Creatinine Ur Random Sodium 07/10/18 07/10/18 07/10/18 08:50 08:50 10:41 WBC 6.0 RBC 4.57 Hgb 14.4 Hct 41.3 MCV 90.3 MCH 31.5 H MCHC 34.9 RDW 15.4 H Plt Count 44 L Manual Plt Count 42 L MPV 9.0 Neut % (Auto) 87.8 H Lymph % (Auto) 10.2 L [place] % (Auto) 1.6 Eos % (Auto) 0.1 Baso % (Auto) 0.3 Neut # (Auto) 5.3 Lymph # (Auto) 0.6 L [place] # (Auto) 0.1 Eos # (Auto) 0.0 Baso # (Auto) 0.0 Differential Comment PT INR Puncture Site Lf pCO2 25 L pO2 141 H HCO3 23.1 ABG pH 7.50 H ABG Total CO2 20.3 L ABG O2 Saturation 99.1 H ABG Base Excess -2.3 L ABG Hemoglobin 12.1 ABG Carboxyhemoglobin 1.2 POC ABG HHb (Measured) 0.9 ABG Methemoglobin 0.9 [place] Test Na ABG Potassium A-a O2 Difference 113.0 Respiratory Index 0.8 Hgb O2 Saturation 97.0 Sodium 124 L Chloride 86 L Glucose Lactate Vent Mode Mechanical Rate 14 FiO2 40.0 Tidal Volume 470 PEEP 5 Crit Value Called To Crit Value Called By Crit Value Read Back Blood Gas Notified Time Potassium 3.2 L Carbon Dioxide 28 Anion Gap 13 BUN 40 H Creatinine 1.9 H Est GFR ( Amer) 48 Est GFR (Non-Af Amer) 39 POC Glucose (mg/dL) Random Glucose 353 H D Calcium 5.9 L* Phosphorus 3.5 Magnesium 1.6 Total Bilirubin 4.9 H Direct Bilirubin 3.7 H AST 2571 H ALT 624 H D Alkaline Phosphatase 84 Total Protein 4.6 L Albumin 2.6 L Globulin 2.0 L Albumin/Globulin Ratio 1.3 Arterial Blood Potassium Urine Osmolality Ur Random Creatinine Ur Random Sodium 07/10/18 11:33 WBC RBC Hgb Hct MCV MCH MCHC RDW Plt Count Manual Plt Count MPV Neut % (Auto) Lymph % (Auto) [place] % (Auto) Eos % (Auto) Baso % (Auto) Neut # (Auto) Lymph # (Auto) [place] # (Auto) Eos # (Auto) Baso # (Auto) Differential Comment PT INR Puncture Site pCO2 pO2 HCO3 ABG pH ABG Total CO2 ABG O2 Saturation ABG Base Excess ABG Hemoglobin ABG Carboxyhemoglobin POC ABG HHb (Measured) ABG Methemoglobin [place] Test ABG Potassium A-a O2 Difference Respiratory Index Hgb O2 Saturation Sodium Chloride Glucose Lactate Vent Mode Mechanical Rate FiO2 Tidal Volume PEEP Crit Value Called To Crit Value Called By Crit Value Read Back Blood Gas Notified Time Potassium Carbon Dioxide Anion Gap BUN Creatinine Est GFR ( Amer) Est GFR (Non-Af Amer) POC Glucose (mg/dL) 315 H Random Glucose Calcium Phosphorus Magnesium Total Bilirubin Direct Bilirubin AST ALT Alkaline Phosphatase Total Protein Albumin Globulin Albumin/Globulin Ratio Arterial Blood Potassium Urine Osmolality Ur Random Creatinine Ur Random Sodium Radiology Impressions: Radiology Impressions Chest X-Ray 07/10/18 06:00 IMPRESSION: No active pulmonary disease. Satisfactory position of endotracheal tube. Nasogastric tube is coiled in the stomach. Head CT 07/10/18 09:37 IMPRESSION: Unremarkable unenhanced head CT with no significant interval change greater prior CT dated 05/18/2018. Variable sinus disease again evident as discussed above. Attending/Attestation - Attestation I have personally seen and examined this patient.: Yes I have fully participated in the care of the patient.: Yes I have reviewed all pertinent clinical information: Yes Notes (Text): 07/10/18 17:32 Patient seen and examined in the intensive care unit. Case discussed with housestaff in the morning rounds. 42-year-old male with a history of alcohol abuse admitted with seizures and intubated for airway protection Sedated on Diprivan and Precedex Potassium and magnesium supplements Octreotide drip stopped and continue Protonix drip Coffee-ground vomitus but no active bleeding Follow-up H&H Transfuse FFP and vitamin K Monitor platelet count and peripheral smear IV albumin and fluids
--- NOTE | 2018-07-10 17:46 | CP.PCM.PN ---
<Kris Anglin Paco - Last Filed: 07/10/18 17:43> Subjective - Date & Time of Evaluation Date of Evaluation: 07/10/18 Time of Evaluation: 08:30 - Subjective Subjective: Nephrology progress note - Derrek, PGY - 2 Patient seen and examined at bedside, nothing acute overnight. Vasopressin, Dopamine, Protonix, Octretoide, Albumin, Propofol, Precedex. Spoke to the sister this AM regarding renal function, she states her number is on the chart should we need to reach out to her Objective - Vital Signs/Intake and Output Vital Signs (last 24 hours): Temp Pulse Resp BP Pulse Ox 98.1 F 81 15 91/54 L 99 07/10/18 17:00 07/10/18 17:18 07/10/18 17:18 07/10/18 17:18 07/10/18 17:18 Intake and Output: 07/10/18 07/10/18 06:59 18:59 Intake Total 5193.7 2254.5 Output Total 1815 2660 Balance 3378.7 -405.5 - Medications Medications: Current Medications Albumin Human (Albumin Human 25% (12.5 Gm/50 Ml)) 12.5 gm IV Q4H [facility] Stop: 07/11/18 09:01 Last Admin: 07/10/18 13:59 Dose: 12.5 gm Levetiracetam 500 mg/ Dextrose 105 mls @ 420 mls/hr IVPB Q12H [facility] Last Admin: 07/10/18 13:59 Dose: 420 mls/hr Dexmedetomidine HCl 200 mcg/ (Sodium Chloride) 50 mls @ 2.83 mls/hr IV TITR PRN; Protocol PRN Reason: sedation Last Admin: 07/10/18 10:18 Dose: 1.2 mcg/kg/hr, 17.01 mls/hr Propofol (Diprivan) 1,000 mg in 100 mls @ 1.701 mls/hr IV .Q24H PRN; Protocol PRN Reason: TITRATE PER MD ORDER Last Admin: 07/10/18 13:56 Dose: 15 mcg/kg/min, 5.103 mls/hr Dopamine HCl/Dextrose (Dopamine 400mg/250ml D5w) 400 mg in 250 mls @ 5.406 mls/hr IV .Q24H PRN; Protocol PRN Reason: TITRATE PER MD ORDER Last Admin: 07/10/18 10:17 Dose: 6 mcg/kg/min, 16.217 mls/hr Pantoprazole Sodium 80 mg/ (Sodium Chloride) 100 mls @ 10 mls/hr IVPB Q10H [facility] Last Admin: 07/10/18 06:52 Dose: 10 mls/hr Vasopressin 40 units/ Dextrose 40 mls @ 0.6 mls/hr IV .Q24H [facility]; Protocol Last Admin: 07/10/18 13:55 Dose: Not Given Folic Acid 1 mg/ Thiamine HCl 100 mg/ Multivitamins/Vitamin C 10 ml/ Dextrose 1,011.2 mls @ 100 mls/hr IV Q24H [facility] Stop: 07/12/18 21:07 Last Admin: 07/10/18 10:20 Dose: 100 mls/hr Piperacillin Sod/Tazobactam (Sod 2.25 gm/ Sodium Chloride) 100 mls @ 200 mls/hr IVPB Q8H [facility]; Protocol Last Admin: 07/10/18 10:54 Dose: 200 mls/hr Vancomycin HCl 1 gm/ Sodium (Chloride) 250 mls @ 166.7 mls/hr IVPB Q24H [facility]; Protocol Last Admin: 07/10/18 10:19 Dose: 166.7 mls/hr Sodium Chloride (Sodium Chloride 0.9%) 1,000 mls @ 150 mls/hr IV .Q6H40M [facility] Insulin Human Regular (Novolin R) 0 unit SC Q6H [facility]; Protocol Lactulose (Enulose) 20 gm PO BID [facility] Last Admin: 07/10/18 10:21 Dose: 20 gm Thiamine HCl (Vitamin B1 Inj) 100 mg IV DAILY [facility] Last Admin: 07/10/18 10:21 Dose: 100 mg - Labs Labs: 07/10/18 08:50 07/10/18 08:50 PT 34.2 SECONDS (9.7-12.2) H D 07/10/18 06:42 INR 3.1 H* D 07/10/18 06:42 APTT 32 SECONDS (21-34) 07/09/18 06:28 - Constitutional Appears: Well - Head Exam Head Exam: ATRAUMATIC, NORMAL INSPECTION, NORMOCEPHALIC - Eye Exam Eye Exam: EOMI, Normal appearance, PERRL Pupil Exam: NORMAL ACCOMODATION, PERRL - ENT Exam ENT Exam: Mucous Membranes Moist, Normal Exam - Neck Exam Neck Exam: Full ROM, Normal Inspection. absent: Lymphadenopathy - Respiratory Exam Respiratory Exam: Clear to Ausculation Bilateral, NORMAL BREATHING PATTERN - Cardiovascular Exam Cardiovascular Exam: REGULAR RHYTHM, +S1, +S2. absent: Murmur - GI/Abdominal Exam GI & Abdominal Exam: Soft, Normal Bowel Sounds. absent: Tenderness - Extremities Exam Extremities Exam: Full ROM, Normal Capillary Refill, Normal Inspection. absent: Joint Swelling, Pedal Edema - Back Exam Back Exam: NORMAL INSPECTION - Neurological Exam Neurological Exam: Alert, Awake, CN II-XII Intact, Normal Gait, Oriented x3 - Psychiatric Exam Psychiatric exam: Normal Affect, Normal Mood - Skin Skin Exam: Dry, Intact, Normal Color, Warm Assessment and Plan (1) [place]N (acute kidney injury) Assessment & Plan: Likely 2/2 Dehydration/Pre-renal due to alcohol use. Improving - Aggressive fluid hydration with NS @ 150 mls/hr - Avoid nephrotoxic agents Status: Acute (2) Respiratory alkalosis Assessment & Plan: Likely 2/2 overcompensation with increased tidal volume - Decrease RR on vent, decrease TV - Stop bicarb drip Status: Acute (3) High anion gap metabolic acidosis Assessment & Plan: Resolved Status: Acute (4) Hyponatremia Assessment & Plan: Likely 2/2 [place], hypovolemia. When corrected for hyperglycemia, is improving - Continue NS at 150 mls/hr Status: Acute (5) Uncontrolled diabetes mellitus Assessment & Plan: - Achieve good glycemic control Status: Acute <Reinier Friedman - Last Filed: 07/11/18 07:44> Objective - Vital Signs/Intake and Output Vital Signs (last 24 hours): Temp Pulse Resp BP Pulse Ox 98.1 F 89 24 122/76 100 07/11/18 05:00 07/11/18 07:04 07/11/18 07:04 07/11/18 07:04 07/11/18 07:04 Intake and Output: 07/11/18 07/11/18 06:59 18:59 Intake Total 2025.8 25.6 Output Total 1405 150 Balance 620.8 -124.4 - Medications Medications: Current Medications Acetazolamide (Diamox 250 Mg Tab) 250 mg PO BID [facility] Albumin Human (Albumin Human 25% (12.5 Gm/50 Ml)) 12.5 gm IV Q4H [facility] Stop: 07/11/18 09:01 Last Admin: 07/11/18 05:06 Dose: 12.5 gm Levetiracetam 500 mg/ Dextrose 105 mls @ 420 mls/hr IVPB Q12H [facility] Last Admin: 07/11/18 01:41 Dose: 420 mls/hr Dexmedetomidine HCl 200 mcg/ (Sodium Chloride) 50 mls @ 2.83 mls/hr IV TITR PRN; Protocol PRN Reason: sedation Last Admin: 07/10/18 10:18 Dose: 1.2 mcg/kg/hr, 17.01 mls/hr Propofol (Diprivan) 1,000 mg in 100 mls @ 1.701 mls/hr IV .Q24H PRN; Protocol PRN Reason: TITRATE PER MD ORDER Last Admin: 07/11/18 01:38 Dose: 40 mcg/kg/min, 13.608 mls/hr Dopamine HCl/Dextrose (Dopamine 400mg/250ml D5w) 400 mg in 250 mls @ 5.406 mls/hr IV .Q24H PRN; Protocol PRN Reason: TITRATE PER MD ORDER Last Admin: 07/10/18 10:17 Dose: 6 mcg/kg/min, 16.217 mls/hr Vasopressin 40 units/ Dextrose 40 mls @ 0.6 mls/hr IV .Q24H [facility]; Protocol Last Titration: 07/11/18 02:00 Dose: 0.03 units/min, 1.8 mls/hr Folic Acid 1 mg/ Thiamine HCl 100 mg/ Multivitamins/Vitamin C 10 ml/ Dextrose 1,011.2 mls @ 100 mls/hr IV Q24H [facility] Stop: 07/12/18 21:07 Last Admin: 07/10/18 10:20 Dose: 100 mls/hr Piperacillin Sod/Tazobactam (Sod 2.25 gm/ Sodium Chloride) 100 mls @ 200 mls/hr IVPB Q8H [facility]; Protocol Last Admin: 07/11/18 02:52 Dose: 200 mls/hr Vancomycin HCl 1 gm/ Sodium (Chloride) 250 mls @ 166.7 mls/hr IVPB Q24H [facility]; Protocol Last Admin: 07/10/18 10:19 Dose: 166.7 mls/hr Sodium Chloride (Sodium Chloride 0.9%) 1,000 mls @ 150 mls/hr IV .Q6H40M [facility] Last Admin: 07/10/18 19:01 Dose: Not Given Potassium Chloride (Potassium Chloride 20 Meq/100 Ml) 20 meq in 100 mls @ 50 mls/hr IVPB Q2H [facility] Stop: 07/11/18 17:14 Last Admin: 07/11/18 07:28 Dose: 50 mls/hr Potassium Phosphate 15 mmole/ (Dextrose) 255 mls @ 42.5 mls/hr IVPB ONCE ONE Stop: 07/11/18 13:59 Insulin Human Regular (Novolin R) 0 unit SC Q6H [facility]; Protocol Last Admin: 07/11/18 06:44 Dose: 4 u Lactulose (Enulose) 20 gm PO BID [facility] Last Admin: 07/10/18 18:23 Dose: 20 gm Thiamine HCl (Vitamin B1 Inj) 100 mg IV DAILY [facility] Last Admin: 07/10/18 10:21 Dose: 100 mg - Labs Labs: 07/11/18 06:07 07/11/18 06:04 PT 18.4 SECONDS (9.7-12.2) H D 07/11/18 06:07 INR 1.7 D 07/11/18 06:07 APTT 40 SECONDS (21-34) H D 07/11/18 06:07 Attending/Attestation - Attestation I have personally seen and examined this patient.: Yes I have fully participated in the care of the patient.: Yes I have reviewed all pertinent clinical information, including history, physical exam and plan: Yes Notes (Text): Patient seen and examined; I agree with the resident's note as above with the following additions/edits: 42 yo M w/ pmh of ETOH abuse, h/o seizure, ? dm, htn, admitted with hemorrhagic shock, nephrology following for acute renal failure; Renal function improving with volume repletion; patient still on vasopressor support; lactic acidosis much improved, bicarb drip stopped, but now with acute liver failure; Hyponatremia worsening; urine osm elevated consistent with volume depletion; will increase IV albumin 12.5 g to q4h to give adequate volume repletion with 1g/kg over 24 hrs; if no improvement, may need hypertonic saline;
--- NOTE | 2018-07-10 18:04 | CP.PCM.PN ---
Subjective - Date & Time of Evaluation Date of Evaluation: 07/10/18 Time of Evaluation: 12:30 - Subjective Subjective: clinically same Objective - Vital Signs/Intake and Output Vital Signs (last 24 hours): Temp Pulse Resp BP Pulse Ox 98.1 F 81 15 91/54 L 99 07/10/18 17:00 07/10/18 17:18 07/10/18 17:18 07/10/18 17:18 07/10/18 17:18 Intake and Output: 07/10/18 07/10/18 06:59 18:59 Intake Total 5193.7 2254.5 Output Total 1815 2660 Balance 3378.7 -405.5 - Medications Medications: Current Medications Albumin Human (Albumin Human 25% (12.5 Gm/50 Ml)) 12.5 gm IV Q4H [facility] Stop: 07/11/18 09:01 Last Admin: 07/10/18 13:59 Dose: 12.5 gm Levetiracetam 500 mg/ Dextrose 105 mls @ 420 mls/hr IVPB Q12H [facility] Last Admin: 07/10/18 13:59 Dose: 420 mls/hr Dexmedetomidine HCl 200 mcg/ (Sodium Chloride) 50 mls @ 2.83 mls/hr IV TITR PRN; Protocol PRN Reason: sedation Last Admin: 07/10/18 10:18 Dose: 1.2 mcg/kg/hr, 17.01 mls/hr Propofol (Diprivan) 1,000 mg in 100 mls @ 1.701 mls/hr IV .Q24H PRN; Protocol PRN Reason: TITRATE PER MD ORDER Last Admin: 07/10/18 13:56 Dose: 15 mcg/kg/min, 5.103 mls/hr Dopamine HCl/Dextrose (Dopamine 400mg/250ml D5w) 400 mg in 250 mls @ 5.406 ml s/hr IV .Q24H PRN; Protocol PRN Reason: TITRATE PER MD ORDER Last Admin: 07/10/18 10:17 Dose: 6 mcg/kg/min, 16.217 mls/hr Pantoprazole Sodium 80 mg/ (Sodium Chloride) 100 mls @ 10 mls/hr IVPB Q10H [facility] Last Admin: 07/10/18 06:52 Dose: 10 mls/hr Vasopressin 40 units/ Dextrose 40 mls @ 0.6 mls/hr IV .Q24H [facility]; Protocol Last Admin: 07/10/18 13:55 Dose: Not Given Folic Acid 1 mg/ Thiamine HCl 100 mg/ Multivitamins/Vitamin C 10 ml/ Dextrose 1,011.2 mls @ 100 mls/hr IV Q24H [facility] Stop: 07/12/18 21:07 Last Admin: 07/10/18 10:20 Dose: 100 mls/hr Piperacillin Sod/Tazobactam (Sod 2.25 gm/ Sodium Chloride) 100 mls @ 200 mls/hr IVPB Q8H [facility]; Protocol Last Admin: 07/10/18 10:54 Dose: 200 mls/hr Vancomycin HCl 1 gm/ Sodium (Chloride) 250 mls @ 166.7 mls/hr IVPB Q24H [facility]; Protocol Last Admin: 07/10/18 10:19 Dose: 166.7 mls/hr Sodium Chloride (Sodium Chloride 0.9%) 1,000 mls @ 150 mls/hr IV .Q6H40M [facility] Insulin Human Regular (Novolin R) 0 unit SC Q6H [facility]; Protocol Lactulose (Enulose) 20 gm PO BID [facility] Last Admin: 07/10/18 10:21 Dose: 20 gm Thiamine HCl (Vitamin B1 Inj) 100 mg IV DAILY [facility] Last Admin: 07/10/18 10:21 Dose: 100 mg - Labs Labs: 07/10/18 08:50 07/10/18 08:50 PT 34.2 SECONDS (9.7-12.2) H D 07/10/18 06:42 INR 3.1 H* D 07/10/18 06:42 APTT 32 SECONDS (21-34) 07/09/18 06:28
[2018-07-10] MEDS ORDERED: Lactulose 10 gm/15 ml (Rectal Use) PR ONE (18:15)
[2018-07-10] MEDS: (Novolin R) Insulin Human Regular 100 units/ml vial SC SCH (18:24)
[2018-07-10 19:04] LABS: ALB/GLOB RATIO 1.5 (1.0-2.1); ALBUMIN 3.1 g/dL (3.5-5.0); ALT/SGPT 451 U/L (21-72); BLOOD UREA NITROGEN 31 mg/dL (9-20); CALCIUM 6.9 mg/dl (8.6-10.4); GFR NON-AFRICAN AMERICAN > 60
[2018-07-10 19:26] LABS: AST/SGOT 1269 U/L (17-59)
--- NOTE | 2018-07-10 21:36 | CP.PCM.PN ---
Subjective - Date & Time of Evaluation Date of Evaluation: 07/10/18 Time of Evaluation: 07:00 - Subjective Subjective: dictated Objective - Vital Signs/Intake and Output Vital Signs (last 24 hours): Temp Pulse Resp BP Pulse Ox 98.1 F 84 18 111/68 100 07/10/18 17:00 07/10/18 20:18 07/10/18 20:18 07/10/18 21:05 07/10/18 20:18 Intake and Output: 07/10/18 07/11/18 18:59 06:59 Intake Total 2407.4 279.6 Output Total 2860 275 Balance -452.6 4.6 - Medications Medications: Current Medications Albumin Human (Albumin Human 25% (12.5 Gm/50 Ml)) 12.5 gm IV Q4H [facility] Stop: 07/11/18 09:01 Last Admin: 07/10/18 21:08 Dose: 12.5 gm Levetiracetam 500 mg/ Dextrose 105 mls @ 420 mls/hr IVPB Q12H [facility] Last Admin: 07/10/18 13:59 Dose: 420 mls/hr Dexmedetomidine HCl 200 mcg/ (Sodium Chloride) 50 mls @ 2.83 mls/hr IV TITR PRN; Protocol PRN Reason: sedation Last Admin: 07/10/18 10:18 Dose: 1.2 mcg/kg/hr, 17.01 mls/hr Propofol (Diprivan) 1,000 mg in 100 mls @ 1.701 mls/hr IV .Q24H PRN; Protocol PRN Reason: TITRATE PER MD ORDER Last Admin: 07/10/18 18:23 Dose: 15 mcg/kg/min, 5.103 mls/hr Dopamine HCl/Dextrose (Dopamine 400mg/250ml D5w) 400 mg in 250 mls @ 5.406 mls/hr IV .Q24H PRN; Protocol PRN Reason: TITRATE PER MD ORDER Last Admin: 07/10/18 10:17 Dose: 6 mcg/kg/min, 16.217 mls/hr Pantoprazole Sodium 80 mg/ (Sodium Chloride) 100 mls @ 10 mls/hr IVPB Q10H [facility] Last Admin: 07/10/18 18:22 Dose: 10 mls/hr Vasopressin 40 units/ Dextrose 40 mls @ 0.6 mls/hr IV .Q24H [facility]; Protocol Last Admin: 07/10/18 21:05 Dose: 0.03 units/min, 1.8 mls/hr Folic Acid 1 mg/ Thiamine HCl 100 mg/ Multivitamins/Vitamin C 10 ml/ Dextrose 1,011.2 mls @ 100 mls/hr IV Q24H [facility] Stop: 07/12/18 21:07 Last Admin: 07/10/18 10:20 Dose: 100 mls/hr Piperacillin Sod/Tazobactam (Sod 2.25 gm/ Sodium Chloride) 100 mls @ 200 mls/hr IVPB Q8H [facility]; Protocol Last Admin: 07/10/18 18:23 Dose: 200 mls/hr Vancomycin HCl 1 gm/ Sodium (Chloride) 250 mls @ 166.7 mls/hr IVPB Q24H [facility]; Protocol Last Admin: 07/10/18 10:19 Dose: 166.7 mls/hr Sodium Chloride (Sodium Chloride 0.9%) 1,000 mls @ 150 mls/hr IV .Q6H40M [facility] Last Admin: 07/10/18 19:01 Dose: Not Given Insulin Human Regular (Novolin R) 0 unit SC Q6H [facility]; Protocol Last Admin: 07/10/18 18:24 Dose: 6 u Lactulose (Enulose) 20 gm PO BID [facility] Last Admin: 07/10/18 18:23 Dose: 20 gm Thiamine HCl (Vitamin B1 Inj) 100 mg IV DAILY [facility] Last Admin: 07/10/18 10:21 Dose: 100 mg - Labs Labs: 07/10/18 08:50 07/10/18 18:44 PT 34.2 SECONDS (9.7-12.2) H D 07/10/18 06:42 INR 3.1 H* D 07/10/18 06:42 APTT 32 SECONDS (21-34) 07/09/18 06:28
[2018-07-11] MEDS: (Novolin R) Insulin Human Regular 100 units/ml vial SC SCH ×4 (00:12→17:44)
--- NOTE | 2018-07-11 01:31 | PN ---
DATE: 07/10/2018 SUBJECTIVE: The patient is orally intubated and sedated. He has of urine overnight and there is suctioning of 400 mL of coffee-ground from the orogastric tube. PHYSICAL EXAMINATION: VITAL SIGNS: Blood pressure is 96/63, pulse 83, respiratory rate 19, and temperature 98. LUNGS: Bilateral transmitted breath sounds. CARDIOVASCULAR: S1 and S2, regular. ABDOMEN: Soft. ASSESSMENT: 1. Gastrointestinal bleed, on medical management. 2. Respiratory failure, on ventilator. 3. Hypokalemia. 4. Hyponatremia. PLAN: Continue IV fluids. Monitor the patient. James Bello MD
[2018-07-11] MEDS: Propofol 10 mg/ml 1,000 MG/100 ML VIAL IV PRN ×4 (01:38→18:43)
[2018-07-11] MEDS: Albumin Human 25% (12.5 gm/50 ml) IV SCH ×3 (01:40→08:59)
[2018-07-11] MEDS: Piperacillin/Tazobact 2.25 GM in Sodium Chloride 100 ML IVPB SCH ×2 (02:52→10:37)
[2018-07-11] MEDS: Pantoprazole 80 MG in Sodium Chloride 0.9% 100 ML IVPB SCH (03:52)
[2018-07-11 05:36] LABS: ABG ALLEN TEST POS; ARTERIAL BLOOD GAS HCO3 29.6 mmol/L (21-28); ARTERIAL BLOOD GAS O2 SAT 99.1 % (95-98); ARTERIAL BLOOD GAS PCO2 31 mm/Hg (35-45); ARTERIAL BLOOD GAS PH 7.56 (7.35-7.45); ARTERIAL BLOOD GAS PO2 131 mm/Hg (80-100); ARTERIAL BLOOD GAS TCO2 28.8 mmol/L (22-28)
[2018-07-11 06:18] LABS: BASO % 0.3 % (0.0-2.0); EOS # 0.1 K/uL (0.0-0.7); EOS % 1.2 % (0.0-4.0); LYMPH # 0.4 K/uL (1.0-4.3); LYMPH % 9.5 % (20.0-40.0); MEAN CELL VOLUME 90.3 fL (80.0-94.0); MEAN CORPUSCULAR HEMOGLOBIN 31.6 pg (27.0-31.0); MEAN PLATELET VOLUME 8.2 fL (7.2-11.7); MONO # 0.1 K/uL (0.0-0.8); MONO % 2.9 % (0.0-10.0); NEUT # 3.6 K/uL (1.8-7.0); NEUT % 86.1 % (50.0-75.0); WHITE BLOOD COUNT 4.1 K/uL (4.8-10.8)
[2018-07-11 06:29] LABS: INR 1.7; PROTHROMBIN TIME 18.4 SECONDS (9.7-12.2)
[2018-07-11 06:36] LABS: PLATELET COUNT 23 K/uL (130-400)
[2018-07-11 06:40] LABS: ALB/GLOB RATIO 1.6 (1.0-2.1); ALBUMIN 3.5 g/dL (3.5-5.0); ALT/SGPT 377 U/L (21-72); AST/SGOT 694 U/L (17-59); BLOOD UREA NITROGEN 23 mg/dL (9-20); CALCIUM 7.3 mg/dl (8.6-10.4); GFR NON-AFRICAN AMERICAN > 60; LIPASE 1173 U/L (23-300)
--- NOTE | 2018-07-11 07:55 | CP.CCUPN ---
<Nicko Fleming - Last Filed: 07/11/18 13:57> CCU Subjective - Physician Review Subjective (Free Text): Nicko Fleming DO, PGY-2: ICU Progress Note for Dr. Stewart Patient seen and examined at bedside. Patient is intubated and sedated. TV was lowered from 470 to 420. His urine output was 4.3 L yesterday. Nurse reports OG suction overnight was not dark in color, but had a pink tinge. Otherwise, patient is maintaining blood pressure well on low dose dopamine and vasopressin. We will correct his K. 07/10/18 13:56 07/11/18 07:52 07/11/18 07:52 07/11/18 07:58 07/11/18 13:57 CCU Objective - Vital Signs / Intake & Output Vital Signs (Last 4 hours): Vital Signs Temp Pulse Resp BP Pulse Ox 07/11/18 07:04 89 24 122/76 100 07/11/18 07:00 93 H 26 H 100 07/11/18 06:04 89 22 115/79 100 07/11/18 06:00 93 H 24 100 07/11/18 05:04 95 H 23 119/74 100 07/11/18 05:00 98.1 F 98 H 29 H 100 07/11/18 04:04 99 H 24 113/69 99 07/11/18 04:00 90 22 99 Intake and Output (Last 8hrs): Intake & Output 07/10/18 07/11/18 07/11/18 22:59 06:59 14:59 Intake Total 1226.8 1110.6 25.6 Output Total 1275 930 150 Balance -48.2 180.6 -124.4 Weight 160 lb Intake: IV 131 106 Intake, IV Amount 1095.8 1004.6 25.6 LEFT FA 1ST PORT 250 LEFT FA 2ND PORT 455.4 50 Right Antecubital 108.8 126.8 16.1 Right Distal Port Femoral 19.2 16.2 1.8 Right Medial Port Femoral 112.4 61.6 7.7 Right Proximal Port 400 500 Femoral Output: Urine 1275 930 150 Urethral (Paulson) 1275 930 150 Other: # Bowel Movements 0 0 - Physical Exam Head: Positive for: Atraumatic, Normocephalic Conjunctiva: Positive for: Normal Mouth: Positive for: Moist Mucous Membranes Respiratory/Chest: Positive for: Clear to Auscultation. Negative for: Wheezes Cardiovascular: Positive for: Regular Rate and Rhythm, Normal S1, S2 Abdomen: Positive for: Normal Bowel Sounds. Negative for: Tenderness, Dis tention Upper Extremity: Positive for: Normal Inspection. Negative for: Edema Lower Extremity: Positive for: Normal Inspection. Negative for: Edema Neurological: Positive for: Other (patient is sedated) Skin: Positive for: Warm, Dry, Normal Color - Medications Active Medications: Active Medications Generic Name Dose Route Start Last Admin Trade Name Freq PRN Reason Stop Dose Admin Acetazolamide 250 mg 07/11/18 10:00 Diamox 250 Mg Tab PO BID ALVARADO Albumin Human 12.5 gm 07/10/18 13:00 07/11/18 05:06 Albumin Human 25% (12.5 Gm/50 Ml) IV 07/11/18 09:01 12.5 gm Q4H ALVARADO Administration Levetiracetam 500 mg/ Dextrose 105 mls @ 420 mls/hr 07/09/18 01:45 07/11/18 01:41 IVPB 420 mls/hr Q12H ALVARADO Administration Dexmedetomidine HCl 200 mcg/ 50 mls @ 2.83 mls/hr 07/09/18 01:34 07/10/18 10:18 Sodium Chloride IV 1.2 mcg/kg/hr TITR PRN 17.01 mls/hr sedation Administration Protocol 0.2 MCG/KG/HR Propofol 1,000 mg in 100 mls @ 1.701 mls/hr 07/09/18 05:07 07/11/18 01:38 Diprivan IV 40 mcg/kg/min .Q24H PRN 13.608 mls/hr TITRATE PER MD ORDER Administration Protocol 5 MCG/KG/MIN Dopamine HCl/Dextrose 400 mg in 250 mls @ 5.406 mls/hr 07/09/18 10:00 07/10/18 10:17 Dopamine 400mg/250ml D5w IV 6 mcg/kg/min .Q24H PRN 16.217 mls/hr TITRATE PER MD ORDER Administration Protocol 2 MCG/KG/MIN Vasopressin 40 units/ Dextrose 40 mls @ 0.6 mls/hr 07/09/18 11:00 07/11/18 02:00 IV 0.03 units/min .Q24H ALVARADO 1.8 mls/hr Titration Protocol 0.01 UNITS/MIN Folic Acid 1 mg/ Thiamine HCl 1,011.2 mls @ 100 mls/hr 07/10/18 11:00 07/10/18 10:20 100 mg/ Multivitamins/Vitamin IV 07/12/18 21:07 100 mls/hr C 10 ml/ Dextrose Q24H ALVARADO Administration Piperacillin Sod/Tazobactam 100 mls @ 200 mls/hr 07/10/18 10:30 07/11/18 02:52 Sod 2.25 gm/ Sodium Chloride IVPB 200 mls/hr Q8H ALVARADO Administration Protocol Vancomycin HCl 1 gm/ Sodium 250 mls @ 166.7 mls/hr 07/10/18 11:00 07/10/18 10:19 Chloride IVPB 166.7 mls/hr Q24H ALVARADO Administration Protocol Sodium Chloride 1,000 mls @ 150 mls/hr 07/10/18 17:45 07/10/18 19:01 Sodium Chloride 0.9% IV Not Given .Q6H40M ALVARADO Potassium Chloride 20 meq in 100 mls @ 50 mls/hr 07/11/18 07:15 07/11/18 07:28 Potassium Chloride 20 Meq/100 Ml IVPB 07/11/18 17:14 50 mls/hr Q2H ALVARADO Administration Potassium Phosphate 15 mmole/ 255 mls @ 42.5 mls/hr 07/11/18 08:00 07/11/18 07:45 Dextrose IVPB 07/11/18 13:59 42.5 mls/hr ONCE ONE Administration Insulin Human Regular 0 unit 07/10/18 18:00 07/11/18 06:44 Novolin R SC 4 u Q6H ALVARADO Administration Protocol Lactulose 20 gm 07/09/18 10:00 07/10/18 18:23 Enulose PO 20 gm BID ALVARADO Administration Thiamine HCl 100 mg 07/09/18 10:00 07/10/18 10:21 Vitamin B1 Inj IV 100 mg DAILY ALVARADO Administration - Patient Studies Lab Studies: Microbiology Studies 07/09/18 08:09 MRSA Culture (Admit) - Final Nose MRSA NOT DETECTED 07/09/18 09:04 S.aureus & Coag-Neg Staph PNA FISH - Preliminary Blood Blood Culture - Preliminary Gram Positive Cocci Gram Stain - Final 07/09/18 09:04 Blood Culture - Preliminary Blood NO GROWTH AFTER 24 HOURS 07/08/18 08:09 Urine Culture - Final Urine,Catheterized No Growth (<1,000 CFU/ML) Lab Studies 07/11/18 07/11/18 07/11/18 Range/Units 06:07 06:07 06:04 WBC 4.1 L (4.8-10.8) K/uL RBC 3.80 L (4.40-5.90) Mil/uL Hgb 12.0 D (12.0-18.0) g/dL Hct 34.3 L (35.0-51.0) % MCV 90.3 (80.0-94.0) fL MCH 31.6 H (27.0-31.0) pg MCHC 35.0 (33.0-37.0) g/dL RDW 15.0 H (11.5-14.5) % Plt Count 23 L* D (130-400) K/uL Manual Plt Count (130-400) K/uL MPV 8.2 (7.2-11.7) fL Neut % (Auto) 86.1 H (50.0-75.0) % Lymph % (Auto) 9.5 L (20.0-40.0) % Fajardo % (Auto) 2.9 (0.0-10.0) % Eos % (Auto) 1.2 (0.0-4.0) % Baso % (Auto) 0.3 (0.0-2.0) % Neut # (Auto) 3.6 (1.8-7.0) K/uL Lymph # (Auto) 0.4 L (1.0-4.3) K/uL Fajardo # (Auto) 0.1 (0.0-0.8) K/uL Eos # (Auto) 0.1 (0.0-0.7) K/uL Baso # (Auto) 0.0 (0.0-0.2) K/uL Differential Comment PT 18.4 H D (9.7-12.2) SECONDS INR 1.7 D APTT 40 H D (21-34) SECONDS Puncture Site pCO2 (35-45) mm/Hg pO2 (80-100) mm/Hg HCO3 (21-28) mmol/L ABG pH (7.35-7.45) ABG Total CO2 (22-28) mmol/L ABG O2 Saturation (95-98) % ABG Base Excess (-2.0-3.0) mmol/L ABG Hemoglobin (11.7-17.4) g/dL ABG Carboxyhemoglobin (0.5-1.5) % POC ABG HHb (Measured) (0.0-5.0) % ABG Methemoglobin (0.0-3.0) % Constantine Test ABG Potassium (3.6-5.2) mmol/L A-a O2 Difference mm/Hg Respiratory Index Hgb O2 Saturation (95.0-98.0) % Glucose (75-110) mg/dl Lactate (0.7-2.1) mmol/L Vent Mode Mechanical Rate FiO2 % Tidal Volume PEEP Crit Value Called To Crit Value Called By Crit Value Read Back Blood Gas Notified Time Sodium (132-148) mmol/L Potassium (3.6-5.2) mmol/L Chloride (98-107) mmol/L Carbon Dioxide (22-30) mmol/L Anion Gap (10-20) BUN (9-20) mg/dL Creatinine (0.8-1.5) mg/dL Est GFR ( Amer) Est GFR (Non-Af Amer) POC Glucose (mg/dL) (65-110) mg/dL Random Glucose (75-110) mg/dL Calcium (8.6-10.4) mg/dl Phosphorus (2.5-4.5) mg/dL Magnesium (1.6-2.3) mg/dL Total Bilirubin (0.2-1.3) mg/dL Direct Bilirubin (0.0-0.4) mg/dL AST (17-59) U/L ALT (21-72) U/L Alkaline Phosphatase (38-126) U/L Ammonia 25 D (9-33) umol/L Total Protein (6.3-8.3) g/dL Albumin (3.5-5.0) g/dL Globulin (2.2-3.9) gm/dL Albumin/Globulin Ratio (1.0-2.1) Lipase (23-300) U/L Arterial Blood Potassium (3.6-5.2) mmol/L 07/11/18 07/11/18 07/10/18 Range/Units 06:04 05:17 23:38 WBC (4.8-10.8) K/uL RBC (4.40-5.90) Mil/uL Hgb (12.0-18.0) g/dL Hct (35.0-51.0) % MCV (80.0-94.0) fL MCH (27.0-31.0) pg MCHC (33.0-37.0) g/dL RDW (11.5-14.5) % Plt Count (130-400) K/uL Manual Plt Count (130-400) K/uL MPV (7.2-11.7) fL Neut % (Auto) (50.0-75.0) % Lymph % (Auto) (20.0-40.0) % F[place]ardo % (Auto) (0.0-10.0) % Eos % (Auto) (0.0-4.0) % Baso % (Auto) (0.0-2.0) % Neut # (Auto) (1.8-7.0) K/uL Lymph # (Auto) (1.0-4.3) K/uL F[place]ardo # (Auto) (0.0-0.8) K/uL Eos # (Auto) (0.0-0.7) K/uL Baso # (Auto) (0.0-0.2) K/uL Differential Comment PT (9.7-12.2) SECONDS INR APTT (21-34) SECONDS Puncture Site L rad pCO2 31 L (35-45) mm/Hg pO2 131 H (80-100) mm/Hg HCO3 29.6 H (21-28) mmol/L ABG pH 7.56 H (7.35-7.45) ABG Total CO2 28.8 H (22-28) mmol/L ABG O2 Saturation 99.1 H (95-98) % ABG Base Excess 5.9 H (-2.0-3.0) mmol/L ABG Hemoglobin (11.7-17.4) g/dL ABG Carboxyhemoglobin (0.5-1.5) % POC ABG HHb (Measured) (0.0-5.0) % ABG Methemoglobin (0.0-3.0) % Constantine Test Pos ABG Potassium 2.3 L* (3.6-5.2) mmol/L A-a O2 Difference 115.0 mm/Hg Respiratory Index 0.9 Hgb O2 Saturation (95.0-98.0) % Glucose 265 H (75-110) mg/dl Lactate 1.6 (0.7-2.1) mmol/L Vent Mode Prvc Mechanical Rate 12 FiO2 40.0 % Tidal Volume 470 PEEP 5 Crit Value Called To [facility] agricultural real estate agent Crit Value Called By Sagrario fournier rt Crit Value Read Back Y Blood Gas Notified Time 536 Sodium 128 L 129.0 L (132-148) mmol/L Potassium 2.5 L* D (3.6-5.2) mmol/L Chloride 90 L 95.0 L (98-107) mmol/L Carbon Dioxide 28 (22-30) mmol/L Anion Gap 12 (10-20) BUN 23 H (9-20) mg/dL Creatinine 0.9 (0.8-1.5) mg/dL Est GFR ( Amer) > 60 Est GFR (Non-Af Amer) > 60 POC Glucose (mg/dL) 347 H (65-110) mg/dL Random Glucose 262 H D (75-110) mg/dL Calcium 7.3 L (8.6-10.4) mg/dl Phosphorus 1.9 L (2.5-4.5) mg/dL Magnesium 2.2 (1.6-2.3) mg/dL Total Bilirubin 5.0 H (0.2-1.3) mg/dL Direct Bilirubin (0.0-0.4) mg/dL AST 694 H D (17-59) U/L ALT 377 H (21-72) U/L Alkaline Phosphatase 70 (38-126) U/L Ammonia (9-33) umol/L Total Protein 5.6 L (6.3-8.3) g/dL Albumin 3.5 (3.5-5.0) g/dL Globulin 2.2 (2.2-3.9) gm/dL Albumin/Globulin Ratio 1.6 (1.0-2.1) Lipase 1173 H (23-300) U/L Arterial Blood Potassium 2.3 L* (3.6-5.2) mmol/L 07/10/18 07/10/18 07/10/18 Range/Units 18:44 18:44 18:03 WBC (4.8-10.8) K/uL RBC (4.40-5.90) Mil/uL Hgb (12.0-18.0) g/dL Hct (35.0-51.0) % MCV (80.0-94.0) fL MCH (27.0-31.0) pg MCHC (33.0-37.0) g/dL RDW (11.5-14.5) % Plt Count (130-400) K/uL Manual Plt Count (130-400) K/uL MPV (7.2-11.7) fL Neut % (Auto) (50.0-75.0) % Lymph % (Auto) (20.0-40.0) % F[place]ardo % (Auto) (0.0-10.0) % Eos % (Auto) (0.0-4.0) % Baso % (Auto) (0.0-2.0) % Neut # (Auto) (1.8-7.0) K/uL Lymph # (Auto) (1.0-4.3) K/uL F[place]ardo # (Auto) (0.0-0.8) K/uL Eos # (Auto) (0.0-0.7) K/uL Baso # (Auto) (0.0-0.2) K/uL Differential Comment PT (9.7-12.2) SECONDS INR APTT (21-34) SECONDS Puncture Site pCO2 (35-45) mm/Hg pO2 (80-100) mm/Hg HCO3 (21-28) mmol/L ABG pH (7.35-7.45) ABG Total CO2 (22-28) mmol/L ABG O2 Saturation (95-98) % ABG Base Excess (-2.0-3.0) mmol/L ABG Hemoglobin (11.7-17.4) g/dL ABG Carboxyhemoglobin (0.5-1.5) % POC ABG HHb (Measured) (0.0-5.0) % ABG Methemoglobin (0.0-3.0) % Constantine Test ABG Potassium (3.6-5.2) mmol/L A-a O2 Difference mm/Hg Respiratory Index Hgb O2 Saturation (95.0-98.0) % Glucose (75-110) mg/dl Lactate (0.7-2.1) mmol/L Vent Mode Mechanical Rate FiO2 % Tidal Volume PEEP Crit Value Called To Crit Value Called By Crit Value Read Back Blood Gas Notified Time Sodium 125 L (132-148) mmol/L Potassium 3.2 L (3.6-5.2) mmol/L Chloride 87 L (98-107) mmol/L Carbon Dioxide 29 (22-30) mmol/L Anion Gap 12 (10-20) BUN 31 H (9-20) mg/dL Creatinine 1.3 (0.8-1.5) mg/dL Est GFR ( Amer) > 60 Est GFR (Non-Af Amer) > 60 POC Glucose (mg/dL) 333 H (65-110) mg/dL Random Glucose 374 H (75-110) mg/dL Calcium 6.9 L (8.6-10.4) mg/dl Phosphorus (2.5-4.5) mg/dL Magnesium (1.6-2.3) mg/dL Total Bilirubin 4.9 H (0.2-1.3) mg/dL Direct Bilirubin (0.0-0.4) mg/dL AST 1269 H (17-59) U/L ALT 451 H D (21-72) U/L Alkaline Phosphatase 78 (38-126) U/L Ammonia < 9 L (9-33) umol/L Total Protein 5.2 L (6.3-8.3) g/dL Albumin 3.1 L (3.5-5.0) g/dL Globulin 2.1 L (2.2-3.9) gm/dL Albumin/Globulin Ratio 1.5 (1.0-2.1) Lipase (23-300) U/L Arterial Blood Potassium (3.6-5.2) mmol/L 07/10/18 07/10/18 07/10/18 Range/Units 11:33 10:41 08:50 WBC (4.8-10.8) K/uL RBC (4.40-5.90) Mil/uL Hgb (12.0-18.0) g/dL Hct (35.0-51.0) % MCV (80.0-94.0) fL MCH (27.0-31.0) pg MCHC (33.0-37.0) g/dL RDW (11.5-14.5) % Plt Count (130-400) K/uL Manual Plt Count (130-400) K/uL MPV (7.2-11.7) fL Neut % (Auto) (50.0-75.0) % Lymph % (Auto) (20.0-40.0) % Fajardo % (Auto) (0.0-10.0) % Eos % (Auto) (0.0-4.0) % Baso % (Auto) (0.0-2.0) % Neut # (Auto) (1.8-7.0) K/uL Lymph # (Auto) (1.0-4.3) K/uL F[place]ardo # (Auto) (0.0-0.8) K/uL Eos # (Auto) (0.0-0.7) K/uL Baso # (Auto) (0.0-0.2) K/uL Differential Comment PT (9.7-12.2) SECONDS INR APTT (21-34) SECONDS Puncture Site Lf pCO2 25 L (35-45) mm/Hg pO2 141 H (80-100) mm/Hg HCO3 23.1 (21-28) mmol/L ABG pH 7.50 H (7.35-7.45) ABG Total CO2 20.3 L (22-28) mmol/L ABG O2 Saturation 99.1 H (95-98) % ABG Base Excess -2.3 L (-2.0-3.0) mmol/L ABG Hemoglobin 12.1 (11.7-17.4) g/dL ABG Carboxyhemoglobin 1.2 (0.5-1.5) % POC ABG HHb (Measured) 0.9 (0.0-5.0) % ABG Methemoglobin 0.9 (0.0-3.0) % Constantine Test Na ABG Potassium (3.6-5.2) mmol/L A-a O2 Difference 113.0 mm/Hg Respiratory Index 0.8 Hgb O2 Saturation 97.0 (95.0-98.0) % Glucose (75-110) mg/dl Lactate (0.7-2.1) mmol/L Vent Mode Mechanical Rate 14 FiO2 40.0 % Tidal Volume 470 PEEP 5 Crit Value Called To Crit Value Called By Crit Value Read Back Blood Gas Notified Time Sodium 124 L (132-148) mmol/L Potassium 3.2 L (3.6-5.2) mmol/L Chloride 86 L (98-107) mmol/L Carbon Dioxide 28 (22-30) mmol/L Anion Gap 13 (10-20) BUN 40 H (9-20) mg/dL Creatinine 1.9 H (0.8-1.5) mg/dL Est GFR ( Amer) 48 Est GFR (Non-Af Amer) 39 POC Glucose (mg/dL) 315 H (65-110) mg/dL Random Glucose 353 H D (75-110) mg/dL Calcium 5.9 L* (8.6-10.4) mg/dl Phosphorus 3.5 (2.5-4.5) mg/dL Magnesium 1.6 (1.6-2.3) mg/dL Total Bilirubin 4.9 H (0.2-1.3) mg/dL Direct Bilirubin 3.7 H (0.0-0.4) mg/dL AST 2571 H (17-59) U/L ALT 624 H D (21-72) U/L Alkaline Phosphatase 84 (38-126) U/L Ammonia (9-33) umol/L Total Protein 4.6 L (6.3-8.3) g/dL Albumin 2.6 L (3.5-5.0) g/dL Globulin 2.0 L (2.2-3.9) gm/dL Albumin/Globulin Ratio 1.3 (1.0-2.1) Lipase (23-300) U/L Arterial Blood Potassium (3.6-5.2) mmol/L 07/10/18 Range/Units 08:50 WBC 6.0 (4.8-10.8) K/uL RBC 4.57 (4.40-5.90) Mil/uL Hgb 14.4 (12.0-18.0) g/dL Hct 41.3 (35.0-51.0) % MCV 90.3 (80.0-94.0) fL MCH 31.5 H (27.0-31.0) pg MCHC 34.9 (33.0-37.0) g/dL RDW 15.4 H (11.5-14.5) % Plt Count 44 L (130-400) K/uL Manual Plt Count 42 L (130-400) K/uL MPV 9.0 (7.2-11.7) fL Neut % (Auto) 87.8 H (50.0-75.0) % Lymph % (Auto) 10.2 L (20.0-40.0) % Fajardo % (Auto) 1.6 (0.0-10.0) % Eos % (Auto) 0.1 (0.0-4.0) % Baso % (Auto) 0.3 (0.0-2.0) % Neut # (Auto) 5.3 (1.8-7.0) K/uL Lymph # (Auto) 0.6 L (1.0-4.3) K/uL F[place]ardo # (Auto) 0.1 (0.0-0.8) K/uL Eos # (Auto) 0.0 (0.0-0.7) K/uL Baso # (Auto) 0.0 (0.0-0.2) K/uL Differential Comment PT (9.7-12.2) SECONDS INR APTT (21-34) SECONDS Puncture Site pCO2 (35-45) mm/Hg pO2 (80-100) mm/Hg HCO3 (21-28) mmol/L ABG pH (7.35-7.45) ABG Total CO2 (22-28) mmol/L ABG O2 Saturation (95-98) % ABG Base Excess (-2.0-3.0) mmol/L ABG Hemoglobin (11.7-17.4) g/dL ABG Carboxyhemoglobin (0.5-1.5) % POC ABG HHb (Measured) (0.0-5.0) % ABG Methemoglobin (0.0-3.0) % Constantine Test ABG Potassium (3.6-5.2) mmol/L A-a O2 Difference mm/Hg Respiratory Index Hgb O2 Saturation (95.0-98.0) % Glucose (75-110) mg/dl Lactate (0.7-2.1) mmol/L Vent Mode Mechanical Rate FiO2 % Tidal Volume PEEP Crit Value Called To Crit Value Called By Crit Value Read Back Blood Gas Notified Time Sodium (132-148) mmol/L Potassium (3.6-5.2) mmol/L Chloride (98-107) mmol/L Carbon Dioxide (22-30) mmol/L Anion Gap (10-20) BUN (9-20) mg/dL Creatinine (0.8-1.5) mg/dL Est GFR ( Amer) Est GFR (Non-Af Amer) POC Glucose (mg/dL) (65-110) mg/dL Random Glucose (75-110) mg/dL Calcium (8.6-10.4) mg/dl Phosphorus (2.5-4.5) mg/dL Magnesium (1.6-2.3) mg/dL Total Bilirubin (0.2-1.3) mg/dL Direct Bilirubin (0.0-0.4) mg/dL AST (17-59) U/L ALT (21-72) U/L Alkaline Phosphatase (38-126) U/L Ammonia (9-33) umol/L Total Protein (6.3-8.3) g/dL Albumin (3.5-5.0) g/dL Globulin (2.2-3.9) gm/dL Albumin/Globulin Ratio (1.0-2.1) Lipase (23-300) U/L Arterial Blood Potassium (3.6-5.2) mmol/L Laboratory Results - last 24 hr 07/10/18 07/10/18 07/10/18 08:50 08:50 10:41 WBC 6.0 RBC 4.57 Hgb 14.4 Hct 41.3 MCV 90.3 MCH 31.5 H MCHC 34.9 RDW 15.4 H Plt Count 44 L Manual Plt Count 42 L MPV 9.0 Neut % (Auto) 87.8 H Lymph % (Auto) 10.2 L F[place]ardo % (Auto) 1.6 Eos % (Auto) 0.1 Baso % (Auto) 0.3 Neut # (Auto) 5.3 Lymph # (Auto) 0.6 L F[place]ardo # (Auto) 0.1 Eos # (Auto) 0.0 Baso # (Auto) 0.0 Differential Comment PT INR APTT Puncture Site Lf pCO2 25 L pO2 141 H HCO3 23.1 ABG pH 7.50 H ABG Total CO2 20.3 L ABG O2 Saturation 99.1 H ABG Base Excess -2.3 L ABG Hemoglobin 12.1 ABG Carboxyhemoglobin 1.2 POC ABG HHb (Measured) 0.9 ABG Methemoglobin 0.9 Constantine Test Na ABG Potassium A-a O2 Difference 113.0 Respiratory Index 0.8 Hgb O2 Saturation 97.0 Glucose Lactate Vent Mode Mechanical Rate 14 FiO2 40.0 Tidal Volume 470 PEEP 5 Crit Value Called To Crit Value Called By Crit Value Read Back Blood Gas Notified Time Sodium 124 L Potassium 3.2 L Chloride 86 L Carbon Dioxide 28 Anion Gap 13 BUN 40 H Creatinine 1.9 H Est GFR ( Amer) 48 Est GFR (Non-Af Amer) 39 POC Glucose (mg/dL) Random Glucose 353 H D Calcium 5.9 L* Phosphorus 3.5 Magnesium 1.6 Total Bilirubin 4.9 H Direct Bilirubin 3.7 H AST 2571 H ALT 624 H D Alkaline Phosphatase 84 Ammonia Total Protein 4.6 L Albumin 2.6 L Globulin 2.0 L Albumin/Globulin Ratio 1.3 Lipase Arterial Blood Potassium 07/10/18 07/10/18 07/10/18 11:33 18:03 18:44 WBC RBC Hgb Hct MCV MCH MCHC RDW Plt Count Manual Plt Count MPV Neut % (Auto) Lymph % (Auto) F[place]ardo % (Auto) Eos % (Auto) Baso % (Auto) Neut # (Auto) Lymph # (Auto) F[place]ardo # (Auto) Eos # (Auto) Baso # (Auto) Differential Comment PT INR APTT Puncture Site pCO2 pO2 HCO3 ABG pH ABG Total CO2 ABG O2 Saturation ABG Base Excess ABG Hemoglobin ABG Carboxyhemoglobin POC ABG HHb (Measured) ABG Methemoglobin Constantine Test ABG Potassium A-a O2 Difference Respiratory Index Hgb O2 Saturation Glucose Lactate Vent Mode Mechanical Rate FiO2 Tidal Volume PEEP Crit Value Called To Crit Value Called By Crit Value Read Back Blood Gas Notified Time Sodium 125 L Potassium 3.2 L Chloride 87 L Carbon Dioxide 29 Anion Gap 12 BUN 31 H Creatinine 1.3 Est GFR ( Amer) > 60 Est GFR (Non-Af Amer) > 60 POC Glucose (mg/dL) 315 H 333 H Random Glucose 374 H Calcium 6.9 L Phosphorus Magnesium Total Bilirubin 4.9 H Direct Bilirubin AST 1269 H ALT 451 H D Alkaline Phosphatase 78 Ammonia Total Protein 5.2 L Albumin 3.1 L Globulin 2.1 L Albumin/Globulin Ratio 1.5 Lipase Arterial Blood Potassium 07/10/18 07/10/18 07/11/18 18:44 23:38 05:17 WBC RBC Hgb Hct MCV MCH MCHC RDW Plt Count Manual Plt Count MPV Neut % (Auto) Lymph % (Auto) F[place]ardo % (Auto) Eos % (Auto) Baso % (Auto) Neut # (Auto) Lymph # (Auto) F[place]ardo # (Auto) Eos # (Auto) Baso # (Auto) Differential Comment PT INR APTT Puncture Site L rad pCO2 31 L pO2 131 H HCO3 29.6 H ABG pH 7.56 H ABG Total CO2 28.8 H ABG O2 Saturation 99.1 H ABG Base Excess 5.9 H ABG Hemoglobin ABG Carboxyhemoglobin POC ABG HHb (Measured) ABG Methemoglobin Constantine Test Pos ABG Potassium 2.3 L* A-a O2 Difference 115.0 Respiratory Index 0.9 Hgb O2 Saturation Glucose 265 H Lactate 1.6 Vent Mode Prvc Mechanical Rate 12 FiO2 40.0 Tidal Volume 470 PEEP 5 Crit Value Called To [facility] [employer] real estate agent Crit Value Called By Sagrario fournier rt Crit Value Read Back Y Blood Gas Notified Time 536 Sodium 129.0 L Potassium Chloride 95.0 L Carbon Dioxide Anion Gap BUN Creatinine Est GFR ( Amer) Est GFR (Non-Af Amer) POC Glucose (mg/dL) 347 H Random Glucose Calcium Phosphorus Magnesium Total Bilirubin Direct Bilirubin AST ALT Alkaline Phosphatase Ammonia < 9 L Total Protein Albumin Globulin Albumin/Globulin Ratio Lipase Arterial Blood Potassium 2.3 L* 07/11/18 07/11/18 07/11/18 06:04 06:04 06:07 WBC 4.1 L RBC 3.80 L Hgb 12.0 D Hct 34.3 L MCV 90.3 MCH 31.6 H MCHC 35.0 RDW 15.0 H Plt Count 23 L* D Manual Plt Count MPV 8.2 Neut % (Auto) 86.1 H Lymph % (Auto) 9.5 L F[place]ardo % (Auto) 2.9 Eos % (Auto) 1.2 Baso % (Auto) 0.3 Neut # (Auto) 3.6 Lymph # (Auto) 0.4 L F[place]ardo # (Auto) 0.1 Eos # (Auto) 0.1 Baso # (Auto) 0.0 Differential Comment PT INR APTT Puncture Site pCO2 pO2 HCO3 ABG pH ABG Total CO2 ABG O2 Saturation ABG Base Excess ABG Hemoglobin ABG Carboxyhemoglobin POC ABG HHb (Measured) ABG Methemoglobin Constantine Test ABG Potassium A-a O2 Difference Respiratory Index Hgb O2 Saturation Glucose Lactate Vent Mode Mechanical Rate FiO2 Tidal Volume PEEP Crit Value Called To Crit Value Called By Crit Value Read Back Blood Gas Notified Time Sodium 128 L Potassium 2.5 L* D Chloride 90 L Carbon Dioxide 28 Anion Gap 12 BUN 23 H Creatinine 0.9 Est GFR ( Amer) > 60 Est GFR (Non-Af Amer) > 60 POC Glucose (mg/dL) Random Glucose 262 H D Calcium 7.3 L Phosphorus 1.9 L Magnesium 2.2 Total Bilirubin 5.0 H Direct Bilirubin AST 694 H D ALT 377 H Alkaline Phosphatase 70 Ammonia 25 D Total Protein 5.6 L Albumin 3.5 Globulin 2.2 Albumin/Globulin Ratio 1.6 Lipase 1173 H Arterial Blood Potassium 07/11/18 06:07 WBC RBC Hgb Hct MCV MCH MCHC RDW Plt Count Manual Plt Count MPV Neut % (Auto) Lymph % (Auto) [place]ardo % (Auto) Eos % (Auto) Baso % (Auto) Neut # (Auto) Lymph # (Auto) [place] # (Auto) Eos # (Auto) Baso # (Auto) Differential Comment PT 18.4 H D INR 1.7 D APTT 40 H D Puncture Site pCO2 pO2 HCO3 ABG pH ABG Total CO2 ABG O2 Saturation ABG Base Excess ABG Hemoglobin ABG Carboxyhemoglobin POC ABG HHb (Measured) ABG Methemoglobin Constantine Test ABG Potassium A-a O2 Difference Respiratory Index Hgb O2 Saturation Glucose Lactate Vent Mode Mechanical Rate FiO2 Tidal Volume PEEP Crit Value Called To Crit Value Called By Crit Value Read Back Blood Gas Notified Time Sodium Potassium Chloride Carbon Dioxide Anion Gap BUN Creatinine Est GFR ( Amer) Est GFR (Non-Af Amer) POC Glucose (mg/dL) Random Glucose Calcium Phosphorus Magnesium Total Bilirubin Direct Bilirubin AST ALT Alkaline Phosphatase Ammonia Total Protein Albumin Globulin Albumin/Globulin Ratio Lipase Arterial Blood Potassium Radiology Impressions: Radiology Impressions Chest X-Ray 07/10/18 06:00 IMPRESSION: No active pulmonary disease. Satisfactory position of endotracheal tube. Nasogastric tube is coiled in the stomach. Head CT 07/10/18 09:37 IMPRESSION: Unremarkable unenhanced head CT with no significant interval change greater prior CT dated 05/18/2018. Variable sinus disease again evident as discussed above. Fingerstick Blood Sugar Results: 262 Assessment/Plan - Assessment and Plan (Free Text) Assessment: 42 year old male with a past medical history of alcoholism, hypertension, DM II, alcohol withdrawal seizures who presented to [facility] for seizures in the setting of not drinking alcohol for a week or so. Mother states he stopped drinking for a week, but could not eat solid foods though he was able to drink a lot of water. She reports he was getting gradually weak and had a seizure at the time EMS arrived. In the ED at he had another seizure and had 1 liter of coffee ground emesis and was subsequently intubated for airway protection.. Also, for his suspected upper GI bleed, possibly variceal in nature, he was started on a Protonix and Octreotide drip. He was admitted to the ICU early yesterday and required Propofol, Precedex, and Midazolam for sedation. He had a severe lactic acidosis accounting for high anion gap metabolic acidosis that was treated with aggressive intravascular volume repletion, 2 units prbc, and was s tarted on a bicarbonate drip. In the ICU his blood pressure was in the low 80/40 despite 30 ml/kg of fluid challenge and hence a central venous catheter was placed for pressor support in the right femoral vein. He was put on Dopamine and vasopressin titrated for a MAP above 65. 07/10/2018 Today, he was noted have an elevation in his INR as well as a dramatic fall in his platelets. Initially, his platelet count was in the 200s but dropped to the 40 today. There were no signs of active bleeding and hence was given 10 mg of IVP Vitamin K and 2 units of FFP. GI is consulted and recommend continuing the Protonix drip. Also, one of his blood cultures are growing gram positive cocci so he was started on broad spectrum antibiotics. For his [place] we are monitoring strict I/O with a Paulson and nephrology is consulted. GI is following for the UGI bleed and recommend continuing the Protonix drip (and opined patient less likely has a variceal bleed.) 07/11/2018 Patient platelets fell to 20,000. Hematology consulted, ordered fibrinogen considering DIC. GI recommend starting Glucerna 1.5 at a rate of 20 to be increased to 40 mls/hr and giving Protonix boluses (rather than Pepcid). Keppra was discontinued as the patient's seizure are controlled on Propofol and as his seizures only seem to be related to alcohol withdrawal. Also Zosyn was discontinued given the talent recruiter's labeling states in case of severe thrombocytopenia, the drug should be withheld, unless otherwise indicated. His ammonia level is normal and lactulose was discontinued. Neurology - CT of the head showed no acute hemorrhage; and residual sinus disease noted compared to prior CT - HOB elevated to 30 - Keppra 500 mg BID for seizure prophylaxis discontinued given the patient's seizure are controlled on Propofol and his seizures only seem to be related to alcohol withdrawal, which he is not in. - Sedated with Propofol; off Precede and Versed - Banana bag for a total of three bags to be given Cardiovascular - Mantain MAP above 65 mmHg - Dopamine and vasopressin; titrating off - Initial EKG showed no ST-changes changes, but did show non-specific in traventricular conduction delay (on 07/09/2018) HEENT - CT of the head showed residual sinus disease noted compared to prior CT - Orogastric tube - Chlorohexidine mouth washes performed periodically - Suction and cleaning endotracheal tube per protocol Pulmonology: - PRVCs with TV of 420, FIO2 of 40, PEEP of 5, and rate of 12 - ABG shows pH of 7.56, PCO2 of 31, HCO3 of 28: my interpretation is this is a primary respiratory alkalosis with a component - Chest X-ray today Low lung volumes. Haziness in the lower lobes could represent layering effusions/consolidations. Small bilateral pleural effusions. Endotracheal tube terminates 1.5 cm proximal to the sadie. Nasogastric tube terminates in the stomach. - daily chest X-rays ID - One blood culture growing gram positive cocci so patient started on Vancomycin and renally dosed Zosyn - urine culture negative - awaiting final bacterial culture and sensitivity - Patient has been afebrile in the past 24 hours - Nephrology - Monitor strict I/O - BUN/Cr ratio is 23/0.9; patient appears to be in the polyuric phase of acute kidney injury - Paulson in place - 100 gram of IV Albumin have been given allowing for tapering of vasopressors - will avoid nephrotoxins and dose antibiotics renally - Nephrology is following; greatly appreciate recommendations - K was 2.5; patient given five 20 mEq K IVPB - Phosphorus was 1.9; 15 mmols given via K-phos Heme - INR of 1.7; s/p 2 units of FFP to be given and 10 mg of Vitamin K IVP - Thrombocytopenia with platelets of 20,000; manual count showed and PBS show few platelets - PBS showed normocytic normochromic RBC. Rare schistocytes and markedly reduced platelet count - Fibrinogen ordered, Hematology consulted for thrombocytopenia; appreciate recommendations GI - LFTs trending down - Patient started on tube feeds Glucerna 1.5 at 20 mls/hr by GI - Lipase 1500 today; etiology uncertain - UGI bleed appears stable - Ammonia level normal; discontinued Lactulose today 07/11/2018 - GI is following, Dr. Peters - Pepcid 20 mg IVP Daily (Protonix has higher incidence of thrombocytopenia than Famotidine) DVT prophylaxis - SCD Case reviewed and discussed with attending physician, Dr. Trevino <Timothy Stewart S - Last Filed: 07/11/18 17:03> CCU Subjective - Physician Review Critical Care Time Spent (in minutes): 60 CCU Objective - Vital Signs / Intake & Output Vital Signs (Last 4 hours): Vital Signs Pulse Resp BP Pulse Ox 07/11/18 16:34 99 H 24 103/67 100 07/11/18 16:04 98 H 18 103/67 100 07/11/18 15:04 98 H 22 96/49 L 99 07/11/18 15:00 101 H 22 99 07/11/18 14:04 108 H 26 H 101/55 L 100 07/11/18 14:00 106 H 26 H 100 07/11/18 13:04 100 H 25 H 105/65 100 07/11/18 13:00 106 H 27 H 100 Intake and Output (Last 8hrs): Intake & Output 07/11/18 07/11/18 07/11/18 06:59 14:59 22:59 Intake Total 1110.6 1720.2 285.2 Output Total 930 2200 450 Balance 180.6 -479.8 -164.8 Weight 160 lb Intake: IV 106 352 46 Intake, IV Amount 1004.6 1328.2 199.2 LEFT FA 1ST PORT 250 LEFT FA 2ND PORT 50 Right Antecubital 126.8 125.0 39.0 Right Distal Port Femoral 16.2 7.8 Right Forearm 550 100 Right Medial Port Femoral 61.6 43.4 10.2 Right Proximal Port 500 252 Femoral Y Line to Proximal 350 50 Femoral Port Tube Feeding 40 40 Output: Drainage 100 OGT 100 Urine 930 2100 450 Urethral (Paulson) 930 2100 450 Other: # Bowel Movements 0 1 - Medications Active Medications: Active Medications Generic Name Dose Route Start Last Admin Trade Name Freq PRN Reason Stop Dose Admin Acetazolamide 250 mg 07/11/18 10:00 Diamox 250 Mg Tab PO BID ALVARADO Famotidine 20 mg 07/11/18 10:00 07/11/18 09:38 Pepcid IVP 20 mg DAILY ALVARADO Administration Dopamine HCl/Dextrose 400 mg in 250 mls @ 5.406 mls/hr 07/09/18 10:00 07/11/18 16:34 Dopamine 400mg/250ml D5w IV 2 mcg/kg/min .Q24H PRN 5.406 mls/hr TITRATE PER MD ORDER Administration Protocol 2 MCG/KG/MIN Vasopressin 40 units/ Dextrose 40 mls @ 0.6 mls/hr 07/09/18 11:00 07/11/18 13:19 IV Not Given .Q24H ALVARADO Protocol 0.01 UNITS/MIN Vancomycin HCl 1 gm/ Sodium 250 mls @ 166.7 mls/hr 07/10/18 11:00 07/11/18 11:00 Chloride IVPB 166.7 mls/hr Q24H ALVARADO Administration Protocol Potassium Chloride 20 meq in 100 mls @ 50 mls/hr 07/11/18 07:15 07/11/18 15:09 Potassium Chloride 20 Meq/100 Ml IVPB 07/11/18 17:14 50 mls/hr Q2H ALVARADO Administration Propofol 1,000 mg in 100 mls @ 2.177 mls/hr 07/11/18 08:12 07/11/18 14:24 Diprivan IV 45 mcg/kg/min .Q24H PRN 19.595 mls/hr TITRATE PER MD ORDER Titration Protocol 5 MCG/KG/MIN Piperacillin Sod/Tazobactam Sod 2.25 gm in 50 mls @ 100 mls/hr 07/11/18 18:30 Zosyn 2.25 Gm Iv Premix IVPB Q8H ALVARADO Protocol Multivitamins/Vitamin C 10 ml/ 1,011.2 mls @ 150 mls/hr 07/11/18 16:30 07/11/18 16:27 Thiamine HCl 100 mg/ Folic IV 07/11/18 23:14 150 mls/hr Acid 1 mg/ Sodium Chloride .Q6H45M ONE Administration Multivitamins/Vitamin C 10 ml/ 1,011.2 mls @ 180 mls/hr 07/12/18 16:30 Thiamine HCl 100 mg/ Folic IV 07/12/18 22:07 Acid 1 mg/ Sodium Chloride .Q5H38M ONE Potassium Phosphate 30 mmole/ 260 mls @ 63 mls/hr 07/11/18 16:44 Sodium Chloride IV 07/11/18 20:42 ONCE ONE Insulin Human Regular 0 unit 07/10/18 18:00 07/11/18 12:06 Novolin R SC 3 u Q6H [facility] Administration Protocol Thiamine HCl 100 mg 07/09/18 10:00 07/11/18 09:28 Vitamin B1 Inj IV 100 mg DAILY [facility] Administration - Patient Studies Lab Studies: Microbiology Studies 07/09/18 09:04 Blood Culture - Preliminary Blood NO GROWTH AFTER 48 HOURS 07/09/18 09:04 S.aureus & Coag-Neg Staph PNA FISH - Final Blood Blood Culture - Preliminary Gram Positive Cocci Gram Stain - Final Lab Studies 07/11/18 07/11/18 07/11/18 Range/Units 11:55 11:33 06:07 WBC (4.8-10.8) K/uL RBC (4.40-5.90) Mil/uL Hgb (12.0-18.0) g/dL Hct (35.0-51.0) % MCV (80.0-94.0) fL MCH (27.0-31.0) pg MCHC (33.0-37.0) g/dL RDW (11.5-14.5) % Plt Count (130-400) K/uL MPV (7.2-11.7) fL Neut % (Auto) (50.0-75.0) % Lymph % (Auto) (20.0-40.0) % Fajardo % (Auto) (0.0-10.0) % Eos % (Auto) (0.0-4.0) % Baso % (Auto) (0.0-2.0) % Neut # (Auto) (1.8-7.0) K/uL Lymph # (Auto) (1.0-4.3) K/uL Fajardo # (Auto) (0.0-0.8) K/uL Eos # (Auto) (0.0-0.7) K/uL Baso # (Auto) (0.0-0.2) K/uL Neutrophils % (Manual) (50-75) % Band Neutrophils % (0-2) % Lymphocytes % (Manual) (20-40) % Monocytes % (Manual) (0-10) % Eosinophils % (Manual) (0-4) % Platelet Estimate (NORMAL) RBC Morphology PT 18.4 H D (9.7-12.2) SECONDS INR 1.7 D APTT 40 H D (21-34) SECONDS Fibrinogen 344 (200-400) mg/dL Puncture Site pCO2 (35-45) mm/Hg pO2 (80-100) mm/Hg HCO3 (21-28) mmol/L ABG pH (7.35-7.45) ABG Total CO2 (22-28) mmol/L ABG O2 Saturation (95-98) % ABG Base Excess (-2.0-3.0) mmol/L Constantine Test ABG Potassium (3.6-5.2) mmol/L A-a O2 Difference mm/Hg Respiratory Index Glucose (75-110) mg/dl Lactate (0.7-2.1) mmol/L Vent Mode Mechanical Rate FiO2 % Tidal Volume PEEP Crit Value Called To Crit Value Called By Crit Value Read Back Blood Gas Notified Time Sodium (132-148) mmol/L Potassium (3.6-5.2) mmol/L Chloride (98-107) mmol/L Carbon Dioxide (22-30) mmol/L Anion Gap (10-20) BUN (9-20) mg/dL Creatinine (0.8-1.5) mg/dL Est GFR ( Amer) Est GFR (Non-Af Amer) POC Glucose (mg/dL) 223 H (65-110) mg/dL Random Glucose (75-110) mg/dL Calcium (8.6-10.4) mg/dl Phosphorus (2.5-4.5) mg/dL Magnesium (1.6-2.3) mg/dL Total Bilirubin (0.2-1.3) mg/dL AST (17-59) U/L ALT (21-72) U/L Alkaline Phosphatase (38-126) U/L Ammonia (9-33) umol/L Total Protein (6.3-8.3) g/dL Albumin (3.5-5.0) g/dL Globulin (2.2-3.9) gm/dL Albumin/Globulin Ratio (1.0-2.1) Lipase (23-300) U/L Arterial Blood Potassium (3.6-5.2) mmol/L 07/11/18 07/11/18 07/11/18 Range/Units 06:07 06:04 06:04 WBC 4.1 L (4.8-10.8) K/uL RBC 3.80 L (4.40-5.90) Mil/uL Hgb 12.0 D (12.0-18.0) g/dL Hct 34.3 L (35.0-51.0) % MCV 90.3 (80.0-94.0) fL MCH 31.6 H (27.0-31.0) pg MCHC 35.0 (33.0-37.0) g/dL RDW 15.0 H (11.5-14.5) % Plt Count 23 L* D (130-400) K/uL MPV 8.2 (7.2-11.7) fL Neut % (Auto) 86.1 H (50.0-75.0) % Lymph % (Auto) 9.5 L (20.0-40.0) % Fajardo % (Auto) 2.9 (0.0-10.0) % Eos % (Auto) 1.2 (0.0-4.0) % Baso % (Auto) 0.3 (0.0-2.0) % Neut # (Auto) 3.6 (1.8-7.0) K/uL Lymph # (Auto) 0.4 L (1.0-4.3) K/uL Fajardo # (Auto) 0.1 (0.0-0.8) K/uL Eos # (Auto) 0.1 (0.0-0.7) K/uL Baso # (Auto) 0.0 (0.0-0.2) K/uL Neutrophils % (Manual) 77 H (50-75) % Band Neutrophils % 7 H (0-2) % Lymphocytes % (Manual) 9 L (20-40) % Monocytes % (Manual) 6 (0-10) % Eosinophils % (Manual) 1 (0-4) % Platelet Estimate Markedly decreased L (NORMAL) RBC Morphology Normal PT (9.7-12.2) SECONDS INR APTT (21-34) SECONDS Fibrinogen (200-400) mg/dL Puncture Site pCO2 (35-45) mm/Hg pO2 (80-100) mm/Hg HCO3 (21-28) mmol/L ABG pH (7.35-7.45) ABG Total CO2 (22-28) mmol/L ABG O2 Saturation (95-98) % ABG Base Excess (-2.0-3.0) mmol/L Constantine Test ABG Potassium (3.6-5.2) mmol/L A-a O2 Difference mm/Hg Respiratory Index Glucose (75-110) mg/dl Lactate (0.7-2.1) mmol/L Vent Mode Mechanical Rate FiO2 % Tidal Volume PEEP Crit Value Called To Crit Value Called By Crit Value Read Back Blood Gas Notified Time Sodium 128 L (132-148) mmol/L Potassium 2.5 L* D (3.6-5.2) mmol/L Chloride 90 L (98-107) mmol/L Carbon Dioxide 28 (22-30) mmol/L Anion Gap 12 (10-20) BUN 23 H (9-20) mg/dL Creatinine 0.9 (0.8-1.5) mg/dL Est GFR ( Amer) > 60 Est GFR (Non-Af Amer) > 60 POC Glucose (mg/dL) (65-110) mg/dL Random Glucose 262 H D (75-110) mg/dL Calcium 7.3 L (8.6-10.4) mg/dl Phosphorus 1.9 L (2.5-4.5) mg/dL Magnesium 2.2 (1.6-2.3) mg/dL Total Bilirubin 5.0 H (0.2-1.3) mg/dL AST 694 H D (17-59) U/L ALT 377 H (21-72) U/L Alkaline Phosphatase 70 (38-126) U/L Ammonia 25 D (9-33) umol/L Total Protein 5.6 L (6.3-8.3) g/dL Albumin 3.5 (3.5-5.0) g/dL Globulin 2.2 (2.2-3.9) gm/dL Albumin/Globulin Ratio 1.6 (1.0-2.1) Lipase 1173 H (23-300) U/L Arterial Blood Potassium (3.6-5.2) mmol/L 07/11/18 07/10/18 07/10/18 Range/Units 05:17 23:38 18:44 WBC (4.8-10.8) K/uL RBC (4.40-5.90) Mil/uL Hgb (12.0-18.0) g/dL Hct (35.0-51.0) % MCV (80.0-94.0) fL MCH (27.0-31.0) pg MCHC (33.0-37.0) g/dL RDW (11.5-14.5) % Plt Count (130-400) K/uL MPV (7.2-11.7) fL Neut % (Auto) (50.0-75.0) % Lymph % (Auto) (20.0-40.0) % Fajardo % (Auto) (0.0-10.0) % Eos % (Auto) (0.0-4.0) % Baso % (Auto) (0.0-2.0) % Neut # (Auto) (1.8-7.0) K/uL Lymph # (Auto) (1.0-4.3) K/uL Fajardo # (Auto) (0.0-0.8) K/uL Eos # (Auto) (0.0-0.7) K/uL Baso # (Auto) (0.0-0.2) K/uL Neutrophils % (Manual) (50-75) % Band Neutrophils % (0-2) % Lymphocytes % (Manual) (20-40) % Monocytes % (Manual) (0-10) % Eosinophils % (Manual) (0-4) % Platelet Estimate (NORMAL) RBC Morphology PT (9.7-12.2) SECONDS INR APTT (21-34) SECONDS Fibrinogen (200-400) mg/dL Puncture Site L rad pCO2 31 L (35-45) mm/Hg pO2 131 H (80-100) mm/Hg HCO3 29.6 H (21-28) mmol/L ABG pH 7.56 H (7.35-7.45) ABG Total CO2 28.8 H (22-28) mmol/L ABG O2 Saturation 99.1 H (95-98) % ABG Base Excess 5.9 H (-2.0-3.0) mmol/L Constantine Test Pos ABG Potassium 2.3 L* (3.6-5.2) mmol/L A-a O2 Difference 115.0 mm/Hg Respiratory Index 0.9 Glucose 265 H (75-110) mg/dl Lactate 1.6 (0.7-2.1) mmol/L Vent Mode Prvc Mechanical Rate 12 FiO2 40.0 % Tidal Volume 470 PEEP 5 Crit Value Called To [facility] agricultural real estate agent Crit Value Called By Sagrario fournier rt Crit Value Read Back Y Blood Gas Notified Time 536 Sodium 129.0 L (132-148) mmol/L Potassium (3.6-5.2) mmol/L Chloride 95.0 L (98-107) mmol/L Carbon Dioxide (22-30) mmol/L Anion Gap (10-20) BUN (9-20) mg/dL Creatinine (0.8-1.5) mg/dL Est GFR ( Amer) Est GFR (Non-Af Amer) POC Glucose (mg/dL) 347 H (65-110) mg/dL Random Glucose (75-110) mg/dL Calcium (8.6-10.4) mg/dl Phosphorus (2.5-4.5) mg/dL Magnesium (1.6-2.3) mg/dL Total Bilirubin (0.2-1.3) mg/dL AST (17-59) U/L ALT (21-72) U/L Alkaline Phosphatase (38-126) U/L Ammonia < 9 L (9-33) umol/L Total Protein (6.3-8.3) g/dL Albumin (3.5-5.0) g/dL Globulin (2.2-3.9) gm/dL Albumin/Globulin Ratio (1.0-2.1) Lipase (23-300) U/L Arterial Blood Potassium 2.3 L* (3.6-5.2) mmol/L 07/10/18 07/10/18 Range/Units 18:44 18:03 WBC (4.8-10.8) K/uL RBC (4.40-5.90) Mil/uL Hgb (12.0-18.0) g/dL Hct (35.0-51.0) % MCV (80.0-94.0) fL MCH (27.0-31.0) pg MCHC (33.0-37.0) g/dL RDW (11.5-14.5) % Plt Count (130-400) K/uL MPV (7.2-11.7) fL Neut % (Auto) (50.0-75.0) % Lymph % (Auto) (20.0-40.0) % Fajardo % (Auto) (0.0-10.0) % Eos % (Auto) (0.0-4.0) % Baso % (Auto) (0.0-2.0) % Neut # (Auto) (1.8-7.0) K/uL Lymph # (Auto) (1.0-4.3) K/uL Fajardo # (Auto) (0.0-0.8) K/uL Eos # (Auto) (0.0-0.7) K/uL Baso # (Auto) (0.0-0.2) K/uL Neutrophils % (Manual) (50-75) % Band Neutrophils % (0-2) % Lymphocytes % (Manual) (20-40) % Monocytes % (Manual) (0-10) % Eosinophils % (Manual) (0-4) % Platelet Estimate (NORMAL) RBC Morphology PT (9.7-12.2) SECONDS INR APTT (21-34) SECONDS Fibrinogen (200-400) mg/dL Puncture Site pCO2 (35-45) mm/Hg pO2 (80-100) mm/Hg HCO3 (21-28) mmol/L ABG pH (7.35-7.45) ABG Total CO2 (22-28) mmol/L ABG O2 Saturation (95-98) % ABG Base Excess (-2.0-3.0) mmol/L Constantine Test ABG Potassium (3.6-5.2) mmol/L A-a O2 Difference mm/Hg Respiratory Index Glucose (75-110) mg/dl Lactate (0.7-2.1) mmol/L Vent Mode Mechanical Rate FiO2 % Tidal Volume PEEP Crit Value Called To Crit Value Called By Crit Value Read Back Blood Gas Notified Time Sodium 125 L (132-148) mmol/L Potassium 3.2 L (3.6-5.2) mmol/L Chloride 87 L (98-107) mmol/L Carbon Dioxide 29 (22-30) mmol/L Anion Gap 12 (10-20) BUN 31 H (9-20) mg/dL Creatinine 1.3 (0.8-1.5) mg/dL Est GFR ( Amer) > 60 Est GFR (Non-Af Amer) > 60 POC Glucose (mg/dL) 333 H (65-110) mg/dL Random Glucose 374 H (75-110) mg/dL Calcium 6.9 L (8.6-10.4) mg/dl Phosphorus (2.5-4.5) mg/dL Magnesium (1.6-2.3) mg/dL Total Bilirubin 4.9 H (0.2-1.3) mg/dL AST 1269 H (17-59) U/L ALT 451 H D (21-72) U/L Alkaline Phosphatase 78 (38-126) U/L Ammonia (9-33) umol/L Total Protein 5.2 L (6.3-8.3) g/dL Albumin 3.1 L (3.5-5.0) g/dL Globulin 2.1 L (2.2-3.9) gm/dL Albumin/Globulin Ratio 1.5 (1.0-2.1) Lipase (23-300) U/L Arterial Blood Potassium (3.6-5.2) mmol/L Laboratory Results - last 24 hr 07/10/18 07/10/18 07/10/18 18:03 18:44 18:44 WBC RBC Hgb Hct MCV MCH MCHC RDW Plt Count MPV Neut % (Auto) Lymph % (Auto) Fajardo % (Auto) Eos % (Auto) Baso % (Auto) Neut # (Auto) Lymph # (Auto) Fajardo # (Auto) Eos # (Auto) Baso # (Auto) Neutrophils % (Manual) Band Neutrophils % Lymphocytes % (Manual) Monocytes % (Manual) Eosinophils % (Manual) Platelet Estimate RBC Morphology PT INR APTT Fibrinogen Puncture Site pCO2 pO2 HCO3 ABG pH ABG Total CO2 ABG O2 Saturation ABG Base Excess Constnatine Test ABG Potassium A-a O2 Difference Respiratory Index Glucose Lactate Vent Mode Mechanical Rate FiO2 Tidal Volume PEEP Crit Value Called To Crit Value Called By Crit Value Read Back Blood Gas Notified Time Sodium 125 L Potassium 3.2 L Chloride 87 L Carbon Dioxide 29 Anion Gap 12 BUN 31 H Creatinine 1.3 Est GFR ( Amer) > 60 Est GFR (Non-Af Amer) > 60 POC Glucose (mg/dL) 333 H Random Glucose 374 H Calcium 6.9 L Phosphorus Magnesium Total Bilirubin 4.9 H AST 1269 H ALT 451 H D Alkaline Phosphatase 78 Ammonia < 9 L Total Protein 5.2 L Albumin 3.1 L Globulin 2.1 L Albumin/Globulin Ratio 1.5 Lipase Arterial Blood Potassium 07/10/18 07/11/18 07/11/18 23:38 05:17 06:04 WBC RBC Hgb Hct MCV MCH MCHC RDW Plt Count MPV Neut % (Auto) Lymph % (Auto) Fajardo % (Auto) Eos % (Auto) Baso % (Auto) Neut # (Auto) Lymph # (Auto) Fajardo # (Auto) Eos # (Auto) Baso # (Auto) Neutrophils % (Manual) Band Neutrophils % Lymphocytes % (Manual) Monocytes % (Manual) Eosinophils % (Manual) Platelet Estimate RBC Morphology PT INR APTT Fibrinogen Puncture Site L rad pCO2 31 L pO2 131 H HCO3 29.6 H ABG pH 7.56 H ABG Total CO2 28.8 H ABG O2 Saturation 99.1 H ABG Base Excess 5.9 H Constantine Test Pos ABG Potassium 2.3 L* A-a O2 Difference 115.0 Respiratory Index 0.9 Glucose 265 H Lactate 1.6 Vent Mode Prvc Mechanical Rate 12 FiO2 40.0 Tidal Volume 470 PEEP 5 Crit Value Called To [facility] agricultural real estate agent Crit Value Called By Sagrario fournier rt Crit Value Read Back Y Blood Gas Notified Time 536 Sodium 129.0 L 128 L Potassium 2.5 L* D Chloride 95.0 L 90 L Carbon Dioxide 28 Anion Gap 12 BUN 23 H Creatinine 0.9 Est GFR ( Amer) > 60 Est GFR (Non-Af Amer) > 60 POC Glucose (mg/dL) 347 H Random Glucose 262 H D Calcium 7.3 L Phosphorus 1.9 L Magnesium 2.2 Total Bilirubin 5.0 H AST 694 H D ALT 377 H Alkaline Phosphatase 70 Ammonia Total Protein 5.6 L Albumin 3.5 Globulin 2.2 Albumin/Globulin Ratio 1.6 Lipase 1173 H Arterial Blood Potassium 2.3 L* 07/11/18 07/11/18 07/11/18 06:04 06:07 06:07 WBC 4.1 L RBC 3.80 L Hgb 12.0 D Hct 34.3 L MCV 90.3 MCH 31.6 H MCHC 35.0 RDW 15.0 H Plt Count 23 L* D MPV 8.2 Neut % (Auto) 86.1 H Lymph % (Auto) 9.5 L Fajardo % (Auto) 2.9 Eos % (Auto) 1.2 Baso % (Auto) 0.3 Neut # (Auto) 3.6 Lymph # (Auto) 0.4 L Fajardo # (Auto) 0.1 Eos # (Auto) 0.1 Baso # (Auto) 0.0 Neutrophils % (Manual) 77 H Band Neutrophils % 7 H Lymphocytes % (Manual) 9 L Monocytes % (Manual) 6 Eosinophils % (Manual) 1 Platelet Estimate Markedly decreased L RBC Morphology Normal PT 18.4 H D INR 1.7 D APTT 40 H D Fibrinogen Puncture Site pCO2 pO2 HCO3 ABG pH ABG Total CO2 ABG O2 Saturation ABG Base Excess Constantine Test ABG Potassium A-a O2 Difference Respiratory Index Glucose Lactate Vent Mode Mechanical Rate FiO2 Tidal Volume PEEP Crit Value Called To Crit Value Called By Crit Value Read Back Blood Gas Notified Time Sodium Potassium Chloride Carbon Dioxide Anion Gap BUN Creatinine Est GFR ( Amer) Est GFR (Non-Af Amer) POC Glucose (mg/dL) Random Glucose Calcium Phosphorus Magnesium Total Bilirubin AST ALT Alkaline Phosphatase Ammonia 25 D Total Protein Albumin Globulin Albumin/Globulin Ratio Lipase Arterial Blood Potassium 07/11/18 07/11/18 11:33 11:55 WBC RBC Hgb Hct MCV MCH MCHC RDW Plt Count MPV Neut % (Auto) Lymph % (Auto) Fajardo % (Auto) Eos % (Auto) Baso % (Auto) Neut # (Auto) Lymph # (Auto) Fajardo # (Auto) Eos # (Auto) Baso # (Auto) Neutrophils % (Manual) Band Neutrophils % Lymphocytes % (Manual) Monocytes % (Manual) Eosinophils % (Manual) Platelet Estimate RBC Morphology PT INR APTT Fibrinogen 344 Puncture Site pCO2 pO2 HCO3 ABG pH ABG Total CO2 ABG O2 Saturation ABG Base Excess Constantine Test ABG Potassium A-a O2 Difference Respiratory Index Glucose Lactate Vent Mode Mechanical Rate FiO2 Tidal Volume PEEP Crit Value Called To Crit Value Called By Crit Value Read Back Blood Gas Notified Time Sodium Potassium Chloride Carbon Dioxide Anion Gap BUN Creatinine Est GFR ( Amer) Est GFR (Non-Af Amer) POC Glucose (mg/dL) 223 H Random Glucose Calcium Phosphorus Magnesium Total Bilirubin AST ALT Alkaline Phosphatase Ammonia Total Protein Albumin Globulin Albumin/Globulin Ratio Lipase Arterial Blood Potassium Radiology Impressions: Radiology Impressions Chest X-Ray 07/11/18 07:14 IMPRESSION: Low lung volumes. Haziness in the lower lobes could represent layering effusions/consolidations. Small bilateral pleural effusions. Endotracheal tube terminates 1.5 cm proximal to the sadie. Nasogastric tube terminates in the stomach. Attending/Attestation - Attestation I have personally seen and examined this patient.: Yes I have fully participated in the care of the patient.: Yes I have reviewed all pertinent clinical information: Yes Notes (Text): 07/11/18 16:59 Patient seen and examined in the intensive care unit. Remained intubated on ventilatory support Sedated on Diprivan Taper off pressors as tolerated Continue antibiotics Monitor platelet count Potassium and magnesium supplement/phosphorus Case discussed with family at length
[2018-07-11] MEDS ORDERED: Potassium Phosphate 15 MMOLE in Dextrose 5% In Water 250 ML IVPB ONE ×2 (08:00→17:56)
[2018-07-11] MEDS: Thiamine 100 mg/ml Inj IV SCH (09:28)
[2018-07-11 09:37] LABS: BANDS 7 % (0-2); EOSINOPHIL 1 % (0-4); LYMPHOCYTE 9 % (20-40); MONOCYTE 6 % (0-10); NEUTROPHIL 77 % (50-75); TOTAL CELLS COUNTED 100
[2018-07-11 09:39] LABS: PLATELET ESTIMATE MARKEDLY DECREASED (NORMAL)
--- NOTE | 2018-07-11 10:55 | RAD ---
Date of service: 07/11/2018 HISTORY: vent/ff up intubated COMPARISON: 07/10/2018. FINDINGS: Endotracheal tube terminates 1.5 cm proximal to the sadie. The nasogastric tube terminates in the stomach. LUNGS: There are low lung volumes. There is haziness in both lower lobes. PLEURA: Small effusions. No pneumothorax. CARDIOVASCULAR: The heart is normal in size. No aortic atherosclerotic calcifications present. OSSEOUS STRUCTURES: Within normal limits for the patient's age. VISUALIZED UPPER ABDOMEN: Normal. OTHER FINDINGS: None. IMPRESSION: Low lung volumes. Haziness in the lower lobes could represent layering effusions/consolidations. Small bilateral pleural effusions. Endotracheal tube terminates 1.5 cm proximal to the sadie. Nasogastric tube terminates in the stomach.
[2018-07-11] MEDS: Folic Acid 1 MG, Thiamine 100 MG, Multivitamin (MVI) 10 ML in Dextrose 5% In Water 1,00... IV SCH (11:33)
--- NOTE | 2018-07-11 11:46 | CP.PCM.PN ---
Subjective - Date & Time of Evaluation Date of Evaluation: 07/11/18 Time of Evaluation: 11:43 - Subjective Subjective: Remains in ICU, on vent, Dopamine Greenish BM. Coffee ground NG material. Severe thrombocytopenia. Hgb stable Objective - Vital Signs/Intake and Output Vital Signs (last 24 hours): Temp Pulse Resp BP Pulse Ox 98.8 F 94 H 19 107/61 99 07/11/18 08:00 07/11/18 11:04 07/11/18 11:04 07/11/18 11:04 07/11/18 11:04 Intake and Output: 07/11/18 07/11/18 06:59 18:59 Intake Total 2025.8 786.6 Output Total 1405 1450 Balance 620.8 -663.4 - Medications Medications: Current Medications Acetazolamide (Diamox 250 Mg Tab) 250 mg PO BID [facility] Famotidine (Pepcid) 20 mg IVP DAILY COUNTS INCLUDE 234 BEDS AT THE [facility] Last Admin: 07/11/18 09:38 Dose: 20 mg Dopamine HCl/Dextrose (Dopamine 400mg/250ml D5w) 400 mg in 250 mls @ 5.406 mls/hr IV .Q24H PRN; Protocol PRN Reason: TITRATE PER MD ORDER Last Titration: 07/11/18 07:30 Dose: 2 mcg/kg/min, 5.406 mls/hr Vasopressin 40 units/ Dextrose 40 mls @ 0.6 mls/hr IV .Q24H AL[facility]ADO; Protocol Last Titration: 07/11/18 09:37 Dose: 0.02 units/min, 1.2 mls/hr Folic Acid 1 mg/ Thiamine HCl 100 mg/ Multivitamins/Vitamin C 10 ml/ Dextrose 1,011.2 mls @ 100 mls/hr IV Q24H [facility] Stop: 07/12/18 21:07 Last Admin: 07/11/18 11:33 Dose: 100 mls/hr Vancomycin HCl 1 gm/ Sodium (Chloride) 250 mls @ 166.7 mls/hr IVPB Q24H COUNTS INCLUDE 234 BEDS AT THE [facility]; Protocol Last Admin: 07/11/18 11:00 Dose: 166.7 mls/hr Sodium Chloride (Sodium Chloride 0.9%) 1,000 mls @ 150 mls/hr IV .Q6H40M COUNTS INCLUDE 234 BEDS AT THE [facility] Last Admin: 07/10/18 19:01 Dose: Not Given Potassium Chloride (Potassium Chloride 20 Meq/100 Ml) 20 meq in 100 mls @ 50 mls/hr IVPB Q2H [facility] Stop: 07/11/18 17:14 Last Admin: 07/11/18 11:04 Dose: 50 mls/hr Potassium Phosphate 15 mmole/ (Dextrose) 255 mls @ 42.5 mls/hr IVPB ONCE ONE Stop: 07/11/18 13:59 Last Admin: 07/11/18 07:45 Dose: 42.5 mls/hr Propofol (Diprivan) 1,000 mg in 100 mls @ 2.177 mls/hr IV .Q24H PRN; Protocol PRN Reason: TITRATE PER MD ORDER Last Titration: 07/11/18 11:34 Dose: 30 mcg/kg/min, 13.064 mls/hr Insulin Human Regular (Novolin R) 0 unit SC Q6H [facility]O; Protocol Last Admin: 07/11/18 06:44 Dose: 4 u Thiamine HCl (Vitamin B1 Inj) 100 mg IV DAILY [facility]O Last Admin: 07/11/18 09:28 Dose: 100 mg - Labs Labs: 07/11/18 06:07 07/11/18 06:04 PT 18.4 SECONDS (9.7-12.2) H D 07/11/18 06:07 INR 1.7 D 07/11/18 06:07 APTT 40 SECONDS (21-34) H D 07/11/18 06:07 - Constitutional Appears: Chronically Ill - Head Exam Head Exam: NORMOCEPHALIC - Eye Exam Eye Exam: Scleral icterus - ENT Exam Additional comments: ETT NGT - Respiratory Exam Respiratory Exam: NORMAL BREATHING PATTERN - Cardiovascular Exam Cardiovascular Exam: REGULAR RHYTHM - GI/Abdominal Exam GI & Abdominal Exam: Soft. absent: Distended, Tenderness, Organomegaly - Extremities Exam Extremities Exam: Normal Inspection Assessment and Plan (1) GI bleed Assessment & Plan: Stable NG suction with thrombocytopenia causing coffee ground return Rec: start feeds and stop NG suction. Protnix bolus doses. Discussed with RN Status: Acute (2) Alcohol abuse with intoxication Assessment & Plan: Liver failure Supportive care in progress Status: Acute
[2018-07-11] MEDS ORDERED: Piperacill/Tazo 2.25gm in Dex 2.25 GM/50 ML BAG IVPB SCH (13:00)
[2018-07-11] MEDS: Vasopressin 40 UNITS in Dextrose 5% In Water 38 ML IV SCH (13:19)
[2018-07-11] MEDS ORDERED: Multivitamin (MVI) 10 ML, Thiamine 100 MG, Folic Acid 1 MG in Sodium Chloride 0.9% 1,00... IV ONE (16:30)
[2018-07-11] MEDS: DOPamine 400mg/250ml D5W 400 MG/250 ML BAG IV PRN (16:34)
[2018-07-11] MEDS ORDERED: Potassium Phosphate 30 MMOLE in Sodium Chloride 0.9% 250 ML IV ONE (16:44)
--- NOTE | 2018-07-11 17:14 | CP.PCM.PN ---
<Kris Anglin - Last Filed: 07/11/18 17:11> Subjective - Date & Time of Evaluation Date of Evaluation: 07/11/18 Time of Evaluation: 08:00 - Subjective Subjective: Nephrology progress note - Derrek PGY - 2 Patient seen and examined at bedside. No acute events overnight. Patient remains on Vasopressin, Dopamine, Protonix, Octretoide, Albumin, Propofol, and Precedex. Objective - Vital Signs/Intake and Output Vital Signs (last 24 hours): Temp Pulse Resp BP Pulse Ox 100 F H 95 H 28 H 103/67 100 07/11/18 16:00 07/11/18 17:00 07/11/18 17:00 07/11/18 16:34 07/11/18 17:00 Intake and Output: 07/11/18 07/11/18 06:59 18:59 Intake Total 2025.8 2005.4 Output Total 1405 2650 Balance 620.8 -644.6 - Medications Medications: Current Medications Acetazolamide (Diamox 250 Mg Tab) 250 mg PO BID ALVARADO Famotidine (Pepcid) 20 mg IVP DAILY [facility] Last Admin: 07/11/18 09:38 Dose: 20 mg Dopamine HCl/Dextrose (Dopamine 400mg/250ml D5w) 400 mg in 250 mls @ 5.406 mls/hr IV .Q24H PRN; Protocol PRN Reason: TITRATE PER MD ORDER Last Admin: 07/11/18 16:34 Dose: 2 mcg/kg/min, 5.406 mls/hr Vasopressin 40 units/ Dextrose 40 mls @ 0.6 mls/hr IV .Q24H ALVARADO; Protocol Last Admin: 07/11/18 13:19 Dose: Not Given Vancomycin HCl 1 gm/ Sodium (Chloride) 250 mls @ 166.7 mls/hr IVPB Q24H [facility]O; Protocol Last Admin: 07/11/18 11:00 Dose: 166.7 mls/hr Potassium Chloride (Potassium Chloride 20 Meq/100 Ml) 20 meq in 100 mls @ 50 mls/hr IVPB Q2H [facility]O Stop: 07/11/18 17:14 Last Admin: 07/11/18 15:09 Dose: 50 mls/hr Propofol (Diprivan) 1,000 mg in 100 mls @ 2.177 mls/hr IV .Q24H PRN; Protocol PRN Reason: TITRATE PER MD ORDER Last Titration: 07/11/18 14:24 Dose: 45 mcg/kg/min, 19.595 mls/hr Piperacillin Sod/Tazobactam Sod (Zosyn 2.25 Gm Iv Premix) 2.25 gm in 50 mls @ 100 mls/hr IVPB Q8H ALVARADO; Protocol Multivitamins/Vitamin C 10 ml/Thiamine HCl 100 mg/ Folic Acid 1 mg/ Sodium Chloride 1,011.2 mls @ 150 mls/hr IV .Q6H45M ONE Stop: 07/11/18 23:14 Last Admin: 07/11/18 16:27 Dose: 150 mls/hr Multivitamins/Vitamin C 10 ml/Thiamine HCl 100 mg/ Folic Acid 1 mg/ Sodium Chloride 1,011.2 mls @ 180 mls/hr IV .Q5H38M ONE Stop: 07/12/18 22:07 Potassium Phosphate 30 mmole/ (Sodium Chloride) 260 mls @ 63 mls/hr IV ONCE ONE Stop: 07/11/18 20:42 Insulin Human Regular (Novolin R) 0 unit SC Q6H ALVARADO; Protocol Last Admin: 07/11/18 12:06 Dose: 3 u - Labs Labs: 07/11/18 06:07 07/11/18 06:04 PT 18.4 SECONDS (9.7-12.2) H D 07/11/18 06:07 INR 1.7 D 07/11/18 06:07 APTT 40 SECONDS (21-34) H D 07/11/18 06:07 - Constitutional Appears: Well - Head Exam Head Exam: ATRAUMATIC, NORMAL INSPECTION, NORMOCEPHALIC - Eye Exam Eye Exam: EOMI, Normal appearance, PERRL Pupil Exam: NORMAL ACCOMODATION, PERRL - ENT Exam ENT Exam: Mucous Membranes Moist, Normal Exam - Neck Exam Neck Exam: Full ROM, Normal Inspection. absent: Lymphadenopathy - Respiratory Exam Respiratory Exam: Clear to Ausculation Bilateral, NORMAL BREATHING PATTERN - Cardiovascular Exam Cardiovascular Exam: REGULAR RHYTHM, +S1, +S2. absent: Murmur - GI/Abdominal Exam GI & Abdominal Exam: Soft, Normal Bowel Sounds. absent: Tenderness - Extremities Exam Extremities Exam: Full ROM, Normal Capillary Refill, Normal Inspection. absent: Joint Swelling, Pedal Edema - Back Exam Back Exam: NORMAL INSPECTION - Neurological Exam Neurological Exam: Alert, Awake, CN II-XII Intact, Normal Gait, Oriented x3 - Psychiatric Exam Psychiatric exam: Normal Affect, Normal Mood - Skin Skin Exam: Dry, Intact, Normal Color, Warm Assessment and Plan (1) SEBASTIÁN (acute kidney injury) Assessment & Plan: Likely 2/2 Dehydration/Pre-renal due to alcohol use. Resolved - Aggressive fluid hydration with NS @ 150 mls/hr - Avoid nephrotoxic agents Status: Acute (2) Respiratory alkalosis Assessment & Plan: Likely 2/2 overcompensation with increased tidal volume and RR - Continue to give volume Status: Acute (3) High anion gap metabolic acidosis Assessment & Plan: Resolved Status: Acute (4) Hyponatremia Assessment & Plan: Likely 2/2 hypovolemia - Continue NS at 100 mls/hr - IV albumin q4h with total of 6 doses Status: Acute (5) Uncontrolled diabetes mellitus Status: Acute (6) Hypokalemia Assessment & Plan: Replete; 2.5 today Status: Acute <Reinier Friedman - Last Filed: 07/12/18 07:15> Objective - Vital Signs/Intake and Output Vital Signs (last 24 hours): Temp Pulse Resp BP Pulse Ox 99.3 F 93 H 28 H 111/81 100 07/12/18 04:00 07/12/18 06:04 07/12/18 06:04 07/12/18 06:04 07/12/18 06:04 Intake and Output: 07/12/18 07/12/18 06:59 18:59 Intake Total 7018.0 Output Total 3550 Balance 3468.0 - Medications Medications: Current Medications Acetazolamide (Diamox 250 Mg Tab) 250 mg PO BID [facility] Last Admin: 07/11/18 18:42 Dose: 250 mg Famotidine (Pepcid) 20 mg IVP DAILY [facility] Last Admin: 07/11/18 09:38 Dose: 20 mg Dopamine HCl/Dextrose (Dopamine 400mg/250ml D5w) 400 mg in 250 mls @ 5.406 mls/hr IV .Q24H PRN; Protocol PRN Reason: TITRATE PER MD ORDER Last Titration: 07/11/18 18:00 Dose: 0 mcg/kg/min, 0 mls/hr Vasopressin 40 units/ Dextrose 40 mls @ 0.6 mls/hr IV .Q24H [facility]VARADO; Protocol Last Admin: 07/11/18 13:19 Dose: Not Given Vancomycin HCl 1 gm/ Sodium (Chloride) 250 mls @ 166.7 mls/hr IVPB Q24H [facility]VAR[facility]O; Protocol Last Admin: 07/11/18 11:00 Dose: 166.7 mls/hr Propofol (Diprivan) 1,000 mg in 100 mls @ 2.177 mls/hr IV .Q24H PRN; Protocol PRN Reason: TITRATE PER MD ORDER Last Admin: 07/12/18 05:24 Dose: 44.78 mcg/kg/min, 19.5 mls/hr Piperacillin Sod/Tazobactam Sod (Zosyn 2.25 Gm Iv Premix) 2.25 gm in 50 mls @ 100 mls/hr IVPB Q8H [facility]ADO; Protocol Last Admin: 07/12/18 02:22 Dose: 100 mls/hr Multivitamins/Vitamin C 10 ml/Thiamine HCl 100 mg/ Folic Acid 1 mg/ Sodium Chloride 1,011.2 mls @ 180 mls/hr IV .Q5H38M ONE Stop: 07/12/18 22:07 Sodium Chloride (Sodium Chloride 0.9%) 1,000 mls @ 100 mls/hr IV .Q10H [facility]O Last Admin: 07/12/18 03:30 Dose: Not Given Insulin Human Regular (Novolin R) 0 unit SC Q6H ALVARADO; Protocol Last Admin: 07/12/18 05:58 Dose: 2 u Potassium Chloride (Potassium Chloride Oral Soln) 40 meq PO Q4H [facility]O Stop: 07/12/18 11:16 - Labs Labs: 07/12/18 06:09 07/12/18 06:09 PT 13.6 SECONDS (9.7-12.2) H 07/12/18 06:09 INR 1.2 D 07/12/18 06:09 APTT 40 SECONDS (21-34) H D 07/11/18 06:07 Attending/Attestation - Attestation I have personally seen and examined this patient.: Yes I have fully participated in the care of the patient.: Yes I have reviewed all pertinent clinical information, including history, physical exam and plan: Yes Notes (Text): Patient seen and examined; I agree with the resident's note as above with the following additions/edits: 42 yo M w/ pmh of ETOH abuse, h/o seizure, ? dm, htn, admitted with hemorrhagic shock, nephrology following for acute renal failure; SEBASTIÁN in the setting of hemorrhagic shock, pre-renal etiology, now resolved with aggressive volume repletion; hemodynamically much more stable, only on low dose of dopamine; Profound hypokalemia in the setting of GI losses; also with primary respiratory alkalosis of unclear etiology (central?) as well as primary metabolic alkalosis from upper GI losses; will benefit from aggressive K repletion via IV and PO routes; need to keep on chloride containing IVF to help correct metabolic alkalosis; no longer on OG suction so alkalosis should improve quickly; Hyponatremia resolving; also due to intravascular volume depletion; -change banana bag to run in NS at 100 cc/hr instead of D5W; -consider increasing sedation to correct resp alkalosis (overbreathing vent); -would advise against using diamox (will worsen hypokalemia, hyponatremia);
[2018-07-11 17:16] LABS: BLOOD UREA NITROGEN 16 mg/dL (9-20); CALCIUM 7.8 mg/dl (8.6-10.4); GFR NON-AFRICAN AMERICAN > 60
[2018-07-11 17:26] LABS: BASO % 0.7 % (0.0-2.0); EOS # 0.1 K/uL (0.0-0.7); HEMOGLOBIN 12.2 g/dL (12.0-18.0); LYMPH # 0.4 K/uL (1.0-4.3); LYMPH % 11.7 % (20.0-40.0); MEAN CELL VOLUME 91.2 fL (80.0-94.0); MEAN CORPUSCULAR HEMOGLOBIN 30.8 pg (27.0-31.0); MEAN CORPUSCULAR HGB CONC 33.8 g/dL (33.0-37.0); MEAN PLATELET VOLUME 8.3 fL (7.2-11.7); MONO # 0.2 K/uL (0.0-0.8); MONO % 5.3 % (0.0-10.0); NEUT % 80.3 % (50.0-75.0); NRBC % 0.1 % (0.0-2.0); RBC 3.96 Mil/uL (4.40-5.90); RED CELL DISTRIBUTION WIDTH 15.2 % (11.5-14.5); WHITE BLOOD COUNT 3.7 K/uL (4.8-10.8)
[2018-07-11] MEDS ORDERED: Potassium Chloride 20 mEq ER Tab PO ONE (17:31)
--- NOTE | 2018-07-11 17:33 | CP.PCM.PN ---
Subjective - Date & Time of Evaluation Date of Evaluation: 07/11/18 Time of Evaluation: 12:45 - Subjective Subjective: clinically same Objective - Vital Signs/Intake and Output Vital Signs (last 24 hours): Temp Pulse Resp BP Pulse Ox 100 F H 95 H 28 H 103/67 100 07/11/18 16:00 07/11/18 17:00 07/11/18 17:00 07/11/18 16:34 07/11/18 17:00 Intake and Output: 07/11/18 07/11/18 06:59 18:59 Intake Total 2025.8 2005.4 Output Total 1405 2650 Balance 620.8 -644.6 - Medications Medications: Current Medications Acetazolamide (Diamox 250 Mg Tab) 250 mg PO BID [facility] Famotidine (Pepcid) 20 mg IVP DAILY [facility] Last Admin: 07/11/18 09:38 Dose: 20 mg Dopamine HCl/Dextrose (Dopamine 400mg/250ml D5w) 400 mg in 250 mls @ 5.406 mls/hr IV .Q24H PRN; Protocol PRN Reason: TITRATE PER MD ORDER Last Admin: 07/11/18 16:34 Dose: 2 mcg/kg/min, 5.406 mls/hr Vasopressin 40 units/ Dextrose 40 mls @ 0.6 mls/hr IV .Q24H ALVARADO; Protocol Last Admin: 07/11/18 13:19 Dose: Not Given Vancomycin HCl 1 gm/ Sodium (Chloride) 250 mls @ 166.7 mls/hr IVPB Q24H [facility]O; Protocol Last Admin: 07/11/18 11:00 Dose: 166.7 mls/hr Propofol (Diprivan) 1,000 mg in 100 mls @ 2.177 mls/hr IV .Q24H PRN; Protocol PRN Reason: TITRATE PER MD ORDER Last Titration: 07/11/18 14:24 Dose: 45 mcg/kg/min, 19.595 mls/hr Piperacillin Sod/Tazobactam Sod (Zosyn 2.25 Gm Iv Premix) 2.25 gm in 50 mls @ 100 mls/hr IVPB Q8H ALVARADO; Protocol Multivitamins/Vitamin C 10 ml/Thiamine HCl 100 mg/ Folic Acid 1 mg/ Sodium Chloride 1,011.2 mls @ 150 mls/hr IV .Q6H45M ONE Stop: 07/11/18 23:14 Last Admin: 07/11/18 16:27 Dose: 150 mls/hr Multivitamins/Vitamin C 10 ml/Thiamine HCl 100 mg/ Folic Acid 1 mg/ Sodium Chloride 1,011.2 mls @ 180 mls/hr IV .Q5H38M ONE Stop: 07/12/18 22:07 Potassium Phosphate 30 mmole/ (Sodium Chloride) 260 mls @ 63 mls/hr IV ONCE ONE Stop: 07/11/18 20:42 Sodium Chloride (Sodium Chloride 0.9%) 1,000 mls @ 100 mls/hr IV .Q10H AL[facility]O Insulin Human Regular (Novolin R) 0 unit SC Q6H ALVARADO; Protocol Last Admin: 07/11/18 12:06 Dose: 3 u - Labs Labs: 07/11/18 06:07 07/11/18 16:52 PT 18.4 SECONDS (9.7-12.2) H D 07/11/18 06:07 INR 1.7 D 07/11/18 06:07 APTT 40 SECONDS (21-34) H D 07/11/18 06:07
[2018-07-11] MEDS ORDERED: Potassium Chloride 20 mEq/15 ml LIQ UD PO ONE (17:45)
[2018-07-11 17:47] LABS: ALB/GLOB RATIO 1.5 (1.0-2.1); ALBUMIN 3.5 g/dL (3.5-5.0); ALT/SGPT 253 U/L (21-72); AST/SGOT 512 U/L (17-59); BLOOD UREA NITROGEN 16 mg/dL (9-20); CALCIUM 7.8 mg/dl (8.6-10.4); GFR NON-AFRICAN AMERICAN > 60
[2018-07-11 17:52] LABS: ABG ALLEN TEST POS; ARTERIAL BLOOD GAS HCO3 29.9 mmol/L (21-28); ARTERIAL BLOOD GAS O2 SAT 99.4 % (95-98); ARTERIAL BLOOD GAS PCO2 33 mm/Hg (35-45); ARTERIAL BLOOD GAS PH 7.55 (7.35-7.45); ARTERIAL BLOOD GAS PO2 172 mm/Hg (80-100); ARTERIAL BLOOD GAS TCO2 29.9 mmol/L (22-28)
[2018-07-11] MEDS: Piperacill/Tazo 2.25gm in Dex 2.25 GM/50 ML BAG IVPB SCH (18:07)
[2018-07-11] MEDS: Sodium Chloride 0.9% 1,000 ML IV SCH (18:49)
--- NOTE | 2018-07-11 21:01 | CP.PCM.PN ---
Subjective - Date & Time of Evaluation Date of Evaluation: 07/11/18 Time of Evaluation: 10:20 - Subjective Subjective: dictated Objective - Vital Signs/Intake and Output Vital Signs (last 24 hours): Temp Pulse Resp BP Pulse Ox 100 F H 97 H 24 109/72 100 07/11/18 16:00 07/11/18 19:03 07/11/18 19:03 07/11/18 19:04 07/11/18 19:03 Intake and Output: 07/11/18 07/12/18 18:59 06:59 Intake Total 2518.5 231.5 Output Total 3200 250 Balance -681.5 -18.5 - Medications Medications: Current Medications Acetazolamide (Diamox 250 Mg Tab) 250 mg PO BID [facility] Last Admin: 07/11/18 18:42 Dose: 250 mg Famotidine (Pepcid) 20 mg IVP DAILY [facility] Last Admin: 07/11/18 09:38 Dose: 20 mg Dopamine HCl/Dextrose (Dopamine 400mg/250ml D5w) 400 mg in 250 mls @ 5.406 mls/hr IV .Q24H PRN; Protocol PRN Reason: TITRATE PER MD ORDER Last Titration: 07/11/18 18:00 Dose: 0 mcg/kg/min, 0 mls/hr Vasopressin 40 units/ Dextrose 40 mls @ 0.6 mls/hr IV .Q24H ALVARADO; Protocol Last Admin: 07/11/18 13:19 Dose: Not Given Vancomycin HCl 1 gm/ Sodium (Chloride) 250 mls @ 166.7 mls/hr IVPB Q24H [facility]O; Protocol Last Admin: 07/11/18 11:00 Dose: 166.7 mls/hr Propofol (Diprivan) 1,000 mg in 100 mls @ 2.177 mls/hr IV .Q24H PRN; Protocol PRN Reason: TITRATE PER MD ORDER Last Admin: 07/11/18 18:43 Dose: 45 mcg/kg/min, 19.595 mls/hr Piperacillin Sod/Tazobactam Sod (Zosyn 2.25 Gm Iv Premix) 2.25 gm in 50 mls @ 100 mls/hr IVPB Q8H [facility]VARADO; Protocol Last Admin: 07/11/18 18:07 Dose: 100 mls/hr Multivitamins/Vitamin C 10 ml/Thiamine HCl 100 mg/ Folic Acid 1 mg/ Sodium Chloride 1,011.2 mls @ 150 mls/hr IV .Q6H45M ONE Stop: 07/11/18 23:14 Last Admin: 07/11/18 16:27 Dose: 150 mls/hr Multivitamins/Vitamin C 10 ml/Thiamine HCl 100 mg/ Folic Acid 1 mg/ Sodium Chloride 1,011.2 mls @ 180 mls/hr IV .Q5H38M ONE Stop: 07/12/18 22:07 Sodium Chloride (Sodium Chloride 0.9%) 1,000 mls @ 100 mls/hr IV .Q10H [facility]O Last Admin: 07/11/18 18:49 Dose: Not Given Potassium Chloride (Potassium Chloride 20 Meq/100 Ml) 20 meq in 100 mls @ 50 mls/hr IVPB ONCE ONE Stop: 07/11/18 21:39 Last Admin: 07/11/18 20:29 Dose: 50 mls/hr Potassium Phosphate 15 mmole/ (Dextrose) 255 mls @ 42.5 mls/hr IVPB ONCE ONE Stop: 07/11/18 23:55 Last Admin: 07/11/18 18:37 Dose: 42.5 mls/hr Insulin Human Regular (Novolin R) 0 unit SC Q6H ALVARADO; Protocol Last Admin: 07/11/18 17:44 Dose: 3 u - Labs Labs: 07/11/18 17:17 07/11/18 17:07 PT 18.4 SECONDS (9.7-12.2) H D 07/11/18 06:07 INR 1.7 D 07/11/18 06:07 APTT 40 SECONDS (21-34) H D 07/11/18 06:07
[2018-07-11 22:43] LABS: ALB/GLOB RATIO 1.5 (1.0-2.1); ALBUMIN 3.5 g/dL (3.5-5.0); ALT/SGPT 224 U/L (21-72); AST/SGOT 391 U/L (17-59); BLOOD UREA NITROGEN 13 mg/dL (9-20); CALCIUM 7.9 mg/dl (8.6-10.4); GFR NON-AFRICAN AMERICAN > 60
[2018-07-12] MEDS: Sodium Chloride 0.9% 1,000 ML IV SCH ×2 (00:12→03:30)
[2018-07-12] MEDS: (Novolin R) Insulin Human Regular 100 units/ml vial SC SCH ×5 (00:22→22:30)
[2018-07-12] MEDS: Propofol 10 mg/ml 1,000 MG/100 ML VIAL IV PRN ×2 (00:40→05:24)
--- NOTE | 2018-07-12 00:58 | PN ---
DATE: 07/11/2018 SUBJECTIVE: The patient is on mechanical ventilator. Elevated liver function tests. Afebrile. PHYSICAL EXAMINATION: VITAL SIGNS: Blood pressure 109/72, pulse 97, respiratory rate 24, and temperature 99. LUNGS: Bilateral transmitted breath sounds. CARDIOVASCULAR SYSTEM: S1 and S2 are regular. ABDOMEN: Soft. ASSESSMENT: 1. Respiratory failure. 2. Gastrointestinal bleed. 3. Alcoholic liver disease. PLAN: Medical management. Monitor the patient. James Bello MD
[2018-07-12] MEDS: Piperacill/Tazo 2.25gm in Dex 2.25 GM/50 ML BAG IVPB SCH ×2 (02:22→09:48)
[2018-07-12 05:36] LABS: ARTERIAL BLOOD GAS HCO3 23.7 mmol/L (21-28); ARTERIAL BLOOD GAS O2 SAT 99.7 % (95-98); ARTERIAL BLOOD GAS PCO2 33 mm/Hg (35-45); ARTERIAL BLOOD GAS PH 7.43 (7.35-7.45); ARTERIAL BLOOD GAS PO2 182 mm/Hg (80-100); ARTERIAL BLOOD GAS TCO2 22.9 mmol/L (22-28)
[2018-07-12 06:15] LABS: BASO % 0.3 % (0.0-2.0); EOS # 0.1 K/uL (0.0-0.7); EOS % 3.1 % (0.0-4.0); HEMOGLOBIN 11.4 g/dL (12.0-18.0); LYMPH # 0.6 K/uL (1.0-4.3); LYMPH % 14.6 % (20.0-40.0); MEAN CELL VOLUME 91.9 fL (80.0-94.0); MEAN CORPUSCULAR HEMOGLOBIN 30.6 pg (27.0-31.0); MEAN CORPUSCULAR HGB CONC 33.3 g/dL (33.0-37.0); MEAN PLATELET VOLUME 9.3 fL (7.2-11.7); MONO # 0.4 K/uL (0.0-0.8); MONO % 11.4 % (0.0-10.0); NEUT # 2.7 K/uL (1.8-7.0); NEUT % 70.6 % (50.0-75.0); RBC 3.74 Mil/uL (4.40-5.90); RED CELL DISTRIBUTION WIDTH 15.5 % (11.5-14.5); WHITE BLOOD COUNT 3.9 K/uL (4.8-10.8)
[2018-07-12 06:18] LABS: INR 1.2; PROTHROMBIN TIME 13.6 SECONDS (9.7-12.2)
[2018-07-12 06:32] LABS: ALB/GLOB RATIO 1.4 (1.0-2.1); ALBUMIN 3.4 g/dL (3.5-5.0); ALT/SGPT 199 U/L (21-72); AST/SGOT 273 U/L (17-59); BLOOD UREA NITROGEN 13 mg/dL (9-20); CALCIUM 8.2 mg/dl (8.6-10.4); GFR NON-AFRICAN AMERICAN > 60
[2018-07-12 07:52] LABS: BILIRUBIN,DIRECT 5.1 mg/dL (0.0-0.4)
[2018-07-12] MEDS: Potassium Chloride 20 mEq/15 ml LIQ UD PO SCH ×2 (07:54→14:40)
--- NOTE | 2018-07-12 08:07 | CP.CCUPN ---
<Nicko Fleming - Last Filed: 07/12/18 11:38> CCU Subjective - Physician Review Subjective (Free Text): Nicko Fleming DO, PGY-2: ICU Progress Note for Dr. Stewart Patient seen and examined at bedside. Patient has been successfully extubated and is off of all pressors. 07/12/18 08:03 07/12/18 10:08 CCU Objective - Vital Signs / Intake & Output Vital Signs (Last 4 hours): Vital Signs Pulse Resp BP Pulse Ox 07/12/18 06:04 93 H 28 H 111/81 100 07/12/18 06:00 92 H 25 H 100 07/12/18 05:04 94 H 29 H 113/72 100 07/12/18 05:00 94 H 29 H 100 07/12/18 04:04 93 H 27 H 116/80 100 Intake and Output (Last 8hrs): Intake & Output 07/11/18 07/12/18 07/12/18 22:59 06:59 14:59 Intake Total 6324.3 1492.0 53 Output Total 2250 2300 Balance 4074.3 -808.0 53 Weight 150 lb 4.8 oz Intake: IV 125 200 53 Intake, IV Amount 1439.3 1132.0 Right Antecubital 58.5 Right Distal Port Femoral 450 850 Right Forearm 400 Right Medial Port Femoral 383.3 126 Right Proximal Port 97.5 156.0 Femoral Y Line to Proximal 50 Femoral Port Tube Feeding 160 160 Other 4600 Output: Urine 2250 2300 Urethral ([place]) 2250 2300 - Physical Exam Head: Positive for: Atraumatic, Normocephalic Extroacular Muscles: Positive for: EOMI Conjunctiva: Positive for: Normal Mouth: Positive for: Moist Mucous Membranes Respiratory/Chest: Positive for: Decreased Breath Sounds (left greater than right). Negative for: Accessory Muscle Use, Wheezes Cardiovascular: Positive for: Regular Rate and Rhythm, Normal S1, S2 Abdomen: Positive for: Normal Bowel Sounds. Negative for: Tenderness, Distention Upper Extremity: Positive for: Normal Inspection. Negative for: Edema Lower Extremity: Positive for: Normal Inspection. Negative for: Edema Neurological: Positive for: CN II-XII Intact, Speech Normal, Other (patient is s edated) Skin: Positive for: Warm, Dry, Normal Color Psychiatric: Positive for: Alert, Oriented x 3, Normal Insight - Medications Active Medications: Active Medications Generic Name Dose Route Start Last Admin Trade Name Freq PRN Reason Stop Dose Admin Famotidine 20 mg 07/11/18 10:00 07/11/18 09:38 Pepcid IVP 20 mg DAILY ALVARADO Administration Vancomycin HCl 1 gm/ Sodium 250 mls @ 166.7 mls/hr 07/10/18 11:00 07/11/18 11:00 Chloride IVPB 166.7 mls/hr Q24H ALVARADO Administration Protocol Propofol 1,000 mg in 100 mls @ 2.177 mls/hr 07/11/18 08:12 07/12/18 07:41 Diprivan IV 20 mcg/kg/min .Q24H PRN 8.709 mls/hr TITRATE PER MD ORDER Titration Protocol 5 MCG/KG/MIN Piperacillin Sod/Tazobactam Sod 2.25 gm in 50 mls @ 100 mls/hr 07/11/18 18:30 07/12/18 02:22 Zosyn 2.25 Gm Iv Premix IVPB 100 mls/hr Q8H ALVARADO Administration Protocol Multivitamins/Vitamin C 10 ml/ 1,011.2 mls @ 180 mls/hr 07/12/18 16:30 Thiamine HCl 100 mg/ Folic IV 07/12/18 22:07 Acid 1 mg/ Sodium Chloride .Q5H38M ONE Sodium Chloride 1,000 mls @ 100 mls/hr 07/11/18 17:30 07/12/18 03:30 Sodium Chloride 0.9% IV Not Given .Q10H ALVARADO Potassium Phosphate 25 mmole/ 258.3333 mls @ 42.5 mls/hr 07/12/18 08:30 Sodium Chloride IVPB 07/12/18 14:34 ONCE ONE Insulin Human Regular 0 unit 07/12/18 06:00 07/12/18 05:58 Novolin R SC 2 u Q6H ALVARADO Administration Protocol Potassium Chloride 40 meq 07/12/18 07:15 07/12/18 07:54 Potassium Chloride Oral Soln PO 07/12/18 11:16 40 meq Q4H ALVARADO Administration Potassium Phos/Sodium Phos 2 pkt 07/12/18 08:00 Neutra-Phos PO 07/12/18 16:01 Q4H ALVARADO - Patient Studies Lab Studies: Microbiology Studies 07/09/18 09:04 Blood Culture - Preliminary Blood NO GROWTH AFTER 48 HOURS 07/09/18 09:04 S.aureus & Coag-Neg Staph PNA FISH - Final Blood Blood Culture - Preliminary Gram Positive Cocci Gram Stain - Final Lab Studies 07/12/18 07/12/18 07/12/18 Range/Units 06:09 06:09 06:09 WBC 3.9 L (4.8-10.8) K/uL RBC 3.74 L (4.40-5.90) Mil/uL Hgb 11.4 L (12.0-18.0) g/dL Hct 34.4 L (35.0-51.0) % MCV 91.9 (80.0-94.0) fL MCH 30.6 (27.0-31.0) pg MCHC 33.3 (33.0-37.0) g/dL RDW 15.5 H (11.5-14.5) % Plt Count 20 L* (130-400) K/uL MPV 9.3 (7.2-11.7) fL Neut % (Auto) 70.6 (50.0-75.0) % Lymph % (Auto) 14.6 L (20.0-40.0) % [place] % (Auto) 11.4 H (0.0-10.0) % Eos % (Auto) 3.1 (0.0-4.0) % Baso % (Auto) 0.3 (0.0-2.0) % Neut # (Auto) 2.7 (1.8-7.0) K/uL Lymph # (Auto) 0.6 L (1.0-4.3) K/uL [place] # (Auto) 0.4 (0.0-0.8) K/uL Eos # (Auto) 0.1 (0.0-0.7) K/uL Baso # (Auto) 0.0 (0.0-0.2) K/uL Neutrophils % (Manual) (50-75) % Band Neutrophils % (0-2) % Lymphocytes % (Manual) (20-40) % Monocytes % (Manual) (0-10) % Eosinophils % (Manual) (0-4) % Platelet Estimate (NORMAL) RBC Morphology PT 13.6 H (9.7-12.2) SECONDS INR 1.2 D Fibrinogen (200-400) mg/dL Puncture Site pCO2 (35-45) mm/Hg pO2 (80-100) mm/Hg HCO3 (21-28) mmol/L ABG pH (7.35-7.45) ABG Total CO2 (22-28) mmol/L ABG O2 Saturation (95-98) % ABG Base Excess (-2.0-3.0) mmol/L ABG Hemoglobin (11.7-17.4) g/dL ABG Carboxyhemoglobin (0.5-1.5) % POC ABG HHb (Measured) (0.0-5.0) % ABG Methemoglobin (0.0-3.0) % [place] Test ABG Potassium (3.6-5.2) mmol/L A-a O2 Difference mm/Hg Respiratory Index Hgb O2 Saturation (95.0-98.0) % Glucose (75-110) mg/dl Lactate (0.7-2.1) mmol/L Vent Mode Mechanical Rate FiO2 % Tidal Volume PEEP Sodium 140 (132-148) mmol/L Potassium 3.4 L (3.6-5.2) mmol/L Chloride 111 H (98-107) mmol/L Carbon Dioxide 24 (22-30) mmol/L Anion Gap 9 L (10-20) BUN 13 (9-20) mg/dL Creatinine 0.7 L (0.8-1.5) mg/dL Est GFR ( Amer) > 60 Est GFR (Non-Af Amer) > 60 POC Glucose (mg/dL) (65-110) mg/dL Random Glucose 180 H (75-110) mg/dL Calcium 8.2 L (8.6-10.4) mg/dl Phosphorus 1.5 L (2.5-4.5) mg/dL Magnesium 2.3 (1.6-2.3) mg/dL Total Bilirubin 7.0 H (0.2-1.3) mg/dL Direct Bilirubin 5.1 H (0.0-0.4) mg/dL AST 273 H D (17-59) U/L ALT 199 H (21-72) U/L Alkaline Phosphatase 66 (38-126) U/L Total Protein 5.9 L (6.3-8.3) g/dL Albumin 3.4 L (3.5-5.0) g/dL Globulin 2.5 (2.2-3.9) gm/dL Albumin/Globulin Ratio 1.4 (1.0-2.1) Arterial Blood Potassium (3.6-5.2) mmol/L 07/12/18 07/12/18 07/12/18 Range/Units 05:24 05:22 00:05 WBC (4.8-10.8) K/uL RBC (4.40-5.90) Mil/uL Hgb (12.0-18.0) g/dL Hct (35.0-51.0) % MCV (80.0-94.0) fL MCH (27.0-31.0) pg MCHC (33.0-37.0) g/dL RDW (11.5-14.5) % Plt Count (130-400) K/uL MPV (7.2-11.7) fL Neut % (Auto) (50.0-75.0) % Lymph % (Auto) (20.0-40.0) % [place] % (Auto) (0.0-10.0) % Eos % (Auto) (0.0-4.0) % Baso % (Auto) (0.0-2.0) % Neut # (Auto) (1.8-7.0) K/uL Lymph # (Auto) (1.0-4.3) K/uL [place] # (Auto) (0.0-0.8) K/uL Eos # (Auto) (0.0-0.7) K/uL Baso # (Auto) (0.0-0.2) K/uL Neutrophils % (Manual) (50-75) % Band Neutrophils % (0-2) % Lymphocytes % (Manual) (20-40) % Monocytes % (Manual) (0-10) % Eosinophils % (Manual) (0-4) % Platelet Estimate (NORMAL) RBC Morphology PT (9.7-12.2) SECONDS INR Fibrinogen (200-400) mg/dL Puncture Site L brac pCO2 33 L (35-45) mm/Hg pO2 182 H (80-100) mm/Hg HCO3 23.7 (21-28) mmol/L ABG pH 7.43 (7.35-7.45) ABG Total CO2 22.9 (22-28) mmol/L ABG O2 Saturation 99.7 H (95-98) % ABG Base Excess -1.7 (-2.0-3.0) mmol/L ABG Hemoglobin (11.7-17.4) g/dL ABG Carboxyhemoglobin (0.5-1.5) % POC ABG HHb (Measured) (0.0-5.0) % ABG Methemoglobin (0.0-3.0) % [place] Test Na ABG Potassium 3.2 L (3.6-5.2) mmol/L A-a O2 Difference 62.0 mm/Hg Respiratory Index 0.3 Hgb O2 Saturation (95.0-98.0) % Glucose 187 H (75-110) mg/dl Lactate 1.3 (0.7-2.1) mmol/L Vent Mode Prvc Mechanical Rate 10 FiO2 40.0 % Tidal Volume 400 PEEP 5 Sodium 141.0 (132-148) mmol/L Potassium (3.6-5.2) mmol/L Chloride 115.0 H (98-107) mmol/L Carbon Dioxide (22-30) mmol/L Anion Gap (10-20) BUN (9-20) mg/dL Creatinine (0.8-1.5) mg/dL Est GFR ( Amer) Est GFR (Non-Af Amer) POC Glucose (mg/dL) 194 H 222 H (65-110) mg/dL Random Glucose (75-110) mg/dL Calcium (8.6-10.4) mg/dl Phosphorus (2.5-4.5) mg/dL Magnesium (1.6-2.3) mg/dL Total Bilirubin (0.2-1.3) mg/dL Direct Bilirubin (0.0-0.4) mg/dL AST (17-59) U/L ALT (21-72) U/L Alkaline Phosphatase (38-126) U/L Total Protein (6.3-8.3) g/dL Albumin (3.5-5.0) g/dL Globulin (2.2-3.9) gm/dL Albumin/Globulin Ratio (1.0-2.1) Arterial Blood Potassium 3.2 L (3.6-5.2) mmol/L 07/11/18 07/11/18 07/11/18 Range/Units 22:17 17:45 17:35 WBC (4.8-10.8) K/uL RBC (4.40-5.90) Mil/uL Hgb (12.0-18.0) g/dL Hct (35.0-51.0) % MCV (80.0-94.0) fL MCH (27.0-31.0) pg MCHC (33.0-37.0) g/dL RDW (11.5-14.5) % Plt Count (130-400) K/uL MPV (7.2-11.7) fL Neut % (Auto) (50.0-75.0) % Lymph % (Auto) (20.0-40.0) % [place] % (Auto) (0.0-10.0) % Eos % (Auto) (0.0-4.0) % Baso % (Auto) (0.0-2.0) % Neut # (Auto) (1.8-7.0) K/uL Lymph # (Auto) (1.0-4.3) K/uL [place] # (Auto) (0.0-0.8) K/uL Eos # (Auto) (0.0-0.7) K/uL Baso # (Auto) (0.0-0.2) K/uL Neutrophils % (Manual) (50-75) % Band Neutrophils % (0-2) % Lymphocytes % (Manual) (20-40) % Monocytes % (Manual) (0-10) % Eosinophils % (Manual) (0-4) % Platelet Estimate (NORMAL) RBC Morphology PT (9.7-12.2) SECONDS INR Fibrinogen (200-400) mg/dL Puncture Site Rra pCO2 33 L (35-45) mm/Hg pO2 172 H (80-100) mm/Hg HCO3 29.9 H (21-28) mmol/L ABG pH 7.55 H (7.35-7.45) ABG Total CO2 29.9 H (22-28) mmol/L ABG O2 Saturation 99.4 H (95-98) % ABG Base Excess 6.4 H (-2.0-3.0) mmol/L ABG Hemoglobin 11.0 L (11.7-17.4) g/dL ABG Carboxyhemoglobin 1.5 (0.5-1.5) % POC ABG HHb (Measured) 0.6 (0.0-5.0) % ABG Methemoglobin 1.1 (0.0-3.0) % [place] Test Pos ABG Potassium (3.6-5.2) mmol/L A-a O2 Difference 72.0 mm/Hg Respiratory Index 0.4 Hgb O2 Saturation 96.8 (95.0-98.0) % Glucose (75-110) mg/dl Lactate (0.7-2.1) mmol/L Vent Mode Prvc Mechanical Rate 10 FiO2 40.0 % Tidal Volume 400 PEEP 5 Sodium 139 (132-148) mmol/L Potassium 3.7 (3.6-5.2) mmol/L Chloride 105 (98-107) mmol/L Carbon Dioxide 27 (22-30) mmol/L Anion Gap 11 (10-20) BUN 13 (9-20) mg/dL Creatinine 0.8 (0.8-1.5) mg/dL Est GFR ( Amer) > 60 Est GFR (Non-Af Amer) > 60 POC Glucose (mg/dL) 217 H (65-110) mg/dL Random Glucose 212 H (75-110) mg/dL Calcium 7.9 L (8.6-10.4) mg/dl Phosphorus 1.6 L (2.5-4.5) mg/dL Magnesium 2.3 (1.6-2.3) mg/dL Total Bilirubin 6.4 H (0.2-1.3) mg/dL Direct Bilirubin (0.0-0.4) mg/dL AST 391 H D (17-59) U/L ALT 224 H (21-72) U/L Alkaline Phosphatase 56 (38-126) U/L Total Protein 5.8 L (6.3-8.3) g/dL Albumin 3.5 (3.5-5.0) g/dL Globulin 2.4 (2.2-3.9) gm/dL Albumin/Globulin Ratio 1.5 (1.0-2.1) Arterial Blood Potassium (3.6-5.2) mmol/L 07/11/18 07/11/18 07/11/18 Range/Units 17:17 17:07 16:52 WBC 3.7 L (4.8-10.8) K/uL RBC 3.96 L (4.40-5.90) Mil/uL Hgb 12.2 (12.0-18.0) g/dL Hct 36.1 (35.0-51.0) % MCV 91.2 (80.0-94.0) fL MCH 30.8 (27.0-31.0) pg MCHC 33.8 (33.0-37.0) g/dL RDW 15.2 H (11.5-14.5) % Plt Count 22 L* (130-400) K/uL MPV 8.3 (7.2-11.7) fL Neut % (Auto) 80.3 H (50.0-75.0) % Lymph % (Auto) 11.7 L (20.0-40.0) % [place] % (Auto) 5.3 (0.0-10.0) % Eos % (Auto) 2.0 (0.0-4.0) % Baso % (Auto) 0.7 (0.0-2.0) % Neut # (Auto) 3.0 (1.8-7.0) K/uL Lymph # (Auto) 0.4 L (1.0-4.3) K/uL [place] # (Auto) 0.2 (0.0-0.8) K/uL Eos # (Auto) 0.1 (0.0-0.7) K/uL Baso # (Auto) 0.0 (0.0-0.2) K/uL Neutrophils % (Manual) (50-75) % Band Neutrophils % (0-2) % Lymphocytes % (Manual) (20-40) % Monocytes % (Manual) (0-10) % Eosinophils % (Manual) (0-4) % Platelet Estimate (NORMAL) RBC Morphology PT (9.7-12.2) SECONDS INR Fibrinogen (200-400) mg/dL Puncture Site pCO2 (35-45) mm/Hg pO2 (80-100) mm/Hg HCO3 (21-28) mmol/L ABG pH (7.35-7.45) ABG Total CO2 (22-28) mmol/L ABG O2 Saturation (95-98) % ABG Base Excess (-2.0-3.0) mmol/L ABG Hemoglobin (11.7-17.4) g/dL ABG Carboxyhemoglobin (0.5-1.5) % POC ABG HHb (Measured) (0.0-5.0) % ABG Methemoglobin (0.0-3.0) % [place] Test ABG Potassium (3.6-5.2) mmol/L A-a O2 Difference mm/Hg Respiratory Index Hgb O2 Saturation (95.0-98.0) % Glucose (75-110) mg/dl Lactate (0.7-2.1) mmol/L Vent Mode Mechanical Rate FiO2 % Tidal Volume PEEP Sodium 135 135 (132-148) mmol/L Potassium 3.1 L 3.1 L (3.6-5.2) mmol/L Chloride 98 97 L (98-107) mmol/L Carbon Dioxide 30 31 H (22-30) mmol/L Anion Gap 9 L 10 (10-20) BUN 16 16 (9-20) mg/dL Creatinine 0.8 0.9 (0.8-1.5) mg/dL Est GFR ( Amer) > 60 > 60 Est GFR (Non-Af Amer) > 60 > 60 POC Glucose (mg/dL) (65-110) mg/dL Random Glucose 232 H 228 H (75-110) mg/dL Calcium 7.8 L 7.8 L (8.6-10.4) mg/dl Phosphorus 1.5 L (2.5-4.5) mg/dL Magnesium 2.3 (1.6-2.3) mg/dL Total Bilirubin 5.5 H (0.2-1.3) mg/dL Direct Bilirubin (0.0-0.4) mg/dL AST 512 H D (17-59) U/L ALT 253 H D (21-72) U/L Alkaline Phosphatase 58 (38-126) U/L Total Protein 5.9 L (6.3-8.3) g/dL Albumin 3.5 (3.5-5.0) g/dL Globulin 2.3 (2.2-3.9) gm/dL Albumin/Globulin Ratio 1.5 (1.0-2.1) Arterial Blood Potassium (3.6-5.2) mmol/L 07/11/18 07/11/18 07/11/18 Range/Units 11:55 11:33 06:07 WBC (4.8-10.8) K/uL RBC (4.40-5.90) Mil/uL Hgb (12.0-18.0) g/dL Hct (35.0-51.0) % MCV (80.0-94.0) fL MCH (27.0-31.0) pg MCHC (33.0-37.0) g/dL RDW (11.5-14.5) % Plt Count (130-400) K/uL MPV (7.2-11.7) fL Neut % (Auto) (50.0-75.0) % Lymph % (Auto) (20.0-40.0) % [place] % (Auto) (0.0-10.0) % Eos % (Auto) (0.0-4.0) % Baso % (Auto) (0.0-2.0) % Neut # (Auto) (1.8-7.0) K/uL Lymph # (Auto) (1.0-4.3) K/uL [place] # (Auto) (0.0-0.8) K/uL Eos # (Auto) (0.0-0.7) K/uL Baso # (Auto) (0.0-0.2) K/uL Neutrophils % (Manual) 77 H (50-75) % Band Neutrophils % 7 H (0-2) % Lymphocytes % (Manual) 9 L (20-40) % Monocytes % (Manual) 6 (0-10) % Eosinophils % (Manual) 1 (0-4) % Platelet Estimate Markedly decreased L (NORMAL) RBC Morphology Normal PT (9.7-12.2) SECONDS INR Fibrinogen 344 (200-400) mg/dL Puncture Site pCO2 (35-45) mm/Hg pO2 (80-100) mm/Hg HCO3 (21-28) mmol/L ABG pH (7.35-7.45) ABG Total CO2 (22-28) mmol/L ABG O2 Saturation (95-98) % ABG Base Excess (-2.0-3.0) mmol/L ABG Hemoglobin (11.7-17.4) g/dL ABG Carboxyhemoglobin (0.5-1.5) % POC ABG HHb (Measured) (0.0-5.0) % ABG Methemoglobin (0.0-3.0) % [place] Test ABG Potassium (3.6-5.2) mmol/L A-a O2 Difference mm/Hg Respiratory Index Hgb O2 Saturation (95.0-98.0) % Glucose (75-110) mg/dl Lactate (0.7-2.1) mmol/L Vent Mode Mechanical Rate FiO2 % Tidal Volume PEEP Sodium (132-148) mmol/L Potassium (3.6-5.2) mmol/L Chloride (98-107) mmol/L Carbon Dioxide (22-30) mmol/L Anion Gap (10-20) BUN (9-20) mg/dL Creatinine (0.8-1.5) mg/dL Est GFR ( Amer) Est GFR (Non-Af Amer) POC Glucose (mg/dL) 223 H (65-110) mg/dL Random Glucose (75-110) mg/dL Calcium (8.6-10.4) mg/dl Phosphorus (2.5-4.5) mg/dL Magnesium (1.6-2.3) mg/dL Total Bilirubin (0.2-1.3) mg/dL Direct Bilirubin (0.0-0.4) mg/dL AST (17-59) U/L ALT (21-72) U/L Alkaline Phosphatase (38-126) U/L Total Protein (6.3-8.3) g/dL Albumin (3.5-5.0) g/dL Globulin (2.2-3.9) gm/dL Albumin/Globulin Ratio (1.0-2.1) Arterial Blood Potassium (3.6-5.2) mmol/L Laboratory Results - last 24 hr 07/11/18 07/11/18 07/11/18 06:07 11:33 11:55 WBC RBC Hgb Hct MCV MCH MCHC RDW Plt Count MPV Neut % (Auto) Lymph % (Auto) [place] % (Auto) Eos % (Auto) Baso % (Auto) Neut # (Auto) Lymph # (Auto) [place] # (Auto) Eos # (Auto) Baso # (Auto) Neutrophils % (Manual) 77 H Band Neutrophils % 7 H Lymphocytes % (Manual) 9 L Monocytes % (Manual) 6 Eosinophils % (Manual) 1 Platelet Estimate Markedly decreased L RBC Morphology Normal PT INR Fibrinogen 344 Puncture Site pCO2 pO2 HCO3 ABG pH ABG Total CO2 ABG O2 Saturation ABG Base Excess ABG Hemoglobin ABG Carboxyhemoglobin POC ABG HHb (Measured) ABG Methemoglobin [place] Test ABG Potassium A-a O2 Difference Respiratory Index Hgb O2 Saturation Glucose Lactate Vent Mode Mechanical Rate FiO2 Tidal Volume PEEP Sodium Potassium Chloride Carbon Dioxide Anion Gap BUN Creatinine Est GFR ( Amer) Est GFR (Non-Af Amer) POC Glucose (mg/dL) 223 H Random Glucose Calcium Phosphorus Magnesium Total Bilirubin Direct Bilirubin AST ALT Alkaline Phosphatase Total Protein Albumin Globulin Albumin/Globulin Ratio Arterial Blood Potassium 07/11/18 07/11/18 07/11/18 16:52 17:07 17:17 WBC 3.7 L RBC 3.96 L Hgb 12.2 Hct 36.1 MCV 91.2 MCH 30.8 MCHC 33.8 RDW 15.2 H Plt Count 22 L* MPV 8.3 Neut % (Auto) 80.3 H Lymph % (Auto) 11.7 L [place] % (Auto) 5.3 Eos % (Auto) 2.0 Baso % (Auto) 0.7 Neut # (Auto) 3.0 Lymph # (Auto) 0.4 L [place] # (Auto) 0.2 Eos # (Auto) 0.1 Baso # (Auto) 0.0 Neutrophils % (Manual) Band Neutrophils % Lymphocytes % (Manual) Monocytes % (Manual) Eosinophils % (Manual) Platelet Estimate RBC Morphology PT INR Fibrinogen Puncture Site pCO2 pO2 HCO3 ABG pH ABG Total CO2 ABG O2 Saturation ABG Base Excess ABG Hemoglobin ABG Carboxyhemoglobin POC ABG HHb (Measured) ABG Methemoglobin [place] Test ABG Potassium A-a O2 Difference Respiratory Index Hgb O2 Saturation Glucose Lactate Vent Mode Mechanical Rate FiO2 Tidal Volume PEEP Sodium 135 135 Potassium 3.1 L 3.1 L Chloride 97 L 98 Carbon Dioxide 31 H 30 Anion Gap 10 9 L BUN 16 16 Creatinine 0.9 0.8 Est GFR ( Amer) > 60 > 60 Est GFR (Non-Af Amer) > 60 > 60 POC Glucose (mg/dL) Random Glucose 228 H 232 H Calcium 7.8 L 7.8 L Phosphorus 1.5 L Magnesium 2.3 Total Bilirubin 5.5 H Direct Bilirubin AST 512 H D ALT 253 H D Alkaline Phosphatase 58 Total Protein 5.9 L Albumin 3.5 Globulin 2.3 Albumin/Globulin Ratio 1.5 Arterial Blood Potassium 07/11/18 07/11/18 07/11/18 17:35 17:45 22:17 WBC RBC Hgb Hct MCV MCH MCHC RDW Plt Count MPV Neut % (Auto) Lymph % (Auto) [place] % (Auto) Eos % (Auto) Baso % (Auto) Neut # (Auto) Lymph # (Auto) [place] # (Auto) Eos # (Auto) Baso # (Auto) Neutrophils % (Manual) Band Neutrophils % Lymphocytes % (Manual) Monocytes % (Manual) Eosinophils % (Manual) Platelet Estimate RBC Morphology PT INR Fibrinogen Puncture Site Rra pCO2 33 L pO2 172 H HCO3 29.9 H ABG pH 7.55 H ABG Total CO2 29.9 H ABG O2 Saturation 99.4 H ABG Base Excess 6.4 H ABG Hemoglobin 11.0 L ABG Carboxyhemoglobin 1.5 POC ABG HHb (Measured) 0.6 ABG Methemoglobin 1.1 [place] Test Pos ABG Potassium A-a O2 Difference 72.0 Respiratory Index 0.4 Hgb O2 Saturation 96.8 Glucose Lactate Vent Mode Prvc Mechanical Rate 10 FiO2 40.0 Tidal Volume 400 PEEP 5 Sodium 139 Potassium 3.7 Chloride 105 Carbon Dioxide 27 Anion Gap 11 BUN 13 Creatinine 0.8 Est GFR ( Amer) > 60 Est GFR (Non-Af Amer) > 60 POC Glucose (mg/dL) 217 H Random Glucose 212 H Calcium 7.9 L Phosphorus 1.6 L Magnesium 2.3 Total Bilirubin 6.4 H Direct Bilirubin AST 391 H D ALT 224 H Alkaline Phosphatase 56 Total Protein 5.8 L Albumin 3.5 Globulin 2.4 Albumin/Globulin Ratio 1.5 Arterial Blood Potassium 07/12/18 07/12/18 07/12/18 00:05 05:22 05:24 WBC RBC Hgb Hct MCV MCH MCHC RDW Plt Count MPV Neut % (Auto) Lymph % (Auto) [place] % (Auto) Eos % (Auto) Baso % (Auto) Neut # (Auto) Lymph # (Auto) [place] # (Auto) Eos # (Auto) Baso # (Auto) Neutrophils % (Manual) Band Neutrophils % Lymphocytes % (Manual) Monocytes % (Manual) Eosinophils % (Manual) Platelet Estimate RBC Morphology PT INR Fibrinogen Puncture Site L brac pCO2 33 L pO2 182 H HCO3 23.7 ABG pH 7.43 ABG Total CO2 22.9 ABG O2 Saturation 99.7 H ABG Base Excess -1.7 ABG Hemoglobin ABG Carboxyhemoglobin POC ABG HHb (Measured) ABG Methemoglobin [place] Test Na ABG Potassium 3.2 L A-a O2 Difference 62.0 Respiratory Index 0.3 Hgb O2 Saturation Glucose 187 H Lactate 1.3 Vent Mode Prvc Mechanical Rate 10 FiO2 40.0 Tidal Volume 400 PEEP 5 Sodium 141.0 Potassium Chloride 115.0 H Carbon Dioxide Anion Gap BUN Creatinine Est GFR ( Amer) Est GFR (Non-Af Amer) POC Glucose (mg/dL) 222 H 194 H Random Glucose Calcium Phosphorus Magnesium Total Bilirubin Direct Bilirubin AST ALT Alkaline Phosphatase Total Protein Albumin Globulin Albumin/Globulin Ratio Arterial Blood Potassium 3.2 L 07/12/18 07/12/18 07/12/18 06:09 06:09 06:09 WBC 3.9 L RBC 3.74 L Hgb 11.4 L Hct 34.4 L MCV 91.9 MCH 30.6 MCHC 33.3 RDW 15.5 H Plt Count 20 L* MPV 9.3 Neut % (Auto) 70.6 Lymph % (Auto) 14.6 L [place] % (Auto) 11.4 H Eos % (Auto) 3.1 Baso % (Auto) 0.3 Neut # (Auto) 2.7 Lymph # (Auto) 0.6 L [place] # (Auto) 0.4 Eos # (Auto) 0.1 Baso # (Auto) 0.0 Neutrophils % (Manual) Band Neutrophils % Lymphocytes % (Manual) Monocytes % (Manual) Eosinophils % (Manual) Platelet Estimate RBC Morphology PT 13.6 H INR 1.2 D Fibrinogen Puncture Site pCO2 pO2 HCO3 ABG pH ABG Total CO2 ABG O2 Saturation ABG Base Excess ABG Hemoglobin ABG Carboxyhemoglobin POC ABG HHb (Measured) ABG Methemoglobin [place] Test ABG Potassium A-a O2 Difference Respiratory Index Hgb O2 Saturation Glucose Lactate Vent Mode Mechanical Rate FiO2 Tidal Volume PEEP Sodium 140 Potassium 3.4 L Chloride 111 H Carbon Dioxide 24 Anion Gap 9 L BUN 13 Creatinine 0.7 L Est GFR ( Amer) > 60 Est GFR (Non-Af Amer) > 60 POC Glucose (mg/dL) Random Glucose 180 H Calcium 8.2 L Phosphorus 1.5 L Magnesium 2.3 Total Bilirubin 7.0 H Direct Bilirubin 5.1 H AST 273 H D ALT 199 H Alkaline Phosphatase 66 Total Protein 5.9 L Albumin 3.4 L Globulin 2.5 Albumin/Globulin Ratio 1.4 Arterial Blood Potassium Radiology Impressions: Radiology Impressions Chest X-Ray 07/11/18 07:14 IMPRESSION: Low lung volumes. Haziness in the lower lobes could represent layering effusions/consolidations. Small bilateral pleural effusions. Endotracheal tube terminates 1.5 cm proximal to the sadie. Nasogastric tube terminates in the stomach. Fingerstick Blood Sugar Results: 194 Critical Care Progress Note - Ventilator Checklist Head of Bed 30 Degrees: Yes Daily Sedation Vacation: Yes Daily Assessment of Readiness to Wean: Yes Daily Spontaneous Breathing Trial: Yes PUD Prophalyxis: Yes DVT Prophylaxis: Yes Oral Care with Chlorhexidine Gluconate {CHG}: Yes - Prophylaxis GI Prophylaxis GI: Pepsid - Prophylaxis DVT Prophylaxis DVT: SCDs Assessment/Plan - Assessment and Plan (Free Text) Assessment: 42 year old male with a past medical history of alcoholism, hypertension, DM II, alcohol withdrawal seizures who presented to [facility] for seizures in the setting of not drinking alcohol for a week or so. Mother states he stopped drinking for a week, but could not eat solid foods though he was able to drink a lot of water. She reports he was getting gradually weak and had a seizure at the time EMS arrived. In the ED at he had another seizure and had 1 liter of coffee ground emesis and was subsequently intubated for airway protection. Also, for his suspected upper GI bleed, possibly variceal in nature, he was started on a Protonix and Octreotide drip. He was admitted to the ICU early yesterday and required Propofol, Precedex, and Midazolam for sedation. He had a severe lactic acidosis accounting for high anion gap metabolic acidosis that was treated with aggressive intravascular volume repletion, 2 units prbc, and was started on a bicarbonate drip. In the ICU his blood pressure was in the low 80/40 despite 30 ml/kg of fluid challenge and hence a central venous catheter was placed for pressor support in the right femoral vein. He was put on Dopamine and vasopressin titrated for a MAP above 65. 07/10/2018 Today, he was noted have an elevation in his INR as well as a dramatic fall in his platelets. Initially, his platelet count was in the 200s but dropped to the 40 today. There were no signs of active bleeding and hence was given 10 mg of IVP Vitamin K and 2 units of FFP. GI is consulted and recommend continuing the Protonix drip. Also, one of his blood cultures are growing gram positive cocci so he was started on broad spectrum antibiotics. For his [place] we are monitoring strict I/O with a Willams and nephrology is consulted. GI is following for the UGI bleed and recommend continuing the Protonix drip (and opined patient less likely has a variceal bleed.) 07/11/2018 Patient platelets fell to 20,000. Hematology consulted, ordered fibrinogen considering DIC. GI recommend starting Glucerna 1.5 at a rate of 20 to be increased to 40 mls/hr and giving Protonix boluses (rather than Pepcid). Keppra was discontinued as the patient's seizure are controlled on Propofol and as his seizures only seem to be related to alcohol withdrawal. Also Zosyn was discontinued given the radiation safety officer's labeling states in case of severe thrombocytopenia, the drug should be withheld, unless otherwise indicated. His ammonia level is normal and lactulose was discontinued. 07/12: Patient successfully extubated. Off all pressors. We will replete his electrolytes. Consult Neurology to see if patient should remain on Keppra, as previously prescribed. Neurology - CT of the head showed no acute hemorrhage; and residual sinus disease noted compared to prior CT - HOB elevated to 30 - Keppra 500 mg BID for seizure prophylaxis discontinued given the patient's seizure are controlled on Propofol and his seizures only seem to be related to alcohol withdrawal, which he is not in. - Banana bag for a total of three bags to be given - Seizure precautions - Neurology consult given patient was on Keppra, not 100% compliant, and has alcohol withdrawal seizures Cardiovascular - Mantain MAP above 65 mmHg - Initial EKG showed no ST-changes changes, but did show non-specific intraventricular conduction delay (on 07/09/2018) HEENT - CT of the head showed residual sinus disease noted compared to prior CT Pulmonology: - Diamox discontinued - Chest X-ray today showed interval mild improved aeration in the right lower lobe with residual atelectasis/pneumonia. Persistent small effusions, worse on the left. Stable position of support tubes. ID - One blood culture growing MSSA, will obtain echocardiogram - urine culture negative - change antibiotics to clindamycin based on sensitivities; will confirm with Dr. Noemi bullock Nephrology - Monitor strict I/O - Willams to be removed - [place] resolving Heme - Platelets stable at 20,000 no active bleeding - Thrombocytopenia with platelets of 20,000; manual count showed and PBS show few platelets - PBS showed normocytic normochromic RBC. Rare schistocytes and markedly reduced platelet count - Fibrinogen ordered, Hematology consulted for thrombocytopenia; appreciate recommendations GI - LFTs trending down - UGI bleed appears stable - Ammonia level normal; discontinued Lactulose today 07/11/2018 - GI is following, Dr. Peters - Pepcid 20 mg IVP Daily (Protonix has higher incidence of thrombocytopenia than Famotidine) DVT prophylaxis - SCD Case reviewed and discussed with attending physician, Dr. Trevino <Jamari Bullock - Last Filed: 07/12/18 16:18> CCU Objective - Vital Signs / Intake & Output Vital Signs (Last 4 hours): Vital Signs Pulse Resp BP Pulse Ox 07/12/18 15:04 96 H 20 126/91 H 99 07/12/18 15:00 95 H 34 H 100 07/12/18 14:04 100 H 31 H 140/95 H 100 07/12/18 14:00 92 H 31 H 100 07/12/18 13:04 101 H 38 H 135/92 H 100 07/12/18 13:00 100 H 27 H 100 Intake and Output (Last 8hrs): Intake & Output 07/12/18 07/12/18 07/12/18 06:59 14:59 22:59 Intake Total 1492.0 1090.2 60 Output Total 2300 1350 100 Balance -808.0 -259.8 -40 Weight 150 lb 4.8 oz Intake: IV 200 70 Intake, IV Amount 1132.0 980.2 Right Distal Port Femoral 850 652 Right FA Y site 300 Right Medial Port Femoral 126 Right Proximal Port 156.0 28.2 Femoral Oral 60 Tube Feeding 160 40 Output: Urine 2300 1350 100 Urethral (Willams) 2300 1350 100 - Medications Active Medications: Active Medications Generic Name Dose Route Start Last Admin Trade Name Adonisq PRN Reason Stop Dose Admin Folic Acid 1 mg 07/12/18 14:15 07/12/18 15:04 Folic Acid PO 1 mg DAILY ALVARADO Administration Cefazolin Sodium 1,000 mg/ 100 mls @ 100 mls/hr 07/12/18 15:00 Sodium Chloride IVPB Q8H ALVARADO Protocol Insulin Human Regular 0 unit 07/12/18 16:30 Novolin R SC ACHS ALVARADO Protocol Lorazepam 2 mg 07/12/18 14:05 Ativan PO Q6H PRN Symptoms of alcohol withdrawl Multivitamins 1 tab 07/12/18 14:15 07/12/18 15:04 Hexavitamin PO 1 tab DAILY ALVARADO Administration Thiamine HCl 200 mg 07/12/18 14:15 07/12/18 15:05 Vitamin B1 Inj IV 07/15/18 14:16 200 mg Q8H ALVARADO Administration - Patient Studies Lab Studies: Microbiology Studies 07/09/18 09:04 Blood Culture - Preliminary Blood NO GROWTH AFTER 3 DAYS 07/09/18 09:04 S.aureus & Coag-Neg Staph PNA FISH - Final Blood Blood Culture - Final Staphylococcus Aureus Gram Stain - Final Lab Studies 07/12/18 07/12/18 07/12/18 Range/Units 11:34 06:09 06:09 WBC (4.8-10.8) K/uL RBC (4.40-5.90) Mil/uL Hgb (12.0-18.0) g/dL Hct (35.0-51.0) % MCV (80.0-94.0) fL MCH (27.0-31.0) pg MCHC (33.0-37.0) g/dL RDW (11.5-14.5) % Plt Count (130-400) K/uL MPV (7.2-11.7) fL Neut % (Auto) (50.0-75.0) % Lymph % (Auto) (20.0-40.0) % [place] % (Auto) (0.0-10.0) % Eos % (Auto) (0.0-4.0) % Baso % (Auto) (0.0-2.0) % Neut # (Auto) (1.8-7.0) K/uL Lymph # (Auto) (1.0-4.3) K/uL [place] # (Auto) (0.0-0.8) K/uL Eos # (Auto) (0.0-0.7) K/uL Baso # (Auto) (0.0-0.2) K/uL PT 13.6 H (9.7-12.2) SECONDS INR 1.2 D Puncture Site pCO2 (35-45) mm/Hg pO2 (80-100) mm/Hg HCO3 (21-28) mmol/L ABG pH (7.35-7.45) ABG Total CO2 (22-28) mmol/L ABG O2 Saturation (95-98) % ABG Base Excess (-2.0-3.0) mmol/L ABG Hemoglobin (11.7-17.4) g/dL ABG Carboxyhemoglobin (0.5-1.5) % POC ABG HHb (Measured) (0.0-5.0) % ABG Methemoglobin (0.0-3.0) % [place] Test ABG Potassium (3.6-5.2) mmol/L A-a O2 Difference mm/Hg Respiratory Index Hgb O2 Saturation (95.0-98.0) % Glucose (75-110) mg/dl Lactate (0.7-2.1) mmol/L Vent Mode Mechanical Rate FiO2 % Tidal Volume PEEP Sodium 140 (132-148) mmol/L Potassium 3.4 L (3.6-5.2) mmol/L Chloride 111 H (98-107) mmol/L Carbon Dioxide 24 (22-30) mmol/L Anion Gap 9 L (10-20) BUN 13 (9-20) mg/dL Creatinine 0.7 L (0.8-1.5) mg/dL Est GFR ( Amer) > 60 Est GFR (Non-Af Amer) > 60 POC Glucose (mg/dL) 197 H (65-110) mg/dL Random Glucose 180 H (75-110) mg/dL Calcium 8.2 L (8.6-10.4) mg/dl Phosphorus 1.5 L (2.5-4.5) mg/dL Magnesium 2.3 (1.6-2.3) mg/dL Total Bilirubin 7.0 H (0.2-1.3) mg/dL Direct Bilirubin 5.1 H (0.0-0.4) mg/dL AST 273 H D (17-59) U/L ALT 199 H (21-72) U/L Alkaline Phosphatase 66 (38-126) U/L Total Protein 5.9 L (6.3-8.3) g/dL Albumin 3.4 L (3.5-5.0) g/dL Globulin 2.5 (2.2-3.9) gm/dL Albumin/Globulin Ratio 1.4 (1.0-2.1) Arterial Blood Potassium (3.6-5.2) mmol/L 07/12/18 07/12/18 07/12/18 Range/Units 06:09 05:24 05:22 WBC 3.9 L (4.8-10.8) K/uL RBC 3.74 L (4.40-5.90) Mil/uL Hgb 11.4 L (12.0-18.0) g/dL Hct 34.4 L (35.0-51.0) % MCV 91.9 (80.0-94.0) fL MCH 30.6 (27.0-31.0) pg MCHC 33.3 (33.0-37.0) g/dL RDW 15.5 H (11.5-14.5) % Plt Count 20 L* (130-400) K/uL MPV 9.3 (7.2-11.7) fL Neut % (Auto) 70.6 (50.0-75.0) % Lymph % (Auto) 14.6 L (20.0-40.0) % [place] % (Auto) 11.4 H (0.0-10.0) % Eos % (Auto) 3.1 (0.0-4.0) % Baso % (Auto) 0.3 (0.0-2.0) % Neut # (Auto) 2.7 (1.8-7.0) K/uL Lymph # (Auto) 0.6 L (1.0-4.3) K/uL [place] # (Auto) 0.4 (0.0-0.8) K/uL Eos # (Auto) 0.1 (0.0-0.7) K/uL Baso # (Auto) 0.0 (0.0-0.2) K/uL PT (9.7-12.2) SECONDS INR Puncture Site L brac pCO2 33 L (35-45) mm/Hg pO2 182 H (80-100) mm/Hg HCO3 23.7 (21-28) mmol/L ABG pH 7.43 (7.35-7.45) ABG Total CO2 22.9 (22-28) mmol/L ABG O2 Saturation 99.7 H (95-98) % ABG Base Excess -1.7 (-2.0-3.0) mmol/L ABG Hemoglobin (11.7-17.4) g/dL ABG Carboxyhemoglobin (0.5-1.5) % POC ABG HHb (Measured) (0.0-5.0) % ABG Methemoglobin (0.0-3.0) % [place] Test Na ABG Potassium 3.2 L (3.6-5.2) mmol/L A-a O2 Difference 62.0 mm/Hg Respiratory Index 0.3 Hgb O2 Saturation (95.0-98.0) % Glucose 187 H (75-110) mg/dl Lactate 1.3 (0.7-2.1) mmol/L Vent Mode Prvc Mechanical Rate 10 FiO2 40.0 % Tidal Volume 400 PEEP 5 Sodium 141.0 (132-148) mmol/L Potassium (3.6-5.2) mmol/L Chloride 115.0 H (98-107) mmol/L Carbon Dioxide (22-30) mmol/L Anion Gap (10-20) BUN (9-20) mg/dL Creatinine (0.8-1.5) mg/dL Est GFR ( Amer) Est GFR (Non-Af Amer) POC Glucose (mg/dL) 194 H (65-110) mg/dL Random Glucose (75-110) mg/dL Calcium (8.6-10.4) mg/dl Phosphorus (2.5-4.5) mg/dL Magnesium (1.6-2.3) mg/dL Total Bilirubin (0.2-1.3) mg/dL Direct Bilirubin (0.0-0.4) mg/dL AST (17-59) U/L ALT (21-72) U/L Alkaline Phosphatase (38-126) U/L Total Protein (6.3-8.3) g/dL Albumin (3.5-5.0) g/dL Globulin (2.2-3.9) gm/dL Albumin/Globulin Ratio (1.0-2.1) Arterial Blood Potassium 3.2 L (3.6-5.2) mmol/L 07/12/18 07/11/18 07/11/18 Range/Units 00:05 22:17 17:45 WBC (4.8-10.8) K/uL RBC (4.40-5.90) Mil/uL Hgb (12.0-18.0) g/dL Hct (35.0-51.0) % MCV (80.0-94.0) fL MCH (27.0-31.0) pg MCHC (33.0-37.0) g/dL RDW (11.5-14.5) % Plt Count (130-400) K/uL MPV (7.2-11.7) fL Neut % (Auto) (50.0-75.0) % Lymph % (Auto) (20.0-40.0) % [place] % (Auto) (0.0-10.0) % Eos % (Auto) (0.0-4.0) % Baso % (Auto) (0.0-2.0) % Neut # (Auto) (1.8-7.0) K/uL Lymph # (Auto) (1.0-4.3) K/uL [place] # (Auto) (0.0-0.8) K/uL Eos # (Auto) (0.0-0.7) K/uL Baso # (Auto) (0.0-0.2) K/uL PT (9.7-12.2) SECONDS INR Puncture Site Rra pCO2 33 L (35-45) mm/Hg pO2 172 H (80-100) mm/Hg HCO3 29.9 H (21-28) mmol/L ABG pH 7.55 H (7.35-7.45) ABG Total CO2 29.9 H (22-28) mmol/L ABG O2 Saturation 99.4 H (95-98) % ABG Base Excess 6.4 H (-2.0-3.0) mmol/L ABG Hemoglobin 11.0 L (11.7-17.4) g/dL ABG Carboxyhemoglobin 1.5 (0.5-1.5) % POC ABG HHb (Measured) 0.6 (0.0-5.0) % ABG Methemoglobin 1.1 (0.0-3.0) % [place] Test Pos ABG Potassium (3.6-5.2) mmol/L A-a O2 Difference 72.0 mm/Hg Respiratory Index 0.4 Hgb O2 Saturation 96.8 (95.0-98.0) % Glucose (75-110) mg/dl Lactate (0.7-2.1) mmol/L Vent Mode Prvc Mechanical Rate 10 FiO2 40.0 % Tidal Volume 400 PEEP 5 Sodium 139 (132-148) mmol/L Potassium 3.7 (3.6-5.2) mmol/L Chloride 105 (98-107) mmol/L Carbon Dioxide 27 (22-30) mmol/L Anion Gap 11 (10-20) BUN 13 (9-20) mg/dL Creatinine 0.8 (0.8-1.5) mg/dL Est GFR ( Amer) > 60 Est GFR (Non-Af Amer) > 60 POC Glucose (mg/dL) 222 H (65-110) mg/dL Random Glucose 212 H (75-110) mg/dL Calcium 7.9 L (8.6-10.4) mg/dl Phosphorus 1.6 L (2.5-4.5) mg/dL Magnesium 2.3 (1.6-2.3) mg/dL Total Bilirubin 6.4 H (0.2-1.3) mg/dL Direct Bilirubin (0.0-0.4) mg/dL AST 391 H D (17-59) U/L ALT 224 H (21-72) U/L Alkaline Phosphatase 56 (38-126) U/L Total Protein 5.8 L (6.3-8.3) g/dL Albumin 3.5 (3.5-5.0) g/dL Globulin 2.4 (2.2-3.9) gm/dL Albumin/Globulin Ratio 1.5 (1.0-2.1) Arterial Blood Potassium (3.6-5.2) mmol/L 07/11/18 07/11/18 07/11/18 Range/Units 17:35 17:17 17:07 WBC 3.7 L (4.8-10.8) K/uL RBC 3.96 L (4.40-5.90) Mil/uL Hgb 12.2 (12.0-18.0) g/dL Hct 36.1 (35.0-51.0) % MCV 91.2 (80.0-94.0) fL MCH 30.8 (27.0-31.0) pg MCHC 33.8 (33.0-37.0) g/dL RDW 15.2 H (11.5-14.5) % Plt Count 22 L* (130-400) K/uL MPV 8.3 (7.2-11.7) fL Neut % (Auto) 80.3 H (50.0-75.0) % Lymph % (Auto) 11.7 L (20.0-40.0) % [place] % (Auto) 5.3 (0.0-10.0) % Eos % (Auto) 2.0 (0.0-4.0) % Baso % (Auto) 0.7 (0.0-2.0) % Neut # (Auto) 3.0 (1.8-7.0) K/uL Lymph # (Auto) 0.4 L (1.0-4.3) K/uL [place] # (Auto) 0.2 (0.0-0.8) K/uL Eos # (Auto) 0.1 (0.0-0.7) K/uL Baso # (Auto) 0.0 (0.0-0.2) K/uL PT (9.7-12.2) SECONDS INR Puncture Site pCO2 (35-45) mm/Hg pO2 (80-100) mm/Hg HCO3 (21-28) mmol/L ABG pH (7.35-7.45) ABG Total CO2 (22-28) mmol/L ABG O2 Saturation (95-98) % ABG Base Excess (-2.0-3.0) mmol/L ABG Hemoglobin (11.7-17.4) g/dL ABG Carboxyhemoglobin (0.5-1.5) % POC ABG HHb (Measured) (0.0-5.0) % ABG Methemoglobin (0.0-3.0) % [place] Test ABG Potassium (3.6-5.2) mmol/L A-a O2 Difference mm/Hg Respiratory Index Hgb O2 Saturation (95.0-98.0) % Glucose (75-110) mg/dl Lactate (0.7-2.1) mmol/L Vent Mode Mechanical Rate FiO2 % Tidal Volume PEEP Sodium 135 (132-148) mmol/L Potassium 3.1 L (3.6-5.2) mmol/L Chloride 98 (98-107) mmol/L Carbon Dioxide 30 (22-30) mmol/L Anion Gap 9 L (10-20) BUN 16 (9-20) mg/dL Creatinine 0.8 (0.8-1.5) mg/dL Est GFR ( Amer) > 60 Est GFR (Non-Af Amer) > 60 POC Glucose (mg/dL) 217 H (65-110) mg/dL Random Glucose 232 H (75-110) mg/dL Calcium 7.8 L (8.6-10.4) mg/dl Phosphorus 1.5 L (2.5-4.5) mg/dL Magnesium 2.3 (1.6-2.3) mg/dL Total Bilirubin 5.5 H (0.2-1.3) mg/dL Direct Bilirubin (0.0-0.4) mg/dL AST 512 H D (17-59) U/L ALT 253 H D (21-72) U/L Alkaline Phosphatase 58 (38-126) U/L Total Protein 5.9 L (6.3-8.3) g/dL Albumin 3.5 (3.5-5.0) g/dL Globulin 2.3 (2.2-3.9) gm/dL Albumin/Globulin Ratio 1.5 (1.0-2.1) Arterial Blood Potassium (3.6-5.2) mmol/L 07/11/18 07/11/18 Range/Units 16:52 11:55 WBC (4.8-10.8) K/uL RBC (4.40-5.90) Mil/uL Hgb (12.0-18.0) g/dL Hct (35.0-51.0) % MCV (80.0-94.0) fL MCH (27.0-31.0) pg MCHC (33.0-37.0) g/dL RDW (11.5-14.5) % Plt Count (130-400) K/uL MPV (7.2-11.7) fL Neut % (Auto) (50.0-75.0) % Lymph % (Auto) (20.0-40.0) % [place] % (Auto) (0.0-10.0) % Eos % (Auto) (0.0-4.0) % Baso % (Auto) (0.0-2.0) % Neut # (Auto) (1.8-7.0) K/uL Lymph # (Auto) (1.0-4.3) K/uL [place] # (Auto) (0.0-0.8) K/uL Eos # (Auto) (0.0-0.7) K/uL Baso # (Auto) (0.0-0.2) K/uL PT (9.7-12.2) SECONDS INR Puncture Site pCO2 (35-45) mm/Hg pO2 (80-100) mm/Hg HCO3 (21-28) mmol/L ABG pH (7.35-7.45) ABG Total CO2 (22-28) mmol/L ABG O2 Saturation (95-98) % ABG Base Excess (-2.0-3.0) mmol/L ABG Hemoglobin (11.7-17.4) g/dL ABG Carboxyhemoglobin (0.5-1.5) % POC ABG HHb (Measured) (0.0-5.0) % ABG Methemoglobin (0.0-3.0) % [place] Test ABG Potassium (3.6-5.2) mmol/L A-a O2 Difference mm/Hg Respiratory Index Hgb O2 Saturation (95.0-98.0) % Glucose (75-110) mg/dl Lactate (0.7-2.1) mmol/L Vent Mode Mechanical Rate FiO2 % Tidal Volume PEEP Sodium 135 (132-148) mmol/L Potassium 3.1 L (3.6-5.2) mmol/L Chloride 97 L (98-107) mmol/L Carbon Dioxide 31 H (22-30) mmol/L Anion Gap 10 (10-20) BUN 16 (9-20) mg/dL Creatinine 0.9 (0.8-1.5) mg/dL Est GFR ( Amer) > 60 Est GFR (Non-Af Amer) > 60 POC Glucose (mg/dL) 223 H (65-110) mg/dL Random Glucose 228 H (75-110) mg/dL Calcium 7.8 L (8.6-10.4) mg/dl Phosphorus (2.5-4.5) mg/dL Magnesium (1.6-2.3) mg/dL Total Bilirubin (0.2-1.3) mg/dL Direct Bilirubin (0.0-0.4) mg/dL AST (17-59) U/L ALT (21-72) U/L Alkaline Phosphatase (38-126) U/L Total Protein (6.3-8.3) g/dL Albumin (3.5-5.0) g/dL Globulin (2.2-3.9) gm/dL Albumin/Globulin Ratio (1.0-2.1) Arterial Blood Potassium (3.6-5.2) mmol/L Laboratory Results - last 24 hr 07/11/18 07/11/18 07/11/18 11:55 16:52 17:07 WBC RBC Hgb Hct MCV MCH MCHC RDW Plt Count MPV Neut % (Auto) Lymph % (Auto) [place] % (Auto) Eos % (Auto) Baso % (Auto) Neut # (Auto) Lymph # (Auto) [place] # (Auto) Eos # (Auto) Baso # (Auto) PT INR Puncture Site pCO2 pO2 HCO3 ABG pH ABG Total CO2 ABG O2 Saturation ABG Base Excess ABG Hemoglobin ABG Carboxyhemoglobin POC ABG HHb (Measured) ABG Methemoglobin [place] Test ABG Potassium A-a O2 Difference Respiratory Index Hgb O2 Saturation Glucose Lactate Vent Mode Mechanical Rate FiO2 Tidal Volume PEEP Sodium 135 135 Potassium 3.1 L 3.1 L Chloride 97 L 98 Carbon Dioxide 31 H 30 Anion Gap 10 9 L BUN 16 16 Creatinine 0.9 0.8 Est GFR ( Amer) > 60 > 60 Est GFR (Non-Af Amer) > 60 > 60 POC Glucose (mg/dL) 223 H Random Glucose 228 H 232 H Calcium 7.8 L 7.8 L Phosphorus 1.5 L Magnesium 2.3 Total Bilirubin 5.5 H Direct Bilirubin AST 512 H D ALT 253 H D Alkaline Phosphatase 58 Total Protein 5.9 L Albumin 3.5 Globulin 2.3 Albumin/Globulin Ratio 1.5 Arterial Blood Potassium 07/11/18 07/11/18 07/11/18 17:17 17:35 17:45 WBC 3.7 L RBC 3.96 L Hgb 12.2 Hct 36.1 MCV 91.2 MCH 30.8 MCHC 33.8 RDW 15.2 H Plt Count 22 L* MPV 8.3 Neut % (Auto) 80.3 H Lymph % (Auto) 11.7 L [place] % (Auto) 5.3 Eos % (Auto) 2.0 Baso % (Auto) 0.7 Neut # (Auto) 3.0 Lymph # (Auto) 0.4 L [place] # (Auto) 0.2 Eos # (Auto) 0.1 Baso # (Auto) 0.0 PT INR Puncture Site Rra pCO2 33 L pO2 172 H HCO3 29.9 H ABG pH 7.55 H ABG Total CO2 29.9 H ABG O2 Saturation 99.4 H ABG Base Excess 6.4 H ABG Hemoglobin 11.0 L ABG Carboxyhemoglobin 1.5 POC ABG HHb (Measured) 0.6 ABG Methemoglobin 1.1 [place] Test Pos ABG Potassium A-a O2 Difference 72.0 Respiratory Index 0.4 Hgb O2 Saturation 96.8 Glucose Lactate Vent Mode Prvc Mechanical Rate 10 FiO2 40.0 Tidal Volume 400 PEEP 5 Sodium Potassium Chloride Carbon Dioxide Anion Gap BUN Creatinine Est GFR ( Amer) Est GFR (Non-Af Amer) POC Glucose (mg/dL) 217 H Random Glucose Calcium Phosphorus Magnesium Total Bilirubin Direct Bilirubin AST ALT Alkaline Phosphatase Total Protein Albumin Globulin Albumin/Globulin Ratio Arterial Blood Potassium 07/11/18 07/12/18 07/12/18 22:17 00:05 05:22 WBC RBC Hgb Hct MCV MCH MCHC RDW Plt Count MPV Neut % (Auto) Lymph % (Auto) [place] % (Auto) Eos % (Auto) Baso % (Auto) Neut # (Auto) Lymph # (Auto) [place] # (Auto) Eos # (Auto) Baso # (Auto) PT INR Puncture Site pCO2 pO2 HCO3 ABG pH ABG Total CO2 ABG O2 Saturation ABG Base Excess ABG Hemoglobin ABG Carboxyhemoglobin POC ABG HHb (Measured) ABG Methemoglobin [place] Test ABG Potassium A-a O2 Difference Respiratory Index Hgb O2 Saturation Glucose Lactate Vent Mode Mechanical Rate FiO2 Tidal Volume PEEP Sodium 139 Potassium 3.7 Chloride 105 Carbon Dioxide 27 Anion Gap 11 BUN 13 Creatinine 0.8 Est GFR ( Amer) > 60 Est GFR (Non-Af Amer) > 60 POC Glucose (mg/dL) 222 H 194 H Random Glucose 212 H Calcium 7.9 L Phosphorus 1.6 L Magnesium 2.3 Total Bilirubin 6.4 H Direct Bilirubin AST 391 H D ALT 224 H Alkaline Phosphatase 56 Total Protein 5.8 L Albumin 3.5 Globulin 2.4 Albumin/Globulin Ratio 1.5 Arterial Blood Potassium 07/12/18 07/12/18 07/12/18 05:24 06:09 06:09 WBC 3.9 L RBC 3.74 L Hgb 11.4 L Hct 34.4 L MCV 91.9 MCH 30.6 MCHC 33.3 RDW 15.5 H Plt Count 20 L* MPV 9.3 Neut % (Auto) 70.6 Lymph % (Auto) 14.6 L [place] % (Auto) 11.4 H Eos % (Auto) 3.1 Baso % (Auto) 0.3 Neut # (Auto) 2.7 Lymph # (Auto) 0.6 L [place] # (Auto) 0.4 Eos # (Auto) 0.1 Baso # (Auto) 0.0 PT 13.6 H INR 1.2 D Puncture Site L brac pCO2 33 L pO2 182 H HCO3 23.7 ABG pH 7.43 ABG Total CO2 22.9 ABG O2 Saturation 99.7 H ABG Base Excess -1.7 ABG Hemoglobin ABG Carboxyhemoglobin POC ABG HHb (Measured) ABG Methemoglobin [place] Test Na ABG Potassium 3.2 L A-a O2 Difference 62.0 Respiratory Index 0.3 Hgb O2 Saturation Glucose 187 H Lactate 1.3 Vent Mode Prvc Mechanical Rate 10 FiO2 40.0 Tidal Volume 400 PEEP 5 Sodium 141.0 Potassium Chloride 115.0 H Carbon Dioxide Anion Gap BUN Creatinine Est GFR ( Amer) Est GFR (Non-Af Amer) POC Glucose (mg/dL) Random Glucose Calcium Phosphorus Magnesium Total Bilirubin Direct Bilirubin AST ALT Alkaline Phosphatase Total Protein Albumin Globulin Albumin/Globulin Ratio Arterial Blood Potassium 3.2 L 07/12/18 07/12/18 06:09 11:34 WBC RBC Hgb Hct MCV MCH MCHC RDW Plt Count MPV Neut % (Auto) Lymph % (Auto) [place] % (Auto) Eos % (Auto) Baso % (Auto) Neut # (Auto) Lymph # (Auto) [place] # (Auto) Eos # (Auto) Baso # (Auto) PT INR Puncture Site pCO2 pO2 HCO3 ABG pH ABG Total CO2 ABG O2 Saturation ABG Base Excess ABG Hemoglobin ABG Carboxyhemoglobin POC ABG HHb (Measured) ABG Methemoglobin [place] Test ABG Potassium A-a O2 Difference Respiratory Index Hgb O2 Saturation Glucose Lactate Vent Mode Mechanical Rate FiO2 Tidal Volume PEEP Sodium 140 Potassium 3.4 L Chloride 111 H Carbon Dioxide 24 Anion Gap 9 L BUN 13 Creatinine 0.7 L Est GFR ( Amer) > 60 Est GFR (Non-Af Amer) > 60 POC Glucose (mg/dL) 197 H Random Glucose 180 H Calcium 8.2 L Phosphorus 1.5 L Magnesium 2.3 Total Bilirubin 7.0 H Direct Bilirubin 5.1 H AST 273 H D ALT 199 H Alkaline Phosphatase 66 Total Protein 5.9 L Albumin 3.4 L Globulin 2.5 Albumin/Globulin Ratio 1.4 Arterial Blood Potassium Radiology Impressions: Radiology Impressions Chest X-Ray 07/12/18 07:41 IMPRESSION: Interval mild improved aeration in the right lower lobe with residual atelectasis/pneumonia. Persistent small effusions, worse on the left. Stable position of support tubes. Critical Care Progress Note - Nutrition Nutrition: Nutrition Category Date Time Status Dysphagia/Modified Consistency Diet [DIET] Diets 07/12/18 Dinner Active Assessment/Plan - Assessment and Plan (Free Text) Plan: Patient admitted to ICU for seizures -hypxic respiratory failure: s/p extubation today -Alchohol abuse -Seizure disorder -thrombocytopenia -dvt pxp scds -pud ppx ppi -start oral diet -d/c willams -ativan prn DTs -oob to chair - Date & Time Date: 07/12/18 Time: 16:18
[2018-07-12] MEDS ORDERED: SODIUM CHLORIDE IVPB ONE (08:30)
[2018-07-12] MEDS ORDERED: POTASSIUM PHOSPHATE IVPB ONE (08:30)
[2018-07-12] MEDS: Potassium & Sodium Phosphate PO SCH ×3 (08:37→19:43)
--- NOTE | 2018-07-12 08:40 | RAD ---
Date of service: 07/12/2018 HISTORY: intubated COMPARISON: 07/11/2018. FINDINGS: Endotracheal tube terminates 1.5 cm proximal to the sadie. The nasogastric tube terminates in the stomach LUNGS: There is ill-defined airspace disease in the right lower lobe ex, slightly improved since the prior examination. The left lung is clear. PLEURA: Redemonstration of bilateral small effusions, worse on the left . CARDIOVASCULAR: The heart is normal in size. No aortic atherosclerotic calcifications present. OSSEOUS STRUCTURES: Within normal limits for the patient's age. VISUALIZED UPPER ABDOMEN: Normal. OTHER FINDINGS: None. IMPRESSION: Interval mild improved aeration in the right lower lobe with residual atelectasis/pneumonia. Persistent small effusions, worse on the left. Stable position of support tubes.
--- NOTE | 2018-07-12 09:28 | CP.PCM.PN ---
Subjective - Date & Time of Evaluation Date of Evaluation: 07/12/18 Time of Evaluation: 07:30 - Subjective Subjective: f/u gi bleed, etoh abuse, liver disease. Pt seen in ICU intubated. No report of RB, melena, abd pain, SZ, hematuria, hemoptysis, back pain + jaundice Objective - Vital Signs/Intake and Output Vital Signs (last 24 hours): Temp Pulse Resp BP Pulse Ox 97.6 F 90 16 124/86 100 07/12/18 08:00 07/12/18 08:04 07/12/18 08:04 07/12/18 08:04 07/12/18 08:04 Intake and Output: 07/12/18 07/12/18 06:59 18:59 Intake Total 7018.0 281.2 Output Total 3550 325 Balance 3468.0 -43.8 - Medications Medications: Current Medications Famotidine (Pepcid) 20 mg IVP DAILY ALVARADO Last Admin: 07/11/18 09:38 Dose: 20 mg Vancomycin HCl 1 gm/ Sodium (Chloride) 250 mls @ 166.7 mls/hr IVPB Q24H ALVARADO; Protocol Last Admin: 07/11/18 11:00 Dose: 166.7 mls/hr Propofol (Diprivan) 1,000 mg in 100 mls @ 2.177 mls/hr IV .Q24H PRN; Protocol PRN Reason: TITRATE PER MD ORDER Last Titration: 07/12/18 07:41 Dose: 20 mcg/kg/min, 8.709 mls/hr Piperacillin Sod/Tazobactam Sod (Zosyn 2.25 Gm Iv Premix) 2.25 gm in 50 mls @ 100 mls/hr IVPB Q8H ALVARADO; Protocol Last Admin: 07/12/18 02:22 Dose: 100 mls/hr Multivitamins/Vitamin C 10 ml/Thiamine HCl 100 mg/ Folic Acid 1 mg/ Sodium Chloride 1,011.2 mls @ 180 mls/hr IV .Q5H38M ONE Stop: 07/12/18 22:07 Sodium Chloride (Sodium Chloride 0.9%) 1,000 mls @ 100 mls/hr IV .Q10H ALVARADO Last Admin: 07/12/18 03:30 Dose: Not Given Potassium Phosphate 25 mmole/ (Sodium Chloride) 258.3333 mls @ 42.5 mls/hr IVPB ONCE ONE Stop: 07/12/18 14:34 Last Admin: 07/12/18 08:36 Dose: 42.5 mls/hr Insulin Human Regular (Novolin R) 0 unit SC Q6H ALVARADO; Protocol Last Admin: 07/12/18 05:58 Dose: 2 u Potassium Chloride (Potassium Chloride Oral Soln) 40 meq PO Q4H ALVARADO Stop: 07/12/18 11:16 Last Admin: 07/12/18 07:54 Dose: 40 meq Potassium Phos/Sodium Phos (Neutra-Phos) 2 pkt PO Q4H ALVARADO Stop: 07/12/18 16:01 Last Admin: 07/12/18 08:37 Dose: 2 pkt - Labs Labs: 07/12/18 06:09 07/12/18 06:09 PT 13.6 SECONDS (9.7-12.2) H 07/12/18 06:09 INR 1.2 D 07/12/18 06:09 APTT 40 SECONDS (21-34) H D 07/11/18 06:07 - Constitutional Appears: Confused, Chronically Ill - Respiratory Exam Respiratory Exam: Clear to Ausculation Bilateral - Cardiovascular Exam Cardiovascular Exam: RRR - GI/Abdominal Exam GI & Abdominal Exam: Soft, Normal Bowel Sounds. absent: Tenderness, Mass - Extremities Exam Extremities Exam: Pedal Edema - Neurological Exam Neurological Exam: Awake Assessment and Plan (1) Abnormal LFTs Assessment & Plan: alcohol liver disease. Consider alcoholic hepatitis. Maddrey Disc index= 13 at present PLTs dropping- consdier liver failure, sepsis. PAncytopenia. Consdier hematology follow up Status: Acute (2) SEBASTIÁN (acute kidney injury) Status: Acute (3) Alcohol abuse Status: Acute (4) GI bleed Assessment & Plan: Hb relatively stable.. No overt bleeding. Status: Acute (5) Respiratory failure Status: Acute
--- NOTE | 2018-07-12 11:42 | CP.PCM.PN ---
<Edin Greer - Last Filed: 07/12/18 13:10> Subjective - Date & Time of Evaluation Date of Evaluation: 07/12/18 Time of Evaluation: 06:00 - Subjective Subjective: Patient seen and evaluated bedside in ICU. Patient was successfully extubated and off pressors. Patient is awake, alert, and trying to answer questions. Denies any complaints but says he is thirsty. Objective - Vital Signs/Intake and Output Vital Signs (last 24 hours): Temp Pulse Resp BP Pulse Ox 97.6 F 106 H 33 H 113/80 100 07/12/18 08:00 07/12/18 10:05 07/12/18 10:05 07/12/18 10:05 07/12/18 10:05 Intake and Output: 07/12/18 07/12/18 06:59 18:59 Intake Total 7018.0 764.2 Output Total 3550 575 Balance 3468.0 189.2 - Medications Medications: Current Medications Famotidine (Pepcid) 20 mg IVP DAILY [facility] Last Admin: 07/12/18 09:49 Dose: 20 mg Vancomycin HCl 1 gm/ Sodium (Chloride) 250 mls @ 166.7 mls/hr IVPB Q24H [facility]; Protocol Last Admin: 07/12/18 10:02 Dose: 166.7 mls/hr Propofol (Diprivan) 1,000 mg in 100 mls @ 2.177 mls/hr IV .Q24H PRN; Protocol PRN Reason: TITRATE PER MD ORDER Last Titration: 07/12/18 09:25 Dose: 0 mcg/kg/min, 0 mls/hr Piperacillin Sod/Tazobactam Sod (Zosyn 2.25 Gm Iv Premix) 2.25 gm in 50 mls @ 100 mls/hr IVPB Q8H [facility]; Protocol Last Admin: 07/12/18 09:48 Dose: 100 mls/hr Multivitamins/Vitamin C 10 ml/Thiamine HCl 100 mg/ Folic Acid 1 mg/ Sodium Chloride 1,011.2 mls @ 180 mls/hr IV .Q5H38M ONE Stop: 07/12/18 22:07 Sodium Chloride (Sodium Chloride 0.9%) 1,000 mls @ 100 mls/hr IV .Q10H [facility] Last Admin: 07/12/18 03:30 Dose: Not Given Potassium Phosphate 25 mmole/ (Sodium Chloride) 258.3333 mls @ 42.5 mls/hr IVPB ONCE ONE Stop: 07/12/18 14:34 Last Admin: 07/12/18 08:36 Dose: 42.5 mls/hr Insulin Human Regular (Novolin R) 0 unit SC Q6H [facility]; Protocol Last Admin: 07/12/18 05:58 Dose: 2 u Potassium Phos/Sodium Phos (Neutra-Phos) 2 pkt PO Q4H [facility] Stop: 07/12/18 16:01 Last Admin: 07/12/18 08:37 Dose: 2 pkt - Labs Labs: 07/12/18 06:09 07/12/18 06:09 PT 13.6 SECONDS (9.7-12.2) H 07/12/18 06:09 INR 1.2 D 07/12/18 06:09 APTT 40 SECONDS (21-34) H D 07/11/18 06:07 - Constitutional Appears: Non-toxic, No Acute Distress - Head Exam Head Exam: ATRAUMATIC, NORMAL INSPECTION, NORMOCEPHALIC - Eye Exam Eye Exam: Scleral icterus - ENT Exam ENT Exam: Mucous Membranes Moist - Respiratory Exam Respiratory Exam: Clear to Ausculation Bilateral, NORMAL BREATHING PATTERN - Cardiovascular Exam Cardiovascular Exam: REGULAR RHYTHM, +S1, +S2 - Extremities Exam Extremities Exam: absent: Pedal Edema, Tenderness - Neurological Exam Neurological Exam: Alert, Awake, Oriented x3 Assessment and Plan - Assessment and Plan (Free Text) Plan: Assessment and Plan (1) SEBASTIÁN (acute kidney injury) Assessment & Plan: Likely 2/2 Dehydration/Pre-renal due to alcohol use. Resolved - Aggressive fluid hydration with NS @ 100 mls/hr - Avoid nephrotoxic agents Status: Acute (2) Respiratory alkalosis Assessment & Plan: Likely 2/2 overcompensation with increased tidal volume and RR - Continue to give volume Status: resolved (3) High anion gap metabolic acidosis Assessment & Plan: Resolved Status: Acute (4) Hyponatremia Assessment & Plan: Likely 2/2 hypovolemia - Continue NS at 100 mls/hr - s/p IV albumin q4h with total of 6 doses Status: resolved (5) Uncontrolled diabetes mellitus Status: Acute (6) Hypokalemia Assessment & Plan: 3.4 Likely secondary from GI loss -continue to monitor and replete as necessary Status: Acute <Jamari Barragan - Last Filed: 07/12/18 16:01> Objective - Vital Signs/Intake and Output Vital Signs (last 24 hours): Temp Pulse Resp BP Pulse Ox 97.7 F 96 H 20 126/91 H 99 07/12/18 12:00 07/12/18 15:04 07/12/18 15:04 07/12/18 15:04 07/12/18 15:04 Intake and Output: 07/12/18 07/12/18 06:59 18:59 Intake Total 7018.0 1150.2 Output Total 3550 1450 Balance 3468.0 -299.8 - Medications Medications: Current Medications Folic Acid (Folic Acid) 1 mg PO DAILY [facility] Last Admin: 07/12/18 15:04 Dose: 1 mg Cefazolin Sodium 1,000 mg/ (Sodium Chloride) 100 mls @ 100 mls/hr IVPB Q8H [facility]; Protocol Insulin Human Regular (Novolin R) 0 unit SC ACHS [facility]; Protocol Lorazepam (Ativan) 2 mg PO Q6H PRN PRN Reason: Symptoms of alcohol withdrawl Multivitamins (Hexavitamin) 1 tab PO DAILY [facility] Last Admin: 07/12/18 15:04 Dose: 1 tab Thiamine HCl (Vitamin B1 Inj) 200 mg IV Q8H [facility] Stop: 07/15/18 14:16 Last Admin: 07/12/18 15:05 Dose: 200 mg - Labs Labs: 07/12/18 06:09 07/12/18 06:09 PT 13.6 SECONDS (9.7-12.2) H 07/12/18 06:09 INR 1.2 D 07/12/18 06:09 APTT 40 SECONDS (21-34) H D 07/11/18 06:07 Assessment and Plan - Assessment and Plan (Free Text) Plan: Patient admitted to ICU for seizures -hypxic respiratory failure: s/p extubation today -Alchohol abuse -Seizure disorder -thrombocytopenia -dvt pxp scds -pud ppx ppi -start oral diet -d/c willams -ativan prn DTs -oob to chair <Reinier Friedman - Last Filed: 07/13/18 08:11> Objective - Vital Signs/Intake and Output Vital Signs (last 24 hours): Temp Pulse Resp BP Pulse Ox 97.3 F L 81 38 H 122/91 H 97 07/13/18 04:00 07/13/18 06:00 07/13/18 05:04 07/13/18 05:04 07/13/18 06:00 Intake and Output: 07/13/18 07/13/18 06:59 18:59 Output Total 0 Balance 0 - Medications Medications: Current Medications Folic Acid (Folic Acid) 1 mg PO DAILY [facility] Last Admin: 07/12/18 15:04 Dose: 1 mg Cefazolin Sodium 1,000 mg/ (Sodium Chloride) 100 mls @ 100 mls/hr IVPB Q8H [facility]; Protocol Last Admin: 07/13/18 07:03 Dose: 100 mls/hr Insulin Human Regular (Novolin R) 0 unit SC ACHS [facility]; Protocol Last Admin: 07/13/18 07:32 Dose: Not Given Lorazepam (Ativan) 2 mg PO Q6H PRN PRN Reason: Symptoms of alcohol withdrawl Last Admin: 07/12/18 21:46 Dose: 2 mg Multivitamins (Hexavitamin) 1 tab PO DAILY [facility] Last Admin: 07/12/18 15:04 Dose: 1 tab Thiamine HCl (Vitamin B1 Inj) 200 mg IV Q8H [facility] Stop: 07/15/18 14:16 Last Admin: 07/13/18 07:03 Dose: 200 mg Valproate Sodium (Depakene Cap) 500 mg PO HS [facility] - Labs Labs: 07/13/18 05:55 07/13/18 05:55 PT 13.5 SECONDS (9.7-12.2) H 07/13/18 05:55 INR 1.2 07/13/18 05:55 APTT 40 SECONDS (21-34) H D 07/11/18 06:07 Attending/Attestation - Attestation I have personally seen and examined this patient.: Yes I have fully participated in the care of the patient.: Yes I have reviewed all pertinent clinical information, including history, physical exam and plan: Yes Notes (Text): Patient seen and examined; I agree with the resident's note as above with the following additions/edits: 42 yo M w/ pmh of ETOH abuse, h/o seizure, ? dm, htn, admitted with hemorrhagic shock, nephrology following for acute kidney injury and electrolyte abnormalities; Patient extubated today; is alert and verbal; SEBASTIÁN resolved, pre-renal etiology in the setting of hemorrhagic shock; Hypokalemia resolved after aggressive repletion; metabolic alkalosis resolved with IVF; hyponatremia also resolved with intravascular volume repletion; will continue to monitor.
[2018-07-12] MEDS: Multiple Vitamins Tab PO SCH (15:04)
[2018-07-12] MEDS: Thiamine 100 mg/ml Inj IV SCH ×2 (15:05→23:14)
[2018-07-12] MEDS ORDERED: Multivitamin (MVI) 10 ML, Thiamine 100 MG, Folic Acid 1 MG in Sodium Chloride 0.9% 1,00... IV ONE (16:30)
--- NOTE | 2018-07-12 16:35 | CARD ---
APPROVED REPORT Date of service: 07/12/2018 EXAM: Two-dimensional and M-mode echocardiogram with Doppler and color Doppler. Other Information Quality : TDSRhythm : INDICATION Infection:Rule out subacute bacterial endocarditis Alcohol abuse RISK FACTORS Diabetes 2D DIMENSIONS IVSd0.7 (0.7-1.1cm)LVDd4.6 (3.9-5.9cm) PWd0.7 (0.7-1.1cm)LA Eehhcd57 (18-58mL) LVDs3.5 (2.5-4.0cm)FS (%) 24.1 % LVEF (%)50.0 (>50%)LVEF (Mccall's)55 % M-Mode DIMENSIONS Left Atrium (MM)3.80 (2.5-4.0cm)IVSd0.75 (0.7-1.1cm) Aortic Root3.01 (2.2-3.7cm)LVDd5.68 (4.0-5.6cm) Aortic Cusp Exc.2.25 (1.5-2.0cm)PWd0.92 (0.7-1.1cm) FS (%) 19 %LVDs4.58 (2.0-3.8cm) LVEF (%)55 (>50%) Mitral Valve MV E Hptwjnne69.7cm/sMV A Vpumnuae53.1cm/sE/A ratio1.1 TDI Lateral E' Peak V15.35cm/sMedial E' Peak V11.77cm/sE/Lateral E'6.2 E/Medial E'8.1 LEFT VENTRICLE The left ventricle is normal size. There is normal left ventricular wall thickness. The left ventricular function is normal. The left ventricular ejection fraction is within the normal range. There is normal LV segmental wall motion. The left ventricular diastolic function is normal. RIGHT VENTRICLE The right ventricle is normal size. The right ventricular systolic function is normal. ATRIA The left atrium size is normal. The right atrium size is normal. The interatrial septum is intact with no evidence for an atrial septal defect. AORTIC VALVE The aortic valve is normal in structure. No aortic regurgitation is present. There is no aortic valvular stenosis. MITRAL VALVE The mitral valve is normal in structure. There is no mitral valve regurgitation noted. TRICUSPID VALVE The tricuspid valve is normal in structure. There is no tricuspid valve regurgitation noted. PULMONIC VALVE The pulmonary valve is normal in structure. There is no pulmonic valvular regurgitation. GREAT VESSELS The aortic root is normal in size. The IVC is normal in size and collapses >50% with inspiration. PERICARDIAL EFFUSION There is no pericardial effusion. <Conclusion> Normal bi-ventricular function No valvular abnormality. No pericardial effusion.
--- NOTE | 2018-07-12 17:16 | US ---
Date of service: 07/12/2018 HISTORY: liver evaluation COMPARISON: None available TECHNIQUE: Sonographic evaluation of the right upper quadrant of the abdomen. FINDINGS: LIVER: Measures 18.6 cm in length. Echogenic liver may be seen in setting of hepatic parenchymal disease or fatty infiltration. 2 mm echogenic focus consistent with calculus, right hepatic lobe. The main portal vein appears patent with normal directional flow. No intrahepatic bile duct dilatation. GALLBLADDER: No gallstones. No gallbladder wall thickening or pericholecystic edema. Negative sonographic Powers's sign as assessed by the bath mix operator. COMMON BILE DUCT: Measures 4 mm. PANCREAS: Not well-visualized. RIGHT KIDNEY: Measures approximately 12.5 x 5.1 x 5.4 cm. No obstructing calculus or hydronephrosis identified. AORTA: Limited visualization appears grossly unremarkable. IVC: Limited visualization appears grossly unremarkable. OTHER FINDINGS: Incidental note is made of right-sided pleural effusion. IMPRESSION: Echogenic liver may be seen in setting of hepatic parenchymal disease or fatty infiltration. 2 mm echogenic focus consistent with calcification, right hepatic lobe. Incidental note is made of right-sided pleural effusion.
[2018-07-12 17:55] LABS: ALB/GLOB RATIO 1.2 (1.0-2.1); ALBUMIN 3.4 g/dL (3.5-5.0); ALT/SGPT 175 U/L (21-72); AST/SGOT 183 U/L (17-59); BLOOD UREA NITROGEN 12 mg/dL (9-20); CALCIUM 8.5 mg/dl (8.6-10.4); GFR NON-AFRICAN AMERICAN > 60
--- NOTE | 2018-07-12 21:07 | CP.PCM.CON ---
History of Present Illness - History of Present Illness History of Present Illness: 42 year old male with a history of alcoholism, admitted with alcohol withdrawal, currently vented, with pancytopenia, coagulopathy, and coffee grounds by NG tube. THe patient is currently vented and I am unable to obtain a history. Noemi dela cruz of his blood work reveals shows he was admitted with a normal WBC and H/H and plt of 100,000. His platelet naomi is 22,000 today. He has a prolonged PT/PTT. Past medical, surgical, family, social history cannot be obtained form the patient. Allergies: NKA Review of systems cannot be obtained from the patient. Past Patient History - Infectious Disease Hx of Infectious Diseases: None - Past Medical History & Family History Past Medical History?: Yes - Past Social History Smoking Status: Never Smoked Alcohol: > 2 Drinks/Day Home Situation {Lives}: With Family - CARDIAC Hx Cardiac Disorders: Yes Hx Hypertension: Yes - PULMONARY Hx Respiratory Disorders: No Hx Tuberculosis: No - NEUROLOGICAL Hx Neurological Disorder: Yes Hx Seizures: Yes (ETOH related) - HEENT Hx HEENT Problems: No - RENAL Hx Chronic Kidney Disease: No - ENDOCRINE/METABOLIC Hx Endocrine Disorders: Yes Hx Diabetes Mellitus Type 2: Yes - HEMATOLOGICAL/ONCOLOGICAL Hx Blood Disorders: Yes Hx Anemia: Yes Hx Blood Transfusions: Yes Hx Human Immunodeficiency Virus (HIV): No - INTEGUMENTARY Hx Dermatological Problems: No - MUSCULOSKELETAL/RHEUMATOLOGICAL Hx Musculoskeletal Disorders: Yes Hx Falls: Yes - GASTROINTESTINAL Hx Gastrointestinal Disorders: Yes Hx Vomiting: Yes - GENITOURINARY/GYNECOLOGICAL Hx Genitourinary Disorders: No Hx Sexually Transmitted Disorders: No - PSYCHIATRIC Hx Psychophysiologic Disorder: Yes Hx Anxiety: Yes Hx Depression: Yes Hx Substance Use: No (DENIES) - SURGICAL HISTORY Hx Surgeries: No - ANESTHESIA Hx Anesthesia: No Meds Allergies/Adverse Reactions: Allergies Allergy/AdvReac Type Severity Reaction Status Date / Time No Known Allergies Allergy Verified 07/09/18 01:34 - Medications Medications: Current Medications Folic Acid (Folic Acid) 1 mg PO DAILY [facility] Last Admin: 07/12/18 15:04 Dose: 1 mg Cefazolin Sodium 1,000 mg/ (Sodium Chloride) 100 mls @ 100 mls/hr IVPB Q8H [facility]; Protocol Last Admin: 07/12/18 17:01 Dose: 100 mls/hr Insulin Human Regular (Novolin R) 0 unit SC ACHS [facility]; Protocol Last Admin: 07/12/18 17:35 Dose: 2 u Lorazepam (Ativan) 2 mg PO Q6H PRN PRN Reason: Symptoms of alcohol withdrawl Multivitamins (Hexavitamin) 1 tab PO DAILY [facility] Last Admin: 07/12/18 15:04 Dose: 1 tab Thiamine HCl (Vitamin B1 Inj) 200 mg IV Q8H [facility] Stop: 07/15/18 14:16 Last Admin: 07/12/18 15:05 Dose: 200 mg Physical Exam - Head Exam Head Exam: ATRAUMATIC - Eye Exam Eye Exam: Normal appearance - ENT Exam ENT Exam: Mucous Membranes Dry - Respiratory Exam Respiratory Exam: Decreased Breath Sounds - Cardiovascular Exam Cardiovascular Exam: +S1, +S2 - GI/Abdominal Exam GI & Abdominal Exam: Normal Bowel Sounds - Psychiatric Exam Psychiatric exam: Flat Affect - Skin Skin Exam: Warm Results - Vital Signs Recent Vital Signs: Last Vital Signs Temp 98.1 F 07/12/18 16:00 Pulse 100 H 07/12/18 19:00 Resp 20 07/12/18 19:00 BP 132/79 07/12/18 18:04 Pulse Ox 100 07/12/18 19:00 - Labs Result Diagrams: 07/12/18 06:09 07/12/18 17:29 Labs: Laboratory Results - last 24 hr 07/11/18 07/12/18 07/12/18 22:17 00:05 05:22 WBC RBC Hgb Hct MCV MCH MCHC RDW Plt Count MPV Neut % (Auto) Lymph % (Auto) Bond % (Auto) Eos % (Auto) Baso % (Auto) Neut # (Auto) Lymph # (Auto) Bond # (Auto) Eos # (Auto) Baso # (Auto) PT INR Puncture Site pCO2 pO2 HCO3 ABG pH ABG Total CO2 ABG O2 Saturation ABG Base Excess Constantine Test ABG Potassium A-a O2 Difference Respiratory Index Glucose Lactate Vent Mode Mechanical Rate FiO2 Tidal Volume PEEP Sodium 139 Potassium 3.7 Chloride 105 Carbon Dioxide 27 Anion Gap 11 BUN 13 Creatinine 0.8 Est GFR ( Amer) > 60 Est GFR (Non-Af Amer) > 60 POC Glucose (mg/dL) 222 H 194 H Random Glucose 212 H Calcium 7.9 L Phosphorus 1.6 L Magnesium 2.3 Total Bilirubin 6.4 H Direct Bilirubin AST 391 H D ALT 224 H Alkaline Phosphatase 56 Total Protein 5.8 L Albumin 3.5 Globulin 2.4 Albumin/Globulin Ratio 1.5 Arterial Blood Potassium Stool Occult Blood 07/12/18 07/12/18 07/12/18 05:24 06:09 06:09 WBC 3.9 L RBC 3.74 L Hgb 11.4 L Hct 34.4 L MCV 91.9 MCH 30.6 MCHC 33.3 RDW 15.5 H Plt Count 20 L* MPV 9.3 Neut % (Auto) 70.6 Lymph % (Auto) 14.6 L Bond % (Auto) 11.4 H Eos % (Auto) 3.1 Baso % (Auto) 0.3 Neut # (Auto) 2.7 Lymph # (Auto) 0.6 L Bond # (Auto) 0.4 Eos # (Auto) 0.1 Baso # (Auto) 0.0 PT 13.6 H INR 1.2 D Puncture Site L brac pCO2 33 L pO2 182 H HCO3 23.7 ABG pH 7.43 ABG Total CO2 22.9 ABG O2 Saturation 99.7 H ABG Base Excess -1.7 Constantine Test Na ABG Potassium 3.2 L A-a O2 Difference 62.0 Respiratory Index 0.3 Glucose 187 H Lactate 1.3 Vent Mode Prvc Mechanical Rate 10 FiO2 40.0 Tidal Volume 400 PEEP 5 Sodium 141.0 Potassium Chloride 115.0 H Carbon Dioxide Anion Gap BUN Creatinine Est GFR ( Amer) Est GFR (Non-Af Amer) POC Glucose (mg/dL) Random Glucose Calcium Phosphorus Magnesium Total Bilirubin Direct Bilirubin AST ALT Alkaline Phosphatase Total Protein Albumin Globulin Albumin/Globulin Ratio Arterial Blood Potassium 3.2 L Stool Occult Blood 07/12/18 07/12/18 07/12/18 06:09 11:34 16:22 WBC RBC Hgb Hct MCV MCH MCHC RDW Plt Count MPV Neut % (Auto) Lymph % (Auto) Bond % (Auto) Eos % (Auto) Baso % (Auto) Neut # (Auto) Lymph # (Auto) Bond # (Auto) Eos # (Auto) Baso # (Auto) PT INR Puncture Site pCO2 pO2 HCO3 ABG pH ABG Total CO2 ABG O2 Saturation ABG Base Excess Constantine Test ABG Potassium A-a O2 Difference Respiratory Index Glucose Lactate Vent Mode Mechanical Rate FiO2 Tidal Volume PEEP Sodium 140 Potassium 3.4 L Chloride 111 H Carbon Dioxide 24 Anion Gap 9 L BUN 13 Creatinine 0.7 L Est GFR ( Amer) > 60 Est GFR (Non-Af Amer) > 60 POC Glucose (mg/dL) 197 H 185 H Random Glucose 180 H Calcium 8.2 L Phosphorus 1.5 L Magnesium 2.3 Total Bilirubin 7.0 H Direct Bilirubin 5.1 H AST 273 H D ALT 199 H Alkaline Phosphatase 66 Total Protein 5.9 L Albumin 3.4 L Globulin 2.5 Albumin/Globulin Ratio 1.4 Arterial Blood Potassium Stool Occult Blood 07/12/18 07/12/18 07/12/18 17:29 17:29 20:59 WBC RBC Hgb Hct MCV MCH MCHC RDW Plt Count MPV Neut % (Auto) Lymph % (Auto) Bond % (Auto) Eos % (Auto) Baso % (Auto) Neut # (Auto) Lymph # (Auto) Bond # (Auto) Eos # (Auto) Baso # (Auto) PT INR Puncture Site pCO2 pO2 HCO3 ABG pH ABG Total CO2 ABG O2 Saturation ABG Base Excess Constantine Test ABG Potassium A-a O2 Difference Respiratory Index Glucose Lactate Vent Mode Mechanical Rate FiO2 Tidal Volume PEEP Sodium 142 Potassium 4.3 Chloride 113 H Carbon Dioxide 19 L Anion Gap 15 BUN 12 Creatinine 0.6 L Est GFR ( Amer) > 60 Est GFR (Non-Af Amer) > 60 POC Glucose (mg/dL) 201 H Random Glucose 197 H Calcium 8.5 L Phosphorus 2.8 Magnesium 1.8 Total Bilirubin 7.6 H Direct Bilirubin AST 183 H D ALT 175 H Alkaline Phosphatase 82 Total Protein 6.2 L Albumin 3.4 L Globulin 2.8 Albumin/Globulin Ratio 1.2 Arterial Blood Potassium Stool Occult Blood Positive H Assessment & Plan (1) Pancytopenia Assessment and Plan: likely bone marrow suppression from alcohol retic count, b12, folate, ferritin to further characterize anemia rule out DIC transfusion support if plt < 20,000 Status: Acute (2) Coagulopathy Assessment and Plan: nutritional ? liver disease s/p FFP Thank you for this interesting consult Status: Acute
--- NOTE | 2018-07-12 23:52 | CP.PCM.PN ---
Subjective - Date & Time of Evaluation Date of Evaluation: 07/12/18 Time of Evaluation: 19:00 - Subjective Subjective: Extubated today Objective - Vital Signs/Intake and Output Vital Signs (last 24 hours): Temp Pulse Resp BP Pulse Ox 98.1 F 84 38 H 134/90 100 07/12/18 16:00 07/12/18 22:04 07/12/18 22:04 07/12/18 22:04 07/12/18 22:04 Intake and Output: 07/12/18 07/13/18 18:59 06:59 Intake Total 1550.2 Output Total 2050 0 Balance -499.8 0 - Medications Medications: Current Medications Folic Acid (Folic Acid) 1 mg PO DAILY [facility] Last Admin: 07/12/18 15:04 Dose: 1 mg Cefazolin Sodium 1,000 mg/ (Sodium Chloride) 100 mls @ 100 mls/hr IVPB Q8H [facility]; Protocol Last Admin: 07/12/18 23:14 Dose: 100 mls/hr Insulin Human Regular (Novolin R) 0 unit SC ACHS [facility]; Protocol Last Admin: 07/12/18 22:30 Dose: Not Given Lorazepam (Ativan) 2 mg PO Q6H PRN PRN Reason: Symptoms of alcohol withdrawl Last Admin: 07/12/18 21:46 Dose: 2 mg Multivitamins (Hexavitamin) 1 tab PO DAILY [facility] Last Admin: 07/12/18 15:04 Dose: 1 tab Thiamine HCl (Vitamin B1 Inj) 200 mg IV Q8H [facility] Stop: 07/15/18 14:16 Last Admin: 07/12/18 23:14 Dose: 200 mg - Labs Labs: 07/12/18 06:09 07/12/18 17:29 PT 13.6 SECONDS (9.7-12.2) H 07/12/18 06:09 INR 1.2 D 07/12/18 06:09 APTT 40 SECONDS (21-34) H D 07/11/18 06:07 - Head Exam Head Exam: ATRAUMATIC - Eye Exam Eye Exam: Scleral icterus - Respiratory Exam Respiratory Exam: Decreased Breath Sounds - Cardiovascular Exam Cardiovascular Exam: +S1, +S2 - GI/Abdominal Exam GI & Abdominal Exam: Normal Bowel Sounds Assessment and Plan (1) Pancytopenia Assessment & Plan: bone marrow suppression from alcohol f/u anemia w/u - acute blood loss plt count appears to have plateaued transfusion support PRN Status: Acute (2) Coagulopathy Assessment & Plan: improved, s/p FFP Status: Acute
[2018-07-13 06:04] LABS: EOS # 0.2 K/uL (0.0-0.7); EOS % 5.6 % (0.0-4.0); HEMOGLOBIN 12.1 g/dL (12.0-18.0); LYMPH # 0.7 K/uL (1.0-4.3); LYMPH % 20.5 % (20.0-40.0); MEAN CELL VOLUME 92.2 fL (80.0-94.0); MONO # 0.9 K/uL (0.0-0.8); NEUT # 1.6 K/uL (1.8-7.0); WHITE BLOOD COUNT 3.4 K/uL (4.8-10.8)
[2018-07-13 06:08] LABS: BASO % 0.5 % (0.0-2.0); MEAN CORPUSCULAR HEMOGLOBIN 30.8 pg (27.0-31.0); MEAN CORPUSCULAR HGB CONC 33.4 g/dL (33.0-37.0); MEAN PLATELET VOLUME 9.8 fL (7.2-11.7); MONO % 27.5 % (0.0-10.0); NEUT % 45.9 % (50.0-75.0); RBC 3.95 Mil/uL (4.40-5.90); RED CELL DISTRIBUTION WIDTH 15.5 % (11.5-14.5)
[2018-07-13 06:17] LABS: PLATELET COUNT 26 K/uL (130-400)
[2018-07-13 06:24] LABS: ALB/GLOB RATIO 1.3 (1.0-2.1); ALBUMIN 3.5 g/dL (3.5-5.0); ALT/SGPT 142 U/L (21-72); AST/SGOT 133 U/L (17-59); BLOOD UREA NITROGEN 14 mg/dL (9-20); CALCIUM 9.3 mg/dl (8.6-10.4); GFR NON-AFRICAN AMERICAN > 60
[2018-07-13 06:34] LABS: INR 1.2; PROTHROMBIN TIME 13.5 SECONDS (9.7-12.2)
[2018-07-13] MEDS: Thiamine 100 mg/ml Inj IV SCH ×2 (07:03→14:24)
[2018-07-13] MEDS: (Novolin R) Insulin Human Regular 100 units/ml vial SC SCH ×4 (07:32→22:25)
--- NOTE | 2018-07-13 07:56 | CP.CCUPN ---
<Nicko Fleming - Last Filed: 07/13/18 08:55> CCU Subjective - Physician Review Subjective (Free Text): Nicko Fleming DO, PGY-2: ICU Progress Note for Dr. Stewart Patient seen and examined at bedside. Patient has been extubated since yesterday. He has been having loose bowel movements since being extubated. We ordered for C. Difficile toxin. 07/13/18 07:55 CCU Objective - Vital Signs / Intake & Output Vital Signs (Last 4 hours): Vital Signs Temp Pulse Resp BP Pulse Ox 07/13/18 06:00 81 97 07/13/18 05:04 84 38 H 122/91 H 100 07/13/18 05:00 89 25 H 100 07/13/18 04:04 80 30 H 128/88 100 07/13/18 04:00 97.3 F L 84 35 H 100 Intake and Output (Last 8hrs): Intake & Output 07/12/18 07/13/18 07/13/18 22:59 06:59 14:59 Intake Total 460 Output Total 700 Balance -240 Weight 153 lb 6.4 oz Intake: Intake, IV Amount 100 Right FA Y site 100 Oral 360 Output: Urine 700 Urethral (Paulson) 700 - Physical Exam Head: Positive for: Atraumatic, Normocephalic Extroacular Muscles: Positive for: EOMI Conjunctiva: Positive for: Normal Mouth: Positive for: Moist Mucous Membranes Respiratory/Chest: Positive for: Clear to Auscultation. Negative for: Respirat ory Distress, Accessory Muscle Use, Wheezes Cardiovascular: Positive for: Regular Rate and Rhythm, Normal S1, S2 Abdomen: Positive for: Normal Bowel Sounds. Negative for: Tenderness, Distention Upper Extremity: Positive for: Normal Inspection. Negative for: Edema Lower Extremity: Positive for: Normal Inspection. Negative for: Edema Neurological: Positive for: CN II-XII Intact, Speech Normal, Other (patient is sedated) Skin: Positive for: Warm, Dry, Normal Color Psychiatric: Positive for: Alert, Oriented x 3, Normal Insight - Medications Active Medications: Active Medications Generic Name Dose Route Start Last Admin Trade Name Freq PRN Reason Stop Dose Admin Folic Acid 1 mg 07/12/18 14:15 07/12/18 15:04 Folic Acid PO 1 mg DAILY ALVARADO Administration Cefazolin Sodium 1,000 mg/ 100 mls @ 100 mls/hr 07/12/18 15:00 07/13/18 07:03 Sodium Chloride IVPB 100 mls/hr Q8H ALVARADO Administration Protocol Insulin Human Regular 0 unit 07/12/18 16:30 07/13/18 07:32 Novolin R SC Not Given ACHS ALVARADO Protocol Lorazepam 2 mg 07/12/18 14:05 07/12/18 21:46 Ativan PO 2 mg Q6H PRN Administration Symptoms of alcohol withdrawl Multivitamins 1 tab 07/12/18 14:15 07/12/18 15:04 Hexavitamin PO 1 tab DAILY ALVARADO Administration Thiamine HCl 200 mg 07/12/18 14:15 07/13/18 07:03 Vitamin B1 Inj IV 07/15/18 14:16 200 mg Q8H ALVARADO Administration Valproate Sodium 500 mg 07/13/18 22:00 Depakene Cap PO HS ALVARADO - Patient Studies Lab Studies: Microbiology Studies 07/09/18 09:04 Blood Culture - Preliminary Blood NO GROWTH AFTER 3 DAYS 07/09/18 09:04 S.aureus & Coag-Neg Staph PNA FISH - Final Blood Blood Culture - Final Staphylococcus Aureus Gram Stain - Final Lab Studies 07/13/18 07/13/18 07/13/18 Range/Units 05:55 05:55 05:55 WBC 3.4 L (4.8-10.8) K/uL RBC 3.95 L (4.40-5.90) Mil/uL Hgb 12.1 (12.0-18.0) g/dL Hct 36.4 (35.0-51.0) % MCV 92.2 (80.0-94.0) fL MCH 30.8 (27.0-31.0) pg MCHC 33.4 (33.0-37.0) g/dL RDW 15.5 H (11.5-14.5) % Plt Count 26 L* (130-400) K/uL MPV 9.8 (7.2-11.7) fL Neut % (Auto) 45.9 L (50.0-75.0) % Lymph % (Auto) 20.5 (20.0-40.0) % Harney % (Auto) 27.5 H (0.0-10.0) % Eos % (Auto) 5.6 H (0.0-4.0) % Baso % (Auto) 0.5 (0.0-2.0) % Neut # (Auto) 1.6 L (1.8-7.0) K/uL Lymph # (Auto) 0.7 L (1.0-4.3) K/uL Harney # (Auto) 0.9 H (0.0-0.8) K/uL Eos # (Auto) 0.2 (0.0-0.7) K/uL Baso # (Auto) 0.0 (0.0-0.2) K/uL PT 13.5 H (9.7-12.2) SECONDS INR 1.2 Sodium 139 (132-148) mmol/L Potassium 4.5 (3.6-5.2) mmol/L Chloride 109 H (98-107) mmol/L Carbon Dioxide 20 L (22-30) mmol/L Anion Gap 14 (10-20) BUN 14 (9-20) mg/dL Creatinine 0.6 L (0.8-1.5) mg/dL Est GFR ( Amer) > 60 Est GFR (Non-Af Amer) > 60 POC Glucose (mg/dL) (65-110) mg/dL Random Glucose 171 H (75-110) mg/dL Calcium 9.3 (8.6-10.4) mg/dl Phosphorus 3.8 (2.5-4.5) mg/dL Magnesium 1.7 (1.6-2.3) mg/dL Total Bilirubin 6.1 H (0.2-1.3) mg/dL AST 133 H D (17-59) U/L ALT 142 H (21-72) U/L Alkaline Phosphatase 94 (38-126) U/L Total Protein 6.3 (6.3-8.3) g/dL Albumin 3.5 (3.5-5.0) g/dL Globulin 2.7 (2.2-3.9) gm/dL Albumin/Globulin Ratio 1.3 (1.0-2.1) Stool Occult Blood (NEGATIVE) 07/12/18 07/12/18 07/12/18 Range/Units 20:59 17:29 17:29 WBC (4.8-10.8) K/uL RBC (4.40-5.90) Mil/uL Hgb (12.0-18.0) g/dL Hct (35.0-51.0) % MCV (80.0-94.0) fL MCH (27.0-31.0) pg MCHC (33.0-37.0) g/dL RDW (11.5-14.5) % Plt Count (130-400) K/uL MPV (7.2-11.7) fL Neut % (Auto) (50.0-75.0) % Lymph % (Auto) (20.0-40.0) % Harney % (Auto) (0.0-10.0) % Eos % (Auto) (0.0-4.0) % Baso % (Auto) (0.0-2.0) % Neut # (Auto) (1.8-7.0) K/uL Lymph # (Auto) (1.0-4.3) K/uL Harney # (Auto) (0.0-0.8) K/uL Eos # (Auto) (0.0-0.7) K/uL Baso # (Auto) (0.0-0.2) K/uL PT (9.7-12.2) SECONDS INR Sodium 142 (132-148) mmol/L Potassium 4.3 (3.6-5.2) mmol/L Chloride 113 H (98-107) mmol/L Carbon Dioxide 19 L (22-30) mmol/L Anion Gap 15 (10-20) BUN 12 (9-20) mg/dL Creatinine 0.6 L (0.8-1.5) mg/dL Est GFR ( Amer) > 60 Est GFR (Non-Af Amer) > 60 POC Glucose (mg/dL) 201 H (65-110) mg/dL Random Glucose 197 H (75-110) mg/dL Calcium 8.5 L (8.6-10.4) mg/dl Phosphorus 2.8 (2.5-4.5) mg/dL Magnesium 1.8 (1.6-2.3) mg/dL Total Bilirubin 7.6 H (0.2-1.3) mg/dL AST 183 H D (17-59) U/L ALT 175 H (21-72) U/L Alkaline Phosphatase 82 (38-126) U/L Total Protein 6.2 L (6.3-8.3) g/dL Albumin 3.4 L (3.5-5.0) g/dL Globulin 2.8 (2.2-3.9) gm/dL Albumin/Globulin Ratio 1.2 (1.0-2.1) Stool Occult Blood Positive H (NEGATIVE) 07/12/18 07/12/18 Range/Units 16:22 11:34 WBC (4.8-10.8) K/uL RBC (4.40-5.90) Mil/uL Hgb (12.0-18.0) g/dL Hct (35.0-51.0) % MCV (80.0-94.0) fL MCH (27.0-31.0) pg MCHC (33.0-37.0) g/dL RDW (11.5-14.5) % Plt Count (130-400) K/uL MPV (7.2-11.7) fL Neut % (Auto) (50.0-75.0) % Lymph % (Auto) (20.0-40.0) % Harney % (Auto) (0.0-10.0) % Eos % (Auto) (0.0-4.0) % Baso % (Auto) (0.0-2.0) % Neut # (Auto) (1.8-7.0) K/uL Lymph # (Auto) (1.0-4.3) K/uL Harney # (Auto) (0.0-0.8) K/uL Eos # (Auto) (0.0-0.7) K/uL Baso # (Auto) (0.0-0.2) K/uL PT (9.7-12.2) SECONDS INR Sodium (132-148) mmol/L Potassium (3.6-5.2) mmol/L Chloride (98-107) mmol/L Carbon Dioxide (22-30) mmol/L Anion Gap (10-20) BUN (9-20) mg/dL Creatinine (0.8-1.5) mg/dL Est GFR ( Amer) Est GFR (Non-Af Amer) POC Glucose (mg/dL) 185 H 197 H (65-110) mg/dL Random Glucose (75-110) mg/dL Calcium (8.6-10.4) mg/dl Phosphorus (2.5-4.5) mg/dL Magnesium (1.6-2.3) mg/dL Total Bilirubin (0.2-1.3) mg/dL AST (17-59) U/L ALT (21-72) U/L Alkaline Phosphatase (38-126) U/L Total Protein (6.3-8.3) g/dL Albumin (3.5-5.0) g/dL Globulin (2.2-3.9) gm/dL Albumin/Globulin Ratio (1.0-2.1) Stool Occult Blood (NEGATIVE) Laboratory Results - last 24 hr 07/12/18 07/12/18 07/12/18 11:34 16:22 17:29 WBC RBC Hgb Hct MCV MCH MCHC RDW Plt Count MPV Neut % (Auto) Lymph % (Auto) Harney % (Auto) Eos % (Auto) Baso % (Auto) Neut # (Auto) Lymph # (Auto) Harney # (Auto) Eos # (Auto) Baso # (Auto) PT INR Sodium Potassium Chloride Carbon Dioxide Anion Gap BUN Creatinine Est GFR ( Amer) Est GFR (Non-Af Amer) POC Glucose (mg/dL) 197 H 185 H Random Glucose Calcium Phosphorus Magnesium Total Bilirubin AST ALT Alkaline Phosphatase Total Protein Albumin Globulin Albumin/Globulin Ratio Stool Occult Blood Positive H 07/12/18 07/12/18 07/13/18 17:29 20:59 05:55 WBC 3.4 L RBC 3.95 L Hgb 12.1 Hct 36.4 MCV 92.2 MCH 30.8 MCHC 33.4 RDW 15.5 H Plt Count 26 L* MPV 9.8 Neut % (Auto) 45.9 L Lymph % (Auto) 20.5 Harney % (Auto) 27.5 H Eos % (Auto) 5.6 H Baso % (Auto) 0.5 Neut # (Auto) 1.6 L Lymph # (Auto) 0.7 L Harney # (Auto) 0.9 H Eos # (Auto) 0.2 Baso # (Auto) 0.0 PT INR Sodium 142 Potassium 4.3 Chloride 113 H Carbon Dioxide 19 L Anion Gap 15 BUN 12 Creatinine 0.6 L Est GFR ( Amer) > 60 Est GFR (Non-Af Amer) > 60 POC Glucose (mg/dL) 201 H Random Glucose 197 H Calcium 8.5 L Phosphorus 2.8 Magnesium 1.8 Total Bilirubin 7.6 H AST 183 H D ALT 175 H Alkaline Phosphatase 82 Total Protein 6.2 L Albumin 3.4 L Globulin 2.8 Albumin/Globulin Ratio 1.2 Stool Occult Blood 07/13/18 07/13/18 05:55 05:55 WBC RBC Hgb Hct MCV MCH MCHC RDW Plt Count MPV Neut % (Auto) Lymph % (Auto) Harney % (Auto) Eos % (Auto) Baso % (Auto) Neut # (Auto) Lymph # (Auto) Harney # (Auto) Eos # (Auto) Baso # (Auto) PT 13.5 H INR 1.2 Sodium 139 Potassium 4.5 Chloride 109 H Carbon Dioxide 20 L Anion Gap 14 BUN 14 Creatinine 0.6 L Est GFR ( Amer) > 60 Est GFR (Non-Af Amer) > 60 POC Glucose (mg/dL) Random Glucose 171 H Calcium 9.3 Phosphorus 3.8 Magnesium 1.7 Total Bilirubin 6.1 H AST 133 H D ALT 142 H Alkaline Phosphatase 94 Total Protein 6.3 Albumin 3.5 Globulin 2.7 Albumin/Globulin Ratio 1.3 Stool Occult Blood Radiology Impressions: Radiology Impressions Chest X-Ray 07/12/18 07:41 IMPRESSION: Interval mild improved aeration in the right lower lobe with residual atelectasis/pneumonia. Persistent small effusions, worse on the left. Stable position of support tubes. Abdomen Ultrasound 07/12/18 14:15 IMPRESSION: Echogenic liver may be seen in setting of hepatic parenchymal disease or fatty infiltration. 2 mm echogenic focus consistent with calcification, right hepatic lobe. Incidental note is made of right-sided pleural effusion. Fingerstick Blood Sugar Results: 201 Critical Care Progress Note - Ventilator Checklist Head of Bed 30 Degrees: Yes PUD Prophalyxis: Yes DVT Prophylaxis: Yes - Extremities/Vascular Does the Patient have a Central Venous Catheter?: No Does the Patient need a Paulson Catheter?: No - Nutrition Nutrition: Nutrition Category Date Time Status Dysphagia/Modified Consistency Diet [DIET] Diets 07/12/18 Dinner Active Assessment/Plan - Assessment and Plan (Free Text) Assessment: 42 year old male with a past medical history of alcoholism, hypertension, DM II, alcohol withdrawal seizures who presented to [facility] for seizures in the setting of not drinking alcohol for a week or so. Mother states he stopped drinking for a week, but could not eat solid foods though he was able to drink a lot of water. She reports he was getting gradually weak and had a seizure at the time EMS arrived. In the ED at he had another seizure and had 1 liter of coffee ground emesis and was subsequently intubated for airway protection. Also, for his suspected upper GI bleed, possibly variceal in nature, he was started on a Protonix and Octreotide drip. He was admitted to the ICU early yesterday and required Propofol, Precedex, and Midazolam for sedation. He had a severe lactic acidosis accounting for high anion gap metabolic acidosis that was treated with aggressive intravascular volume repletion, 2 units prbc, and was started on a bicarbonate drip. In the ICU his blood pressure was in the low 80/40 despite 30 ml/kg of fluid challenge and hence a central venous catheter was placed for pressor support in the right femoral vein. He was put on Dopamine and vasopressin titrated for a MAP above 65. 07/10/2018 Today, he was noted have an elevation in his INR as well as a dramatic fall in his platelets. Initially, his platelet count was in the 200s but dropped to the 40 today. There were no signs of active bleeding and hence was given 10 mg of IVP Vitamin K and 2 units of FFP. GI is consulted and recommend continuing the Protonix drip. Also, one of his blood cultures are growing gram positive cocci so he was started on broad spectrum antibiotics. For his SEBASTIÁN we are monitoring strict I/O with a Paulson and nephrology is consulted. GI is following for the UGI bleed and recommend continuing the Protonix drip (and opined patient less likely has a variceal bleed.) 07/11/2018 Patient platelets fell to 20,000. Hematology consulted, ordered fibrinogen considering DIC. GI recommend starting Glucerna 1.5 at a rate of 20 to be increased to 40 mls/hr and giving Protonix boluses (rather than Pepcid). Keppra was discontinued as the patient's seizure are controlled on Propofol and as his seizures only seem to be related to alcohol withdrawal. Also Zosyn was disco ntinued given the canvas cutter machine's labeling states in case of severe thrombocytopenia, the drug should be withheld, unless otherwise indicated. His ammonia level is normal and lactulose was discontinued. 07/12: Patient successfully extubated. Off all pressors. We will replete his electrolytes. Consult Neurology to see if patient should remain on Keppra, as previously prescribed. right femoral cvc removed. 07/13: Patient diarrhea since extubation. Stool sent for c.difficile. Patient observed to have symptoms of alcohol withdrawal hence started on Lorazepam 2 mg PO PRN for MARGY and placed on CIWA. OOB to chair and Physical Therapy ordered. Neurology - CT of the head showed no acute hemorrhage; and residual sinus disease noted compared to prior CT - HOB elevated to 30 - Keppra 500 mg BID for seizure prophylaxis discontinued given the patient's seizure are controlled on Propofol and his seizures only seem to be related to alcohol withdrawal, which he is being treated for with Ativan PRN. - Seizure precautions - Neurology consult given patient was on Keppra, not 100% compliant, and has seizures related to alcohol withdrawal Cardiovascular - MAP above 65 mmHg - Initial EKG showed no ST-changes changes, but did show non-specific intraventricular conduction delay (on 07/09/2018) Pulmonology: - Diamox discontinued - Chest X-ray today showed interval mild improved aeration in the right lower lobe with residual atelectasis/pneumonia. Persistent small effusions, worse on the left. Stable position of support tubes. ID - One blood culture growing MSSA; echocardiogram ordered and showed no evidence of endocarditis; hence will continue will Cefazolin 1 gm q8h - urine culture negative - Patient received Vancomycin and Zosyn for 3.5 days and yesterday was started on Cefazolin 1 g q8h [facility] Nephrology - Monitor strict I/O - Paulson discontinued to [place] catheter - SEBASTIÁN resolved with Creatinine back to baseline - Appreciate nephrology's recommendations and forward guidance Heme - Platelets stable at 26,000 no active bleeding - PBS showed normocytic normochromic RBC. 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 difficile toxin and antigen - LFTs trending down - UGI bleed appears stable- hemoglobin stable - GI is following, Dr. Peters - Pepcid 20 mg PO Daily (Protonix has higher incidence of thrombocytopenia than Famotidine) DVT/GI prophylaxis - Famotidine 20 mg - SCD Disposition: Based on patient's performance with PT; he may transfer out today Case reviewed and discussed with attending physician, Dr. Jamari Barragan <Jamari Barragan - Last Filed: 07/13/18 16:40> CCU Objective - Vital Signs / Intake & Output Vital Signs (Last 4 hours): Vital Signs Temp Pulse Resp BP Pulse Ox 07/13/18 16:00 98.7 F 87 16 100 07/13/18 15:04 81 38 H 112/77 100 07/13/18 15:00 80 33 H 100 07/13/18 14:04 78 22 113/79 100 07/13/18 14:00 83 33 H 100 07/13/18 13:04 127/83 Intake and Output (Last 8hrs): Intake & Output 07/13/18 07/13/18 07/13/18 06:59 14:59 22:59 Intake Total 480 960 100 Output Total 1500 0 Balance -1020 960 100 Weight 153 lb 6.4 oz Intake: Intake, IV Amount 200 0 100 Right FA Y site 200 0 100 Oral 280 960 0 Output: Urine 1500 Condom 1500 Emesis 0 0 Other: # Voids Condom 1 # Bowel Movements 1 - Medications Active Medications: Active Medications Generic Name Dose Route Start Last Admin Trade Name Freq PRN Reason Stop Dose Admin Folic Acid 1 mg 07/12/18 14:15 07/13/18 09:16 Folic Acid PO 1 mg DAILY ALVARADO Administration Cefazolin Sodium 1,000 mg/ 100 mls @ 100 mls/hr 07/12/18 15:00 07/13/18 14:25 Sodium Chloride IVPB 100 mls/hr Q8H ALVARADO Administration Protocol Insulin Human Regular 0 unit 07/12/18 16:30 07/13/18 12:19 Novolin R SC 3 u ACHS ALVARADO Administration Protocol Lorazepam 2 mg 07/12/18 14:05 07/12/18 21:46 Ativan PO 2 mg Q6H PRN Administration Symptoms of alcohol withdrawl Multivitamins 1 tab 07/12/18 14:15 07/13/18 09:16 Hexavitamin PO 1 tab DAILY ALVARADO Administration Pantoprazole Sodium 40 mg 07/14/18 10:00 Protonix Ec Tab PO DAILY ALVARADO Thiamine HCl 200 mg 07/12/18 14:15 07/13/18 14:24 Vitamin B1 Inj IV 07/15/18 14:16 200 mg Q8H ALVARADO Administration - Patient Studies Lab Studies: Microbiology Studies 07/12/18 11:30 Blood Culture - Preliminary Blood-Venous NO GROWTH AFTER 24 HOURS 07/12/18 12:00 Blood Culture - Preliminary Blood-Venous NO GROWTH AFTER 24 HOURS 07/09/18 09:04 Blood Culture - Preliminary Blood NO GROWTH AFTER 4 DAYS Lab Studies 07/13/18 07/13/18 07/13/18 Range/Units 16:30 12:10 05:55 WBC (4.8-10.8) K/uL RBC (4.40-5.90) Mil/uL Hgb (12.0-18.0) g/dL Hct (35.0-51.0) % MCV (80.0-94.0) fL MCH (27.0-31.0) pg MCHC (33.0-37.0) g/dL RDW (11.5-14.5) % Plt Count (130-400) K/uL MPV (7.2-11.7) fL Neut % (Auto) (50.0-75.0) % Lymph % (Auto) (20.0-40.0) % Harney % (Auto) (0.0-10.0) % Eos % (Auto) (0.0-4.0) % Baso % (Auto) (0.0-2.0) % Neut # (Auto) (1.8-7.0) K/uL Lymph # (Auto) (1.0-4.3) K/uL Harney # (Auto) (0.0-0.8) K/uL Eos # (Auto) (0.0-0.7) K/uL Baso # (Auto) (0.0-0.2) K/uL Neutrophils % (Manual) (50-75) % Lymphocytes % (Manual) (20-40) % Monocytes % (Manual) (0-10) % Eosinophils % (Manual) (0-4) % Platelet Estimate (NORMAL) RBC Morphology PT (9.7-12.2) SECONDS INR Sodium 139 (132-148) mmol/L Potassium 4.5 (3.6-5.2) mmol/L Chloride 109 H (98-107) mmol/L Carbon Dioxide 20 L (22-30) mmol/L Anion Gap 14 (10-20) BUN 14 (9-20) mg/dL Creatinine 0.6 L (0.8-1.5) mg/dL Est GFR ( Amer) > 60 Est GFR (Non-Af Amer) > 60 POC Glucose (mg/dL) 168 H 222 H (65-110) mg/dL Random Glucose 171 H (75-110) mg/dL Calcium 9.3 (8.6-10.4) mg/dl Phosphorus 3.8 (2.5-4.5) mg/dL Magnesium 1.7 (1.6-2.3) mg/dL Total Bilirubin 6.1 H (0.2-1.3) mg/dL AST 133 H D (17-59) U/L ALT 142 H (21-72) U/L Alkaline Phosphatase 94 (38-126) U/L Total Protein 6.3 (6.3-8.3) g/dL Albumin 3.5 (3.5-5.0) g/dL Globulin 2.7 (2.2-3.9) gm/dL Albumin/Globulin Ratio 1.3 (1.0-2.1) Urine Chloride (32-290) mmol/L Stool Occult Blood (NEGATIVE) 07/13/18 07/13/18 07/12/18 Range/Units 05:55 05:55 20:59 WBC 3.4 L (4.8-10.8) K/uL RBC 3.95 L (4.40-5.90) Mil/uL Hgb 12.1 (12.0-18.0) g/dL Hct 36.4 (35.0-51.0) % MCV 92.2 (80.0-94.0) fL MCH 30.8 (27.0-31.0) pg MCHC 33.4 (33.0-37.0) g/dL RDW 15.5 H (11.5-14.5) % Plt Count 26 L* (130-400) K/uL MPV 9.8 (7.2-11.7) fL Neut % (Auto) 45.9 L (50.0-75.0) % Lymph % (Auto) 20.5 (20.0-40.0) % Harney % (Auto) 27.5 H (0.0-10.0) % Eos % (Auto) 5.6 H (0.0-4.0) % Baso % (Auto) 0.5 (0.0-2.0) % Neut # (Auto) 1.6 L (1.8-7.0) K/uL Lymph # (Auto) 0.7 L (1.0-4.3) K/uL Harney # (Auto) 0.9 H (0.0-0.8) K/uL Eos # (Auto) 0.2 (0.0-0.7) K/uL Baso # (Auto) 0.0 (0.0-0.2) K/uL Neutrophils % (Manual) 50 (50-75) % Lymphocytes % (Manual) 17 L (20-40) % Monocytes % (Manual) 25 H (0-10) % Eosinophils % (Manual) 8 H (0-4) % Platelet Estimate Markedly decreased L (NORMAL) RBC Morphology Normal PT 13.5 H (9.7-12.2) SECONDS INR 1.2 Sodium (132-148) mmol/L Potassium (3.6-5.2) mmol/L Chloride (98-107) mmol/L Carbon Dioxide (22-30) mmol/L Anion Gap (10-20) BUN (9-20) mg/dL Creatinine (0.8-1.5) mg/dL Est GFR ( Amer) Est GFR (Non-Af Amer) POC Glucose (mg/dL) 201 H (65-110) mg/dL Random Glucose (75-110) mg/dL Calcium (8.6-10.4) mg/dl Phosphorus (2.5-4.5) mg/dL Magnesium (1.6-2.3) mg/dL Total Bilirubin (0.2-1.3) mg/dL AST (17-59) U/L ALT (21-72) U/L Alkaline Phosphatase (38-126) U/L Total Protein (6.3-8.3) g/dL Albumin (3.5-5.0) g/dL Globulin (2.2-3.9) gm/dL Albumin/Globulin Ratio (1.0-2.1) Urine Chloride (32-290) mmol/L Stool Occult Blood (NEGATIVE) 07/12/18 07/12/18 07/11/18 Range/Units 17:29 17:29 17:00 WBC (4.8-10.8) K/uL RBC (4.40-5.90) Mil/uL Hgb (12.0-18.0) g/dL Hct (35.0-51.0) % MCV (80.0-94.0) fL MCH (27.0-31.0) pg MCHC (33.0-37.0) g/dL RDW (11.5-14.5) % Plt Count (130-400) K/uL MPV (7.2-11.7) fL Neut % (Auto) (50.0-75.0) % Lymph % (Auto) (20.0-40.0) % Harney % (Auto) (0.0-10.0) % Eos % (Auto) (0.0-4.0) % Baso % (Auto) (0.0-2.0) % Neut # (Auto) (1.8-7.0) K/uL Lymph # (Auto) (1.0-4.3) K/uL Harney # (Auto) (0.0-0.8) K/uL Eos # (Auto) (0.0-0.7) K/uL Baso # (Auto) (0.0-0.2) K/uL Neutrophils % (Manual) (50-75) % Lymphocytes % (Manual) (20-40) % Monocytes % (Manual) (0-10) % Eosinophils % (Manual) (0-4) % Platelet Estimate (NORMAL) RBC Morphology PT (9.7-12.2) SECONDS INR Sodium 142 (132-148) mmol/L Potassium 4.3 (3.6-5.2) mmol/L Chloride 113 H (98-107) mmol/L Carbon Dioxide 19 L (22-30) mmol/L Anion Gap 15 (10-20) BUN 12 (9-20) mg/dL Creatinine 0.6 L (0.8-1.5) mg/dL Est GFR ( Amer) > 60 Est GFR (Non-Af Amer) > 60 POC Glucose (mg/dL) (65-110) mg/dL Random Glucose 197 H (75-110) mg/dL Calcium 8.5 L (8.6-10.4) mg/dl Phosphorus 2.8 (2.5-4.5) mg/dL Magnesium 1.8 (1.6-2.3) mg/dL Total Bilirubin 7.6 H (0.2-1.3) mg/dL AST 183 H D (17-59) U/L ALT 175 H (21-72) U/L Alkaline Phosphatase 82 (38-126) U/L Total Protein 6.2 L (6.3-8.3) g/dL Albumin 3.4 L (3.5-5.0) g/dL Globulin 2.8 (2.2-3.9) gm/dL Albumin/Globulin Ratio 1.2 (1.0-2.1) Urine Chloride 52 (32-290) mmol/L Stool Occult Blood Positive H (NEGATIVE) Laboratory Results - last 24 hr 07/11/18 07/12/18 07/12/18 17:00 17:29 17:29 WBC RBC Hgb Hct MCV MCH MCHC RDW Plt Count MPV Neut % (Auto) Lymph % (Auto) Harney % (Auto) Eos % (Auto) Baso % (Auto) Neut # (Auto) Lymph # (Auto) Harney # (Auto) Eos # (Auto) Baso # (Auto) Neutrophils % (Manual) Lymphocytes % (Manual) Monocytes % (Manual) Eosinophils % (Manual) Platelet Estimate RBC Morphology PT INR Sodium 142 Potassium 4.3 Chloride 113 H Carbon Dioxide 19 L Anion Gap 15 BUN 12 Creatinine 0.6 L Est GFR ( Amer) > 60 Est GFR (Non-Af Amer) > 60 POC Glucose (mg/dL) Random Glucose 197 H Calcium 8.5 L Phosphorus 2.8 Magnesium 1.8 Total Bilirubin 7.6 H AST 183 H D ALT 175 H Alkaline Phosphatase 82 Total Protein 6.2 L Albumin 3.4 L Globulin 2.8 Albumin/Globulin Ratio 1.2 Urine Chloride 52 Stool Occult Blood Positive H 07/12/18 07/13/18 07/13/18 20:59 05:55 05:55 WBC 3.4 L RBC 3.95 L Hgb 12.1 Hct 36.4 MCV 92.2 MCH 30.8 MCHC 33.4 RDW 15.5 H Plt Count 26 L* MPV 9.8 Neut % (Auto) 45.9 L Lymph % (Auto) 20.5 Harney % (Auto) 27.5 H Eos % (Auto) 5.6 H Baso % (Auto) 0.5 Neut # (Auto) 1.6 L Lymph # (Auto) 0.7 L Harney # (Auto) 0.9 H Eos # (Auto) 0.2 Baso # (Auto) 0.0 Neutrophils % (Manual) 50 Lymphocytes % (Manual) 17 L Monocytes % (Manual) 25 H Eosinophils % (Manual) 8 H Platelet Estimate Markedly decreased L RBC Morphology Normal PT 13.5 H INR 1.2 Sodium Potassium Chloride Carbon Dioxide Anion Gap BUN Creatinine Est GFR ( Amer) Est GFR (Non-Af Amer) POC Glucose (mg/dL) 201 H Random Glucose Calcium Phosphorus Magnesium Total Bilirubin AST ALT Alkaline Phosphatase Total Protein Albumin Globulin Albumin/Globulin Ratio Urine Chloride Stool Occult Blood 07/13/18 07/13/18 07/13/18 05:55 12:10 16:30 WBC RBC Hgb Hct MCV MCH MCHC RDW Plt Count MPV Neut % (Auto) Lymph % (Auto) [place] % (Auto) Eos % (Auto) Baso % (Auto) Neut # (Auto) Lymph # (Auto) [place] # (Auto) Eos # (Auto) Baso # (Auto) Neutrophils % (Manual) Lymphocytes % (Manual) Monocytes % (Manual) Eosinophils % (Manual) Platelet Estimate RBC Morphology PT INR Sodium 139 Potassium 4.5 Chloride 109 H Carbon Dioxide 20 L Anion Gap 14 BUN 14 Creatinine 0.6 L Est GFR ( Amer) > 60 Est GFR (Non-Af Amer) > 60 POC Glucose (mg/dL) 222 H 168 H Random Glucose 171 H Calcium 9.3 Phosphorus 3.8 Magnesium 1.7 Total Bilirubin 6.1 H AST 133 H D ALT 142 H Alkaline Phosphatase 94 Total Protein 6.3 Albumin 3.5 Globulin 2.7 Albumin/Globulin Ratio 1.3 Urine Chloride Stool Occult Blood Radiology Impressions: Radiology Impressions Abdomen Ultrasound 07/12/18 14:15 IMPRESSION: Echogenic liver may be seen in setting of hepatic parenchymal disease or fatty infiltration. 2 mm echogenic focus consistent with calcification, right hepatic lobe. Incidental note is made of right-sided pleural effusion. Shoulder X-Ray 07/13/18 11:14 IMPRESSION: No acute fractures. Mild degenerative osteoarthritis. Calcific tendinitis Critical Care Progress Note - Nutrition Nutrition: Nutrition Category Date Time Status Heart Healthy Diet [DIET] Diets 07/13/18 Breakfast Active Assessment/Plan - Assessment and Plan (Free Text) Plan: Patient seen and examined at bedside. Patient awake, alert. Agitated overnight as per night nurse (PRN remeron as per psych) -continue supplementation -thrombocytopenia: resolving -continue to monitor -remains hemodynamically stable -pt/ot - oob to chair - Date & Time Date: 07/13/18 Time: 16:39
[2018-07-13 08:48] LABS: EOSINOPHIL 8 % (0-4); LYMPHOCYTE 17 % (20-40); MONOCYTE 25 % (0-10); NEUTROPHIL 50 % (50-75); TOTAL CELLS COUNTED 100
[2018-07-13 08:49] LABS: PLATELET ESTIMATE MARKEDLY DECREASED (NORMAL)
[2018-07-13] MEDS: Multiple Vitamins Tab PO SCH (09:16)
--- NOTE | 2018-07-13 10:14 | CP.PCM.PN ---
Subjective - Date & Time of Evaluation Date of Evaluation: 07/13/18 Time of Evaluation: 10:12 - Subjective Subjective: sitting in chair, alert, answers questions Hgb stable, without signs of active bleeding Liver chemistries gradually normalizing, remains profoundly thrombocytopenic Objective - Vital Signs/Intake and Output Vital Signs (last 24 hours): Temp Pulse Resp BP Pulse Ox 98.5 F 92 H 23 135/87 100 07/13/18 08:00 07/13/18 09:00 07/13/18 09:00 07/13/18 09:04 07/13/18 09:00 Intake and Output: 07/13/18 07/13/18 06:59 18:59 Intake Total 600 240 Output Total 1500 0 Balance -900 240 - Medications Medications: Current Medications Folic Acid (Folic Acid) 1 mg PO DAILY [facility] Last Admin: 07/13/18 09:16 Dose: 1 mg Cefazolin Sodium 1,000 mg/ (Sodium Chloride) 100 mls @ 100 mls/hr IVPB Q8H [facility]; Protocol Last Admin: 07/13/18 07:03 Dose: 100 mls/hr Insulin Human Regular (Novolin R) 0 unit SC ACHS [facility]; Protocol Last Admin: 07/13/18 07:32 Dose: Not Given Lorazepam (Ativan) 2 mg PO Q6H PRN PRN Reason: Symptoms of alcohol withdrawl Last Admin: 07/12/18 21:46 Dose: 2 mg Multivitamins (Hexavitamin) 1 tab PO DAILY [facility] Last Admin: 07/13/18 09:16 Dose: 1 tab Thiamine HCl (Vitamin B1 Inj) 200 mg IV Q8H [facility] Stop: 07/15/18 14:16 Last Admin: 07/13/18 07:03 Dose: 200 mg Valproate Sodium (Depakene Cap) 500 mg PO HS [facility] - Labs Labs: 07/13/18 05:55 07/13/18 05:55 PT 13.5 SECONDS (9.7-12.2) H 07/13/18 05:55 INR 1.2 07/13/18 05:55 APTT 40 SECONDS (21-34) H D 07/11/18 06:07 - Constitutional Appears: Well, No Acute Distress - Head Exam Head Exam: NORMOCEPHALIC - Eye Exam Eye Exam: Scleral icterus - Respiratory Exam Respiratory Exam: NORMAL BREATHING PATTERN - Cardiovascular Exam Cardiovascular Exam: REGULAR RHYTHM - GI/Abdominal Exam GI & Abdominal Exam: Soft. absent: Tenderness Assessment and Plan (1) GI bleed Assessment & Plan: stable Elective EGD, preferably when thrombocytopenia corrects Protonix D/W medical technicians Status: Acute (2) Alcohol abuse with intoxication Assessment & Plan: urged abstension from alcohol drinking Status: Acute (3) Abnormal LFTs Assessment & Plan: acute alcoholic liver disease R/O viral check Hep panel Status: Acute
[2018-07-13] MEDS ORDERED: Pantoprazole 40 mg EC Tab PO ONE ×2 (10:30→14:19)
--- NOTE | 2018-07-13 10:43 | CP.PCM.CON ---
History of Present Illness - History of Present Illness History of Present Illness: Palliative consult requested by Doctor Duane Barragan for goals of care discussion and patient's support Patient is a 42 yo male admitted from home with vomiting on unknown onset. Per later patient's report patient realized he was in ETOH withdrawal and called 911. Upon arrival to ED patient become unresponsive and was intubated for respir atory support. NGT inserted and black GI content obtained. Patient was treated in ICU and was successfully extubated yesterday. Patient has no recollection of these events. Patient is being treated for ETOH withdrawal and SEBASTIÁN. Renal consult called. Paulson cath in. Urine is reddish yellow. Stool for occult blood positive. BC positive Staph infection. Anceph IV on board. Patient is diagnosed with acute blood loss and anemia 2nd due bone marrow suppression. MD Kim on consult. Patient is post blood transfusion. T Mohit 6.1, AST and ALT elevated. PMH: depression, anxiety, HTN, DM, seizures due to ETOH Soc. 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 Hx: Denied. Review of Systems - Constitutional Constitutional: Malaise, Weakness - EENT Eyes: absent: As Per HPI, Blind Spots, Blurred Vision, Change in Vision, Decreased Night Vision, Diplopia, Discharge, Dry Eye, Exophthalmos, Floaters, Irritation, Itchy Eyes, Loss of Peripheral Vision, Pain, Photophobia, Requires Corrective Lenses, Sees Flashes, Spots in Vision, Tunnel Vision, Other Visual Disturbances, Loss of Vision, Other Ears: absent: As Per HPI, Decreased Hearing, Ear Discharge, Ear Pain, Tinnitus, Abnormal Hearing, Disequilibrium, Dizziness, Other Nose/Mouth/Throat: absent: As Per HPI, Epistaxis, Nasal Congestion, Nasal Discharge, Nasal Obstruction, Nasal Trauma, Nose Pain, Post Nasal Drip, Sinus Pain, Sinus Pressure, Bleeding Gums, Change in Voice, Dental Pain, Dry Mouth, Dysphagia, Halitosis, Hoarsness, Lip Swelling, Mouth Lesions, Mouth Pain, Odynophagia, Sore Throat, Throat Swelling, Tongue Swelling, Facial Pain, Neck Pain, Neck Mass, Other - Cardiovascular Cardiovascular: absent: As Per HPI, Acrocyanosis, Chest Pain, Chest Pain at Rest, Chest Pain with Activity, Claudication, Diaphoresis, Dyspnea, Dyspnea on Exertion, Edema, Irregular Heart Rhythm, Pain Radiating to Arm/Neck/Jaw, Leg Edema, Leg Ulcers, Lightheadedness, Orthopnea, Palpitations, Paroxysmal Nocturnal Dyspnea, Pedal Edema, Radiating Pain, Rapid Heart Rate, Slow Heart Rate, Syncope, Other - Respiratory Respiratory: absent: As Per HPI, Cough, Dyspnea, Hemoptysis, Dyspnea on Exertion, Wheezing, Snoring, Stridor, Pain on Inspiration, Chest Congestion, Excessive Mucous Production, Change in Mucous Color, Pain with Coughing, Other - Gastrointestinal Gastrointestinal: absent: As Per HPI, Abdominal Pain, Belching, Bloating, Change in Bowel Habits, Change in Stool Character, Coffee Ground Emesis, Constipation, Cramping, Diarrhea, Dyspepsia, Dysphagia, Early Satiety, Excessive Flatus, Fecal Incontinence, Heartburn, Hematemesis, Hematochezia, Loose Stools, Melena, Nause a, Odynophagia, Temesmus, Vomiting, Other - Genitourinary Genitourinary: absent: As Per HPI, Change in Urinary Stream, Difficulty Urinating, Dysuria, Flank Pain, Hematuria, Pyuria, Nocturia, Urinary Incontinence, Urinary Frequency, Urinary Hesitance, Urinary Urgency, Voiding Freq/Small Amts, Freq UTI, Hx Renal/Bladder Calculi, Hx /Renal Surgery, Bladder Distension, Other - Musculoskeletal Musculoskeletal: Limited Range of Motion, Muscle Weakness - Integumentary Integumentary: Dry Skin - Neurological Neurological: Abnormal Gait, Abnormal Movements, Lack of Coordination, Memory Loss, Weakness - Psychiatric Psychiatric: Depression, Hopelessness - Endocrine Endocrine: absent: As Per HPI, Change in Body Appearance, Change in Libido, Cold Intolorance, Deepening of Voice, Excessive Sweating, Fatigue, Flushing, Heat Intolorance, Increase in Ring/Shoe/Hat Size, Palpitations, Polydipsia, Polyphagia, Polyuria, Other - Hematologic/Lymphatic Hematologic: Easy Bleeding Past Patient History - Infectious Disease Hx of Infectious Diseases: None - Past Medical History & Family History Past Medical History?: Yes - Past Social History Smoking Status: Never Smoked Alcohol: > 2 Drinks/Day Home Situation {Lives}: With Family - CARDIAC Hx Cardiac Disorders: Yes Hx Hypertension: Yes - PULMONARY Hx Respiratory Disorders: No Hx Tuberculosis: No - NEUROLOGICAL Hx Neurological Disorder: Yes Hx Seizures: Yes (ETOH related) - HEENT Hx HEENT Problems: No - RENAL Hx Chronic Kidney Disease: No - ENDOCRINE/METABOLIC Hx Endocrine Disorders: Yes Hx Diabetes Mellitus Type 2: Yes - HEMATOLOGICAL/ONCOLOGICAL Hx Blood Disorders: Yes Hx Anemia: Yes Hx Blood Transfusions: Yes Hx Human Immunodeficiency Virus (HIV): No - INTEGUMENTARY Hx Dermatological Problems: No - MUSCULOSKELETAL/RHEUMATOLOGICAL Hx Musculoskeletal Disorders: Yes Hx Falls: Yes - GASTROINTESTINAL Hx Gastrointestinal Disorders: Yes Hx Vomiting: Yes - GENITOURINARY/GYNECOLOGICAL Hx Genitourinary Disorders: No Hx Sexually Transmitted Disorders: No - PSYCHIATRIC Hx Psychophysiologic Disorder: Yes Hx Anxiety: Yes Hx Depression: Yes Hx Substance Use: No (DENIES) - SURGICAL HISTORY Hx Surgeries: No - ANESTHESIA Hx Anesthesia: No Meds Allergies/Adverse Reactions: Allergies Allergy/AdvReac Type Severity Reaction Status Date / Time No Known Allergies Allergy Verified 07/09/18 01:34 - Medications Medications: Current Medications Folic Acid (Folic Acid) 1 mg PO DAILY [facility] Last Admin: 07/13/18 09:16 Dose: 1 mg Cefazolin Sodium 1,000 mg/ (Sodium Chloride) 100 mls @ 100 mls/hr IVPB Q8H [facility]; Protocol Last Admin: 07/13/18 07:03 Dose: 100 mls/hr Insulin Human Regular (Novolin R) 0 unit SC ACHS [facility]; Protocol Last Admin: 07/13/18 07:32 Dose: Not Given Lorazepam (Ativan) 2 mg PO Q6H PRN PRN Reason: Symptoms of alcohol withdrawl Last Admin: 07/12/18 21:46 Dose: 2 mg Multivitamins (Hexavitamin) 1 tab PO DAILY [facility] Last Admin: 07/13/18 09:16 Dose: 1 tab Thiamine HCl (Vitamin B1 Inj) 200 mg IV Q8H [facility] Stop: 07/15/18 14:16 Last Admin: 07/13/18 07:03 Dose: 200 mg Valproate Sodium (Depakene Cap) 500 mg PO HS [facility] Physical Exam - Constitutional Appears: Chronically Ill - Head Exam Head Exam: ATRAUMATIC, NORMAL INSPECTION, NORMOCEPHALIC - Eye Exam Eye Exam: EOMI, Normal appearance, PERRL Pupil Exam: NORMAL ACCOMODATION, PERRL - ENT Exam ENT Exam: Mucous Membranes Moist, Normal Exam - Neck Exam Neck exam: Positive for: Normal Inspection - Respiratory Exam Respiratory Exam: NORMAL BREATHING PATTERN - Cardiovascular Exam Cardiovascular Exam: Tachycardia, Irregular Rhythm - GI/Abdominal Exam GI & Abdominal Exam: Diminished Bowel Sounds, Distended, Firm - Rectal Exam Rectal Exam: Deferred - Exam Additional comments: Paulson cath, urine reddish color - Extremities Exam Extremities exam: Positive for: normal capillary refill, normal inspection, pedal pulses present - Back Exam Back exam: NORMAL INSPECTION - Neurological Exam Neurological exam: Abnormal Gait, Alert, Altered - Psychiatric Exam Psychiatric exam: Flat Affect - Skin Skin Exam: Dry, Intact, Normal Color, Warm Results - Vital Signs Recent Vital Signs: Last Vital Signs Temp 98.5 F 07/13/18 08:00 Pulse 92 H 07/13/18 09:00 Resp 23 07/13/18 09:00 BP 135/87 07/13/18 09:04 Pulse Ox 100 07/13/18 09:00 - Labs Result Diagrams: 07/13/18 05:55 07/13/18 05:55 Labs: Laboratory Results - last 24 hr 07/11/18 07/12/18 07/12/18 17:00 11:34 16:22 WBC RBC Hgb Hct MCV MCH MCHC RDW Plt Count MPV Neut % (Auto) Lymph % (Auto) [place] % (Auto) Eos % (Auto) Baso % (Auto) Neut # (Auto) Lymph # (Auto) [place] # (Auto) Eos # (Auto) Baso # (Auto) Neutrophils % (Manual) Lymphocytes % (Manual) Monocytes % (Manual) Eosinophils % (Manual) Platelet Estimate RBC Morphology PT INR Sodium Potassium Chloride Carbon Dioxide Anion Gap BUN Creatinine Est GFR ( Amer) Est GFR (Non-Af Amer) POC Glucose (mg/dL) 197 H 185 H Random Glucose Calcium Phosphorus Magnesium Total Bilirubin AST ALT Alkaline Phosphatase Total Protein Albumin Globulin Albumin/Globulin Ratio Urine Chloride 52 Stool Occult Blood 07/12/18 07/12/18 07/12/18 17:29 17:29 20:59 WBC RBC Hgb Hct MCV MCH MCHC RDW Plt Count MPV Neut % (Auto) Lymph % (Auto) [place] % (Auto) Eos % (Auto) Baso % (Auto) Neut # (Auto) Lymph # (Auto) [place] # (Auto) Eos # (Auto) Baso # (Auto) Neutrophils % (Manual) Lymphocytes % (Manual) Monocytes % (Manual) Eosinophils % (Manual) Platelet Estimate RBC Morphology PT INR Sodium 142 Potassium 4.3 Chloride 113 H Carbon Dioxide 19 L Anion Gap 15 BUN 12 Creatinine 0.6 L Est GFR ( Amer) > 60 Est GFR (Non-Af Amer) > 60 POC Glucose (mg/dL) 201 H Random Glucose 197 H Calcium 8.5 L Phosphorus 2.8 Magnesium 1.8 Total Bilirubin 7.6 H AST 183 H D ALT 175 H Alkaline Phosphatase 82 Total Protein 6.2 L Albumin 3.4 L Globulin 2.8 Albumin/Globulin Ratio 1.2 Urine Chloride Stool Occult Blood Positive H 07/13/18 07/13/18 07/13/18 05:55 05:55 05:55 WBC 3.4 L RBC 3.95 L Hgb 12.1 Hct 36.4 MCV 92.2 MCH 30.8 MCHC 33.4 RDW 15.5 H Plt Count 26 L* MPV 9.8 Neut % (Auto) 45.9 L Lymph % (Auto) 20.5 [place] % (Auto) 27.5 H Eos % (Auto) 5.6 H Baso % (Auto) 0.5 Neut # (Auto) 1.6 L Lymph # (Auto) 0.7 L [place] # (Auto) 0.9 H Eos # (Auto) 0.2 Baso # (Auto) 0.0 Neutrophils % (Manual) 50 Lymphocytes % (Manual) 17 L Monocytes % (Manual) 25 H Eosinophils % (Manual) 8 H Platelet Estimate Markedly decreased L RBC Morphology Normal PT 13.5 H INR 1.2 Sodium 139 Potassium 4.5 Chloride 109 H Carbon Dioxide 20 L Anion Gap 14 BUN 14 Creatinine 0.6 L Est GFR ( Amer) > 60 Est GFR (Non-Af Amer) > 60 POC Glucose (mg/dL) Random Glucose 171 H Calcium 9.3 Phosphorus 3.8 Magnesium 1.7 Total Bilirubin 6.1 H AST 133 H D ALT 142 H Alkaline Phosphatase 94 Total Protein 6.3 Albumin 3.5 Globulin 2.7 Albumin/Globulin Ratio 1.3 Urine Chloride Stool Occult Blood Assessment & Plan - Assessment and Plan (Free Text) Assessment: Palliative consult Full Code, there is no Advance directive on chart, PPS30% I reviewed all Medical records, diagnostic studies, examined and interviewed patient in the chair. Patient is alert and oriented to self. Patient is aware of being at [facility] but often mixes it with some " other hospital on [place] [facility]". Patient does not remember being intubated and extubated. His last memories are from the day when he called 911 being in ETOH withdrawal. Patient is very weak, with very uncoordinated fine motor skills. Patient is unsteady on his feet. His speech is soft and sometimes unclear. Patient takes liquids PO, tolerates it well. Breath sounds are diminished B/L, occasional moist cough with sputum production, denies SOB. HR 92, ST, irregular rhythm, denies chest pain. Abdomen distended, firm, denies nausea/abdominal pain, tolerates diet well. + tenderness to RUQ. Paulson cath in place, urine reddish color, amount good, denies suprapubic pain BP 135/87, HR 92 WBC 3.9, HB 12.1, T Mohit 6.1, AST and ALT elevated I discussed patient's clinical presentation with patient and elicited his understanding. Patient admitted being concerned with his health and understands it was caused by his excessive drinking. Patient blames his ETOH on his friends who reinforced his habit. I discussed with patient consequences of alcohol abuse especially pointing out the GI bleed, liver damage and nervous system changes. Patient listened very carefully and agreed he needed help. I provided more information about rehabilitation program. Patient stated he would like to get sobber and is willing to undergo the program. Code status discussed. Patient is unaware of being intubated on this admission but understands this intervention saved his life. If it should be a case again he would want to be placed on life support. Impression * ETOH abuse * S/P acute respiratory distress * SEBASTIÁN * Weakness * Unsteady gait * Lack of fine motor skills coordination * Possible upper GI bleed, varicose veins * Possible liver injury * Patient states readiness to enrol the Alcohol rehab program Suggestion * Provide safety * PT evaluation * PO fluids as tolerated * Endoscopy as per GI recommendation * SS to assist patient with information regarding Alcohol Rehab * Full Code status Palliative care will remain available as needed for further emotional support of this patient. Advance care discussion 55 min.
--- NOTE | 2018-07-13 13:07 | RAD ---
Date of service: 07/13/2018 PROCEDURE: Radiographs of the Right Shoulder HISTORY: R shoulder pain COMPARISON: No prior. FINDINGS: BONES: No definitive radiographic evidence of acute displaced fracture nor dislocation. The osseous structures appear grossly intact JOINTS: Degenerative osteoarthritis left acromioclavicular and glenohumeral joints. The there also appear to be small calcifications within the soft tissues adjacent to the greater tuberosity possibly representing calcific tendinitis SOFT TISSUES: As above. OTHER FINDINGS: None. IMPRESSION: No acute fractures. Mild degenerative osteoarthritis. Calcific tendinitis
--- NOTE | 2018-07-13 14:08 | PCM.PSYCH ---
Initial Psychiatric Evaluation - Initial Psychiatric Evaluation Type of Admission: Voluntary Legal Status: Capacity Chief Complaint (in patient's own words): "tired" History of Present Illness and Precipitating Events: Consult was requested for his alcoholism Patient is a 42 year old [place] male that lives in [place] with his mother. His ex- and 3 children live in [place]. The patient was brought in to [facility] ED with alcohol intoxication and respiratory failure. He was coded and intubated. He is known from a detox admission. He AMA'ed once but completed another time. He did not follow up with after care though The patient is a poor historian. He is oriented but still drowsy. He states that his drinking became a problem 3 years ago when he started drinking excessively. He states that he started drinking at the age of 11. The patient reports that he drinks "a lot of beers" a day. Denies drugs. He has a hx of DTs but no seizures. He was in detox here but no rehab. 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 Current Medications: Active Medications Generic Name Dose Route Start Last Admin Trade Name Yesenia PRN Reason Stop Dose Admin Folic Acid 1 mg 07/12/18 14:15 07/13/18 09:16 Folic Acid PO 1 mg DAILY [facility] Administration Cefazolin Sodium 1,000 mg/ 100 mls @ 100 mls/hr 07/12/18 15:00 07/13/18 07:03 Sodium Chloride IVPB 100 mls/hr Q8H [facility] Administration Protocol Insulin Human Regular 0 unit 07/12/18 16:30 07/13/18 12:19 Novolin R SC 3 u ACHS [facility] Administration Protocol Lorazepam 2 mg 07/12/18 14:05 07/12/18 21:46 Ativan PO 2 mg Q6H PRN Administration Symptoms of alcohol withdrawl Multivitamins 1 tab 07/12/18 14:15 07/13/18 09:16 Hexavitamin PO 1 tab DAILY [facility] Administration Pantoprazole Sodium 40 mg 07/14/18 10:00 Protonix Ec Tab PO DAILY [facility] Thiamine HCl 200 mg 07/12/18 14:15 07/13/18 07:03 Vitamin B1 Inj IV 07/15/18 14:16 200 mg Q8H [facility] Administration Valproate Sodium 500 mg 07/13/18 22:00 Depakene Cap PO HS [facility] Past Psychiatric History - Past Psychiatric History Previous Treatment History: None Pertinent Medical Hx (Current Medical&Sleep Prob, Allergies): Allergies Allergy/AdvReac Type Severity Reaction Status Date / Time No Known Allergies Allergy Verified 07/09/18 01:34 MetFORMIN [glucOPHAGE] 1,000 mg PO BID 04/23/18 levETIRAcetam [Keppra] 500 mg PO BID 05/09/18 Ibuprofen 800 mg PO TID 06/24/18 Review of Systems - Psychiatric Psychiatric: Abnormal Sleep Pattern, Anxiety, Difficulty Concentrating. absent: Hallucinations, Homicidal Ideation, Paranoia, Suicidal Ideation Mental Status Examination - Personal Presentation Personal Presentation: Looks older than stated age (unkempt) - Affect Affect: Blunted - Motor Activity Motor Activity: Calm - Reliability in Providing Information Reliability in Providing Information: Poor, due to cognitve impairment - Speech Speech: Disorganized (slowed) - Mood Mood: Depressed, Anxious - Formal Thought Process Formal Thought Process: No Impairment - Cognitive Functions Orientation: Person, Place, Time (month and year only) Sensorium: Drowsy Attention/Concentration: Easily distracted Abstract Thinking: [place] Estimate of Intelligence: Average Judgement: Intact, as evidence by: Insight regarding need for hospitalization Memory: Recent impaired, as evidence by: Inability to recall events of the day, Remote impaired as evidenced by: Inability to recall sig life events - Risk Risk: Seizure, Withdrawal, Diminished functioning - Strength & Assets Inventory Strength & Assets Inventory: Cooperative - Limitations Limitations: Other DSM 5 DX - DSM 5 DSM 5 Diagnosis: Alcohol withdrawal Alcohol use d/o - severe Tobacco use d/o - severe Depressive d/o - unspecified - Recommended/Plan of Treatment Treatment Recommendations and Plan of Treatment: As needed ativan 1-2 mg for anxiety, alcohol wdw Gabapentin for augmentation and anxiety remeron for depressed mood and sleep Do not use depakote due to liver problems and cytopenia As needed medications All risks, benefits and alternatives of the meds discussed, and the pt agreed and understood. Supportive therapy and psychoeducation OR for abstinence Refer to rehab such as [facility] in [place] Teach healthy lifestyle methods, i.e. diet, exercise, meditation Smoking cessation with OR Nicotine patch if needed 34 min
--- NOTE | 2018-07-13 19:03 | CP.PCM.PN ---
Subjective - Date & Time of Evaluation Date of Evaluation: 07/13/18 Time of Evaluation: 09:00 - Subjective Subjective: Nephrology progress note for Dr. Elder Anglin PGY 2 Patient seen and examined at bedside. Patient states he is feeling fine, is t olerating breakfast with solid food. No acute complaints. Alcohol cessation discussed at length. Objective - Vital Signs/Intake and Output Vital Signs (last 24 hours): Temp Pulse Resp BP Pulse Ox 98.7 F 87 16 112/77 100 07/13/18 16:00 07/13/18 16:00 07/13/18 16:00 07/13/18 15:04 07/13/18 16:00 Intake and Output: 07/13/18 07/13/18 06:59 18:59 Intake Total 600 1060 Output Total 1500 0 Balance -900 1060 - Medications Medications: Current Medications Folic Acid (Folic Acid) 1 mg PO DAILY [facility] Last Admin: 07/13/18 09:16 Dose: 1 mg Cefazolin Sodium 1,000 mg/ (Sodium Chloride) 100 mls @ 100 mls/hr IVPB Q8H [facility]; Protocol Last Admin: 07/13/18 14:25 Dose: 100 mls/hr Insulin Human Regular (Novolin R) 0 unit SC ACHS [facility]; Protocol Last Admin: 07/13/18 18:12 Dose: 2 u Lorazepam (Ativan) 2 mg PO Q6H PRN PRN Reason: Symptoms of alcohol withdrawl Last Admin: 07/12/18 21:46 Dose: 2 mg Multivitamins (Hexavitamin) 1 tab PO DAILY [facility] Last Admin: 07/13/18 09:16 Dose: 1 tab Pantoprazole Sodium (Protonix Ec Tab) 40 mg PO DAILY [facility] Thiamine HCl (Vitamin B1 Inj) 200 mg IV Q8H [facility] Stop: 07/15/18 14:16 Last Admin: 07/13/18 14:24 Dose: 200 mg - Labs Labs: 07/13/18 05:55 07/13/18 05:55 PT 13.5 SECONDS (9.7-12.2) H 07/13/18 05:55 INR 1.2 07/13/18 05:55 APTT 40 SECONDS (21-34) H D 07/11/18 06:07 - Constitutional Appears: Well - Head Exam Head Exam: ATRAUMATIC, NORMAL INSPECTION, NORMOCEPHALIC - Eye Exam Eye Exam: EOMI, Normal appearance, PERRL Pupil Exam: NORMAL ACCOMODATION, PERRL - ENT Exam ENT Exam: Mucous Membranes Moist, Normal Exam - Neck Exam Neck Exam: Full ROM, Normal Inspection. absent: Lymphadenopathy - Respiratory Exam Respiratory Exam: Clear to Ausculation Bilateral, NORMAL BREATHING PATTERN - Cardiovascular Exam Cardiovascular Exam: REGULAR RHYTHM, +S1, +S2. absent: Murmur - GI/Abdominal Exam GI & Abdominal Exam: Soft, Normal Bowel Sounds. absent: Tenderness - Extremities Exam Extremities Exam: Full ROM, Normal Capillary Refill, Normal Inspection. absent: Joint Swelling, Pedal Edema - Back Exam Back Exam: NORMAL INSPECTION - Neurological Exam Neurological Exam: Alert, Awake, CN II-XII Intact, Normal Gait, Oriented x3 - Psychiatric Exam Psychiatric exam: Normal Affect, Normal Mood - Skin Skin Exam: Dry, Intact, Normal Color, Warm Assessment and Plan (1) SEBASTIÁN (acute kidney injury) Assessment & Plan: Resolved Status: Acute (2) High anion gap metabolic acidosis Assessment & Plan: Resolved Status: Acute (3) Uncontrolled diabetes mellitus Assessment & Plan: Continue with RISS Status: Acute
--- NOTE | 2018-07-13 19:56 | CP.PCM.PN ---
Subjective - Date & Time of Evaluation Date of Evaluation: 07/13/18 Time of Evaluation: 11:45 - Subjective Subjective: clinically same Objective - Vital Signs/Intake and Output Vital Signs (last 24 hours): Temp Pulse Resp BP Pulse Ox 98.7 F 89 36 H 114/79 100 07/13/18 16:00 07/13/18 19:04 07/13/18 19:04 07/13/18 19:04 07/13/18 19:04 Intake and Output: 07/13/18 07/14/18 18:59 06:59 Intake Total 1420 0 Output Total 1700 Balance -280 0 - Medications Medications: Current Medications Folic Acid (Folic Acid) 1 mg PO DAILY [facility] Last Admin: 07/13/18 09:16 Dose: 1 mg Cefazolin Sodium 1,000 mg/ (Sodium Chloride) 100 mls @ 100 mls/hr IVPB Q8H [facility]; Protocol Last Admin: 07/13/18 14:25 Dose: 100 mls/hr Insulin Human Regular (Novolin R) 0 unit SC ACHS [facility]; Protocol Last Admin: 07/13/18 18:12 Dose: 2 u Lorazepam (Ativan) 2 mg PO Q6H PRN PRN Reason: Symptoms of alcohol withdrawl Last Admin: 07/12/18 21:46 Dose: 2 mg Multivitamins (Hexavitamin) 1 tab PO DAILY [facility] Last Admin: 07/13/18 09:16 Dose: 1 tab Pantoprazole Sodium (Protonix Ec Tab) 40 mg PO DAILY [facility] Thiamine HCl (Vitamin B1 Inj) 200 mg IV Q8H [facility] Stop: 07/15/18 14:16 Last Admin: 07/13/18 14:24 Dose: 200 mg - Labs Labs: 07/13/18 05:55 07/13/18 05:55 PT 13.5 SECONDS (9.7-12.2) H 07/13/18 05:55 INR 1.2 07/13/18 05:55 APTT 40 SECONDS (21-34) H D 07/11/18 06:07
[2018-07-14 06:33] LABS: BASO % 0.5 % (0.0-2.0); EOS # 0.2 K/uL (0.0-0.7); EOS % 4.9 % (0.0-4.0); HEMOGLOBIN 12.3 g/dL (12.0-18.0); LYMPH % 22.3 % (20.0-40.0); MEAN CELL VOLUME 89.7 fL (80.0-94.0); MEAN CORPUSCULAR HGB CONC 34.6 g/dL (33.0-37.0); MEAN PLATELET VOLUME 9.3 fL (7.2-11.7); MONO # 1.3 K/uL (0.0-0.8); MONO % 29.6 % (0.0-10.0); NEUT # 1.9 K/uL (1.8-7.0); NEUT % 42.7 % (50.0-75.0); NRBC % 0.1 % (0.0-2.0); PLATELET COUNT 61 K/uL (130-400); RBC 3.97 Mil/uL (4.40-5.90); RED CELL DISTRIBUTION WIDTH 15.2 % (11.5-14.5); WHITE BLOOD COUNT 4.5 K/uL (4.8-10.8)
[2018-07-14 06:36] LABS: INR 1.2; PROTHROMBIN TIME 13.3 SECONDS (9.7-12.2)
[2018-07-14 06:51] LABS: ALB/GLOB RATIO 1.3 (1.0-2.1); ALBUMIN 3.6 g/dL (3.5-5.0); ALT/SGPT 100 U/L (21-72); AST/SGOT 62 U/L (17-59); BLOOD UREA NITROGEN 14 mg/dL (9-20); CALCIUM 8.8 mg/dl (8.6-10.4); GFR NON-AFRICAN AMERICAN > 60
[2018-07-14 08:12] LABS: HEPATITIS B SURFACE AG Negative (NEGATIVE)
[2018-07-14 08:19] LABS: HEPATITIS A IGM NEGATIVE (NEGATIVE); HEPATITIS B CORE AB NEGATIVE (NEGATIVE)
[2018-07-14 08:29] LABS: HEPATITIS C ANTIBODY NEGATIVE (NEGATIVE)
[2018-07-14] MEDS: (Novolin R) Insulin Human Regular 100 units/ml vial SC SCH ×4 (08:30→22:00)
[2018-07-14 08:47] LABS: ANISOCYTOSIS SLIGHT; BANDS 1 % (0-2); EOSINOPHIL 5 % (0-4); LYMPHOCYTE 23 % (20-40); MONOCYTE 30 % (0-10); NEUTROPHIL 41 % (50-75); PLATELET ESTIMATE DECREASED (NORMAL); TOTAL CELLS COUNTED 100
[2018-07-14 08:48] LABS: HYPOCHROMIC SLIGHT; POLYCHROMIC SLIGHT
[2018-07-14] MEDS: Pantoprazole 40 mg EC Tab PO SCH (09:42)
[2018-07-14] MEDS: Multiple Vitamins Tab PO SCH (09:42)
--- NOTE | 2018-07-14 10:18 | CP.PCM.PN ---
Subjective - Date & Time of Evaluation Date of Evaluation: 07/14/18 Time of Evaluation: 10:15 - Subjective Subjective: Patient complains of sore throat. He denies having difficulty swallowing, abdominal pain, nausea and vomiting. He had six loose bowel movements yesterday, but has not had a bowel movement so far today. Objective - Vital Signs/Intake and Output Vital Signs (last 24 hours): Temp Pulse Resp BP Pulse Ox 98.8 F 81 24 106/68 100 07/14/18 04:00 07/14/18 06:00 07/14/18 06:00 07/14/18 07:04 07/14/18 06:00 Intake and Output: 07/14/18 07/14/18 06:59 18:59 Intake Total 0 1450 Output Total 1700 Balance 0 -250 - Medications Medications: Current Medications Folic Acid (Folic Acid) 1 mg PO DAILY [facility] Last Admin: 07/14/18 09:42 Dose: 1 mg Cefazolin Sodium 1,000 mg/ (Sodium Chloride) 100 mls @ 100 mls/hr IVPB Q8H [facility]; Protocol Last Admin: 07/14/18 06:24 Dose: 100 mls/hr Insulin Human Regular (Novolin R) 0 unit SC ACHS [facility]; Protocol Last Admin: 07/14/18 08:30 Dose: 2 u Lorazepam (Ativan) 2 mg PO Q6H PRN PRN Reason: Symptoms of alcohol withdrawl Last Admin: 07/12/18 21:46 Dose: 2 mg Multivitamins (Hexavitamin) 1 tab PO DAILY [facility] Last Admin: 07/14/18 09:42 Dose: 1 tab Pantoprazole Sodium (Protonix Ec Tab) 40 mg PO DAILY [facility] Last Admin: 07/14/18 09:42 Dose: 40 mg Thiamine HCl (Vitamin B1 Tab) 100 mg PO DAILY [facility] Last Admin: 07/14/18 09:42 Dose: 100 mg - Labs Labs: 07/14/18 06:25 07/14/18 06:25 PT 13.3 SECONDS (9.7-12.2) H 07/14/18 06:25 INR 1.2 07/14/18 06:25 APTT 40 SECONDS (21-34) H D 07/11/18 06:07 - Constitutional Appears: No Acute Distress - Head Exam Head Exam: ATRAUMATIC, NORMOCEPHALIC - Eye Exam Eye Exam: EOMI, PERRL - Neck Exam Neck Exam: absent: Lymphadenopathy, Thyromegaly - Respiratory Exam Respiratory Exam: NORMAL BREATHING PATTERN. absent: Rales, Rhonchi, Wheezes - Cardiovascular Exam Cardiovascular Exam: REGULAR RHYTHM, +S1, +S2. absent: Gallop, Rubs, Murmur - GI/Abdominal Exam GI & Abdominal Exam: Soft, Normal Bowel Sounds. absent: Tenderness, Mass, Organomegaly - Rectal Exam Rectal Exam: Deferred - Extremities Exam Extremities Exam: absent: Calf Tenderness, Pedal Edema Assessment and Plan (1) Hematemesis Assessment & Plan: Patient has not had any further nausea or vomiting. The HGB is stable at 12.3. [place] [address]. LFTs continue to improve: AST is 62 (was 133 yesterday), ALT 100 (142), TBILI 3.0 (6.1). Will follow liver enzymes. Status: Acute
--- NOTE | 2018-07-14 14:28 | CP.PCM.PN ---
Subjective - Date & Time of Evaluation Date of Evaluation: 07/14/18 Time of Evaluation: 11:15 - Subjective Subjective: clinically same Objective - Vital Signs/Intake and Output Vital Signs (last 24 hours): Temp Pulse Resp BP Pulse Ox 98.8 F 86 16 113/84 98 07/14/18 04:00 07/14/18 14:04 07/14/18 14:04 07/14/18 14:04 07/14/18 14:04 Intake and Output: 07/14/18 07/14/18 06:59 18:59 Intake Total 0 1450 Output Total 1700 Balance 0 -250 - Medications Medications: Current Medications Folic Acid (Folic Acid) 1 mg PO DAILY [facility] Last Admin: 07/14/18 09:42 Dose: 1 mg Cefazolin Sodium 1,000 mg/ (Sodium Chloride) 100 mls @ 100 mls/hr IVPB Q8H [facility]; Protocol Last Admin: 07/14/18 06:24 Dose: 100 mls/hr Insulin Human Regular (Novolin R) 0 unit SC ACHS [facility]; Protocol Last Admin: 07/14/18 11:43 Dose: 3 u Lorazepam (Ativan) 2 mg PO Q6H PRN PRN Reason: Symptoms of alcohol withdrawl Last Admin: 07/12/18 21:46 Dose: 2 mg Multivitamins (Hexavitamin) 1 tab PO DAILY [facility] Last Admin: 07/14/18 09:42 Dose: 1 tab Pantoprazole Sodium (Protonix Ec Tab) 40 mg PO DAILY [facility] Last Admin: 07/14/18 09:42 Dose: 40 mg Thiamine HCl (Vitamin B1 Tab) 100 mg PO DAILY [facility] Last Admin: 07/14/18 09:42 Dose: 100 mg - Labs Labs: 07/14/18 06:25 07/14/18 06:25 PT 13.3 SECONDS (9.7-12.2) H 07/14/18 06:25 INR 1.2 07/14/18 06:25 APTT 40 SECONDS (21-34) H D 07/11/18 06:07 - Constitutional Appears: Well - Head Exam Head Exam: ATRAUMATIC, NORMAL INSPECTION, NORMOCEPHALIC - Eye Exam Eye Exam: EOMI, Normal appearance, PERRL Pupil Exam: NORMAL ACCOMODATION, PERRL - ENT Exam ENT Exam: Mucous Membranes Moist, Normal Exam - Neck Exam Neck Exam: Full ROM, Normal Inspection. absent: Lymphadenopathy - Respiratory Exam Respiratory Exam: Decreased Breath Sounds - Cardiovascular Exam Cardiovascular Exam: REGULAR RHYTHM, +S1, +S2 - GI/Abdominal Exam GI & Abdominal Exam: Soft, Diminished Bowel Sounds - Rectal Exam Rectal Exam: Deferred
[2018-07-15] MEDS: (Novolin R) Insulin Human Regular 100 units/ml vial SC SCH ×4 (08:30→22:30)
[2018-07-15] MEDS: Pantoprazole 40 mg EC Tab PO SCH (09:01)
[2018-07-15] MEDS: Multiple Vitamins Tab PO SCH (09:01)
--- NOTE | 2018-07-15 10:19 | CP.PCM.PN ---
Subjective - Date & Time of Evaluation Date of Evaluation: 07/15/18 Time of Evaluation: 10:16 - Subjective Subjective: Patient continues to complain of sore throat, but denies having nausea, vomiting, abdominal pain. Objective - Vital Signs/Intake and Output Vital Signs (last 24 hours): Temp Pulse Resp BP Pulse Ox 98.7 F 82 22 110/70 98 07/15/18 04:00 07/15/18 07:04 07/15/18 07:04 07/15/18 07:04 07/15/18 07:04 Intake and Output: 07/15/18 07/15/18 06:59 18:59 Intake Total 1350 Output Total 2000 Balance -650 - Medications Medications: Current Medications Folic Acid (Folic Acid) 1 mg PO DAILY [facility] Last Admin: 07/15/18 09:01 Dose: 1 mg Gabapentin (Neurontin) 100 mg PO TID [facility] Last Admin: 07/15/18 09:01 Dose: 100 mg Cefazolin Sodium 1,000 mg/ (Sodium Chloride) 100 mls @ 100 mls/hr IVPB Q8H [facility]; Protocol Last Admin: 07/15/18 06:30 Dose: 100 mls/hr Insulin Human Regular (Novolin R) 0 unit SC ACHS [facility]; Protocol Last Admin: 07/15/18 08:30 Dose: 2 u Lorazepam (Ativan) 2 mg PO Q6H PRN PRN Reason: Symptoms of alcohol withdrawl Last Admin: 07/12/18 21:46 Dose: 2 mg Multivitamins (Hexavitamin) 1 tab PO DAILY [facility] Last Admin: 07/15/18 09:01 Dose: 1 tab Pantoprazole Sodium (Protonix Ec Tab) 40 mg PO DAILY [facility] Last Admin: 07/15/18 09:01 Dose: 40 mg Thiamine HCl (Vitamin B1 Tab) 100 mg PO DAILY [facility] Last Admin: 07/15/18 09:01 Dose: 100 mg - Labs Labs: 07/14/18 06:25 07/14/18 06:25 PT 13.3 SECONDS (9.7-12.2) H 07/14/18 06:25 INR 1.2 07/14/18 06:25 APTT 40 SECONDS (21-34) H D 07/11/18 06:07 - Constitutional Appears: No Acute Distress - Head Exam Head Exam: ATRAUMATIC, NORMOCEPHALIC - Eye Exam Eye Exam: EOMI, PERRL - Neck Exam Neck Exam: absent: Lymphadenopathy, Thyromegaly - Respiratory Exam Respiratory Exam: NORMAL BREATHING PATTERN. absent: Rales, Rhonchi, Wheezes - Cardiovascular Exam Cardiovascular Exam: REGULAR RHYTHM, +S1, +S2. absent: Gallop, Rubs, Murmur - GI/Abdominal Exam GI & Abdominal Exam: Soft, Normal Bowel Sounds. absent: Tenderness, Mass, Organomegaly - Rectal Exam Rectal Exam: Deferred - Extremities Exam Extremities Exam: absent: Calf Tenderness, Pedal Edema Assessment and Plan (1) Hematemesis Assessment & Plan: Patient has not had any further nausea, vomiting or bleeding. He is tolerating a regular diet. Blood work from this morning is still pending. EGD to be scheduled. Status: Acute
[2018-07-15 10:45] LABS: BASO % 0.6 % (0.0-2.0); EOS # 0.1 K/uL (0.0-0.7); EOS % 1.9 % (0.0-4.0); HEMOGLOBIN 11.8 g/dL (12.0-18.0); LYMPH # 1.2 K/uL (1.0-4.3); LYMPH % 24.9 % (20.0-40.0); MEAN CELL VOLUME 90.8 fL (80.0-94.0); MEAN CORPUSCULAR HEMOGLOBIN 30.9 pg (27.0-31.0); MEAN PLATELET VOLUME 8.8 fL (7.2-11.7); MONO # 1.1 K/uL (0.0-0.8); MONO % 23.3 % (0.0-10.0); NEUT # 2.4 K/uL (1.8-7.0); NEUT % 49.3 % (50.0-75.0); RBC 3.82 Mil/uL (4.40-5.90); RED CELL DISTRIBUTION WIDTH 15.3 % (11.5-14.5); WHITE BLOOD COUNT 4.9 K/uL (4.8-10.8)
[2018-07-15 10:46] LABS: PLATELET COUNT 114 K/uL (130-400)
[2018-07-15 11:03] LABS: ALB/GLOB RATIO 1.3 (1.0-2.1); ALBUMIN 3.5 g/dL (3.5-5.0); ALT/SGPT 58 U/L (21-72); AST/SGOT 53 U/L (17-59); BLOOD UREA NITROGEN 13 mg/dL (9-20); CALCIUM 8.6 mg/dl (8.6-10.4); GFR NON-AFRICAN AMERICAN > 60
[2018-07-15 11:08] LABS: EOSINOPHIL 2 % (0-4); LYMPHOCYTE 17 % (20-40); MONOCYTE 20 % (0-10); NEUTROPHIL 61 % (50-75); TOTAL CELLS COUNTED 100
[2018-07-15 11:09] LABS: ANISOCYTOSIS SLIGHT; HYPOCHROMIC SLIGHT; PLATELET ESTIMATE SLIGHTLY DECREASED (NORMAL); POLYCHROMIC SLIGHT
[2018-07-15 11:10] LABS: LARGE PLATELETS PRESENT
--- NOTE | 2018-07-15 15:31 | CP.PCM.PN ---
Subjective - Date & Time of Evaluation Date of Evaluation: 07/15/18 Time of Evaluation: 12:15 - Subjective Subjective: clinically same Objective - Vital Signs/Intake and Output Vital Signs (last 24 hours): Temp Pulse Resp BP Pulse Ox 98.1 F 93 H 20 108/71 96 07/15/18 12:00 07/15/18 14:04 07/15/18 14:04 07/15/18 14:04 07/15/18 12:00 Intake and Output: 07/15/18 07/15/18 06:59 18:59 Intake Total 1600 Output Total 2800 Balance -1200 - Medications Medications: Current Medications Folic Acid (Folic Acid) 1 mg PO DAILY [facility] Last Admin: 07/15/18 09:01 Dose: 1 mg Gabapentin (Neurontin) 100 mg PO TID [facility] Last Admin: 07/15/18 09:01 Dose: 100 mg Cefazolin Sodium 1,000 mg/ (Sodium Chloride) 100 mls @ 100 mls/hr IVPB Q8H [facility]; Protocol Last Admin: 07/15/18 06:30 Dose: 100 mls/hr Insulin Human Regular (Novolin R) 0 unit SC ACHS [facility]; Protocol Last Admin: 07/15/18 12:28 Dose: 8 u Lorazepam (Ativan) 2 mg PO Q6H PRN PRN Reason: Symptoms of alcohol withdrawl Last Admin: 07/12/18 21:46 Dose: 2 mg Multivitamins (Hexavitamin) 1 tab PO DAILY [facility] Last Admin: 07/15/18 09:01 Dose: 1 tab Pantoprazole Sodium (Protonix Ec Tab) 40 mg PO DAILY [facility] Last Admin: 07/15/18 09:01 Dose: 40 mg Thiamine HCl (Vitamin B1 Tab) 100 mg PO DAILY [facility] Last Admin: 07/15/18 09:01 Dose: 100 mg - Labs Labs: 07/15/18 10:38 07/15/18 10:38 PT 13.3 SECONDS (9.7-12.2) H 07/14/18 06:25 INR 1.2 07/14/18 06:25 APTT 40 SECONDS (21-34) H D 07/11/18 06:07
--- NOTE | 2018-07-15 22:47 | CP.PCM.PN ---
Subjective - Date & Time of Evaluation Date of Evaluation: 07/13/18 Time of Evaluation: 12:00 - Subjective Subjective: No complaints. Objective - Vital Signs/Intake and Output Vital Signs (last 24 hours): Temp Pulse Resp BP Pulse Ox 98.4 F 89 32 H 105/70 96 07/15/18 16:00 07/15/18 20:04 07/15/18 20:04 07/15/18 20:04 07/15/18 12:00 Intake and Output: 07/15/18 07/16/18 18:59 06:59 Intake Total 1600 Output Total 2800 Balance -1200 - Medications Medications: Current Medications Folic Acid (Folic Acid) 1 mg PO DAILY [facility] Last Admin: 07/15/18 09:01 Dose: 1 mg Gabapentin (Neurontin) 100 mg PO TID [facility] Last Admin: 07/15/18 17:48 Dose: 100 mg Cefazolin Sodium 1,000 mg/ (Sodium Chloride) 100 mls @ 100 mls/hr IVPB Q8H [facility]; Protocol Last Admin: 07/15/18 15:00 Dose: 100 mls/hr Insulin Human Regular (Novolin R) 0 unit SC ACHS [facility]; Protocol Last Admin: 07/15/18 17:30 Dose: 2 u Lorazepam (Ativan) 2 mg PO Q6H PRN PRN Reason: Symptoms of alcohol withdrawl Last Admin: 07/12/18 21:46 Dose: 2 mg Multivitamins (Hexavitamin) 1 tab PO DAILY [facility] Last Admin: 07/15/18 09:01 Dose: 1 tab Pantoprazole Sodium (Protonix Ec Tab) 40 mg PO DAILY [facility] Last Admin: 07/15/18 09:01 Dose: 40 mg Thiamine HCl (Vitamin B1 Tab) 100 mg PO DAILY [facility] Last Admin: 07/15/18 09:01 Dose: 100 mg - Labs Labs: 07/15/18 10:38 07/15/18 10:38 PT 13.3 SECONDS (9.7-12.2) H 07/14/18 06:25 INR 1.2 07/14/18 06:25 APTT 40 SECONDS (21-34) H D 07/11/18 06:07 - Head Exam Head Exam: ATRAUMATIC - Eye Exam Eye Exam: Normal appearance - ENT Exam ENT Exam: Mucous Membranes Dry - Respiratory Exam Respiratory Exam: NORMAL BREATHING PATTERN - Cardiovascular Exam Cardiovascular Exam: +S1, +S2 - GI/Abdominal Exam GI & Abdominal Exam: Normal Bowel Sounds Assessment and Plan (1) Pancytopenia Assessment & Plan: secondary to alcohol mild anemia plt count improving Status: Acute (2) Coagulopathy Assessment & Plan: nutritional ?liver disease Status: Acute
--- NOTE | 2018-07-15 22:49 | CP.PCM.PN ---
Subjective - Date & Time of Evaluation Date of Evaluation: 07/14/18 Time of Evaluation: 16:00 - Subjective Subjective: Has nausea Objective - Vital Signs/Intake and Output Vital Signs (last 24 hours): Temp Pulse Resp BP Pulse Ox 98.4 F 89 32 H 105/70 96 07/15/18 16:00 07/15/18 20:04 07/15/18 20:04 07/15/18 20:04 07/15/18 12:00 Intake and Output: 07/15/18 07/16/18 18:59 06:59 Intake Total 1600 Output Total 2800 Balance -1200 - Medications Medications: Current Medications Folic Acid (Folic Acid) 1 mg PO DAILY [facility] Last Admin: 07/15/18 09:01 Dose: 1 mg Gabapentin (Neurontin) 100 mg PO TID [facility] Last Admin: 07/15/18 17:48 Dose: 100 mg Cefazolin Sodium 1,000 mg/ (Sodium Chloride) 100 mls @ 100 mls/hr IVPB Q8H [facility]; Protocol Last Admin: 07/15/18 15:00 Dose: 100 mls/hr Insulin Human Regular (Novolin R) 0 unit SC ACHS [facility]; Protocol Last Admin: 07/15/18 17:30 Dose: 2 u Lorazepam (Ativan) 2 mg PO Q6H PRN PRN Reason: Symptoms of alcohol withdrawl Last Admin: 07/12/18 21:46 Dose: 2 mg Multivitamins (Hexavitamin) 1 tab PO DAILY [facility] Last Admin: 07/15/18 09:01 Dose: 1 tab Pantoprazole Sodium (Protonix Ec Tab) 40 mg PO DAILY [facility] Last Admin: 07/15/18 09:01 Dose: 40 mg Thiamine HCl (Vitamin B1 Tab) 100 mg PO DAILY [facility] Last Admin: 07/15/18 09:01 Dose: 100 mg - Labs Labs: 07/15/18 10:38 07/15/18 10:38 PT 13.3 SECONDS (9.7-12.2) H 07/14/18 06:25 INR 1.2 07/14/18 06:25 APTT 40 SECONDS (21-34) H D 07/11/18 06:07 - Head Exam Head Exam: ATRAUMATIC - Eye Exam Eye Exam: Normal appearance - ENT Exam ENT Exam: Mucous Membranes Dry - Respiratory Exam Respiratory Exam: NORMAL BREATHING PATTERN - Cardiovascular Exam Cardiovascular Exam: +S1, +S2 - GI/Abdominal Exam GI & Abdominal Exam: Normal Bowel Sounds Assessment and Plan (1) Pancytopenia Assessment & Plan: secondary to alcohol improving daily. Status: Acute (2) Coagulopathy Status: Acute
[2018-07-16] MEDS: (Novolin R) Insulin Human Regular 100 units/ml vial SC SCH ×4 (08:26→21:46)
[2018-07-16] MEDS: Multiple Vitamins Tab PO SCH (09:45)
[2018-07-16] MEDS: Pantoprazole 40 mg EC Tab PO SCH (09:46)
--- NOTE | 2018-07-16 15:31 | CP.PCM.PN ---
Subjective - Date & Time of Evaluation Date of Evaluation: 07/16/18 Time of Evaluation: 15:28 - Subjective Subjective: No bleeding noted On Telemetry weak. Able to tolerate diet Platelets have normalized Objective - Vital Signs/Intake and Output Vital Signs (last 24 hours): Temp Pulse Resp BP Pulse Ox 97.6 F 86 30 H 111/78 100 07/16/18 12:00 07/16/18 14:04 07/16/18 14:04 07/16/18 14:04 07/16/18 09:04 Intake and Output: 07/16/18 07/16/18 06:59 18:59 Intake Total 460 360 Output Total 1300 500 Balance -840 -140 - Medications Medications: Current Medications Folic Acid (Folic Acid) 1 mg PO DAILY [facility] Last Admin: 07/16/18 09:45 Dose: 1 mg Gabapentin (Neurontin) 100 mg PO TID [facility] Last Admin: 07/16/18 14:57 Dose: 100 mg Cefazolin Sodium 1,000 mg/ (Sodium Chloride) 100 mls @ 100 mls/hr IVPB Q8H [facility]; Protocol Last Admin: 07/16/18 14:56 Dose: 100 mls/hr Insulin Human Regular (Novolin R) 0 unit SC ACHS [facility]; Protocol Last Admin: 07/16/18 11:45 Dose: 4 u Lorazepam (Ativan) 2 mg PO Q6H PRN PRN Reason: Symptoms of alcohol withdrawl Last Admin: 07/12/18 21:46 Dose: 2 mg Multivitamins (Hexavitamin) 1 tab PO DAILY [facility] Last Admin: 07/16/18 09:45 Dose: 1 tab Pantoprazole Sodium (Protonix Ec Tab) 40 mg PO DAILY [facility] Last Admin: 07/16/18 09:46 Dose: 40 mg Thiamine HCl (Vitamin B1 Tab) 100 mg PO DAILY [facility] Last Admin: 07/16/18 09:46 Dose: 100 mg - Labs Labs: 07/15/18 10:38 07/15/18 10:38 PT 13.3 SECONDS (9.7-12.2) H 07/14/18 06:25 INR 1.2 07/14/18 06:25 APTT 40 SECONDS (21-34) H D 07/11/18 06:07 - Constitutional Appears: Well, No Acute Distress - Head Exam Head Exam: NORMOCEPHALIC - Respiratory Exam Respiratory Exam: Clear to Ausculation Bilateral - Cardiovascular Exam Cardiovascular Exam: REGULAR RHYTHM - GI/Abdominal Exam GI & Abdominal Exam: Soft. absent: Tenderness Assessment and Plan (1) GI bleed Assessment & Plan: Stable Admitted with hematemesis Will plan for EGD Wed Status: Acute (2) Alcohol abuse with intoxication Assessment & Plan: stable Status: Acute (3) Abnormal LFTs Assessment & Plan: Now normalizing Hep profile neg Status: Acute
--- NOTE | 2018-07-16 18:52 | CP.PCM.PN ---
Subjective - Date & Time of Evaluation Date of Evaluation: 07/16/18 Time of Evaluation: 12:15 - Subjective Subjective: clinically same Objective - Vital Signs/Intake and Output Vital Signs (last 24 hours): Temp Pulse Resp BP Pulse Ox 98.4 F 85 24 128/81 100 07/16/18 16:00 07/16/18 18:04 07/16/18 18:04 07/16/18 18:04 07/16/18 09:04 Intake and Output: 07/16/18 07/16/18 06:59 18:59 Intake Total 460 1260 Output Total 1300 1700 Balance -840 -440 - Medications Medications: Current Medications Folic Acid (Folic Acid) 1 mg PO DAILY [facility] Last Admin: 07/16/18 09:45 Dose: 1 mg Gabapentin (Neurontin) 100 mg PO TID [facility] Last Admin: 07/16/18 18:40 Dose: 100 mg Cefazolin Sodium 1,000 mg/ (Sodium Chloride) 100 mls @ 100 mls/hr IVPB Q8H [facility]; Protocol Last Admin: 07/16/18 14:56 Dose: 100 mls/hr Insulin Human Regular (Novolin R) 0 unit SC ACHS [facility]; Protocol Last Admin: 07/16/18 16:27 Dose: 6 u Lorazepam (Ativan) 2 mg PO Q6H PRN PRN Reason: Symptoms of alcohol withdrawl Last Admin: 07/12/18 21:46 Dose: 2 mg Multivitamins (Hexavitamin) 1 tab PO DAILY [facility] Last Admin: 07/16/18 09:45 Dose: 1 tab Pantoprazole Sodium (Protonix Ec Tab) 40 mg PO DAILY [facility] Last Admin: 07/16/18 09:46 Dose: 40 mg Thiamine HCl (Vitamin B1 Tab) 100 mg PO DAILY [facility] Last Admin: 07/16/18 09:46 Dose: 100 mg - Labs Labs: 07/15/18 10:38 07/15/18 10:38 PT 13.3 SECONDS (9.7-12.2) H 07/14/18 06:25 INR 1.2 07/14/18 06:25 APTT 40 SECONDS (21-34) H D 07/11/18 06:07
--- NOTE | 2018-07-17 08:18 | CP.PCM.PN ---
Subjective - Date & Time of Evaluation Date of Evaluation: 07/17/18 Time of Evaluation: 08:00 - Subjective Subjective: f/u GI bleed. Deneis abd pain, RB, melena, fever, chills, CP, SOB, CHAO cough Objective - Vital Signs/Intake and Output Vital Signs (last 24 hours): Temp Pulse Resp BP Pulse Ox 98.3 F 18 L 20 112/69 100 07/16/18 23:40 07/17/18 07:00 07/16/18 23:40 07/16/18 23:40 07/16/18 23:40 Intake and Output: 07/17/18 07/17/18 06:59 18:59 Intake Total 280 Output Total 1100 Balance -820 - Medications Medications: Current Medications Folic Acid (Folic Acid) 1 mg PO DAILY [facility] Last Admin: 07/16/18 09:45 Dose: 1 mg Gabapentin (Neurontin) 100 mg PO TID [facility] Last Admin: 07/16/18 18:40 Dose: 100 mg Cefazolin Sodium 1,000 mg/ (Sodium Chloride) 100 mls @ 100 mls/hr IVPB Q8H [facility]; Protocol Last Admin: 07/17/18 06:09 Dose: 100 mls/hr Insulin Human Regular (Novolin R) 0 unit SC ACHS [facility]; Protocol Last Admin: 07/16/18 21:46 Dose: Not Given Lorazepam (Ativan) 2 mg PO Q6H PRN PRN Reason: Symptoms of alcohol withdrawl Last Admin: 07/12/18 21:46 Dose: 2 mg Multivitamins (Hexavitamin) 1 tab PO DAILY [facility] Last Admin: 07/16/18 09:45 Dose: 1 tab Pantoprazole Sodium (Protonix Ec Tab) 40 mg PO DAILY [facility] Last Admin: 07/16/18 09:46 Dose: 40 mg Thiamine HCl (Vitamin B1 Tab) 100 mg PO DAILY [facility] Last Admin: 07/16/18 09:46 Dose: 100 mg - Labs Labs: 07/15/18 10:38 07/15/18 10:38 PT 13.3 SECONDS (9.7-12.2) H 07/14/18 06:25 INR 1.2 07/14/18 06:25 APTT 40 SECONDS (21-34) H D 07/11/18 06:07 - Constitutional Appears: Well - Respiratory Exam Respiratory Exam: Clear to Ausculation Bilateral - Cardiovascular Exam Cardiovascular Exam: RRR - GI/Abdominal Exam GI & Abdominal Exam: Soft, Normal Bowel Sounds. absent: Guarding, Tenderness, Mass, Rebound - Extremities Exam Extremities Exam: absent: Calf Tenderness - Neurological Exam Neurological Exam: Alert, Awake, Oriented x3 Assessment and Plan (1) Abnormal LFTs Assessment & Plan: alcohol abuse Status: Acute (2) [place] (acute kidney injury) Status: Acute (3) Alcohol abuse Status: Acute (4) GI bleed Assessment & Plan: Hb sl lower. Consider esophagitis, gastritis, ulcer. Doubt varices. P- EGD monday Status: Acute (5) Respiratory failure Assessment & Plan: extubated Status: Acute
[2018-07-17] MEDS: (Novolin R) Insulin Human Regular 100 units/ml vial SC SCH ×4 (08:22→22:20)
[2018-07-17] MEDS: Pantoprazole 40 mg EC Tab PO SCH (10:03)
[2018-07-17] MEDS: Multiple Vitamins Tab PO SCH (10:03)
--- NOTE | 2018-07-17 14:43 | CP.PCM.PN ---
Subjective - Date & Time of Evaluation Date of Evaluation: 07/17/18 Time of Evaluation: 11:45 - Subjective Subjective: clinically same Objective - Vital Signs/Intake and Output Vital Signs (last 24 hours): Temp Pulse Resp BP Pulse Ox 98.5 F 72 20 106/69 98 07/17/18 08:49 07/17/18 08:49 07/17/18 08:49 07/17/18 08:49 07/17/18 08:49 Intake and Output: 07/17/18 07/17/18 06:59 18:59 Intake Total 280 Output Total 1100 Balance -820 - Medications Medications: Current Medications Folic Acid (Folic Acid) 1 mg PO DAILY [facility] Last Admin: 07/17/18 10:03 Dose: 1 mg Gabapentin (Neurontin) 100 mg PO TID [facility] Last Admin: 07/17/18 14:24 Dose: 100 mg Cefazolin Sodium 1,000 mg/ (Sodium Chloride) 100 mls @ 100 mls/hr IVPB Q8H [facility]; Protocol Last Admin: 07/17/18 14:26 Dose: 100 mls/hr Insulin Human Regular (Novolin R) 0 unit SC ACHS [facility]; Protocol Last Admin: 07/17/18 12:23 Dose: 2 u Lorazepam (Ativan) 2 mg PO Q6H PRN PRN Reason: Symptoms of alcohol withdrawl Last Admin: 07/12/18 21:46 Dose: 2 mg Multivitamins (Hexavitamin) 1 tab PO DAILY [facility] Last Admin: 07/17/18 10:03 Dose: 1 tab Pantoprazole Sodium (Protonix Ec Tab) 40 mg PO DAILY [facility] Last Admin: 07/17/18 10:03 Dose: 40 mg Thiamine HCl (Vitamin B1 Tab) 100 mg PO DAILY [facility] Last Admin: 07/17/18 10:04 Dose: 100 mg - Labs Labs: 07/15/18 10:38 07/15/18 10:38 PT 13.3 SECONDS (9.7-12.2) H 07/14/18 06:25 INR 1.2 07/14/18 06:25 APTT 40 SECONDS (21-34) H D 07/11/18 06:07
--- NOTE | 2018-07-17 23:58 | CP.PCM.PN ---
Subjective - Date & Time of Evaluation Date of Evaluation: 07/16/18 Time of Evaluation: 15:00 - Subjective Subjective: No complaints. Objective - Vital Signs/Intake and Output Vital Signs (last 24 hours): Temp Pulse Resp BP Pulse Ox 98.2 F 114 H 20 103/67 99 07/17/18 15:00 07/17/18 17:00 07/17/18 15:00 07/17/18 15:00 07/17/18 15:00 - Medications Medications: Current Medications Folic Acid (Folic Acid) 1 mg PO DAILY [facility] Last Admin: 07/17/18 10:03 Dose: 1 mg Gabapentin (Neurontin) 100 mg PO TID [facility] Last Admin: 07/17/18 22:29 Dose: 100 mg Insulin Human Regular (Novolin R) 0 unit SC [facility]; Protocol Last Admin: 07/17/18 22:20 Dose: Not Given Lorazepam (Ativan) 2 mg PO Q6H PRN PRN Reason: Symptoms of alcohol withdrawl Last Admin: 07/12/18 21:46 Dose: 2 mg Multivitamins (Hexavitamin) 1 tab PO DAILY [facility] Last Admin: 07/17/18 10:03 Dose: 1 tab Pantoprazole Sodium (Protonix Ec Tab) 40 mg PO DAILY [facility] Last Admin: 07/17/18 10:03 Dose: 40 mg Thiamine HCl (Vitamin B1 Tab) 100 mg PO DAILY [facility] Last Admin: 07/17/18 10:04 Dose: 100 mg - Labs Labs: 07/15/18 10:38 07/15/18 10:38 PT 13.3 SECONDS (9.7-12.2) H 07/14/18 06:25 INR 1.2 07/14/18 06:25 APTT 40 SECONDS (21-34) H D 07/11/18 06:07 - Head Exam Head Exam: ATRAUMATIC - Eye Exam Eye Exam: Normal appearance - ENT Exam ENT Exam: Mucous Membranes Dry - Respiratory Exam Respiratory Exam: NORMAL BREATHING PATTERN - Cardiovascular Exam Cardiovascular Exam: +S1, +S2 - GI/Abdominal Exam GI & Abdominal Exam: Normal Bowel Sounds Assessment and Plan (1) Pancytopenia Assessment & Plan: counts improved alcohol related GI w/u with endoscopy Status: Acute (2) Coagulopathy Assessment & Plan: nutritional Status: Acute
--- NOTE | 2018-07-17 23:59 | CP.PCM.PN ---
Subjective - Date & Time of Evaluation Date of Evaluation: 07/17/18 Time of Evaluation: 19:00 - Subjective Subjective: Feels weak Objective - Vital Signs/Intake and Output Vital Signs (last 24 hours): Temp Pulse Resp BP Pulse Ox 98.2 F 114 H 20 103/67 99 07/17/18 15:00 07/17/18 17:00 07/17/18 15:00 07/17/18 15:00 07/17/18 15:00 - Medications Medications: Current Medications Folic Acid (Folic Acid) 1 mg PO DAILY [facility] Last Admin: 07/17/18 10:03 Dose: 1 mg Gabapentin (Neurontin) 100 mg PO TID [facility] Last Admin: 07/17/18 22:29 Dose: 100 mg Insulin Human Regular (Novolin R) 0 unit SC [facility]; Protocol Last Admin: 07/17/18 22:20 Dose: Not Given Lorazepam (Ativan) 2 mg PO Q6H PRN PRN Reason: Symptoms of alcohol withdrawl Last Admin: 07/12/18 21:46 Dose: 2 mg Multivitamins (Hexavitamin) 1 tab PO DAILY [facility] Last Admin: 07/17/18 10:03 Dose: 1 tab Pantoprazole Sodium (Protonix Ec Tab) 40 mg PO DAILY [facility] Last Admin: 07/17/18 10:03 Dose: 40 mg Thiamine HCl (Vitamin B1 Tab) 100 mg PO DAILY [facility] Last Admin: 07/17/18 10:04 Dose: 100 mg - Labs Labs: 07/15/18 10:38 07/15/18 10:38 PT 13.3 SECONDS (9.7-12.2) H 07/14/18 06:25 INR 1.2 07/14/18 06:25 APTT 40 SECONDS (21-34) H D 07/11/18 06:07 - Head Exam Head Exam: ATRAUMATIC - Eye Exam Eye Exam: Normal appearance - ENT Exam ENT Exam: Mucous Membranes Dry - Respiratory Exam Respiratory Exam: NORMAL BREATHING PATTERN - Cardiovascular Exam Cardiovascular Exam: +S1, +S2 - GI/Abdominal Exam GI & Abdominal Exam: Normal Bowel Sounds Assessment and Plan (1) Pancytopenia Assessment & Plan: alcohol related improving for EGD tomorrow Status: Acute (2) Coagulopathy Status: Acute
[2018-07-18 07:51] LABS: BLOOD UREA NITROGEN 10 mg/dL (9-20); CALCIUM 8.9 mg/dl (8.6-10.4); GFR NON-AFRICAN AMERICAN > 60
[2018-07-18] MEDS: (Novolin R) Insulin Human Regular 100 units/ml vial SC SCH ×4 (09:03→22:25)
[2018-07-18] MEDS: Pantoprazole 40 mg EC Tab PO SCH ×2 (09:23→18:21)
[2018-07-18] MEDS: Multiple Vitamins Tab PO SCH (09:23)
[2018-07-18] MEDS ORDERED: Lactated Ringer's 500 ML IV ONE ×2 (13:49)
[2018-07-18] MEDS ORDERED: Propofol 10 mg/ml Inj (20 ML) ONE (14:03)
[2018-07-18] MEDS ORDERED: Midazolam 2 MG/2 ML VIAL ONE (14:03)
--- NOTE | 2018-07-18 14:12 | CP.PCM.PN ---
Subjective - Date & Time of Evaluation Date of Evaluation: 07/18/18 Time of Evaluation: 14:11 - Subjective Subjective: EGD: Severe Erosive Esophagitis involving the entire esophagus. Friable mucosa. Gently biopsied. No varices seen Rec: High dose PPI x 3 months then repeat EGD Objective - Vital Signs/Intake and Output Vital Signs (last 24 hours): Temp Pulse Resp BP Pulse Ox 98.3 F 98 H 18 114/70 100 07/18/18 07:00 07/18/18 14:03 07/18/18 14:03 07/18/18 14:03 07/18/18 14:03 Intake and Output: 07/18/18 07/18/18 06:59 18:59 Output Total 400 Balance -400 - Medications Medications: Current Medications Folic Acid (Folic Acid) 1 mg PO DAILY [facility] Last Admin: 07/18/18 09:23 Dose: 1 mg Gabapentin (Neurontin) 100 mg PO TID [facility] Last Admin: 07/18/18 09:23 Dose: 100 mg Insulin Human Regular (Novolin R) 0 unit SC [facility]; Protocol Last Admin: 07/18/18 12:56 Dose: Not Given Lorazepam (Ativan) 2 mg PO Q6H PRN PRN Reason: Symptoms of alcohol withdrawl Last Admin: 07/12/18 21:46 Dose: 2 mg Multivitamins (Hexavitamin) 1 tab PO DAILY [facility] Last Admin: 07/18/18 09:23 Dose: 1 tab Pantoprazole Sodium (Protonix Ec Tab) 40 mg PO DAILY [facility] Last Admin: 07/18/18 09:23 Dose: 40 mg Thiamine HCl (Vitamin B1 Tab) 100 mg PO DAILY [facility] Last Admin: 07/18/18 09:23 Dose: 100 mg - Labs Labs: 07/15/18 10:38 07/18/18 07:00 PT 13.3 SECONDS (9.7-12.2) H 07/14/18 06:25 INR 1.2 07/14/18 06:25 APTT 40 SECONDS (21-34) H D 07/11/18 06:07 Assessment and Plan (1) GI bleed Status: Acute (2) Alcohol abuse with intoxication Status: Acute (3) Abnormal LFTs Status: Acute
[2018-07-18 16:34] VITALS: RESP 20
--- NOTE | 2018-07-18 19:37 | CP.PCM.PN ---
Subjective - Date & Time of Evaluation Date of Evaluation: 07/18/18 Time of Evaluation: 11:00 - Subjective Subjective: clinically same Objective - Vital Signs/Intake and Output Vital Signs (last 24 hours): Temp Pulse Resp BP Pulse Ox 98 F 78 20 100/60 100 07/18/18 15:25 07/18/18 15:25 07/18/18 15:25 07/18/18 15:25 07/18/18 15:25 - Medications Medications: Current Medications Folic Acid (Folic Acid) 1 mg PO DAILY [facility] Last Admin: 07/18/18 09:23 Dose: 1 mg Gabapentin (Neurontin) 100 mg PO TID [facility] Last Admin: 07/18/18 18:17 Dose: 100 mg Insulin Human Regular (Novolin R) 0 unit SC [facility]; Protocol Last Admin: 07/18/18 18:18 Dose: 4 u Lorazepam (Ativan) 2 mg PO Q6H PRN PRN Reason: Symptoms of alcohol withdrawl Last Admin: 07/12/18 21:46 Dose: 2 mg Multivitamins (Hexavitamin) 1 tab PO DAILY [facility] Last Admin: 07/18/18 09:23 Dose: 1 tab Pantoprazole Sodium (Protonix Ec Tab) 40 mg PO BID [facility] Last Admin: 07/18/18 18:21 Dose: 40 mg Thiamine HCl (Vitamin B1 Tab) 100 mg PO DAILY [facility] Last Admin: 07/18/18 09:23 Dose: 100 mg - Labs Labs: 07/15/18 10:38 07/18/18 07:00 PT 13.3 SECONDS (9.7-12.2) H 07/14/18 06:25 INR 1.2 07/14/18 06:25 APTT 40 SECONDS (21-34) H D 07/11/18 06:07
--- NOTE | 2018-07-19 09:37 | CP.PCM.PN ---
Subjective - Date & Time of Evaluation Date of Evaluation: 07/19/18 Time of Evaluation: 09:35 - Subjective Subjective: f/u GI bleed. No RB, melena, abdom pain, SZ, CHAO, cough, CP SOB, hematuria Objective - Vital Signs/Intake and Output Vital Signs (last 24 hours): Temp Pulse Resp BP Pulse Ox 98.2 F 72 20 108/71 99 07/19/18 08:38 07/19/18 08:38 07/19/18 08:38 07/19/18 08:38 07/19/18 08:38 Intake and Output: 07/19/18 07/19/18 06:59 18:59 Output Total 700 Balance -700 - Medications Medications: Current Medications Folic Acid (Folic Acid) 1 mg PO DAILY [facility] Last Admin: 07/18/18 09:23 Dose: 1 mg Gabapentin (Neurontin) 100 mg PO TID [facility] Last Admin: 07/18/18 18:17 Dose: 100 mg Insulin Human Regular (Novolin R) 0 unit SC [facility]; Protocol Last Admin: 07/18/18 22:25 Dose: Not Given Lorazepam (Ativan) 2 mg PO Q6H PRN PRN Reason: Symptoms of alcohol withdrawl Last Admin: 07/12/18 21:46 Dose: 2 mg Multivitamins (Hexavitamin) 1 tab PO DAILY [facility] Last Admin: 07/18/18 09:23 Dose: 1 tab Pantoprazole Sodium (Protonix Ec Tab) 40 mg PO BID [facility] Last Admin: 07/18/18 18:21 Dose: 40 mg Thiamine HCl (Vitamin B1 Tab) 100 mg PO DAILY [facility] Last Admin: 07/18/18 09:23 Dose: 100 mg - Labs Labs: 07/15/18 10:38 07/18/18 07:00 PT 13.3 SECONDS (9.7-12.2) H 07/14/18 06:25 INR 1.2 07/14/18 06:25 APTT 40 SECONDS (21-34) H D 07/11/18 06:07 - Constitutional Appears: Well - Respiratory Exam Respiratory Exam: Clear to Ausculation Bilateral - Cardiovascular Exam Cardiovascular Exam: RRR - GI/Abdominal Exam GI & Abdominal Exam: Soft, Normal Bowel Sounds. absent: Tenderness, Mass - Neurological Exam Neurological Exam: Alert, Awake, Oriented x3 Assessment and Plan (1) Abnormal LFTs Assessment & Plan: Alcohol abuse. LFTs- better Status: Acute (2) [place]ST[place]N (acute kidney injury) Status: Acute (3) Alcohol abuse Assessment & Plan: I discussed getting counseling and stopping drinking Status: Acute (4) GI bleed Assessment & Plan: Esophagitis. No active bleeding now. No varices. Status: Acute (5) Esophagitis Assessment & Plan: EGD= severe esophagitis. Due to WILL and alcohol. Is severe even though he has been on PPI in hospital for 1 week. REC- [place] diet, no alcohol, PPI BID, repeat EGd 2 months- discussed with patient. Status: Acute
[2018-07-19] MEDS: Multiple Vitamins Tab PO SCH (10:07)
[2018-07-19] MEDS: Pantoprazole 40 mg EC Tab PO SCH ×2 (10:08→17:24)
[2018-07-19] MEDS: (Novolin R) Insulin Human Regular 100 units/ml vial SC SCH ×4 (13:11→22:18)
--- NOTE | 2018-07-19 17:50 | CP.PCM.PN ---
Subjective - Date & Time of Evaluation Date of Evaluation: 07/19/18 Time of Evaluation: 10:30 - Subjective Subjective: clinically same Objective - Vital Signs/Intake and Output Vital Signs (last 24 hours): Temp Pulse Resp BP Pulse Ox 98.3 F 65 20 98/61 L 100 07/19/18 15:54 07/19/18 15:54 07/19/18 15:54 07/19/18 15:54 07/19/18 15:54 Intake and Output: 07/19/18 07/19/18 06:59 18:59 Output Total 700 Balance -700 - Medications Medications: Current Medications Folic Acid (Folic Acid) 1 mg PO DAILY [facility] Last Admin: 07/19/18 10:05 Dose: 1 mg Gabapentin (Neurontin) 100 mg PO TID [facility] Last Admin: 07/19/18 17:23 Dose: 100 mg Insulin Human Regular (Novolin R) 0 unit SC [facility]; Protocol Last Admin: 07/19/18 17:23 Dose: 3 u Multivitamins (Hexavitamin) 1 tab PO DAILY [facility] Last Admin: 07/19/18 10:07 Dose: 1 tab Pantoprazole Sodium (Protonix Ec Tab) 40 mg PO BID [facility] Last Admin: 07/19/18 17:24 Dose: 40 mg Thiamine HCl (Vitamin B1 Tab) 100 mg PO DAILY [facility] Last Admin: 07/19/18 10:09 Dose: 100 mg - Labs Labs: 07/15/18 10:38 07/18/18 07:00 PT 13.3 SECONDS (9.7-12.2) H 07/14/18 06:25 INR 1.2 07/14/18 06:25 APTT 40 SECONDS (21-34) H D 07/11/18 06:07
--- NOTE | 2018-07-20 02:33 | CP.PCM.PN ---
Subjective - Date & Time of Evaluation Date of Evaluation: 07/18/18 Time of Evaluation: 17:00 - Subjective Subjective: Feeling better. Objective - Vital Signs/Intake and Output Vital Signs (last 24 hours): Temp Pulse Resp BP Pulse Ox 98.3 F 67 20 98/61 L 100 07/19/18 15:54 07/19/18 17:30 07/19/18 15:54 07/19/18 15:54 07/19/18 15:54 - Medications Medications: Current Medications Folic Acid (Folic Acid) 1 mg PO DAILY [facility] Last Admin: 07/19/18 10:05 Dose: 1 mg Gabapentin (Neurontin) 100 mg PO TID [facility] Last Admin: 07/19/18 17:23 Dose: 100 mg Insulin Human Regular (Novolin R) 0 unit SC [facility]; Protocol Last Admin: 07/19/18 22:18 Dose: Not Given Multivitamins (Hexavitamin) 1 tab PO DAILY [facility] Last Admin: 07/19/18 10:07 Dose: 1 tab Pantoprazole Sodium (Protonix Ec Tab) 40 mg PO BID [facility] Last Admin: 07/19/18 17:24 Dose: 40 mg Thiamine HCl (Vitamin B1 Tab) 100 mg PO DAILY [facility] Last Admin: 07/19/18 10:09 Dose: 100 mg - Labs Labs: 07/15/18 10:38 07/18/18 07:00 PT 13.3 SECONDS (9.7-12.2) H 07/14/18 06:25 INR 1.2 07/14/18 06:25 APTT 40 SECONDS (21-34) H D 07/11/18 06:07 - Head Exam Head Exam: ATRAUMATIC - Eye Exam Eye Exam: Normal appearance - ENT Exam ENT Exam: Mucous Membranes Dry - Respiratory Exam Respiratory Exam: NORMAL BREATHING PATTERN - Cardiovascular Exam Cardiovascular Exam: +S1, +S2 - GI/Abdominal Exam GI & Abdominal Exam: Normal Bowel Sounds Assessment and Plan (1) Pancytopenia Assessment & Plan: resolving secondary to alcohol abuse discussed alcohol cessation at length Status: Acute (2) Coagulopathy Status: Acute
--- NOTE | 2018-07-20 02:34 | CP.PCM.PN ---
Subjective - Date & Time of Evaluation Date of Evaluation: 07/19/18 Time of Evaluation: 12:00 - Subjective Subjective: Feeling better. Objective - Vital Signs/Intake and Output Vital Signs (last 24 hours): Temp Pulse Resp BP Pulse Ox 98.3 F 67 20 98/61 L 100 07/19/18 15:54 07/19/18 17:30 07/19/18 15:54 07/19/18 15:54 07/19/18 15:54 - Medications Medications: Current Medications Folic Acid (Folic Acid) 1 mg PO DAILY [facility] Last Admin: 07/19/18 10:05 Dose: 1 mg Gabapentin (Neurontin) 100 mg PO TID [facility] Last Admin: 07/19/18 17:23 Dose: 100 mg Insulin Human Regular (Novolin R) 0 unit SC [facility]; Protocol Last Admin: 07/19/18 22:18 Dose: Not Given Multivitamins (Hexavitamin) 1 tab PO DAILY [facility] Last Admin: 07/19/18 10:07 Dose: 1 tab Pantoprazole Sodium (Protonix Ec Tab) 40 mg PO BID [facility] Last Admin: 07/19/18 17:24 Dose: 40 mg Thiamine HCl (Vitamin B1 Tab) 100 mg PO DAILY [facility] Last Admin: 07/19/18 10:09 Dose: 100 mg - Labs Labs: 07/15/18 10:38 07/18/18 07:00 PT 13.3 SECONDS (9.7-12.2) H 07/14/18 06:25 INR 1.2 07/14/18 06:25 APTT 40 SECONDS (21-34) H D 07/11/18 06:07 - Head Exam Head Exam: ATRAUMATIC - Eye Exam Eye Exam: Normal appearance - ENT Exam ENT Exam: Mucous Membranes Dry - Respiratory Exam Respiratory Exam: NORMAL BREATHING PATTERN - Cardiovascular Exam Cardiovascular Exam: +S1, +S2 - GI/Abdominal Exam GI & Abdominal Exam: Normal Bowel Sounds Assessment and Plan (1) Pancytopenia Assessment & Plan: resolving secondary to alcohol alcohol cessation Status: Acute (2) Coagulopathy Status: Acute
[2018-07-20] MEDS: (Novolin R) Insulin Human Regular 100 units/ml vial SC SCH ×2 (08:31→12:31)
[2018-07-20 09:29] VITALS: BP 95/59; PULSE 72; TEMP 98.2; O2SAT 96
[2018-07-20] MEDS: Multiple Vitamins Tab PO SCH (09:44)
[2018-07-20] MEDS: Pantoprazole 40 mg EC Tab PO SCH (09:46)
--- NOTE | 2018-07-20 13:17 | CP.PCM.PN ---
Subjective - Date & Time of Evaluation Date of Evaluation: 07/20/18 Time of Evaluation: 13:00 - Subjective Subjective: Patient seen today, states feels better, denies any chest oapin, sob, abdominal pain, N/V/D a ferile vss- stable s/p EGd- severe esophagitis. Due to WILL and alcohol. and REC- [place] diet, no alcohol, PPI BID, repeat EGd 2 months Objective - Vital Signs/Intake and Output Vital Signs (last 24 hours): Temp Pulse Resp BP Pulse Ox 98.2 F 72 20 95/59 L 96 07/20/18 09:27 07/20/18 09:27 07/20/18 09:27 07/20/18 09:27 07/20/18 09:27 - Medications Medications: Current Medications Folic Acid (Folic Acid) 1 mg PO DAILY [facility] Last Admin: 07/20/18 09:43 Dose: 1 mg Gabapentin (Neurontin) 100 mg PO TID [facility] Last Admin: 07/20/18 09:45 Dose: 100 mg Insulin Human Regular (Novolin R) 0 unit SC [facility]; Protocol Last Admin: 07/20/18 12:31 Dose: 6 u Multivitamins (Hexavitamin) 1 tab PO DAILY [facility] Last Admin: 07/20/18 09:44 Dose: 1 tab Pantoprazole Sodium (Protonix Ec Tab) 40 mg PO BID [facility] Last Admin: 07/20/18 09:46 Dose: 40 mg Thiamine HCl (Vitamin B1 Tab) 100 mg PO DAILY [facility] Last Admin: 07/20/18 09:47 Dose: 100 mg - Labs Labs: 07/15/18 10:38 07/18/18 07:00 PT 13.3 SECONDS (9.7-12.2) H 07/14/18 06:25 INR 1.2 07/14/18 06:25 APTT 40 SECONDS (21-34) H D 07/11/18 06:07 Assessment and Plan - Assessment and Plan (Free Text) Assessment: A/P 42 yo male with long history of substance and alcohol abuse admitted with alcohol intoxication, became hypotensive and required mecahnical ventilation extubated and stable s/p EGD severe esophagitis. Due to WILL and alcohol. and REC- [place] diet, no alcohol, PPI BID, repeat EGd 2 months D/w Dr. Jimal ref. detox, recommends detox for first 5 days and is over recommends to f/u with [facility] D/w ara Jang cleared fro discharge home today and f/u with his office on Monday discharge plan discussed with patient who understands and agrees with plan patient instructed to abstain from alcohol and returns to ED symptoms returns SW provided detox information before discharge RX eprescribed to his pharmacy
== END 2018-07-20 14:33 | disposition home or self-care (01) | DRG 882 ==
LOC: C.ER 01:01 → C.9I 01:52 → C.6T 07-16 22:40
PROVIDERS: ADMIT Internal Medicine Nephrology; ATTEND Internal Medicine Nephrology
PROC: 0BH17EZ Insertion of Endotracheal Airway into Trachea, Via Natural or Artificial Opening (ICD-10-PCS; 2018-07-09)
PROC: 5A1945Z Respiratory Ventilation, 24-96 Consecutive Hours (ICD-10-PCS; 2018-07-09)
PROC: 0DB58ZX Excision of Esophagus, Via Natural or Artificial Opening Endoscopic, Diagnostic (ICD-10-PCS; principal; 2018-07-18 14:06)
DX: J96.90 Respiratory failure, unspecified, unspecified whether with hypoxia or hypercapnia (principal); J18.9 Pneumonia, unspecified organism; K72.00 Acute and subacute hepatic failure without coma; N17.0 Acute kidney failure with tubular necrosis; R57.8 Other shock; F10.231 Alcohol dependence with withdrawal delirium; D61.818 Other pancytopenia; E11.65 Type 2 diabetes mellitus with hyperglycemia; E87.1 Hypo-osmolality and hyponatremia; E87.6 Hypokalemia; J98.11 Atelectasis; J90 Pleural effusion, not elsewhere classified; N31.9 Neuromuscular dysfunction of bladder, unspecified; D62 Acute posthemorrhagic anemia; F10.239 Alcohol dependence with withdrawal, unspecified; E86.0 Dehydration; E86.1 Hypovolemia; K92.0 Hematemesis; D68.9 Coagulation defect, unspecified; F32.9 Major depressive disorder, single episode, unspecified; G40.909 Epilepsy, unspecified, not intractable, without status epilepticus; I10 Essential (primary) hypertension; Z51.5 Encounter for palliative care; Z72.0 Tobacco use; K29.70 Gastritis, unspecified, without bleeding; K22.10 Ulcer of esophagus without bleeding; I45.9 Conduction disorder, unspecified; K21.9 Gastro-esophageal reflux disease without esophagitis; K70.10 Alcoholic hepatitis without ascites; B95.8 Unspecified staphylococcus as the cause of diseases classified elsewhere; Y90.0 Blood alcohol level of less than 20 mg/100 ml